=== PATIENT | female | born 1975 | race Caucasian/White ===

== ENCOUNTER 2016-09-05 01:49 | Emergency (ER) | payer OTHER ==
[~2016-09-05 01:49] MED LIST: ACET500C PO; HYDR10T PO; IBUP600T26 PO; NATU400T PO; VITA-112 PO; VITA10002 PO
[2016-09-05] MEDS ORDERED: predniSONE 20 MG TAB As Ordered ONE (02:40)
[2016-09-05] MEDS ORDERED: ALBUTEROL SULFATE 2.5 MG/0.5 ML INH NEB SOLN As Ordered ONE (02:43)
--- NOTE | 2016-09-05 03:46 | EDDOCDS ---
Physician Documentation [facility] Name: Eulalia Martinze Age: 41 yrs Sex: Female : 1975 Arrival Date: 09/05/2016 Time: 01:49 Bed I4 / M4 Private MD: Disposition: 09/05/16 03:39 Discharged to Home/Self Care. Impression: Acute bronchitis. - Condition is Stable. - Prescriptions for Prednisone 20 mg Oral Tablet - take 2 tablet by ORAL route once daily for 5 days; 10 tablet. - Medication Reconciliation, Local Pharmacy Hours form. - Follow up: Private Physician; When: Call to arrange an appointment; Reason: Recheck today's complaints. - Problem is an ongoing problem. - Symptoms have improved. Historical: - Allergies: Aspirin (Hives, Vomit); GABAPENTIN (Hives, Vomit); Latex (Anaphylaxis); NSAIDS (Hives, Swelling); PENICILLINS (Hives, Anaphylaxis); SULFA (SULFONAMIDES) (Hives, Vomit); TETRACYCLINES (Hives, Vomit); - Home Meds: 1. Compazine 5 mg Oral tab 1 tab 4 times per day (Last dose: 09/05/2016 00:01) 2. Potassium Chloride Unknown Oral once daily 3. DILT-XR 180 mg oral CDER 1 cap once daily (Last dose: 09/04/2016 08:00) - PMHx: Migraine Headaches; ovarian cancer; Seizures; - PSHx: Hysterectomy; Cholecystectomy; Appendectomy; Gastric Bypass; Tonsillectomy; Tubes in ears; Adenoidectomy; - Social history: Smoking status: Patient states was never smoker of tobacco. No barriers to communication noted, The patient speaks fluent Kuwaiti, Speaks appropriately for age, Preferred Language: Kuwaiti. - Family history: Not pertinent. - : The pt / caregiver states he / she is not on anticoagulants. Home medication list is obtained from the patient. - Exposure Risk Screening:: None identified. 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 6 in. (167.64 cm); Pain 7/10; 02:30 Pulse 111; Resp 18; Pulse Ox 97% on R/A; lf1 03:42 BP 133 / 79; Pulse 102; Resp 20; Temp 98.1(O); Pulse Ox 100% on R/A; js15 02:01 Body Mass Index 40.35 (113.40 kg, 167.64 cm) lf1 MDM: 02:13 Strep Screen, Nursing ordered. ck7 02:13 Obtain sample by nasopharyngeal swab ordered. ck7 02:15 -Influenza A&B Rapid Antigen - Nose Ordered. EDMS 02:15 Chest, 2 View (pa\E\lat) Ordered. EDMS 02:20 GATS (NEGATIVE STREP SCREEN) Ordered. EDMS 02:27 Financial registration complete. hs2 02:32 [facility] Payment Agreement was scanned into [employer] and attached to record. hs2 02:32 Albuterol 2.5 mg Nebulizer once ordered. ck7 02:32 Call Respiratory ordered. ck7 02:33 Call Respiratory complete. cz 02:36 predniSONE 40 mg PO once; administer with food or milk ordered. ck7 02:43 -Influenza A&B Rapid Antigen - Nose Reviewed. ck7 02:59 Transition of care: After a detail discussion of the patient's case, care is ck7 transferred to ED Physician, Dr. OROZCO. Administered Medications: 02:44 Drug: predniSONE 40 mg [prednisone 20 mg tablet (2 tabs)] Route: PO; js15 02:46 Drug: Albuterol 2.5 mg [albuterol sulfate 2.5 mg/0.5 mL solution for nebulization (0.5 nk1 mL)] Route: Nebulizer; 02:55 Follow up: Response: Nebulizer completed nk1 Signatures: Dispatcher [employer] EDMS Axel Solomon RN RN cz Dotty JenkinsRN RN lf1 Luciana Bynum,RN RN ld5 Augustine Murphy, RPA-C RPA-Cck7 Gopal Orozco DO DO cs11 Teri Dubon,RN RN js15 Virginie Mason, Reg Reg hs2 Beverley Ramirez RT nk1 The chart was reviewed and I authenticate all verbal orders and agree with the evaluation and treatment provided.Attachments: 02:32 [facility] Payment Agreement hs2 MTDD
--- NOTE | 2016-09-05 03:46 | EDDOCDS ---
Nurse's Notes [facility] Name: Eulalia Martinez Age: 41 yrs Sex: Female : 1975 Arrival Date: 09/05/2016 Time: 01:49 Bed I4 / M4 Private MD: Diagnosis: Acute bronchitis Presentation: 09/05 01:55 Presenting complaint: Patient states: Painful productive Cough, headache, backache and lf1 nausea that began yesterday. Pain is currently 6/10. Adult Sepsis Screening: The patient does not have new or worsening altered mentation. Patient's respiratory rate is less than 22. Systolic blood pressure is greater than 100. Patient has a qSOFA score of 0- Negative Sepsis Screen. Suicide/Homicide risk assessment- the patient denies having any suicidal and/or homicidal ideations and does not present with any other emotional, behavioral or mental health complaints. 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 Transition of care: patient was not received from another setting of care. 01:55 Acuity: BARBIE Level 4 lf1 01:55 Method Of Arrival: Walkin/Carried/Asstd lf1 Triage Assessment: 02:01 General: Appears slender, Behavior is cooperative. Pain: Location: Generalized body lf1 aches, headache, back, chest Pain currently is 7 out of 10 on a pain scale. HIV screening NA for this visit Offered previously. Neurological: Level of Consciousness is awake, alert. EENT: No deficits noted. Respiratory: Respiratory effort is even, unlabored, Respiratory pattern is regular, Reports cough that is pain with cough. GI: Reports nausea. : Denies burning with urination, urinary frequency. Derm: Skin is normal. Injury Description: No known injury. 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 Compazine 5 mg Oral tab 1 tab 4 times per day (Last dose: 09/05/2016 00:01) 2. Potassium Chloride Unknown Oral once daily 3. DILT-XR 180 mg oral CDER 1 cap once daily (Last dose: 09/04/2016 08:00) - PMHx: Migraine Headaches; ovarian cancer; Seizures; - PSHx: Hysterectomy; Cholecystectomy; Appendectomy; Gastric Bypass; Tonsillectomy; Tubes in ears; Adenoidectomy; - Social history: Smoking status: Patient states was never smoker of tobacco. No barriers to communication noted, The patient speaks fluent Tuvaluan, Speaks appropriately for age, Preferred Language: Tuvaluan. - Family history: Not pertinent. - : The pt / caregiver states he / she is not on anticoagulants. Home medication list is obtained from the patient. - Exposure Risk Screening:: None identified. Screenin:04 Screening information is obtained from the patient. Fall risk: No risks identified. lf1 Assistance ADL's: requires no assistance with activities of daily living. Abuse/DV Screen: The patient / caregiver reports he/she is: not in a situation that causes fear, pain or injury. Nutritional screening: No deficits noted. Advance Directives: Currently, there is a health care proxy, Dillon Pozo . home support is adequate. Assessment: 02:19 General: Appears uncomfortable, Behavior is cooperative. Pain: Location: body. ld5 Neurological: Level of Consciousness is awake, alert. Respiratory: Airway is patent Respiratory effort is even, unlabored, Reports cough that is productive. GI: Abdomen is obese, Reports dry heaving from coughing. 03:15 General: Appears in no apparent distress, uncomfortable, Behavior is appropriate for js15 age, cooperative. Pain: Location: generalized body aches. Neurological: Level of Consciousness is awake, alert, obeys commands, Oriented to person, place, time. Respiratory: Airway is patent Respiratory effort is even, unlabored, Respiratory pattern is regular, symmetrical, Breath sounds are clear bilaterally. Derm: Skin is pink, warm & dry. Vital Signs: 02:01 BP 167 / 82; Pulse 116; Resp 16; Temp 99.3(TE); Pulse Ox 97% on R/A; Weight 113.4 kg; lf1 Height 5 ft. 6 in. (167.64 cm); Pain 7/10; 02:30 Pulse 111; Resp 18; Pulse Ox 97% on R/A; lf1 03:42 BP 133 / 79; Pulse 102; Resp 20; Temp 98.1(O); Pulse Ox 100% on R/A; js15 02:01 Body Mass Index 40.35 (113.40 kg, 167.64 cm) lf1 Vitals: 02:01 Log In Time: September 05, 2016 at 01:52. lf1 02:19 Strep Screen is obtained and tested: Negative, a GATSNEG culture is ordered in [facility] ld5 and sent. ED Course: 01:51 Patient visited by Virginie Mason Reg. hs2 01:51 Patient moved to Waiting hs2 01:57 Triage Initiated lf1 02:05 Augustine Murphy RPA-C is PHCP. ck7 02:05 Gopal Santos DO is Attending Physician. ck7 02:05 Patient visited by Augustine Murphy RPA-C. ck7 02:05 Patient moved to I4 / M4 lf1 02:18 -Influenza A&B Rapid Antigen - Nose Sent. ld5 02:20 Patient visited by Luciana Bynum RN. ld5 02:22 Patient moved to Radiology tmb 02:30 Patient moved to I4 / M4 ld5 02:32 [facility] Payment Agreement was scanned into [employer] and attached to record. hs2 02:55 Patient visited by Augustine Murphy RPA-C. ck7 03:31 The patient / caregiver is instructed regarding the plan of care and ED course. js15 03:42 No IV's were initiated during this patient's visit. No procedures done that require js15 assistance. Administered Medications: 02:44 Drug: predniSONE 40 mg [prednisone 20 mg tablet (2 tabs)] Route: PO; js15 02:46 Drug: Albuterol 2.5 mg [albuterol sulfate 2.5 mg/0.5 mL solution for nebulization (0.5 nk1 mL)] Route: Nebulizer; 02:55 Follow up: Response: Nebulizer completed nk1 RT: 02:53 Initial Med Neb Given as ordered Patient was instructed and evaluated on procedure nk1 Patient tolerated procedure well without adverse effect. Respiratory: Airway is patent Respiratory effort is even, unlabored, Respiratory pattern is regular symmetrical, Breath sounds are clear Breath sounds are diminished bilaterally. Reports cough that is productive of white sputum. Patient Education: instructed on use and benefit of nebulizer and medication. 03:30 Respiratory: Breath sounds are clear Breath sounds are diminished bilaterally. patient nk1 states " maybe a little improvement" after neb treatment. Order Results: Lab Order: -Influenza A&B Rapid Antigen - Nose; SPEC'M 09/05/16 02:16 Test: INFLUENZA A RAPID SCR by ICA; Value: INFLUENZA A RESULTS NEGATIVE; Status: F Test: INFLUENZA A RAPID SCR by ICA; Value: Comments:; Status: F Test: INFLUENZA B RAPID SCR by ICA; Value: INFLUENZA B RESULTS NEGATIVE; Status: F Test Note: ; The Influenza test is a direct rapid immunoassay for the qualitative detection of Influenza viral antigen. Cell culture (Viral Culture) testing should be considered to confirm NEGATIVE results and to assist in detecting other viruses that can provide similar clinical symptoms. Please contact the lab within 24 hours ([phone]) if confirmatory testing is desired. Outcome: 03:39 Discharge ordered by Provider. cs11 03:45 Discharge Assessment: Patient awake, alert and oriented x 3. No cognitive and/or js15 functional deficits noted. Patient verbalized understanding of disposition instructions. patient administered narcotics - no. The following High Risk Discharge criteria are identified: None. Discharged to home ambulatory. Condition: stable. Discharge instructions given to patient, Instructed on discharge instructions, follow up and referral plans. medication usage, Demonstrated understanding of instructions, medications, Pt was receptive of discharge instructions/ teaching. Prescriptions given X 1. No special radiology studies were completed. Property sent home with patient. 03:46 Patient left the ED. js15 Signatures: Beverley Ramirez,RT RT nk1 Dotty JenkinsRN RN lf1 Luciana Bynum,RN RN ld5 Augustine Murphy, SIMRAN-C RPA-Cck7 Gopal Santos, DO cs11 Ken Kign Julia, RN RN js15 Virginie Mason, Reg Reg hs2 Corrections: (The following items were deleted from the chart) 02:03 01:55 Presenting complaint: Patient states: Painful productive Cough, headache, lf1 backache that began yesterday. Pain is currently 12/16 lf1 MTDD
--- NOTE | 2016-09-05 10:12 | REP ---
TWO-VIEW CHEST: COMPARISON: 06/26/2016 There is no evidence of acute infiltrate. No pleural effusion is seen. The heart is normal in size. The mediastinal silhouette is unremarkable. The visualized osseous structures are intact. IMPRESSION: No acute pulmonary disease. Signed by Sotero Nice MD 09/05/2016 04:52 P
[2016-09-06] MEDS ORDERED: POTASSIUM CL (17:21)
[2016-09-06] MEDS ORDERED: DILT180C28 PO (17:21)
[2016-09-06] MEDS ORDERED: PRED20TA PO ×2 (17:21→22:15)
[2016-09-06] MEDS ORDERED: compazine (17:21)
[2016-09-06] MEDS ORDERED: ZOFR4TAB3 PO (17:21)
[2016-09-06] MEDS ORDERED: PROC5TA PO (22:15)
[2016-09-06] MEDS ORDERED: ACET50TAOT PO (22:15)
[2016-09-06] MEDS ORDERED: NYST100024 TOP (22:15)
[2016-09-06] MEDS ORDERED: POTA10CA PO (22:15)
--- NOTE | 2016-09-07 04:47 | EDDOCDS ---
Nurse's Notes [facility] Name: Eulalia Martinez Age: 41 yrs Sex: Female : 1975 Arrival Date: 09/05/2016 Time: 01:49 Bed I4 / M4 Private MD: Diagnosis: Acute bronchitis Presentation: 09/05 01:55 Presenting complaint: Patient states: Painful productive Cough, headache, backache and lf1 nausea that began yesterday. Pain is currently 6/10. Adult Sepsis Screening: The patient does not have new or worsening altered mentation. Patient's respiratory rate is less than 22. Systolic blood pressure is greater than 100. Patient has a qSOFA score of 0- Negative Sepsis Screen. Suicide/Homicide risk assessment- the patient denies having any suicidal and/or homicidal ideations and does not present with any other emotional, behavioral or mental health complaints. 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 Transition of care: patient was not received from another setting of care. 01:55 Acuity: BARBIE Level 4 lf1 01:55 Method Of Arrival: Walkin/Carried/Asstd lf1 Triage Assessment: 02:01 General: Appears slender, Behavior is cooperative. Pain: Location: Generalized body lf1 aches, headache, back, chest Pain currently is 7 out of 10 on a pain scale. HIV screening NA for this visit Offered previously. Neurological: Level of Consciousness is awake, alert. EENT: No deficits noted. Respiratory: Respiratory effort is even, unlabored, Respiratory pattern is regular, Reports cough that is pain with cough. GI: Reports nausea. : Denies burning with urination, urinary frequency. Derm: Skin is normal. Injury Description: No known injury. 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 Compazine 5 mg Oral tab 1 tab 4 times per day (Last dose: 09/05/2016 00:01) 2. Potassium Chloride Unknown Oral once daily 3. DILT-XR 180 mg oral CDER 1 cap once daily (Last dose: 09/04/2016 08:00) - PMHx: Migraine Headaches; ovarian cancer; Seizures; - PSHx: Hysterectomy; Cholecystectomy; Appendectomy; Gastric Bypass; Tonsillectomy; Tubes in ears; Adenoidectomy; - Social history: Smoking status: Patient states was never smoker of tobacco. No barriers to communication noted, The patient speaks fluent Lithuanian, Speaks appropriately for age, Preferred Language: Lithuanian. - Family history: Not pertinent. - : The pt / caregiver states he / she is not on anticoagulants. Home medication list is obtained from the patient. - Exposure Risk Screening:: None identified. Screenin:04 Screening information is obtained from the patient. Fall risk: No risks identified. lf1 Assistance ADL's: requires no assistance with activities of daily living. Abuse/DV Screen: The patient / caregiver reports he/she is: not in a situation that causes fear, pain or injury. Nutritional screening: No deficits noted. Advance Directives: Currently, there is a health care proxy, Dillon Pozo . home support is adequate. Assessment: 02:19 General: Appears uncomfortable, Behavior is cooperative. Pain: Location: body. ld5 Neurological: Level of Consciousness is awake, alert. Respiratory: Airway is patent Respiratory effort is even, unlabored, Reports cough that is productive. GI: Abdomen is obese, Reports dry heaving from coughing. 03:15 General: Appears in no apparent distress, uncomfortable, Behavior is appropriate for js15 age, cooperative. Pain: Location: generalized body aches. Neurological: Level of Consciousness is awake, alert, obeys commands, Oriented to person, place, time. Respiratory: Airway is patent Respiratory effort is even, unlabored, Respiratory pattern is regular, symmetrical, Breath sounds are clear bilaterally. Derm: Skin is pink, warm & dry. Vital Signs: 02:01 BP 167 / 82; Pulse 116; Resp 16; Temp 99.3(TE); Pulse Ox 97% on R/A; Weight 113.4 kg; lf1 Height 5 ft. 6 in. (167.64 cm); Pain 7/10; 02:30 Pulse 111; Resp 18; Pulse Ox 97% on R/A; lf1 03:42 BP 133 / 79; Pulse 102; Resp 20; Temp 98.1(O); Pulse Ox 100% on R/A; js15 02:01 Body Mass Index 40.35 (113.40 kg, 167.64 cm) lf1 Vitals: 02:01 Log In Time: September 05, 2016 at 01:52. lf1 02:19 Strep Screen is obtained and tested: Negative, a GATSNEG [facility] and sent. ED Course: 01:51 Patient visited by Virginie Mason Reg. hs2 01:51 Patient moved to Waiting hs2 01:57 Triage Initiated lf1 02:05 Augustine Murphy RPA-C is PHCP. ck7 02:05 Gopal Santos DO is Attending Physician. ck7 02:05 Patient visited by Augustine Murphy RPA-C. ck7 02:05 Patient moved to I4 / M4 lf1 02:18 -Influenza A&B Rapid Antigen - Nose Sent. ld5 02:20 Patient visited by Luciana Bynum RN. ld5 02:22 Patient moved to Radiology tmb 02:30 Patient moved to I4 / M4 ld5 02:32 [facility] Payment Agreement was scanned into [employer] and attached to record. hs2 02:55 Patient visited by Augustine Murphy RPA-C. ck7 03:31 The patient / caregiver is instructed regarding the plan of care and ED course. js15 03:42 No IV's were initiated during this patient's visit. No procedures done that require js15 assistance. 10:42 Chest, 2 View (pa\\E\\lat) Returned. EDMS Administered Medications: 02:44 Drug: predniSONE 40 mg [prednisone 20 mg tablet (2 tabs)] Route: PO; js15 02:46 Drug: Albuterol 2.5 mg [albuterol sulfate 2.5 mg/0.5 mL solution for nebulization (0.5 nk1 mL)] Route: Nebulizer; 02:55 Follow up: Response: Nebulizer completed nk1 RT: 02:53 Initial Med Neb Given as ordered Patient was instructed and evaluated on procedure nk1 Patient tolerated procedure well without adverse effect. Respiratory: Airway is patent Respiratory effort is even, unlabored, Respiratory pattern is regular symmetrical, Breath sounds are clear Breath sounds are diminished bilaterally. Reports cough that is productive of white sputum. Patient Education: instructed on use and benefit of nebulizer and medication. 03:30 Respiratory: Breath sounds are clear Breath sounds are diminished bilaterally. patient nk1 states " maybe a little improvement" after neb treatment. Order Results: Lab Order: -Influenza A&B Rapid Antigen - Nose; SPEC'M 09/05/16 02:16 Test: INFLUENZA A RAPID SCR by ICA; Value: INFLUENZA A RESULTS NEGATIVE; Status: F Test: INFLUENZA A RAPID SCR by ICA; Value: Comments:; Status: F Test: INFLUENZA B RAPID SCR by ICA; Value: INFLUENZA B RESULTS NEGATIVE; Status: F Test Note: ; The Influenza test is a direct rapid immunoassay for the qualitative detection of Influenza viral antigen. Cell culture (Viral Culture) testing should be considered to confirm NEGATIVE results and to assist in detecting other viruses that can provide similar clinical symptoms. Please contact the lab within 24 hours ([phone]) if confirmatory testing is desired. Lab Order: GATS (NEGATIVE STREP SCREEN); SPEC'M 09/05/16 02:16 Test: GATS CULTURE (NEG STREP SCR); Value: GATS RESULT NEGATIVE FOR STREP PYOGENES (GROUP A); Status: F Test: GATS CULTURE (NEG STREP SCR); Value: <EXTERNAL COMMENT eCWMed> FULL REPORT IN LAB NOTES (eCW and Medent).; Status: F Radiology Order: Chest, 2 View (pa\\E\\lat) Test: Chest, 2 View (pa\\E\\lat) REASON FOR EXAMINATION: Cough; TWO-VIEW CHEST:; ; COMPARISON: 06/26/2016; ; There is no evidence of acute infiltrate.; ; No pleural effusion is seen.; ; The heart is normal in size.; ; The mediastinal silhouette is unremarkable.; ; The visualized osseous structures are intact.; ; IMPRESSION:; ; No acute pulmonary disease.; ; ; Signed by; Sotero Nice MD 09/05/2016 04:52 P; Outcome: 03:39 Discharge ordered by Provider. cs11 03:45 Discharge Assessment: Patient awake, alert and oriented x 3. No cognitive and/or js15 functional deficits noted. Patient verbalized understanding of disposition instructions. patient administered narcotics - no. The following High Risk Discharge criteria are identified: None. Discharged to home ambulatory. Condition: stable. Discharge instructions given to patient, Instructed on discharge instructions, follow up and referral plans. medication usage, Demonstrated understanding of instructions, medications, Pt was receptive of discharge instructions/ teaching. Prescriptions given X 1. No special radiology studies were completed. Property sent home with patient. 03:46 Patient left the ED. js15 Signatures: Dispatcher [employer] EDMS Beverley Ramirez,RT RT nk1 Dotty Jenkins,RN RN lf1 Luciana Bynum,RN RN ld5 Augustine Murphy, RPA-C RPA-Cck7 Gopal Santos, DO cs11 Ken King Julia,RN RN js15 Virginie Mason, Reg Reg hs2 Corrections: (The following items were deleted from the chart) 02:03 01:55 Presenting complaint: Patient states: Painful productive Cough, headache, lf1 backache that began yesterday. Pain is currently 6/10 lf1 Chart Complete MTDD
--- NOTE | 2016-09-07 04:47 | EDDOCDS ---
Physician Documentation [facility] Name: Eulalia Martinez Age: 41 yrs Sex: Female : 1975 Arrival Date: 09/05/2016 Time: 01:49 Bed I4 / M4 Private MD: Disposition: 09/05/16 03:39 Discharged to Home/Self Care. Impression: Acute bronchitis. - Condition is Stable. - Prescriptions for Prednisone 20 mg Oral Tablet - take 2 tablet by ORAL route once daily for 5 days; 10 tablet. - Medication Reconciliation, Local Pharmacy Hours form. - Follow up: Private Physician; When: Call to arrange an appointment; Reason: Recheck today's complaints. - Problem is an ongoing problem. - Symptoms have improved. Historical: - Allergies: Aspirin (Hives, Vomit); GABAPENTIN (Hives, Vomit); Latex (Anaphylaxis); NSAIDS (Hives, Swelling); PENICILLINS (Hives, Anaphylaxis); SULFA (SULFONAMIDES) (Hives, Vomit); TETRACYCLINES (Hives, Vomit); - Home Meds: 1. Compazine 5 mg Oral tab 1 tab 4 times per day (Last dose: 09/05/2016 00:01) 2. Potassium Chloride Unknown Oral once daily 3. DILT-XR 180 mg oral CDER 1 cap once daily (Last dose: 09/04/2016 08:00) - PMHx: Migraine Headaches; ovarian cancer; Seizures; - PSHx: Hysterectomy; Cholecystectomy; Appendectomy; Gastric Bypass; Tonsillectomy; Tubes in ears; Adenoidectomy; - Social history: Smoking status: Patient states was never smoker of tobacco. No barriers to communication noted, The patient speaks fluent Somali, Speaks appropriately for age, Preferred Language: Somali. - Family history: Not pertinent. - : The pt / caregiver states he / she is not on anticoagulants. Home medication list is obtained from the patient. - Exposure Risk Screening:: None identified. 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 6 in. (167.64 cm); Pain 7/10; 02:30 Pulse 111; Resp 18; Pulse Ox 97% on R/A; lf1 03:42 BP 133 / 79; Pulse 102; Resp 20; Temp 98.1(O); Pulse Ox 100% on R/A; js15 02:01 Body Mass Index 40.35 (113.40 kg, 167.64 cm) lf1 MDM: 02:13 Strep Screen, Nursing ordered. ck7 02:13 Obtain sample by nasopharyngeal swab ordered. ck7 02:15 -Influenza A&B Rapid Antigen - Nose Ordered. EDMS 02:15 Chest, 2 View (pa\E\lat) Ordered. EDMS 02:20 GATS (NEGATIVE STREP SCREEN) Ordered. EDMS 02:27 Financial registration complete. hs2 02:32 [facility] Payment Agreement was scanned into [employer] and attached to record. hs2 02:32 Albuterol 2.5 mg Nebulizer once ordered. ck7 02:32 Call Respiratory ordered. ck7 02:33 Call Respiratory complete. cz 02:36 predniSONE 40 mg PO once; administer with food or milk ordered. ck7 02:43 -Influenza A&B Rapid Antigen - Nose Reviewed. ck7 02:59 Transition of care: After a detail discussion of the patient's case, care is ck7 transferred to ED Physician, Dr. OROZCO. 09/06 20:49 GATS (NEGATIVE STREP SCREEN) Reviewed. ck7 20:49 Chest, 2 View (pa\E\lat) Reviewed. ck7 Administered Medications: 09/05 02:44 Drug: predniSONE 40 mg [prednisone 20 mg tablet (2 tabs)] Route: PO; js15 02:46 Drug: Albuterol 2.5 mg [albuterol sulfate 2.5 mg/0.5 mL solution for nebulization (0.5 nk1 mL)] Route: Nebulizer; 02:55 Follow up: Response: Nebulizer completed nk1 Signatures: Dispatcher [employer] EDMS Axel Solomon RN RN Dotty PerezRN RN lf1 Luciana Bynum,RN RN ld5 Augustine Murphy, RPA-C RPA-Cck7 Gopal Orozco, DO cs11 Teri DubonRN RN js15 Virginie Mason, Reg Reg hs2 Ashley, Beverley RT nk1 The chart was reviewed and I authenticate all verbal orders and agree with the evaluation and treatment provided.Attachments: 02:32 [facility] [place] hs2 Chart Complete MTDD
--- NOTE | 2016-09-07 04:47 | EDDOCDS ---
Physician Documentation [facility] Name: Eulalia Martinez Age: 41 yrs Sex: Female : 1975 Arrival Date: 09/05/2016 Time: 01:49 Bed I4 / M4 Private MD: Disposition: 09/05/16 03:39 Discharged to Home/Self Care. Impression: Acute bronchitis. - Condition is Stable. - Prescriptions for Prednisone 20 mg Oral Tablet - take 2 tablet by ORAL route once daily for 5 days; 10 tablet. - Medication Reconciliation, Local Pharmacy Hours form. - Follow up: Private Physician; When: Call to arrange an appointment; Reason: Recheck today's complaints. - Problem is an ongoing problem. - Symptoms have improved. Historical: - Allergies: Aspirin (Hives, Vomit); GABAPENTIN (Hives, Vomit); Latex (Anaphylaxis); NSAIDS (Hives, Swelling); PENICILLINS (Hives, Anaphylaxis); SULFA (SULFONAMIDES) (Hives, Vomit); TETRACYCLINES (Hives, Vomit); - Home Meds: 1. Compazine 5 mg Oral tab 1 tab 4 times per day (Last dose: 09/05/2016 00:01) 2. Potassium Chloride Unknown Oral once daily 3. DILT-XR 180 mg oral CDER 1 cap once daily (Last dose: 09/04/2016 08:00) - PMHx: Migraine Headaches; ovarian cancer; Seizures; - PSHx: Hysterectomy; Cholecystectomy; Appendectomy; Gastric Bypass; Tonsillectomy; Tubes in ears; Adenoidectomy; - Social history: Smoking status: Patient states was never smoker of tobacco. No barriers to communication noted, The patient speaks fluent Argentine, Speaks appropriately for age, Preferred Language: Argentine. - Family history: Not pertinent. - : The pt / caregiver states he / she is not on anticoagulants. Home medication list is obtained from the patient. - Exposure Risk Screening:: None identified. 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 6 in. (167.64 cm); Pain 7/10; 02:30 Pulse 111; Resp 18; Pulse Ox 97% on R/A; lf1 03:42 BP 133 / 79; Pulse 102; Resp 20; Temp 98.1(O); Pulse Ox 100% on R/A; js15 02:01 Body Mass Index 40.35 (113.40 kg, 167.64 cm) lf1 MDM: 02:13 Strep Screen, Nursing ordered. ck7 02:13 Obtain sample by nasopharyngeal swab ordered. ck7 02:15 -Influenza A&B Rapid Antigen - Nose Ordered. EDMS 02:15 Chest, 2 View (pa\E\lat) Ordered. EDMS 02:20 GATS (NEGATIVE STREP SCREEN) Ordered. EDMS 02:27 Financial registration complete. hs2 02:32 [facility] Payment Agreement was scanned into [employer] and attached to record. hs2 02:32 Albuterol 2.5 mg Nebulizer once ordered. ck7 02:32 Call Respiratory ordered. ck7 02:33 Call Respiratory complete. cz 02:36 predniSONE 40 mg PO once; administer with food or milk ordered. ck7 02:43 -Influenza A&B Rapid Antigen - Nose Reviewed. ck7 02:59 Transition of care: After a detail discussion of the patient's case, care is ck7 transferred to ED Physician, Dr. OROZCO. 09/06 20:49 GATS (NEGATIVE STREP SCREEN) Reviewed. ck7 20:49 Chest, 2 View (pa\E\lat) Reviewed. ck7 Administered Medications: 09/05 02:44 Drug: predniSONE 40 mg [prednisone 20 mg tablet (2 tabs)] Route: PO; js15 02:46 Drug: Albuterol 2.5 mg [albuterol sulfate 2.5 mg/0.5 mL solution for nebulization (0.5 nk1 mL)] Route: Nebulizer; 02:55 Follow up: Response: Nebulizer completed nk1 Signatures: Dispatcher [employer] EDMS Axel Solomon RN RN Dotty PerezRN RN lf1 Luciana Bynum,RN RN ld5 Augustine Murphy, RPA-C RPA-Cck7 Gopal Orozco, DO cs11 Teri DubonRN RN js15 Virginie Mason, Reg Reg hs2 Ashley, Beverley RT nk1 The chart was reviewed and I authenticate all verbal orders and agree with the evaluation and treatment provided.Attachments: 02:32 [facility] [place] Payment Agreement hs2 Chart Complete MTDD
== END 2016-09-05 03:46 | disposition home or self-care (01) ==
LOC: M ED 01:49
DX: J20.9 Acute bronchitis, unspecified (principal); G43.909 Migraine, unspecified, not intractable, without status migrainosus; R56.9 Unspecified convulsions; Z85.43 Personal history of malignant neoplasm of ovary; Z88.6 Allergy status to analgesic agent; Z88.8 Allergy status to other drugs, medicaments and biological substances; Z91.040 Latex allergy status; Z88.0 Allergy status to penicillin; Z88.2 Allergy status to sulfonamides; Z88.1 Allergy status to other antibiotic agents; Z98.84 Bariatric surgery status

== ENCOUNTER 2016-09-06 17:09 | Inpatient (IN) | payer BC, OTHER, SELFPAY ==
[~2016-09-06] VITALS: Ht 167.6 cm; Wt 114.2 kg
[~2016-09-06 17:09] MED LIST changes: -ACET50TAOT PO; -CHERSYP3 PO; -DILT180C28 PO; -DOXY100C37 PO; -HYDR-3713; -LEVA750T PO; -LISI-542 PO; -MUCI600T34 PO; -NYST100024 TOP; -OSEL75CA2 PO; -POTA10CA PO; -POTASSIUM CL; -PRED20TA PO; -PROC5TA PO; -ZOFR4TAB3 PO; -compazine
[2016-09-06] MEDS ORDERED: DILT180C28 PO (17:21)
[2016-09-06] MEDS ORDERED: compazine (17:21)
[2016-09-06] MEDS ORDERED: PRED20TA PO ×2 (17:21→22:15)
[2016-09-06] MEDS ORDERED: ZOFR4TAB3 PO (17:21)
[2016-09-06] MEDS ORDERED: POTASSIUM CL (17:21)
[2016-09-06] MEDS ORDERED: NS 1,000 ML IV ONE (18:30)
[2016-09-06] MEDS ORDERED: ONDANSETRON 4MG/2ML VIAL (J2405) IV ONE (18:30)
[2016-09-06 19:12] LABS: BASO % 0.5 % (0.0-1.0); LARGE UNSTAINED CELL # 0.1 K/mm3 (0.0-0.4); LARGE UNSTAINED CELL % 1.9 % (0.0-4.0); LYMPH # 0.7 K/mm3 (1.5-4.5); LYMPH % 19.7 % (24.0-44.0); MEAN CORPUSCULAR HEMOGLOBIN 30.7 pg (27.0-33.0); MEAN CORPUSCULAR HGB CONC 34.5 g/dl (32.0-36.5); MONO # 0.4 K/mm3 (0.0-0.8); MONO % 10.2 % (0.0-5.0); NEUTROPHILS # 2.3 K/mm3 (1.8-7.7); NEUTROPHILS % 66.8 % (36.0-66.0); PLATELET COUNT, AUTOMATED 259 k/mm3 (150-450); RED CELL DISTRIBUTION WIDTH 13.5 % (11.5-14.5); WHITE BLOOD COUNT 3.4 K/mm3 (4.0-10.0)
[2016-09-06 19:48] LABS: ALBUMIN 3.7 GM/DL (3.2-5.2); ALKALINE PHOSPHATASE 93 U/L (45-117); ALT/SGPT 25 U/L (12-78); ANION GAP 7 MEQ/L (8-16); AST/SGOT 20 U/L (15-37); BILIRUBIN,DIRECT < 0.1 MG/DL (0.0-0.2); BILIRUBIN,TOTAL 0.3 MG/DL (0.2-1.0); BLOOD UREA NITROGEN 7 MG/DL (7-18); CALCIUM LEVEL 8.5 MG/DL (8.5-10.1); CARBON DIOXIDE LEVEL 29 MEQ/L (21-32); CHLORIDE LEVEL 105 MEQ/L (98-107); CREATININE FOR GFR 0.84 MG/DL (0.55-1.02); GLOMERULAR FILTRATION RATE > 60.0 (>58); GLUCOSE, FASTING 89 MG/DL (70-105); POTASSIUM SERUM 3.7 MEQ/L (3.5-5.1); SODIUM LEVEL 141 MEQ/L (136-145); TOTAL PROTEIN 7.8 GM/DL (6.4-8.2)
--- NOTE | 2016-09-06 19:52 | ECGEPIP ---
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
[2016-09-06] MEDS ORDERED: OSELTAMIVIR PHOSPHATE 75 MG CAP (TAMIFLU) PO ONE (21:00)
[2016-09-06] MEDS ORDERED: LevoFLOXacin IV 750 MG in APPROPRIATE DILUENT 1 EA IV ONE (21:00)
[2016-09-06] MEDS ORDERED: ACET50TAOT PO (22:15)
[2016-09-06] MEDS ORDERED: NYST100024 TOP (22:15)
[2016-09-06] MEDS ORDERED: POTA10CA PO (22:15)
[2016-09-06] MEDS ORDERED: PROC5TA PO (22:15)
[2016-09-06] MEDS ORDERED: guaiFENesin/CODEINE SYRUP 5 ML UDC PO ONE (22:45)
[2016-09-07] MEDS ORDERED: PROCHLORPERAZINE 5 MG TAB (S0183) PO PRN
[2016-09-07] MEDS ORDERED: ONDANSETRON 4 MG TAB (S0181) PO PRN
[2016-09-07 00:40] VITALS: BP 136/78
[2016-09-07] MEDS: ACETAMINOPHEN TAB 650MG DOSE (2X325MG) PO PRN ×4 (02:44→20:22)
--- NOTE | 2016-09-07 03:37 | HPEPDOC ---
General Date of Admission Sep 06, 2016 at 23:13 Primary Care Physician: ALESSANDRA CUNNINGHAM DO Attending Physician: SAMI BALDWIN DO Chief Complaint The patient is a 41-year-old female admitted with a reason for visit of Influenza A. Source: Patient History of Present Illness Patient was in a usual state of good health until Sunday when she started having a cough. The cough worsened into Sunday. The cough is productive of clear sputum. The patient complains of fevers and chills which have also started around that time. She felt increasingly tired on Sunday and also had body aches throughout. Also reports a headache. Patient complained of nausea today with 5-6 episodes of vomiting. Contents of vomit were food and phlegm. Denies seeing bile, or blood. She has had harder stools recently and denies diarrhea. Her last meal was 2 PM today, but was unable to keep down. She has been keeping hydrated and tolerating liquids. She also has nasal congestion. She has some chest discomfort and shortness of breath when she is coughing, otherwise denies sustained shortness of breath or chest pain. She has some complaints of dizziness in the last several days where she describes episodes where the room was spinning around her. The patient also reports having 2 episodes of passing out since yesterday. In the first episode, she fell forward while sitting on her couch. Episode lasted for a few seconds. No loss of bowel or urine. No changes in memory afterwards. She denies any head trauma with the episode. Patient had another episode of passing out where she recalls coughing and waking up with her roommate supporting her with a wet cloth on her forehead on the living room floor. This was unwitnessed, does not recall how long she was out. Denies any trauma from the second episode. Patient was treated in the emergency department yesterday. Was diagnosed with bronchitis, and was started on oral prednisone. Patient saw her primary care physician today, and was told to return to the emergency department. In the emergency department today, patient was diagnosed with influenza a on rapid flu screen. She had a temperature of 100.2 at the time of presentation. A chest x-ray was also taken in the emergency department which showed some minor patchy airspace density in the right medial base, minor subsegmental atelectasis or early patchy infiltrate, no dense consolidation, no pleural effusion. There was some peribronchial thickening which was suggestive of reactive airway disease or bronchitis. Home Medications Scheduled Diltiazem HCl (Dilt-Xr) 180 Mg Cap 180 MG PO DAILY (Reported) Potassium Chloride (Klor-Con M10) 10 Meq Tabcr 10 MEQ PO DAILY (Reported) Prednisone (Prednisone) 20 Mg Tab 20 MG PO DAILY (Reported) Scheduled PRN Acetaminophen (Acetaminophen) 500 Mg Tab 1,000 MG PO Q6H PRN PRN PAIN / FEVER ( Reported) Nystatin (Nystatin Powder) 100,000 Unit/Gm Pow 1 DOSE TOP BID PRN PRN RASH/ INFECTION (Reported) APPLIES TO SKINFOLDS ON ABDOMEN Ondansetron (Zofran Odt) 4 Mg Tab 4 MG PO Q4H PRN PRN NAUSEA (Reported) Prochlorperazine (Prochlorperazine Maleate) 5 Mg Tab 5 MG PO Q6H PRN PRN NAUSEA (Reported) Allergies Coded Allergies: Latex (Verified Allergy, Severe, Anaphylaxis, 07/30/14) Mushroom (Verified Allergy, Severe, Anaphylaxis, 07/30/14) Penicillins (Verified Allergy, Severe, Anaphylaxis, 07/30/14) NSAIDs (Unverified Allergy, Intermediate, HIVES, SWELLING, 09/06/16) Gabapentin (Verified Allergy, Mild, Hives, 07/30/14) Sulfa Antibiotics (Verified Allergy, Mild, Hives, 07/30/14) Tetracycline (Verified Allergy, Mild, Hives, 07/30/14) Past Medical History Medical History Esophageal spasms Ovarian cancer status post hysterectomy with bilateral oophorectomy Surgical History Philipp-en-Y 2012 Appendectomy 1992 Cholecystectomy 2001 Hysterectomy with bilateral oophorectomy 2006 Tonsillectomy Family History Significant Family History: No pertinent family hx Social History * Smoker: non-smoker Alcohol: rarely Drugs: denies Recent Travel/Sick Contacts: Denies: Recent travel Lives with roommate they have 2 dogs. 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 Reports boyfriend having bronchitis one week ago, otherwise no other sick contacts. Review of Symptoms Constitutional: Reports: Chills, Fever, Malaise, Denies: Night Sweats ENT: Reports: Ear Pain (pressure in her ears), Sore Throat Skin: Denies: Breakdown, Lesions, Rash Pulmonary: Reports: Cough, Denies: Dyspnea Cardiovascular: Denies: Edema, Orthopnea, Palpitations Gastrointestinal: Reports: Nausea, Vomiting, Denies: Abdominal Pain, Constipation, Diarrhea, Hematochezia Genitourinary: Denies: Dysuria, Frequency, Hematuria, Incontinence, Retention Hematologic: Denies: Bleeding Excessively, Bruising Musculoskeletal: Reports: Other Symptoms (generalized body aches) Physical Examination General Exam: Positive: Alert, No Acute Distress Eye Exam: Positive: Conjunctiva & lids normal, EOMI, PERRLA, Negative: Sclera icteric ENT Exam: Positive: Mucous membr. moist/pink, Nares Patent, Tongue Midline, Negative: Pharyngeal Edema, Tympanic Membranes Normal (tympanic membranes appear retracted.) Neck Exam: Positive: Supple, Negative: JVD, Lymphadenopathy, thyromegaly Chest Exam: Positive: Clear to auscultation, Normal air movement Heart Exam: Positive: Normal S1, Normal S2, Rate Normal, Regular Rhythm, Negative: Murmurs, Rubs Abdomen Exam: Positive: Normal bowel sounds, Soft, Negative: Hepatospenomegaly, Tenderness Extremity Exam: Positive: Normal pulses, Negative: Clubbing, Cyanosis, Edema Skin Exam: Positive: Nl turgor and temperature, Negative: Breakdown, Lesion Vital Signs Vital Signs Label Value Date Time Patient Temperature 100.2 degrees F 09/06/161709 Temperature Source Oral 09/06/161709 Pulse 103 09/06/161709 Respiratory Rate 20 bpm 09/06/161709 Blood Pressure Assessment 148/89 (108) 09/06/161709 Location Right Arm Source Automatic Cuff (NIBP) Bedside Pulse Oximetry 98 % 09/06/161709 Item Value Date Time Oxygen Delivery Method Room Air 09/06/161709 Laboratory Data Labs 24H Laboratory Tests 2 09/06/16 18:57: Aspartate Amino Transf (AST/SGOT) 20, Alanine Aminotransferase (ALT/SGPT) 25, Alkaline Phosphatase 93, Total Bilirubin 0.3, Direct Bilirubin < 0.1, Albumin 3.7, Albumin/Globulin Ratio 0.90L, Anion Gap 7L, White Blood Count 3.4L, Red Blood Count 4.64, Hemoglobin 14.2, Hematocrit 41.3, Mean Corpuscular Volume 89.0 , Mean Corpuscular Hemoglobin 30.7, Mean Corpuscular Hemoglobin Concent 34.5, Red Cell Distribution Width 13.5, Platelet Count 259, Neutrophils (%) (Auto) 66.8H, Lymphocytes (%) (Auto) 19.7L, Monocytes (%) (Auto) 10.2H, Eosinophils (% ) (Auto) 1.0, Basophils (%) (Auto) 0.5, Neutrophils # (Auto) 2.3, Lymphocytes # (Auto) 0.7L, Monocytes # (Auto) 0.4, Eosinophils # (Auto) 0.0, Basophils # (Auto ) 0.0, Calcium Level 8.5, Creatine Kinase MB 1.0, Creatine Kinase MB Relative Index 1.12, D-Dimer, Quantitative < 270.0, Glomerular Filtration Rate > 60.0, Large Unclassified Cells # 0.1, Large Unclassified Cells % 1.9, Total Creatine Kinase 89, Total Protein 7.8, Troponin I < 0.02 09/06/16 20:12: Urine Amorphous Sediment , Urine Appearance CLEAR, Urine Color YELLOW, Urine pH 6.0, Urine Specific [place] 1.020, Urine Protein NEGATIVE, Urine Glucose (UA) NEGATIVE, Urine Ketones NEGATIVE, Urine Urobilinogen 2.0H, Urine Bilirubin NEGATIVE, Urine Leukocyte Esterase NEGATIVE, Urine Bacteria (Auto) NEGATIVE, Urine Blood NEGATIVE, Urine Calcium Carbonate Cryst(Auto) , Urine Calcium Oxalate Cryst (Auto) , Urine Calcium Phosphate Malorie (Auto) , Urine Cellular Casts , Urine Cystine Crystals , Urine Granular Casts (Auto) , Urine Hyaline Casts (Auto) 0, Urine Leucine Crystals , Urine Mucus (Auto) SMALL, Urine Nitrite NEGATIVE, Urine Oval Fat Bodies (Auto) , Urine RBC (Auto) 2, Urine Renal Epithelial Cells , Urine Sperm (Auto) , Urine Squamous Epithelial Cells 2 , Urine Transitional Epithelial Cells , Urine Trichomonas (Auto) , Urine Triple Phosphate Cryst (Auto) , Urine Tyrosine Crystals , Urine Uric Acid Crystals ( Auto) , Urine WBC (Auto) 2, Urine Waxy Casts (Auto) , Urine Yeast-Like Cells ( Auto) CBC/BMP Laboratory Tests 09/06/16 18:57 Red Blood Count 4.64, Mean Corpuscular Volume 89.0, Mean Corpuscular Hemoglobin 30.7, Mean Corpuscular Hemoglobin Concent 34.5, Red Cell Distribution Width 13.5 , Neutrophils (%) (Auto) 66.8 H, Lymphocytes (%) (Auto) 19.7 L, Monocytes (%) ( Auto) 10.2 H, Eosinophils (%) (Auto) 1.0, Basophils (%) (Auto) 0.5, Neutrophils # (Auto) 2.3, Lymphocytes # (Auto) 0.7 L, Monocytes # (Auto) 0.4, Eosinophils # (Auto) 0.0, Basophils # (Auto) 0.0 Microbiology Microbiology 09/06/16 Blood Culture, Received Pending 09/06/16 Influenza Virus Type A Antigen - Final, Complete 09/06/16 Influenza Virus Type B Antigen - Final, Complete RAD Interpretation STUDY: CXR Rad Actions: Report Reviewed RAD Interpretation: Other Result Comments: (minor patchy airspace density in the right medial base, minor subsegmental atelectasis or early patchy infiltrate, no dense consolidation, no pleural effusion. There was some peribronchial thickening which was suggestive of reactive airway disease or bronchitis.) Problems (1) Influenza A Status: Acute Problem Text: Patient being admitted for acute pneumonia. We will continue her on Tamiflu. Zofran and Compazine for nausea and vomiting. She does have a significant amount of cough, was given cough syrup. Will be given Tylenol for fevers. Blood cultures are pending. (2) Pneumonia Status: Acute Problem Text: Patient started on levofloxacin (3) Syncopal episodes Bad tableProblem Text: Appears to be vasovagal episodes from her cough. We will continue to monitor. (4) Esophageal spasm Status: Chronic Problem Text: Reports chronic history of esophageal spasms. We will continue on home medications, diltiazem. Plan / VTE VTE Prophylaxis Ordered?: Yes AC REDMOND DO Sep 07, 2016 03:36
[2016-09-07 04:00] VITALS: BP 141/89
[2016-09-07 07:18] LABS: BASO % 0.7 % (0.0-1.0); EOS % 1.8 % (0.0-3.0); LARGE UNSTAINED CELL # 0.1 K/mm3 (0.0-0.4); LARGE UNSTAINED CELL % 3.3 % (0.0-4.0); LYMPH # 1.2 K/mm3 (1.5-4.5); LYMPH % 47.2 % (24.0-44.0); MEAN CORPUSCULAR HEMOGLOBIN 30.8 pg (27.0-33.0); MEAN CORPUSCULAR HGB CONC 35.1 g/dl (32.0-36.5); MEAN CORPUSCULAR VOLUME 87.7 fl (80.0-96.0); MONO # 0.3 K/mm3 (0.0-0.8); MONO % 13.7 % (0.0-5.0); NEUTROPHILS # 0.8 K/mm3 (1.8-7.7); NEUTROPHILS % 33.3 % (36.0-66.0); PLATELET COUNT, AUTOMATED 238 k/mm3 (150-450); RED CELL DISTRIBUTION WIDTH 13.5 % (11.5-14.5); WHITE BLOOD COUNT 2.4 K/mm3 (4.0-10.0)
--- NOTE | 2016-09-07 07:28 | REP ---
CHEST PA AND LATERAL: 09/06/2016 COMPARISON: 09/05/2016, 07/06/2016. CLINICAL HISTORY: Cough. The lungs are well inflated. CP angles sharply defined. There is no effusion, lateral pleural thickening or apical scarring. Infrahilar region on the right shows some slight increased markings. Whether this represents some subtle patchy atelectasis or infiltrate versus superimposed chest wall/breast tissue effect is uncertain. There is no air bronchogram or dense consolidation. There are a few cuffed bronchi that may reflect reactive airway disease or bronchitis. IMPRESSION: 1. Some minor patchy air space density right medial base which may be superimposed breast tissues, some minor subsegmental atelectasis or early patchy infiltrate. No dense consolidation with air bronchograms. No pleural effusion. 2. Peribronchial thickening may reflect reactive airway disease or bronchitis. Signed by Juan Jefferson MD 09/07/2016 04:23 P
[2016-09-07 07:48] LABS: ALBUMIN 2.9 GM/DL (3.2-5.2); ALBUMIN/GLOBULIN RATIO 0.97 (1.00-1.93); ALKALINE PHOSPHATASE 71 U/L (45-117); ALT/SGPT 22 U/L (12-78); ANION GAP 7 MEQ/L (8-16); AST/SGOT 19 U/L (15-37); BILIRUBIN,TOTAL 0.3 MG/DL (0.2-1.0); BLOOD UREA NITROGEN 7 MG/DL (7-18); CALCIUM LEVEL 8.2 MG/DL (8.5-10.1); CARBON DIOXIDE LEVEL 28 MEQ/L (21-32); CHLORIDE LEVEL 108 MEQ/L (98-107); GLOMERULAR FILTRATION RATE > 60.0 (>58); GLUCOSE, FASTING 95 MG/DL (70-105); POTASSIUM SERUM 3.5 MEQ/L (3.5-5.1); SODIUM LEVEL 143 MEQ/L (136-145); TOTAL PROTEIN 5.9 GM/DL (6.4-8.2)
[2016-09-07 08:00] VITALS: BP 132/77
[2016-09-07] MEDS: diltiaZEM **CD** 180 MG CAP PO SCH (09:03)
[2016-09-07] MEDS: ONDANSETRON 4 MG TAB (S0181) PO PRN ×2 (09:06→21:33)
[2016-09-07] MEDS: OSELTAMIVIR PHOSPHATE 75 MG CAP (TAMIFLU) PO SCH ×2 (11:50→20:22)
[2016-09-07] MEDS: guaiFENesin ER 600 MG TAB PO SCH ×2 (11:50→20:22)
[2016-09-07 12:00] VITALS: BP 134/73
[2016-09-07 16:00] VITALS: BP 140/83
[2016-09-07 20:00] VITALS: BP 142/95
[2016-09-07] MEDS: LevoFLOXacin IV 750 MG in APPROPRIATE DILUENT 1 EA IV SCH (20:21)
[2016-09-08] VITALS: BP 145/83
[2016-09-08] MEDS: ACETAMINOPHEN TAB 650MG DOSE (2X325MG) PO PRN ×4 (03:46→19:43)
[2016-09-08 07:47] LABS: MEAN CORPUSCULAR HEMOGLOBIN 29.6 pg (27.0-33.0); MEAN CORPUSCULAR HGB CONC 33.8 g/dl (32.0-36.5); MEAN CORPUSCULAR VOLUME 87.6 fl (80.0-96.0); RED CELL DISTRIBUTION WIDTH 13.3 % (11.5-14.5); WHITE BLOOD COUNT 3.2 K/mm3 (4.0-10.0)
[2016-09-08 08:00] VITALS: BP 150/95
[2016-09-08 08:04] LABS: ALBUMIN/GLOBULIN RATIO 0.91 (1.00-1.93); ALKALINE PHOSPHATASE 77 U/L (45-117); ALT/SGPT 22 U/L (12-78); ANION GAP 8 MEQ/L (8-16); AST/SGOT 21 U/L (15-37); BILIRUBIN,TOTAL 0.2 MG/DL (0.2-1.0); BLOOD UREA NITROGEN 7 MG/DL (7-18); CALCIUM LEVEL 8.2 MG/DL (8.5-10.1); CARBON DIOXIDE LEVEL 27 MEQ/L (21-32); CHLORIDE LEVEL 109 MEQ/L (98-107); GLOMERULAR FILTRATION RATE > 60.0 (>58); GLUCOSE, FASTING 104 MG/DL (70-105); MAGNESIUM LEVEL 2.1 MG/DL (1.8-2.4); POTASSIUM SERUM 3.6 MEQ/L (3.5-5.1); SODIUM LEVEL 144 MEQ/L (136-145); TOTAL PROTEIN 6.3 GM/DL (6.4-8.2)
[2016-09-08] MEDS: OSELTAMIVIR PHOSPHATE 75 MG CAP (TAMIFLU) PO SCH ×2 (08:42→20:47)
[2016-09-08] MEDS: guaiFENesin ER 600 MG TAB PO SCH ×2 (08:42→20:46)
[2016-09-08] MEDS: diltiaZEM **CD** 180 MG CAP PO SCH (08:44)
--- NOTE | 2016-09-08 11:25 | IPNPDOC ---
Text Note Date of Service The patient was seen on 09/08/16. NOTE Subjective: Patient is a 41 year old female with a PMHx of Ovarian CA (s/p Hysterectomy and b/l SPO) and Esophageal spasms who presented to the ER with complaints of productive cough, body aches and fever and chills. She also noted nausea and vomiting. She has noted that she has coughed to the point that she passes out. Patient was recently at the ER and was given prednisone for a suspected bronchitis and sent home. In the ER this time, patient was found to have a positive Influenza screen. She was admitted for a pneumonia. Patient was seen and examined at the bedside. Reports that her coughing is still bad. Still complains of body aches. Objective: Vitals (See below) General: Lying in bed, no acute distress, comfortable, AAOx3 HEENT: NC, AT CVS: RRR, +S1S2 Lungs: Fair air entry b/l, -w/r/r Abdomen: Soft, ND, NT, +BSx4 Extremities: +PPx4, - Edema, - Calf tenderness Assessment and plan: 1. Dyspnea - likely 2/2 CAP and Influenza - Presented with shortness of breath, cough, and fever - Physical unrevealing - Influenza Positive, Blood cultures negative - CXR 3/: minor patchy air space denisty in R medial base which may breast tissue, subsegmental atelectasis, early patchy infiltrate - c/w Guaifenesin - c/w Oseltamivir and Levofloxacin (Day #3) 2. Episode of passing out - likely vasovagal 2/2 coughing - History is consistent with vasovagal episode, no other symptoms on history 3. Esophageal spasm - c/w diltiazem 4. History of Ovarian CA - s/p surgery 5. DVT prophylaxis - c/w Lovenox VS,Fishbone, I+O VS, Fishbone, I+O Laboratory Tests 09/08/16 07:35 Calcium Level 8.2 L, Aspartate Amino Transf (AST/SGOT) 21, Alanine Aminotransferase (ALT/SGPT) 22, Alkaline Phosphatase 77, Total Bilirubin 0.2, Total Protein 6.3 L, Albumin 3.0 L, Red Blood Count 4.42, Mean Corpuscular Volume 87.6, Mean Corpuscular Hemoglobin 29.6, Mean Corpuscular Hemoglobin Concent 33.8, Red Cell Distribution Width 13.3 Vital Signs Date Time Temp Pulse Resp B/P Pulse Ox O2 Delivery O2 Flow Rate FiO2 09/08/16 08:44 83 160/95 09/08/16 08:00 97.0 20 97 09/08/16 00:00 Room Air I&O- Last 24 Hours up to 6 AM 09/08/16 06:00 Intake Total 1500 ml Output Total 1550 ml Balance -50 ml ISAC CHING MD Sep 08, 2016 11:25
[2016-09-08] MEDS: LISINOPRIL 5 MG TAB PO SCH (13:45)
[2016-09-08] MEDS: ENOXAPARIN 40 MG/0.4 ML SYRINGE (J1650) SC SCH (13:46)
[2016-09-08 16:00] VITALS: BP 134/80
[2016-09-08 20:00] VITALS: BP 134/85
[2016-09-08] MEDS: LevoFLOXacin IV 750 MG in APPROPRIATE DILUENT 1 EA IV SCH (20:46)
[2016-09-09 04:00] VITALS: BP 145/73
[2016-09-09] MEDS: ACETAMINOPHEN TAB 650MG DOSE (2X325MG) PO PRN ×3 (06:01→20:38)
[2016-09-09 07:20] LABS: ALBUMIN/GLOBULIN RATIO 0.83 (1.00-1.93); ALKALINE PHOSPHATASE 75 U/L (45-117); ALT/SGPT 18 U/L (12-78); ANION GAP 9 MEQ/L (8-16); AST/SGOT 14 U/L (15-37); BILIRUBIN,TOTAL 0.2 MG/DL (0.2-1.0); BLOOD UREA NITROGEN 8 MG/DL (7-18); CALCIUM LEVEL 8.4 MG/DL (8.5-10.1); CARBON DIOXIDE LEVEL 25 MEQ/L (21-32); CHLORIDE LEVEL 108 MEQ/L (98-107); CREATININE FOR GFR 0.84 MG/DL (0.55-1.02); GLOMERULAR FILTRATION RATE > 60.0 (>58); GLUCOSE, FASTING 99 MG/DL (70-105); POTASSIUM SERUM 3.5 MEQ/L (3.5-5.1); SODIUM LEVEL 142 MEQ/L (136-145); TOTAL PROTEIN 6.6 GM/DL (6.4-8.2)
[2016-09-09 08:00] VITALS: BP 162/89
[2016-09-09 09:05] LABS: MEAN CORPUSCULAR HEMOGLOBIN 30.6 pg (27.0-33.0); MEAN CORPUSCULAR HGB CONC 34.3 g/dl (32.0-36.5); MEAN CORPUSCULAR VOLUME 89.4 fl (80.0-96.0); RED CELL DISTRIBUTION WIDTH 13.3 % (11.5-14.5); WHITE BLOOD COUNT 4.1 K/mm3 (4.0-10.0)
[2016-09-09] MEDS: OSELTAMIVIR PHOSPHATE 75 MG CAP (TAMIFLU) PO SCH ×2 (09:45→20:37)
[2016-09-09] MEDS: guaiFENesin ER 600 MG TAB PO SCH ×2 (09:45→20:37)
[2016-09-09] MEDS: ENOXAPARIN 40 MG/0.4 ML SYRINGE (J1650) SC SCH (09:46)
[2016-09-09] MEDS: diltiaZEM **CD** 180 MG CAP PO SCH (09:46)
[2016-09-09] MEDS: LISINOPRIL 5 MG TAB PO SCH (09:46)
--- NOTE | 2016-09-09 11:40 | IPNPDOC ---
Text Note Date of Service The patient was seen on 09/09/16. NOTE Subjective: Patient is a 41 year old female with a PMHx of Ovarian CA (s/p Hysterectomy and b/l SPO) and Esophageal spasms who presented to the ER with complaints of productive cough, body aches and fever and chills. She also noted nausea and vomiting. She has noted that she has coughed to the point that she passes out. Patient was recently at the ER and was given prednisone for a suspected bronchitis and sent home. In the ER this time, patient was found to have a positive Influenza screen. She was admitted for a pneumonia. Patient was seen and examined at the bedside. She notes improvement in her cough. Reports that initially it worsened and then has subsided. Objective: Vitals (See below) General: Lying in bed, no acute distress, comfortable, AAOx3 HEENT: NC, AT CVS: RRR, +S1S2 Lungs: Fair air entry b/l, -w/r/r Abdomen: Soft, ND, NT, +BSx4 Extremities: +PPx4, - Edema, - Calf tenderness Assessment and plan: 1. Dyspnea - likely 2/2 CAP and Influenza - Presented with shortness of breath, cough, and fever - Physical unrevealing - Influenza Positive, Blood cultures negative - CXR 3/1: minor patchy air space density in R medial base which may breast tissue, subsegmental atelectasis, early patchy infiltrate - c/w Guaifenesin - c/w Oseltamivir and Levofloxacin (Day #4) 2. Episode of passing out - likely vasovagal 2/2 coughing - History is consistent with vasovagal episode, no other symptoms on history 3. Esophageal spasm - c/w diltiazem 4. History of Ovarian CA - s/p surgery 5. DVT prophylaxis - c/w Lovenox VS,Fishbone, I+O VS, Fishbone, I+O Laboratory Tests 09/09/16 06:46 Calcium Level 8.4 L, Aspartate Amino Transf (AST/SGOT) 14 L, Alanine Aminotransferase (ALT/SGPT) 18, Alkaline Phosphatase 75, Total Bilirubin 0.2, Total Protein 6.6, Albumin 3.0 L, Red Blood Count 4.39, Mean Corpuscular Volume 89.4, Mean Corpuscular Hemoglobin 30.6, Mean Corpuscular Hemoglobin Concent 34.3 , Red Cell Distribution Width 13.3 Vital Signs Date Time Temp Pulse Resp B/P Pulse Ox O2 Delivery O2 Flow Rate FiO2 09/09/16 09:46 162/89 09/09/16 09:46 81 09/09/16 09:00 Room Air 09/09/16 08:00 96.6 18 96 I&O- Last 24 Hours up to 6 AM 09/09/16 05:59 Intake Total 990 ml Output Total 1700 ml Balance -710 ml ISAC CHING MD Sep 09, 2016 11:40
[2016-09-09 12:00] VITALS: BP 147/82
[2016-09-09 16:00] VITALS: BP 134/78
[2016-09-09] MEDS ORDERED: LevoFLOXacin 750 MG TABLET PO SCH (18:00)
[2016-09-09 20:00] VITALS: BP 159/86
[2016-09-10 04:00] VITALS: BP 131/78
[2016-09-10] MEDS: ACETAMINOPHEN TAB 650MG DOSE (2X325MG) PO PRN (05:24)
[2016-09-10 06:56] LABS: MEAN CORPUSCULAR HEMOGLOBIN 30.7 pg (27.0-33.0); MEAN CORPUSCULAR VOLUME 87.7 fl (80.0-96.0); RED CELL DISTRIBUTION WIDTH 13.1 % (11.5-14.5); WHITE BLOOD COUNT 4.9 K/mm3 (4.0-10.0)
[2016-09-10 07:17] LABS: ALBUMIN/GLOBULIN RATIO 0.97 (1.00-1.93); ALKALINE PHOSPHATASE 74 U/L (45-117); ALT/SGPT 21 U/L (12-78); ANION GAP 8 MEQ/L (8-16); AST/SGOT 14 U/L (15-37); BILIRUBIN,TOTAL 0.2 MG/DL (0.2-1.0); BLOOD UREA NITROGEN 10 MG/DL (7-18); CALCIUM LEVEL 8.2 MG/DL (8.5-10.1); CARBON DIOXIDE LEVEL 26 MEQ/L (21-32); CHLORIDE LEVEL 107 MEQ/L (98-107); CREATININE FOR GFR 0.77 MG/DL (0.55-1.02); GLOMERULAR FILTRATION RATE > 60.0 (>58); GLUCOSE, FASTING 105 MG/DL (70-105); MAGNESIUM LEVEL 2.1 MG/DL (1.8-2.4); POTASSIUM SERUM 3.9 MEQ/L (3.5-5.1); SODIUM LEVEL 141 MEQ/L (136-145); TOTAL PROTEIN 6.1 GM/DL (6.4-8.2)
[2016-09-10 08:00] VITALS: BP 168/84
[2016-09-10 08:11] VITALS: BP 168/84
[2016-09-10] MEDS: OSELTAMIVIR PHOSPHATE 75 MG CAP (TAMIFLU) PO SCH (08:11)
[2016-09-10] MEDS: diltiaZEM **CD** 180 MG CAP PO SCH (08:11)
[2016-09-10] MEDS: LISINOPRIL 5 MG TAB PO SCH (08:11)
[2016-09-10] MEDS: guaiFENesin ER 600 MG TAB PO SCH (08:11)
[2016-09-10] MEDS: ENOXAPARIN 40 MG/0.4 ML SYRINGE (J1650) SC SCH (08:12)
[2016-09-10] MEDS ORDERED: LISI-542 PO (09:13)
[2016-09-10] MEDS ORDERED: LEVA750T PO (09:13)
[2016-09-10] MEDS ORDERED: MUCI600T34 PO (09:13)
[2016-09-10] MEDS ORDERED: OSEL75CA2 PO (09:13)
--- NOTE | 2016-09-10 14:16 | DSES ---
DATE OF ADMISSION: 09/06/2016 DATE OF DISCHARGE: 09/10/2016 ATTENDING PHYSICIAN: Dr. Reina Alves PRIMARY CARE PHYSICIAN: Dr. Luciana Patel REFERRING PHYSICIAN: None CONSULTING PHYSICIAN: None CONDITION ON DISCHARGE: Stable. FINAL DIAGNOSIS: Dyspnea, likely secondary to community-acquired pneumonia and influenza. PROCEDURES: None. HISTORY OF PRESENT ILLNESS: The patient is a 41-year-old female with a past medical history of ovarian cancer, status post hysterectomy and bilateral salpingo-oophorectomy, as well as esophageal spasms, who presented to the emergency room with complaints of productive cough, body aches, and fever, and chills. The patient also noted nausea and vomiting. She noted that she has had cough to the point of which she passes out. The patient has recently presented to the emergency room, was given prednisone for a suspected bronchitis, and was sent home. The patient returned to the emergency room this time and was found to have a positive influenza screen. She was admitted for pneumonia. HOSPITAL COURSE: 1. Dyspnea, likely secondary to community-acquired pneumonia and influenza, who presented with shortness of breath and cough, as well as fever. Physical was unrevealing. Her influenza was positive. Blood cultures remained negative. Chest x-ray on 09/06/2016 revealed minor patchy airspace density in the right medial base, which may represent breast tissue, subsegmental atelectasis, or early patchy infiltrate. She was started on guaifenesin and oseltamivir, as well as Levaquin. Upon discharge, the patient was given a prescription for oseltamivir and Levaquin for completion of course of antivirals and antibiotics. 2. Episodes of passing out, likely secondary to vasovagal secondary to cough. History consistent with vasovagal episode. No other symptoms were present on history. 3. Esophageal spasm. Continue with diltiazem. 4. History of ovarian cancer, status post surgery. 5. Deep venous thrombosis (DVT) prophylaxis. She was put on Lovenox. DISCHARGE MEDICATIONS: The patient being discharged on the following medication list: - acetaminophen 1000 mg by mouth every 6 hours as needed pain - diltiazem 180 mg by mouth every day - Nystatin one dose topically twice a day as needed rash - prochlorperazine 5 mg by mouth every 6 hours as needed nausea Medications that were stopped include: - Zofran - potassium chloride - prednisone New medications prescribed include: - Mucinex 1200 mg by mouth twice a day for 5 days - Levaquin 750 mg by mouth every day for 4 days - lisinopril 5 mg by mouth every day - oseltamivir at 75 mg by mouth twice a day for 1 day DISCHARGE INSTRUCTIONS: The patient has been advised to followup with her primary care provider within the next 7 days. She has been advised to remain compliant with treatment plan and medications and return to the emergency room if she experiences any problems. TIME SPENT ON DISCHARGE: 35 minutes.
== END 2016-09-10 10:25 | disposition home or self-care (01) | DRG 139 ==
LOC: M ED 18:47 → M ED INP 23:13 → M PED 09-07 00:40
PROVIDERS: ADMIT Internal Medicine; ATTEND Internal Medicine
DX: J10.00 Influenza due to other identified influenza virus with unspecified type of pneumonia (principal); J18.9 Pneumonia, unspecified organism; R55 Syncope and collapse; K22.4 Dyskinesia of esophagus; R11.2 Nausea with vomiting, unspecified; Z88.0 Allergy status to penicillin; Z88.6 Allergy status to analgesic agent; Z88.2 Allergy status to sulfonamides; Z91.018 Allergy to other foods; Z79.899 Other long term (current) drug therapy; Z88.1 Allergy status to other antibiotic agents; Z85.43 Personal history of malignant neoplasm of ovary; Z90.710 Acquired absence of both cervix and uterus; Z90.722 Acquired absence of ovaries, bilateral; Z98.84 Bariatric surgery status

== ENCOUNTER → 2016-09-06 | Outpatient (REF) | payer BC, OTHER ==
[~2016-09-06] MED LIST changes: +ACET50TAOT PO; +CHERSYP3 PO; +DILT180C28 PO; +DOXY100C37 PO; +HYDR-3713; +LEVA750T PO; +LISI-542 PO; +MUCI600T34 PO; +NYST100024 TOP; +OSEL75CA2 PO; +POTA10CA PO; +POTASSIUM CL; +PRED20TA PO; +PROC5TA PO; +ZOFR4TAB3 PO; +compazine
== END ==
LOC: M LAB REF 17:12
PROVIDERS: ATTEND Internal Medicine
DX: J20.9 Acute bronchitis, unspecified (principal); R11.10 Vomiting, unspecified

== ENCOUNTER 2016-09-30 10:22 | Emergency (ER) | payer BC ==
[~2016-09-30] VITALS: Ht 167.6 cm; Wt 108.9 kg
[~2016-09-30 10:22] MED LIST changes: +ACET50TAOT PO; +DILT180C28 PO; +LEVA750T PO; +LISI-542 PO; +MUCI600T34 PO; +NYST100024 TOP; +OSEL75CA2 PO; +POTA10CA PO; +POTASSIUM CL; +PRED20TA PO; +PROC5TA PO; +ZOFR4TAB3 PO; +compazine
[2016-09-30 10:23] VITALS: BP 134/88
[2016-09-30] MEDS ORDERED: HYDR-3713 (10:38)
--- NOTE | 2016-09-30 11:19 | REP ---
Clinical: Cough. Technique: PA and lateral. Comparison: 09/06/2016. Findings: There is a new moderate acute infiltrate involving primarily the left perihilar lower lobe and lingula. Remainder of lung sutton are clear. Mediastinum and cardiac silhouette normal. Skeletal structures intact. Impression: Acute left-sided pneumonia. Signed by Carmine Almanza MD 09/30/2016 11:10 A
[2016-09-30] MEDS ORDERED: DOXY100C37 PO (11:31)
[2016-09-30] MEDS ORDERED: CHERSYP3 PO (11:31)
== END 2016-09-30 11:54 | disposition home or self-care (01) ==
LOC: M ED 11:11
DX: J18.9 Pneumonia, unspecified organism (principal); E66.9 Obesity, unspecified; Z98.84 Bariatric surgery status; Z88.1 Allergy status to other antibiotic agents; Z88.8 Allergy status to other drugs, medicaments and biological substances; Z88.0 Allergy status to penicillin; Z88.2 Allergy status to sulfonamides; Z91.040 Latex allergy status; Z91.018 Allergy to other foods; Z79.899 Other long term (current) drug therapy

== ENCOUNTER 2016-11-27 21:42 | Inpatient (IN) | payer BC ==
[~2016-11-27] VITALS: Ht 165.1 cm; Wt 111.1 kg
[~2016-11-27 21:42] MED LIST changes: +CHERSYP3 PO; +DOXY100C37 PO; +HYDR-3713
[2016-11-27] MEDS ORDERED: OMEP40CA2 PO (22:06)
[2016-11-27] MEDS ORDERED: ONDA4TAB6 PO (22:06)
[2016-11-27] MEDS ORDERED: PROC5TA PO (22:06)
[2016-11-27] MEDS ORDERED: RANI150T PO (22:06)
[2016-11-27 22:59] LABS: BASO % 0.4 % (0.0-1.0); EOS # 0.1 K/mm3 (0.0-0.50); EOS % 2.1 % (0.0-3.0); LARGE UNSTAINED CELL # 0.1 K/mm3 (0.0-0.4); LARGE UNSTAINED CELL % 1.3 % (0.0-4.0); LYMPH # 2.1 K/mm3 (1.5-4.5); LYMPH % 31.6 % (24.0-44.0); MEAN CORPUSCULAR HEMOGLOBIN 30.2 pg (27.0-33.0); MEAN CORPUSCULAR HGB CONC 33.7 g/dl (32.0-36.5); MEAN CORPUSCULAR VOLUME 89.7 fl (80.0-96.0); MONO # 0.4 K/mm3 (0.0-0.8); MONO % 6.3 % (0.0-5.0); NEUTROPHILS # 3.7 K/mm3 (1.8-7.7); NEUTROPHILS % 58.4 % (36.0-66.0); PLATELET COUNT, AUTOMATED 291 k/mm3 (150-450); RED CELL DISTRIBUTION WIDTH 13.2 % (11.5-14.5); WHITE BLOOD COUNT 6.3 K/mm3 (4.0-10.0)
[2016-11-27] MEDS ORDERED: diphenhydrAMINE INJ 50MG/ML VIAL (J1200) IV ONE (23:00)
[2016-11-27] MEDS ORDERED: methylPREDNISolone INJ 125 MG/2 ML VIAL (J2930) IV ONE (23:00)
[2016-11-27] MEDS ORDERED: ONDANSETRON 4MG/2ML VIAL (J2405) IV ONE (23:00)
[2016-11-27] MEDS ORDERED: NS 1,000 ML IV ONE (23:00)
[2016-11-27 23:11] LABS: ALBUMIN 3.4 GM/DL (3.2-5.2); ALBUMIN/GLOBULIN RATIO 0.89 (1.00-1.93); ALKALINE PHOSPHATASE 78 U/L (45-117); ALT/SGPT 28 U/L (12-78); ANION GAP 5 MEQ/L (8-16); AST/SGOT 18 U/L (15-37); BILIRUBIN,DIRECT < 0.1 MG/DL (0.0-0.2); BILIRUBIN,TOTAL 0.3 MG/DL (0.2-1.0); BLOOD UREA NITROGEN 14 MG/DL (7-18); CALCIUM LEVEL 8.7 MG/DL (8.5-10.1); CARBON DIOXIDE LEVEL 30 MEQ/L (21-32); CHLORIDE LEVEL 107 MEQ/L (98-107); CREATININE FOR GFR 0.91 MG/DL (0.55-1.02); GLOMERULAR FILTRATION RATE > 60.0 (>58); GLUCOSE, FASTING 90 MG/DL (70-105); POTASSIUM SERUM 3.4 MEQ/L (3.5-5.1); SODIUM LEVEL 142 MEQ/L (136-145); TOTAL PROTEIN 7.2 GM/DL (6.4-8.2)
[2016-11-27] MEDS ORDERED: ISOVUE-370 76% 100ML VIAL (Q9967) As Ordered ONE (23:15)
[2016-11-27] MEDS: MORPHINE 4 MG/ML 1ML SYRINGE IV PRN (23:24)
--- NOTE | 2016-11-28 | REPUSA ---
CT of the abdomen and pelvis with contrast Clinical statement: Pain. Technique: Multiple axial CT images were obtained from the base of the lungs through the floor of the pelvis utilizing 5 mm axial slices after administration of nonionic intravenous contrast. Coronal an d sagittal reconstructions were also obtained. Comparison: 06/10/2016. Findings: Chest: The visualized lung bases are clear. Abdomen: The liver, spleen, pancreas, kidneys, and adrenal glands are unremarkable. The aorta is with in normal limits. There is no evidence of abdominal lymphadenopathy or ascites. Pelvis: The bowel is unremarkable, with no obstructive or inflammatory changes. The urinary bladder i s within normal limits. The other pelvic structures appear grossly intact. There is no evidence of pe lvic lymphadenopathy or ascites. Bones: There are no suspicious osseous abnormalities seen. Impression: Unremarkable CT examination of the abdomen and pelvis.
[2016-11-28] MEDS: MORPHINE 4 MG/ML 1ML SYRINGE IV PRN (01:43)
[2016-11-28] MEDS ORDERED: PERCOCET 5MG/325MG TAB PO ONE (02:00)
[2016-11-28] MEDS ORDERED: oxyCODONE 15 MG CR TAB PO ONE (03:15)
[2016-11-28] MEDS ORDERED: PANTOPRAZOLE 40MG INJ (PROTONIX) (C9113) IV SCH (03:15)
[2016-11-28] MEDS ORDERED: POTASSIUM CHLORIDE 10 MEQ SR TABLET PO ONE (03:15)
[2016-11-28] MEDS: NS 1,000 ML IV SCH ×4 (03:41→16:51)
[2016-11-28] MEDS ORDERED: EPIP0.3I2 INJ (03:44)
[2016-11-28] MEDS ORDERED: ALPR0.25 PO (03:44)
[2016-11-28 05:30] VITALS: BP 118/65
--- NOTE | 2016-11-28 06:35 | HPE ---
DATE OF ADMISSION: 11/27/2016 PRIMARY CARE PHYSICIAN: Luciana Patel. INPATIENT HOSPITALIST ATTENDING: Dr. Tabatha Cooper. CHIEF COMPLAINT: Bright red blood per rectum, abdominal pain. HISTORY OF PRESENT ILLNESS: This is a 41-year-old female with a history of gastric bypass with Philipp-en-Y procedure, esophageal spasms, ovarian cancer status post hysterectomy with bilateral oophorectomy, appendectomy, cholecystectomy, tonsillectomy, who presents to the emergency room with bright red blood per rectum since Sunday. The patient underwent an endoscopy and colonoscopy for esophageal spasms. Polyp was removed, 3 mm, by Dr. Felisa Mcneill in [facility]. She has been wearing diapers since Sunday when the boyfriend noticed bright red blood on the sheet when they awoke, drenched in blood on Sunday. The patient felt weak and fatigued. She has had no bowel movements since Sunday. No fever or chills. Complains of bilateral lower quadrant abdominal cramping and "tingles, stabbing-like sensation inside." No medications were taken. She complained of some dizziness, lightheadedness, and profound weakness, could not stay awake and was fatigued. Presents to the emergency room for further evaluation. She denies nausea or vomiting. She has had some decrease in appetite. No fever or chills. Otherwise denies weight gain, weight loss, headaches, changes in vision, cough, shortness of breath, palpitations, near-syncopal episode. No prior history of bright red blood per rectum. Hospitalist service was called for admission for intractable abdominal pain and evaluation of bright red blood per rectum. Hemoglobin is stable, and vital signs are stable with systolic pressure of 167, hemoglobin of 12. CT abdomen and pelvis was unremarkable. No signs of perforation. No inflammation of the colon. PAST MEDICAL HISTORY: 1. Pneumonia. 2. Influenza. 3. Esophageal spasms. 4. Ovarian cancer, status post hysterectomy and bilateral oophorectomy. 5. Recent colonoscopy and esophagogastroduodenoscopy (EGD) Sunday11/24/2016, at [place] by Dr. Mcneill. PAST SURGICAL HISTORY: 1. Philipp-en-Y 2012. 2. Gastric bypass. 3. Appendectomy 1992. 4. Cholecystectomy 2001. 5. Hysterectomy and bilateral oophorectomy 2006. 6. Tonsillectomy. ALLERGIES: 1. LATEX. 2. MUSHROOMS. 3. PENICILLIN. 4. NON-STEROIDAL ANTI-INFLAMMATORY DRUGS (NSAIDS). 5. GABAPENTIN. 6. SULFA. 7. TETRACYCLINE. HOME MEDICATIONS: - Prilosec 40 mg by mouth twice a day - ranitidine one tablet by mouth twice a day 150 FAMILY HISTORY: None. REVIEW OF SYSTEMS: Per history of present illness (HPI). 12-point system negative. SOCIAL HISTORY: No alcohol or cigarette use. No recreational drug use. PHYSICAL EXAMINATION: VITAL SIGNS: Temperature 98, pulse 74, respiratory rate 20, blood pressure 167/94, 94% on room air. GENERAL: Awake, alert, and oriented times three. No pallor, no icterus, no jaundice. HEENT: Pupils round, reactive to light and accommodation. Extraocular muscles are intact. Normocephalic, atraumatic. NECK: No significant lymphadenopathy, thyromegaly, or jugular venous distention. Neck full range of motion. LUNGS: Clear to auscultation. No wheezes, rales, or rhonchi. HEART: S1, S2. Sinus rhythm. ABDOMEN: Soft, slightly tender bilateral lower quadrants. No rebound, guarding. Positive bowel sounds times four quadrants. Prior surgical scars are well healed. EXTREMITIES: No cyanosis, clubbing or pitting edema. LABORATORY DATA: White count 6.3, hemoglobin 12, hematocrit 37, platelet count 291. 58% neutrophils. Sodium 142, potassium 3.4, chloride 104, bicarbonate 30, BUN 14, creatinine 0.91 , glucose 90, calcium 8.7, total bilirubin 0.3, AST 18, ALT 28, alkaline phosphatase 78, total protein 7.2, albumin 3.4, lipase of 360. IMAGING: CT abdomen and pelvis: Lung bases are clear. Unremarkable CT abdomen and pelvis. ASSESSMENT AND PLAN: This is a 41-year-old female with history of gastric bypass, Philipp-en-Y procedure , esophageal spasms, ovarian cancer status post hysterectomy and bilateral oophorectomy, appendectomy, cholecystectomy, tonsillectomy, who presents to the emergency room with bright red blood per rectum, status post colonoscopy and EGD on Sunday with Dr. Mcneill in [facility]. The patient underwent polypectomy 3 mm around the rectal area. She presents to the emergency room with complaints of bright red blood per rectum on Sunday. She had been wearing diapers Sunday and Sunday, and noted bright red blood by the boyfriend at home, with complaints of abdominal cramping bilateral lower quadrants, fatigue and weakness, and some lightheadedness and dizziness, with decrease in appetite without nausea, vomiting, fever, chills, dysuria, urgency, frequency. The patient has not had a bowel movement since. She presents to the emergency room for further evaluation. CT of the abdomen and pelvis was negative, and hemoglobin was stable at 12. She is admitted for intractable pain. The patient will be admitted for observation to Dr. Tabatha Cooper. The patient will be admitted for observation for the following issues. 1. Bright red blood per rectum with recent colonoscopy and polypectomy on Sunday with Dr. Mcneill in [place], [place]. CT abdomen and pelvis is negative. Please obtain the records from Dr. Mcneill. For now, symptomatic treatment and further monitoring. Check hemoglobin and hematocrit every six hours. Type and screen. Monitor for symptoms and recurrent bleeding. Currently on full liquid diet. On physical exam, heme-positive stool per emergency room physician. May need repeat colonoscopy for cauterization. No signs of perforation on CT of the abdomen. 2. History of esophageal spasms, status post EGD and colonoscopy on Sunday. No current complaints. 3. History of gastric bypass, Philipp-en-Y procedure. No current complaints. 4. History of ovarian cancer, status post hysterectomy and bilateral oophorectomy, chronic. 5. Deep venous thrombosis (DVT) prophylaxis with compression stockings. The patient will be assigned to Dr. Tabatha Cooper at 7 a.m. on 11/28/2016. [facility]
[2016-11-28] MEDS: oxyCODONE 5MG TAB PO PRN ×3 (07:19→18:37)
[2016-11-28 07:59] LABS: MEAN CORPUSCULAR HEMOGLOBIN 30.9 pg (27.0-33.0); MEAN CORPUSCULAR HGB CONC 34.2 g/dl (32.0-36.5); MEAN CORPUSCULAR VOLUME 90.3 fl (80.0-96.0); RED CELL DISTRIBUTION WIDTH 13.2 % (11.5-14.5); WHITE BLOOD COUNT 4.8 K/mm3 (4.0-10.0)
[2016-11-28 08:00] VITALS: BP 112/78
[2016-11-28 08:09] LABS: ANION GAP 11 MEQ/L (8-16); BLOOD UREA NITROGEN 11 MG/DL (7-18); CALCIUM LEVEL 8.1 MG/DL (8.5-10.1); CARBON DIOXIDE LEVEL 23 MEQ/L (21-32); CHLORIDE LEVEL 106 MEQ/L (98-107); CREATININE FOR GFR 0.93 MG/DL (0.55-1.02); GLOMERULAR FILTRATION RATE > 60.0 (>58); GLUCOSE, FASTING 153 MG/DL (70-105); POTASSIUM SERUM 4.5 MEQ/L (3.5-5.1); SODIUM LEVEL 140 MEQ/L (136-145)
[2016-11-28] MEDS: diphenhydrAMINE 25 MG CAP PO PRN ×2 (10:03→16:50)
[2016-11-28] MEDS: oxyCODONE 15 MG CR TAB PO SCH ×2 (10:03→20:23)
[2016-11-28] MEDS: OMEPRAZOLE 20 MG CAP PO SCH ×2 (10:03→20:23)
[2016-11-28] MEDS: SENOKOT S TAB PO SCH ×2 (10:03→20:23)
[2016-11-28] MEDS: MORPHINE 2 MG/ML 1ML SYRINGE IV PRN ×3 (10:44→22:12)
--- NOTE | 2016-11-28 11:39 | IPNPDOC ---
Subjective Date Seen The patient was seen on 11/28/16. Subjective Chief Complaint/HPI The patient is a 41-year-old female admitted with a reason for visit of Abdominal Pain. Events since last encounter She was seen this morning at bedside. She continues to have some lower abdominal pain that only started after her endoscopic procedure. No vomiting, diarrhea. She did report some mild nausea this morning, however she has been tolerating clears and requesting that diet be advanced. She reports that the bright red blood has been tapering off. No fevers or chills. No chest pain/ pressure, palpitations, shortness of breath, dizziness. Objective Physical Examination General Exam: Positive: Alert, Cooperative, No Acute Distress Eye Exam: Positive: Conjunctiva & lids normal, EOMI, Negative: Sclera icteric ENT Exam: Positive: Mucous membr. moist/pink, Pharynx Normal Neck Exam: Positive: Supple, Negative: thyromegaly Chest Exam: Positive: Normal air movement, Negative: Rhonchi, Wheezing Heart Exam: Positive: Rate Normal, Regular Rhythm, Normal S1, Negative: Murmurs Abdomen Exam: Positive: Normal bowel sounds, Soft, Tenderness (lower abdominal quadrants), Negative: Hepatospenomegaly Extremity Exam: Positive: Normal pulses, Negative: Cyanosis, Edema, Tenderness Skin Exam: Positive: Nl turgor and temperature, Negative: Rash Neuro Exam: Positive: Normal Speech, Cranial Nerves 3-12 NL Psych Exam: Positive: Mental status NL, Oriented x 3 Assessment /Plan Problems (1) Abdominal pain Status: Acute Problem Specific Plan: Monitor Clinically Problem Text: * Patient underwent upper endoscopy and colonoscopy on 11/24. * She reports that colonoscopy was performed given her family history of polyps. She did not have any lower GI complaints at that time. * CT of the abdomen does not reveal any prior perforation * Continue to monitor. Pain medication as needed. (2) Bright red blood per rectum Status: Acute Problem Specific Plan: Monitor Clinically, Repeat Labs Problem Text: * Status post polypectomy on 11/24, likely delayed bleeding from procedure * She has reported that this is tapering down * Hemoglobin and hematocrit are currently stable (3) Esophageal spasm Status: Chronic Problem Specific Plan: Monitor Clinically Problem Text: * Patient underwent upper endoscopy on Friday 11/24. * Continue Prilosec * Continue to monitor. She is tolerating po intake (4) History of ovarian cancer Status: Chronic Problem Specific Plan: Monitor Clinically Problem Text: * Status post hysterectomy and bilateral oophorectomy Plan/VTE VTE Prophylaxis Ordered?: Yes (teds) VS, I&O, 24H, Fishbone Vital Signs/I&O Vital Signs Date Time Temp Pulse Resp B/P (MAP) Pulse Ox O2 Delivery O2 Flow Rate FiO2 11/28/16 10:54 18 11/28/16 08:00 97.7 58 112/78 (89) 94 Room Air Laboratory Data CBC/BMP Laboratory Tests 11/27/16 22:32 Red Blood Count 4.17, Mean Corpuscular Volume 89.7, Mean Corpuscular Hemoglobin 30.2, Mean Corpuscular Hemoglobin Concent 33.7, Red Cell Distribution Width 13.2 , Neutrophils (%) (Auto) 58.4, Lymphocytes (%) (Auto) 31.6, Monocytes (%) (Auto ) 6.3 H, Eosinophils (%) (Auto) 2.1, Basophils (%) (Auto) 0.4, Neutrophils # ( Auto) 3.7, Lymphocytes # (Auto) 2.1, Monocytes # (Auto) 0.4, Eosinophils # (Auto ) 0.1, Basophils # (Auto) 0.0 11/28/16 07:31 Red Blood Count 4.00, Mean Corpuscular Volume 90.3, Mean Corpuscular Hemoglobin 30.9, Mean Corpuscular Hemoglobin Concent 34.2, Red Cell Distribution Width 13.2 , Calcium Level 8.1 L GME ATTESTATION GME ATTESTATION My preceptor for this patient encounter was physically present in the building during the encounter and was fully available. As needed, all aspects of the patient interview, examination, medical decision making process, and medical care plan development were reviewed and approved by the preceptor. Preceptor is aware and concurs with the plan as stated in the body of this note and will attest to such by his/her cosignature. FRANCES FERGUSON DO November 28, 2016 11:39
[2016-11-28 16:00] VITALS: BP 147/77
[2016-11-28 20:00] VITALS: BP 138/82
[2016-11-29] VITALS: BP 130/76
[2016-11-29] MEDS: diphenhydrAMINE 25 MG CAP PO PRN ×2 (01:08→23:57)
[2016-11-29] MEDS: oxyCODONE 5MG TAB PO PRN ×3 (01:14→10:01)
[2016-11-29] MEDS: NS 1,000 ML IV SCH (05:51)
[2016-11-29 07:26] LABS: MEAN CORPUSCULAR HEMOGLOBIN 30.8 pg (27.0-33.0); MEAN CORPUSCULAR HGB CONC 33.5 g/dl (32.0-36.5); MEAN CORPUSCULAR VOLUME 92.1 fl (80.0-96.0); RED CELL DISTRIBUTION WIDTH 13.3 % (11.5-14.5); WHITE BLOOD COUNT 5.7 K/mm3 (4.0-10.0)
[2016-11-29 07:45] LABS: ANION GAP 7 MEQ/L (8-16); BLOOD UREA NITROGEN 11 MG/DL (7-18); CALCIUM LEVEL 7.8 MG/DL (8.5-10.1); CARBON DIOXIDE LEVEL 25 MEQ/L (21-32); CHLORIDE LEVEL 111 MEQ/L (98-107); CREATININE FOR GFR 0.71 MG/DL (0.55-1.02); GLOMERULAR FILTRATION RATE > 60.0 (>58); GLUCOSE, FASTING 90 MG/DL (70-105); POTASSIUM SERUM 3.9 MEQ/L (3.5-5.1); SODIUM LEVEL 143 MEQ/L (136-145)
[2016-11-29 08:00] VITALS: BP 147/86
[2016-11-29] MEDS: OMEPRAZOLE 20 MG CAP PO SCH ×2 (08:06→21:11)
[2016-11-29] MEDS: SENOKOT S TAB PO SCH ×2 (08:06→21:11)
[2016-11-29] MEDS: oxyCODONE 15 MG CR TAB PO SCH (08:07)
[2016-11-29] MEDS: ONDANSETRON 4MG/2ML VIAL (J2405) IV PRN ×2 (09:49→21:19)
--- NOTE | 2016-11-29 10:20 | IPNPDOC ---
Subjective Date Seen The patient was seen on 11/29/16. Subjective Chief Complaint/HPI The patient is a 41-year-old female admitted with a reason for visit of Abdominal Pain. Events since last encounter She was seen this morning at bedside. She reports that she continues to have some abdominal pain, worst in the lower mid quadrant, not increased from previous. She reports occasional nausea from esophageal spasm, none currently. Denies any vomiting or diarrhea. No fevers or chills. No chest pain/pressure, palpitations, shortness of breath. No headache or dizziness. Afebrile and vitals are stable Objective Physical Examination General Exam: Positive: Alert, Cooperative, No Acute Distress Eye Exam: Positive: Conjunctiva & lids normal, EOMI, Negative: Sclera icteric ENT Exam: Positive: Mucous membr. moist/pink, Pharynx Normal Neck Exam: Positive: Supple, Negative: thyromegaly Chest Exam: Positive: Normal air movement, Negative: Rhonchi, Wheezing Heart Exam: Positive: Rate Normal, Regular Rhythm, Normal S1, Normal S2, Negative: Murmurs Abdomen Exam: Positive: Normal bowel sounds, Soft, Tenderness (lower abdominal quadrants), Negative: Hepatospenomegaly Extremity Exam: Positive: Normal pulses, Negative: Cyanosis, Edema, Tenderness Skin Exam: Positive: Nl turgor and temperature, Negative: Rash Neuro Exam: Positive: Normal Speech, Cranial Nerves 3-12 NL Psych Exam: Positive: Mental status NL, Oriented x 3 Assessment /Plan Problems (1) Abdominal pain Status: Acute Problem Specific Plan: Monitor Clinically Problem Text: * Patient underwent upper endoscopy and colonoscopy on 11/24. * She reports that colonoscopy was performed given her family history of polyps. She did not have any lower GI complaints at that time. * CT of the abdomen does not reveal any perforation * Continue to monitor. Pain medication as needed. * Normal saline has been discontinued, as she is tolerating a regular diet (2) Bright red blood per rectum Status: Acute Problem Specific Plan: Monitor Clinically, Repeat Labs Problem Text: * Status post polypectomy on 11/24, likely delayed bleeding from procedure * She has reported that this is tapering down, only noticed pink streaks of tissue paper * Hemoglobin and hematocrit has trended down, will continue to monitor, repeat H /H this evening (3) Esophageal spasm Status: Chronic Problem Specific Plan: Monitor Clinically Problem Text: * Patient underwent upper endoscopy on Friday 11/24. * Continue Prilosec * Continue to monitor. She is tolerating po intake (4) History of ovarian cancer Status: Chronic Problem Specific Plan: Monitor Clinically Problem Text: * Status post hysterectomy and bilateral oophorectomy Plan/VTE VTE Prophylaxis Ordered?: Yes (teds) Plan IVF: Discontinue Diet: Continue Current Activity: Encourage Ambulation VS, I&O, 24H, Fishbone Vital Signs/I&O Vital Signs Date Time Temp Pulse Resp B/P (MAP) Pulse Ox O2 Delivery O2 Flow Rate FiO2 11/29/16 10:01 18 11/29/16 08:00 97.6 85 147/86 (106) 95 Room Air I&O- Last 24 Hours up to 6 AM 11/29/16 06:00 Intake Total 3120 ml Output Total 1800 ml Balance 1320 ml Laboratory Data CBC/BMP Laboratory Tests 11/28/16 12:13 11/28/16 17:53 11/29/16 00:09 11/29/16 06:43 Red Blood Count 3.49 L, Mean Corpuscular Volume 92.1, Mean Corpuscular Hemoglobin 30.8, Mean Corpuscular Hemoglobin Concent 33.5, Red Cell Distribution Width 13.3, Calcium Level 7.8 L GME ATTESTATION GME ATTESTATION My preceptor for this patient encounter was physically present in the building during the encounter and was fully available. As needed, all aspects of the patient interview, examination, medical decision making process, and medical care plan development were reviewed and approved by the preceptor. Preceptor is aware and concurs with the plan as stated in the body of this note and will attest to such by his/her cosignature. FRANCES FERGUSON DO November 29, 2016 10:20
[2016-11-29] MEDS: ACETAMINOPHEN TAB 650MG DOSE (2X325MG) PO PRN ×2 (13:40→19:57)
[2016-11-29] MEDS ORDERED: METHYLNALTREXONE BROMIDE 12 MG/0.6 ML VIAL (RELISTOR) SC ONE (14:00)
[2016-11-29 16:00] VITALS: BP 129/69
[2016-11-29] MEDS: MOM 30ML SUSPENSION UDC PO PRN (17:16)
[2016-11-29 20:00] VITALS: BP 136/68
[2016-11-29] MEDS: oxyCODONE 10 MG CR TAB PO SCH (21:12)
[2016-11-29] MEDS: ONDANSETRON 4 MG TAB (S0181) PO PRN (21:41)
[2016-11-30] VITALS: BP 131/69
[2016-11-30] MEDS: ONDANSETRON 4 MG TAB (S0181) PO PRN ×2 (06:52→12:32)
[2016-11-30 07:33] LABS: MEAN CORPUSCULAR HEMOGLOBIN 30.7 pg (27.0-33.0); MEAN CORPUSCULAR HGB CONC 34.1 g/dl (32.0-36.5); MEAN CORPUSCULAR VOLUME 89.9 fl (80.0-96.0); RED CELL DISTRIBUTION WIDTH 13.1 % (11.5-14.5); WHITE BLOOD COUNT 5.8 K/mm3 (4.0-10.0)
[2016-11-30 07:55] LABS: ANION GAP 5 MEQ/L (8-16); BLOOD UREA NITROGEN 10 MG/DL (7-18); CALCIUM LEVEL 8.2 MG/DL (8.5-10.1); CARBON DIOXIDE LEVEL 31 MEQ/L (21-32); CHLORIDE LEVEL 106 MEQ/L (98-107); CREATININE FOR GFR 0.74 MG/DL (0.55-1.02); GLOMERULAR FILTRATION RATE > 60.0 (>58); GLUCOSE, FASTING 83 MG/DL (70-105); POTASSIUM SERUM 3.8 MEQ/L (3.5-5.1); SODIUM LEVEL 142 MEQ/L (136-145)
[2016-11-30 08:00] VITALS: BP 142/84
[2016-11-30] MEDS ORDERED: FLEET OIL RETENTION ENEMA PR ONE (08:15)
--- NOTE | 2016-11-30 08:57 | REP ---
Clinical: Abdominal pain. Technique: Two supine views of the abdomen and pelvis. Comparison: 07/30/2014. Findings: Bowel gas pattern is nonspecific. Evidence for prior cholecystectomy. Phleboliths noted in the pelvis. Mild degenerative changes involving the lower lumbar spine. Impression: Nonspecific abdominal radiograph. Signed by Carmine Almanza MD 11/30/2016 08:48 A
[2016-11-30] MEDS: OMEPRAZOLE 20 MG CAP PO SCH ×2 (09:20→20:45)
[2016-11-30] MEDS: oxyCODONE 10 MG CR TAB PO SCH ×2 (09:20→20:46)
--- NOTE | 2016-11-30 10:22 | IPNPDOC ---
Subjective Date Seen The patient was seen on 11/30/16. Subjective Chief Complaint/HPI The patient is a 41-year-old female admitted with a reason for visit of Abdominal Pain. Events since last encounter Patient was seen this morning at bedside. No acute overnight issues. Still reports some crampy abdominal pain, mildly improved. No bright red blood per rectum. She has not had a bowel movement. No chest pain/pressure, palpitations, shortness of breath, dizziness. Afebrile, no white count. Vitals are stable. Objective Physical Examination General Exam: Positive: Alert, Cooperative, No Acute Distress Eye Exam: Positive: Conjunctiva & lids normal, EOMI, Negative: Sclera icteric ENT Exam: Positive: Mucous membr. moist/pink, Pharynx Normal Neck Exam: Positive: Supple, Negative: thyromegaly Chest Exam: Positive: Normal air movement, Negative: Rhonchi, Wheezing Heart Exam: Positive: Rate Normal, Regular Rhythm, Normal S1, Normal S2, Negative: Murmurs Abdomen Exam: Positive: Normal bowel sounds, Soft, Tenderness (lower abdominal quadrants), Negative: Hepatospenomegaly Extremity Exam: Positive: Normal pulses, Negative: Cyanosis, Edema, Tenderness Skin Exam: Positive: Nl turgor and temperature, Negative: Rash Neuro Exam: Positive: Normal Speech, Cranial Nerves 3-12 NL Psych Exam: Positive: Mental status NL, Oriented x 3 Assessment /Plan Problems (1) Abdominal pain Status: Acute Problem Specific Plan: Monitor Clinically Problem Text: * Patient underwent upper endoscopy and colonoscopy on 11/24. * She reports that colonoscopy was performed given her family history of polyps. She did not have any lower GI complaints at that time. * CT of the abdomen does not reveal any perforation * Continue to monitor. Pain medication as needed. * KUB obtained 11/30 with no acute findings (2) Bright red blood per rectum Status: Acute Problem Specific Plan: Monitor Clinically, Repeat Labs Problem Text: * Status post polypectomy on 11/24, likely delayed bleeding from procedure * She has not reported any more bright red blood per rectum * Hemoglobin and hematocrit stable (3) Constipation Status: Acute Problem Specific Plan: Monitor Clinically Problem Text: * Received Relistor on 11/29, as she has been on narcotics * Also receiving milk of magnesia, Senokot, mineral oil enema when necessary * KUB did not report any significant stool or dilated bowel loops (4) Esophageal spasm Status: Chronic Problem Specific Plan: Monitor Clinically Problem Text: * Patient underwent upper endoscopy on Friday 11/24. * Continue Prilosec * Continue to monitor. She is tolerating po intake (5) History of ovarian cancer Status: Chronic Problem Specific Plan: Monitor Clinically Problem Text: * Status post hysterectomy and bilateral oophorectomy Plan/VTE VTE Prophylaxis Ordered?: Yes (teds/seq) Plan IVF: Discontinue Diet: Continue Current Activity: Encourage Ambulation VS, I&O, 24H, Fishbone Vital Signs/I&O Vital Signs Date Time Temp Pulse Resp B/P (MAP) Pulse Ox O2 Delivery O2 Flow Rate FiO2 11/30/16 09:20 20 11/30/16 08:00 97.4 86 142/84 (103) 97 Room Air I&O- Last 24 Hours up to 6 AM 11/30/16 06:00 Intake Total 2100 ml Output Total 3050 ml Balance -950 ml Laboratory Data CBC/BMP Laboratory Tests 11/29/16 17:56 11/30/16 07:10 Red Blood Count 3.77 L, Mean Corpuscular Volume 89.9, Mean Corpuscular Hemoglobin 30.7, Mean Corpuscular Hemoglobin Concent 34.1, Red Cell Distribution Width 13.1, Calcium Level 8.2 L GME ATTESTATION GME ATTESTATION My preceptor for this patient encounter was physically present in the building during the encounter and was fully available. As needed, all aspects of the patient interview, examination, medical decision making process, and medical care plan development were reviewed and approved by the preceptor. Preceptor is aware and concurs with the plan as stated in the body of this note and will attest to such by his/her cosignature. FRANCES FERGUSON DO November 30, 2016 10:22
[2016-11-30] MEDS: SENOKOT S TAB PO SCH ×2 (10:38→20:44)
[2016-11-30] MEDS: ACETAMINOPHEN TAB 650MG DOSE (2X325MG) PO PRN ×3 (12:32→23:25)
[2016-11-30 16:00] VITALS: BP 131/83
[2016-11-30] MEDS: MOM 30ML SUSPENSION UDC PO PRN (16:28)
[2016-11-30 20:00] VITALS: BP 144/84
[2016-11-30] MEDS: diphenhydrAMINE 25 MG CAP PO PRN (20:45)
[2016-12-01] VITALS: BP 136/75
[2016-12-01 07:33] LABS: MEAN CORPUSCULAR HEMOGLOBIN 30.1 pg (27.0-33.0); MEAN CORPUSCULAR HGB CONC 33.8 g/dl (32.0-36.5); RED CELL DISTRIBUTION WIDTH 13.1 % (11.5-14.5); WHITE BLOOD COUNT 4.7 K/mm3 (4.0-10.0)
[2016-12-01 07:50] LABS: ANION GAP 6 MEQ/L (8-16); BLOOD UREA NITROGEN 11 MG/DL (7-18); CALCIUM LEVEL 8.1 MG/DL (8.5-10.1); CARBON DIOXIDE LEVEL 31 MEQ/L (21-32); CHLORIDE LEVEL 104 MEQ/L (98-107); GLOMERULAR FILTRATION RATE > 60.0 (>58); GLUCOSE, FASTING 92 MG/DL (70-105); SODIUM LEVEL 141 MEQ/L (136-145)
[2016-12-01 08:00] VITALS: BP 137/85
[2016-12-01] MEDS ORDERED: OXYC1TAB23 PO (09:13)
--- NOTE | 2016-12-01 21:01 | DSES ---
DATE OF ADMISSION: 11/27/2016 DATE OF DISCHARGE: 12/01/2016 DISCHARGE DIAGNOSES: 1. Abdominal pain. 2. Bright red blood per rectum, resolved. 3. Constipation. 4. Esophageal spasm. 5. History of ovarian cancer status post hysterectomy and bilateral oophorectomy. DISCHARGE MEDICATIONS - alprazolam 0.25 mg by mouth three times a day as needed - EpiPen 0.3 mg injection as needed - omeprazole 40 mg by mouth twice daily - ondansetron 4 mg by mouth every eight hours as needed - prochlorperazine 5 mg by mouth every six hours as needed - ranitidine one tablet by mouth twice daily - Percocet one tablet by mouth every six hours as needed, 12 tablets BRIEF HOSPITAL COURSE: The patient presented to the hospital complaining of abdominal pain. She had undergone an endoscopy and colonoscopy the Sunday prior to admission. A polyp was removed during that colonoscopy and the patient reported that she started to notice bright red blood per rectum. She also had not had a bowel movement. She reported that she had bilateral lower quadrant cramping pain. She also reported some lightheadedness and dizziness and some fatigue. She denied any fevers or chills and no other significant complaints. She was admitted into the hospital and given pain medication. Her abdomen/pelvis CT was unremarkable. She was monitored for a few days. She remained afebrile during hospitalization. Vitals were stable. Her hemoglobin remained stable. The bright red blood per rectum had completely resolved. The patient had a bowel movement with several medications as her bowel regimen. The patient also had a KUB several days after her CT, which was unremarkable. Abdominal pain had improved. The patient was subsequently stable for discharge. All other chronic medical problems remained stable. On day of discharge, the patient reported improved abdominal pain. No nausea, vomiting, no fevers or chills. No hematochezia or melena. No urinary complaints. No chest pain/pressure, shortness of breath, dizziness. LABORATORY DATA ON DISCHARGE WBC 4.7, hemoglobin 11.8, hematocrit 35.1, platelet count 251. Sodium 141, potassium 4.0, chloride 104, carbon dioxide 31, anion gap 6, BUN 11, creatinine 0.8, GFR greater than 60, fasting glucose 92, calcium 8.1. IMAGING STUDIES: As stated above. PENDING LABORATORIES: The patient has BRENDON and ANCA antibodies pending. Also has cerevisiae antibodies pending. PHYSICAL EXAMINATION ON DISCHARGE: VITAL SIGNS: Temperature 98.1, pulse 73, respiratory rate 18, blood pressure 137/85, pulse oximetry 95% on room air. GENERAL: The patient is awake and alert in no acute distress. HEENT: Normocephalic, atraumatic. Extraocular muscles are intact. No scleral icterus. Moist mucosa. NECK: Supple. No cervical lymphadenopathy. No thyromegaly. HEART: Normal S1, S2, regular rate and rhythm. No murmur appreciated. LUNGS: Clear to auscultation bilaterally. No rales, rhonchi or wheezing. ABDOMEN: Obese, soft. Very mild tenderness to deep palpation in the lower quadrant. No rebound, guarding or rigidity. Bowel sounds are present. EXTREMITIES: No cyanosis or edema. Positive pedal pulses bilaterally. SKIN: Warm and dry. No rashes noted. NEUROLOGIC: No focal deficits. Cranial nerves II-XII are grossly intact. Motor and sensation intact. DISCHARGE INSTRUCTIONS: The patient is discharged in stable condition. She should followup with her primary care provider in one week. Diet and activity as tolerated. Return to the emergency department with any worsening or recurring symptoms. The patient was advised to be on a bowel regimen given that she has been on narcotic medication, and make sure that she is having regular bowel movements. Return to the emergency department with any worsening or recurring symptoms. TIME SPENT ON DISCHARGE: 30 minutes. My preceptor for this patient encounter was Dr. Tabatha Cooper. The preceptor was physically present in the building during the encounter and was fully available as needed. All aspects of the patient interview, examination, medical decision making process, and medical care plan development were reviewed and approved by the preceptor. The preceptor is aware and concurs with the plan as stated in the body of this note and will attest to such by his/her co-signature.
[2016-12-06 00:06] LABS: ANTI-SACCHAROMYCES CEREV. IgA <20.0 Units (0.0-24.9); ANTI-SACCHAROMYCES CEREV. IgG 24.7 Units (0.0-24.9)
== END 2016-12-01 09:42 | disposition home or self-care (01) | DRG 253 ==
LOC: M ED 22:55 → OBSVTOIN 22:56 → M ED INP 22:56 → M PED 11-28 05:11 → INTOOBSV 11-29 12:04 → OBSVTOIN 11-29 12:04
PROVIDERS: ADMIT General Practice; ATTEND Internal Medicine
DX: K62.5 Hemorrhage of anus and rectum (principal); K22.4 Dyskinesia of esophagus; R10.9 Unspecified abdominal pain; K59.00 Constipation, unspecified; Z90.710 Acquired absence of both cervix and uterus; Z90.722 Acquired absence of ovaries, bilateral; Z85.43 Personal history of malignant neoplasm of ovary; Z79.899 Other long term (current) drug therapy; Z98.84 Bariatric surgery status; Z90.49 Acquired absence of other specified parts of digestive tract; Z91.040 Latex allergy status; Z88.0 Allergy status to penicillin; Z88.2 Allergy status to sulfonamides; Z88.8 Allergy status to other drugs, medicaments and biological substances; Z88.1 Allergy status to other antibiotic agents; Z91.018 Allergy to other foods; Z88.6 Allergy status to analgesic agent

== ENCOUNTER 2016-12-13 18:50 | Observation (INO) | payer BC ==
[~2016-12-13] VITALS: Ht 167.6 cm; Wt 114.5 kg
[~2016-12-13 18:50] MED LIST changes: +ALPR0.25 PO; +EPIP0.3I2 INJ; +OMEP40CA2 PO; +ONDA4TAB6 PO; +OXYC1TAB23 PO; +RANI150T PO
[2016-12-13] MEDS ORDERED: NS 500 ML IV ONE (19:30)
[2016-12-13] MEDS ORDERED: ONDANSETRON 4MG/2ML VIAL (J2405) IV ONE (19:30)
[2016-12-13] MEDS ORDERED: MORPHINE 4 MG/ML 1ML SYRINGE IV ONE (19:45)
[2016-12-13 20:10] LABS: BASO % 0.3 % (0.0-1.0); EOS # 0.1 K/mm3 (0.0-0.50); EOS % 1.8 % (0.0-3.0); LARGE UNSTAINED CELL # 0.1 K/mm3 (0.0-0.4); LARGE UNSTAINED CELL % 1.5 % (0.0-4.0); LYMPH # 2.1 K/mm3 (1.5-4.5); MEAN CORPUSCULAR HEMOGLOBIN 29.3 pg (27.0-33.0); MEAN CORPUSCULAR HGB CONC 33.2 g/dl (32.0-36.5); MEAN CORPUSCULAR VOLUME 88.4 fl (80.0-96.0); MONO # 0.3 K/mm3 (0.0-0.8); MONO % 5.7 % (0.0-5.0); NEUTROPHILS # 2.9 K/mm3 (1.8-7.7); NEUTROPHILS % 53.7 % (36.0-66.0); PLATELET COUNT, AUTOMATED 291 k/mm3 (150-450); RED CELL DISTRIBUTION WIDTH 13.1 % (11.5-14.5); WHITE BLOOD COUNT 5.4 K/mm3 (4.0-10.0)
[2016-12-13] MEDS ORDERED: diphenhydrAMINE INJ 50MG/ML VIAL (J1200) IV STA (20:14)
[2016-12-13 20:15] LABS: ALBUMIN 3.4 GM/DL (3.2-5.2); ALKALINE PHOSPHATASE 77 U/L (45-117); ALT/SGPT 23 U/L (12-78); ANION GAP 5 MEQ/L (8-16); AST/SGOT 14 U/L (15-37); BILIRUBIN,DIRECT < 0.1 MG/DL (0.0-0.2); BILIRUBIN,TOTAL 0.3 MG/DL (0.2-1.0); BLOOD UREA NITROGEN 14 MG/DL (7-18); CALCIUM LEVEL 8.5 MG/DL (8.5-10.1); CARBON DIOXIDE LEVEL 29 MEQ/L (21-32); CHLORIDE LEVEL 108 MEQ/L (98-107); CREATININE FOR GFR 0.83 MG/DL (0.55-1.02); GLOMERULAR FILTRATION RATE > 60.0 (>58); GLUCOSE, FASTING 85 MG/DL (70-105); POTASSIUM SERUM 3.7 MEQ/L (3.5-5.1); SODIUM LEVEL 142 MEQ/L (136-145); TOTAL PROTEIN 6.8 GM/DL (6.4-8.2)
[2016-12-13] MEDS ORDERED: methylPREDNISolone INJ 125 MG/2 ML VIAL (J2930) IV ONE (20:15)
[2016-12-13] MEDS ORDERED: FAMOTIDINE IV BAG 20 MG in APPROPRIATE DILUENT 1 EA IV ONE (20:15)
[2016-12-13] MEDS ORDERED: ISOVUE-370 76% 100ML VIAL (Q9967) As Ordered ONE (20:53)
--- NOTE | 2016-12-13 22:10 | REPUSA ---
CT of the abdomen and pelvis with contrast Clinical statement: vomiting, pain. Technique: Multiple axial CT images were obtained from the base of the lungs through the floor of the pelvis utilizing 5 mm axial slices after administration of nonionic intravenous contrast. Coronal an d sagittal reconstructions were also obtained. Comparison: 11/27/2016. Findings: Chest: The visualized lung bases are clear. Abdomen: The liver, spleen, pancreas, kidneys, and adrenal glands are unremarkable. The patient is st atus post gastric bypass. The aorta is within normal limits. There is no evidence of abdominal lympha denopathy or ascites. Pelvis: The bowel is unremarkable, with no obstructive or inflammatory changes. The urinary bladder i s within normal limits. The other pelvic structures appear grossly intact. There is no evidence of pe lvic lymphadenopathy or ascites. Bones: There are no suspicious osseous abnormalities seen. There is mild degenerative disc disease at L5/S1. Impression: 1. No obstructive or inflammatory bowel changes. 2. Mild degenerative disc disease at L5/S1. 3. No change since the prior study.
[2016-12-14] MEDS ORDERED: IMIP50TA2 PO (00:09)
[2016-12-14] MEDS ORDERED: PROC5TA PO (00:09)
[2016-12-14] MEDS: MORPHINE 4 MG/ML 1ML SYRINGE IV PRN ×6 (01:03→21:17)
[2016-12-14] MEDS ORDERED: PROCHLORPERAZINE 5 MG TAB (S0183) PO PRN (04:15)
[2016-12-14] MEDS ORDERED: ACETAMINOPHEN TAB 650MG DOSE (2X325MG) PO PRN (04:15)
[2016-12-14] MEDS ORDERED: FLEET ENEMA PR PRN (04:15)
[2016-12-14] MEDS ORDERED: BISACODYL 10 MG SUPP PR PRN (04:15)
[2016-12-14] MEDS ORDERED: ONDANSETRON 4MG/2ML VIAL (J2405) IV PRN (04:15)
[2016-12-14 05:40] VITALS: BP 138/78
[2016-12-14] MEDS: HEPARIN SOD (PORCINE) 5000 UNITS/ML VIAL SC SCH ×3 (06:17→21:17)
[2016-12-14] MEDS: IMIPRAMINE 50 MG TAB PO SCH ×2 (06:17→21:16)
[2016-12-14] MEDS: NS 1,000 ML IV SCH ×2 (06:18→14:25)
--- NOTE | 2016-12-14 06:40 | HPEPDOC ---
General Date of Admission Dec 13, 2016 at 20:17 Primary Care Physician: ALESSANDRA CUNNINGHAM DO Attending Physician: ROMAN CATHERINE DO Chief Complaint The patient is a 41-year-old female admitted with a reason for visit of Constipation. Source: Patient Exam Limitations: No limitations Timing/Duration: 24 hours Severity: Moderate Associated Symptoms: Malaise, Nausea, Vomiting Home Medications Scheduled Imipramine HCl (Imipramine HCl) 50 Mg Tab, 50 MG PO QHS, (Reported) Omeprazole (Omeprazole) 40 Mg Cap, 40 MG PO BID, (Reported) Ranitidine HCl (Ranitidine HCl) 150 Mg Tab, 1 TAB PO QHS, (Reported) Scheduled PRN (Epipen 2-Rosalio) 0.3 Mg/0.3 Ml Inj, 0.3 MG INJ ASDIRECTED PRN for ANAPHYLAXIS, ( Reported) Ondansetron (Ondansetron Odt) 4 Mg Tab, 4 MG PO Q8H PRN for NAUSEA, (Reported) Prochlorperazine (Prochlorperazine Maleate) 5 Mg Tab, 5 MG PO QHS PRN for NAUSEA , (Reported) Allergies Coded Allergies: Bee Venom (Unverified Allergy, Severe, ANAPHYLAXIS, 11/28/16) Latex (Verified Allergy, Severe, Anaphylaxis, 11/27/16) Mushroom (Verified Allergy, Severe, Anaphylaxis, 11/27/16) Penicillins (Verified Allergy, Severe, Anaphylaxis, 11/27/16) NSAIDs (Unverified Allergy, Intermediate, HIVES, SWELLING, 11/27/16) Gabapentin (Verified Allergy, Mild, Hives, 11/27/16) Sulfa Antibiotics (Verified Allergy, Mild, Hives, 11/27/16) Tetracycline (Verified Allergy, Mild, Hives, 11/27/16) Iodine (Verified Allergy, Unknown, rash, 11/27/16) Past Medical History Medical History Ovarian cancer Surgical History Gastric bypass, cholecystectomy, appendectomy, hysterectomy Family History Polyps Social History * Smoker: Denies Alcohol: Denies Drugs: denies Recent Travel/Sick Contacts: Denies: Recent travel, Recent sick contacts Psychosocial History: No pertinent psych hx Lives with roommate, independent for ADLs. Nonsmoker all her drugs Review of Symptoms Constitutional: Denies: Chills, Fever, Night Sweats Eyes: Denies: Pain, Vision change ENT: Denies: Head Aches, Ear Pain, Dysphagia Skin: Denies: Rash, Lesions, Breakdown Pulmonary: Denies: Dyspnea, Cough Cardiovascular: Denies: Chest Pain, Palpitations, Orthopnea, Paroxysmal Noc. Dyspnea, Lt Headedness Gastrointestinal: Reports: Nausea, Vomiting, Abdominal Pain, Constipation, Denies: Diarrhea Genitourinary: Denies: Dysuria, Frequency, Incontinence, Retention Hematologic: Denies: Bruising, Bleeding Excessively Musculoskeletal: Denies: Neck Pain, Back Pain, Joint Pain, Muscle Pain, Spasms Neurological: Denies: Weakness, Numbness, Change in speech, Confusion Psych: Reports: Mood Normal, Denies: Depression, Memory Issues Physical Examination General Exam: Positive: Alert, No Acute Distress Eye Exam: Positive: PERRLA, Conjunctiva & lids normal, EOMI, Negative: Sclera icteric ENT Exam: Positive: Atraumatic, Mucous membr. moist/pink, Pharynx Normal Neck Exam: Positive: Supple, Negative: JVD, thyromegaly Chest Exam: Positive: Clear to auscultation, Normal air movement Heart Exam: Positive: Rate Normal, Regular Rhythm, Normal S1, Normal S2, Negative: Murmurs, Rubs Telemetry: Positive: No significant arrhythmia Abdomen Exam: Positive: BS Hypoactive, Soft, Tenderness, Negative: Hepatospenomegaly Extremity Exam: Positive: Normal pulses, Negative: Clubbing, Cyanosis, Edema Skin Exam: Positive: Nl turgor and temperature, Negative: Breakdown, Lesion Neuro Exam: Positive: Normal Gait, Normal Speech, Cranial Nerves 3-12 NL, Reflexes 2+ Psych Exam: Positive: Mental status NL, Mood NL, Oriented x 3 Vital Signs Vital Signs Date Time Temp Pulse Resp B/P (MAP) Pulse Ox O2 Delivery O2 Flow Rate FiO2 12/14/16 02:23 16 96 12/13/16 19:30 12/13/16 18:50 98.4 78 Room Air Laboratory Data Labs 24H Laboratory Tests 2 12/13/16 19:41: White Blood Count 5.4, Red Blood Count 4.16, Hemoglobin 12.2, Hematocrit 36.8, Mean Corpuscular Volume 88.4, Mean Corpuscular Hemoglobin 29.3, Mean Corpuscular Hemoglobin Concent 33.2, Red Cell Distribution Width 13.1, Platelet Count 291, Neutrophils (%) (Auto) 53.7, Lymphocytes (%) (Auto) 37.0, Monocytes ( %) (Auto) 5.7H, Eosinophils (%) (Auto) 1.8, Basophils (%) (Auto) 0.3, Neutrophils # (Auto) 2.9, Lymphocytes # (Auto) 2.1, Monocytes # (Auto) 0.3, Eosinophils # (Auto) 0.1, Basophils # (Auto) 0.0, Large Unclassified Cells % 1.5 , Large Unclassified Cells # 0.1, Anion Gap 5L, Glomerular Filtration Rate > 60.0, Lactic Acid Level 1.6, Calcium Level 8.5, Aspartate Amino Transf (AST/SGOT ) 14L, Alanine Aminotransferase (ALT/SGPT) 23, Alkaline Phosphatase 77, Total Bilirubin 0.3, Direct Bilirubin < 0.1, Total Protein 6.8, Albumin 3.4, Albumin/ Globulin Ratio 1.00, Lipase 302 CBC/BMP Laboratory Tests 12/13/16 19:41 Red Blood Count 4.16, Mean Corpuscular Volume 88.4, Mean Corpuscular Hemoglobin 29.3, Mean Corpuscular Hemoglobin Concent 33.2, Red Cell Distribution Width 13.1 , Neutrophils (%) (Auto) 53.7, Lymphocytes (%) (Auto) 37.0, Monocytes (%) (Auto ) 5.7 H, Eosinophils (%) (Auto) 1.8, Basophils (%) (Auto) 0.3, Neutrophils # ( Auto) 2.9, Lymphocytes # (Auto) 2.1, Monocytes # (Auto) 0.3, Eosinophils # (Auto ) 0.1, Basophils # (Auto) 0.0 Assessment/Plan 41-year-old female and history of ovarian cancer that presented with constipation for last 3-4 days leading to nausea and vomiting Problems (1) Constipation Status: Acute Problem Text: Given Dulcolax suppository and Fleet enema twice a day 3. Lipase and had a bowel movement, was discharged home after she had a bowel movement. DC home with laxative on a daily basis as needed Plan / VTE VTE Prophylaxis Ordered?: Yes Plan IVF: Initiate Diet: Make NPO Activity: Continue Current Anticipated Discharge: Home LYN YORK MD Dec 14, 2016 06:40
[2016-12-14] MEDS ORDERED: MAGNESIUM CITRATE 300 ML BTL PO ONE (08:00)
[2016-12-14] MEDS: MIRALAX *UNIT DOSE* 17GM PACKET PO SCH (08:06)
[2016-12-14] MEDS: OMEPRAZOLE 20 MG CAP PO SCH ×2 (08:06→21:16)
[2016-12-14] MEDS: diphenhydrAMINE INJ 50MG/ML VIAL (J1200) IV PRN ×3 (08:06→21:41)
[2016-12-14 14:00] VITALS: BP 148/78
[2016-12-14 22:00] VITALS: BP 151/78
[2016-12-15] MEDS: NS 1,000 ML IV SCH ×3 (02:51→21:32)
[2016-12-15 06:00] VITALS: BP 141/81
[2016-12-15] MEDS: diphenhydrAMINE INJ 50MG/ML VIAL (J1200) IV PRN ×3 (06:20→21:32)
[2016-12-15] MEDS: HEPARIN SOD (PORCINE) 5000 UNITS/ML VIAL SC SCH ×3 (06:21→21:24)
[2016-12-15] MEDS: MORPHINE 4 MG/ML 1ML SYRINGE IV PRN ×3 (06:21→21:33)
[2016-12-15 06:47] LABS: MEAN CORPUSCULAR HEMOGLOBIN 30.6 pg (27.0-33.0); MEAN CORPUSCULAR HGB CONC 33.8 g/dl (32.0-36.5); MEAN CORPUSCULAR VOLUME 90.5 fl (80.0-96.0); RED CELL DISTRIBUTION WIDTH 13.3 % (11.5-14.5); WHITE BLOOD COUNT 4.6 K/mm3 (4.0-10.0)
[2016-12-15 06:59] LABS: ALBUMIN 2.9 GM/DL (3.2-5.2); ALKALINE PHOSPHATASE 59 U/L (45-117); ALT/SGPT 21 U/L (12-78); ANION GAP 4 MEQ/L (8-16); AST/SGOT 14 U/L (15-37); BILIRUBIN,TOTAL 0.3 MG/DL (0.2-1.0); BLOOD UREA NITROGEN 15 MG/DL (7-18); CALCIUM LEVEL 8.1 MG/DL (8.5-10.1); CARBON DIOXIDE LEVEL 30 MEQ/L (21-32); CHLORIDE LEVEL 107 MEQ/L (98-107); CREATININE FOR GFR 0.81 MG/DL (0.55-1.02); GLOMERULAR FILTRATION RATE > 60.0 (>58); GLUCOSE, FASTING 84 MG/DL (70-105); POTASSIUM SERUM 3.8 MEQ/L (3.5-5.1); SODIUM LEVEL 141 MEQ/L (136-145); TOTAL PROTEIN 5.8 GM/DL (6.4-8.2)
[2016-12-15] MEDS ORDERED: MIRALAX POWDER 255 GM BTL (POLYETHYLENE GLYCOL) PO ONE (08:00)
[2016-12-15] MEDS: MIRALAX *UNIT DOSE* 17GM PACKET PO SCH (09:00)
[2016-12-15] MEDS: SENOKOT S TAB PO SCH ×2 (09:28→21:24)
[2016-12-15] MEDS: OMEPRAZOLE 20 MG CAP PO SCH ×2 (09:28→21:24)
--- NOTE | 2016-12-15 12:57 | IPN ---
DATE: 12/15/2016 41-year-old female still with some vague abdominal discomfort. She did require some morphine this morning. She did not have a very beneficial bowel movement yesterday and will try to modify her bowel regimen a little further today. OBJECTIVE: Temperature is 98.1, pulse 76, respiratory rate is 19. Blood pressure (BP) 141/81, SpO2 is 93% on room air. General: The patient appears to be in no acute distress. She is alert, pleasant. HEENT: Unremarkable. Lungs: Clear. Heart: Regular rate and rhythm. Abdomen is obese. She does have some vague tenderness but normoactive bowel sounds. No rebound. Extremities: No edema, no calf tenderness. I did review her CT of the abdomen and pelvis. No obstructive or inflammatory bowel changes. She has some mild degenerative disc changes of L5-S1. She does appear to have had quite a bit of stool in the large intestine on the admission date of 12/13/2016, but no signs of ileus or small bowel obstruction. Today, her white count is 4.6, hemoglobin 11.3, platelets 223. Sodium is 141, potassium 3.8, chloride 107, bicarbonate 30, anion gap 4, BUN is 15, creatinine 0.1, glucose 84, calcium 8.1, AST 14, ALT 21, alkaline phosphatase 59. ASSESSMENT AND PLAN: Obstipation. We will go ahead and modify her bowel regimen today. Her abdominal pain does appear to be a little better than yesterday. We will see if we are more successful with having bowel movement today. I did start on a bottle of MiraLAX to be divided between two bottles of Gatorade, and if she is able to have a bowel movement that allows her to have some relief later this evening, we may try to discharge her later in the day. Additionally, she does have a history of multiple abdominal surgeries ranging from gastric bypass, cholecystectomy, appendectomy, hysterectomy. She does not appear to need any surgical intervention as far as I can tell at this point, but she may be at risk for adhesions and this may need further followup later on. Prior history of ovarian cancer with total abdominal hysterectomy and bilateral salpingo-oophorectomy as indicated. DISPOSITION: Anticipate discharge either later today or tomorrow depending on if she is able to get some relief with a bowel movement.
[2016-12-15 14:00] VITALS: BP 142/75
[2016-12-15] MEDS ORDERED: MIRA3350 PO (15:15)
--- NOTE | 2016-12-15 18:34 | REP ---
Supine abdomen single AP view: Comparison is 11/30/2016. The bowel gas pattern is normal. There is a surgical staple line in the abdomen on the left. There are pelvic calcifications, unchanged, likely phleboliths. The skeletal structures and soft tissues otherwise are unremarkable. Signed by Sotero Toro MD 12/15/2016 06:27 P
[2016-12-15 19:55] VITALS: BP_SYST 167; BP_SYST 168; BP_DIAS 92; BP_DIAS 94; BP_DIAS 95
--- NOTE | 2016-12-15 20:40 | REPUSA ---
CT of the head Clinical history: Fall. Technique: Multiple axial CT images were obtained through the head without administration of contrast . Comparison: 10/04/2015. Findings: The ventricles and sulci are symmetric bilaterally. There is no evidence of acute hemorrhag e or infarct. There is no midline shift, mass effect, or extra-axial fluid collection. The osseous st ructures are unremarkable. The visualized paranasal sinuses and mastoid air cells are clear. Impression: Negative study.
--- NOTE | 2016-12-15 21:13 | DSES ---
DATE OF ADMISSION: 12/13/2016 DATE OF DISCHARGE: Primary care provider is Dr. Patel. Mathematics Lecturer, Dr. Lewis CONSULTATIONS: None. PROCEDURES: None. COMPLICATIONS: None. ADMISSION/DISCHARGE DIAGNOSES: 1. Abdominal pain with obstipation. 2. Gastroesophageal reflux disease (GERD). 3. Irritable bowel syndrome. 4. Depression with no suicidal ideation. BRIEF HOSPITAL COURSE: Ms. Pozo is a 41-year-old female who presents to the emergency department on 12/13/2016 with abdominal pain, constipation, which has been a recurrent problem for her for the last couple of months. She did have an esophagogastroduodenoscopy (EGD), colonoscopy performed in November. She since then has had some issues with abdominal pain and constant recurrent constipation. She informed me that she did not had any significant abnormalities at that time other than some acid reflux. During this hospital stay, we did have to use several bowel prep agents and had her modify her diet. She will go home with a prescription of MiraLAX to be used daily, high-fiber diet and will need to follow up with her family doctor and potentially the spd manager within the next few weeks. Please see her progress note today for her physical exam, labs and diagnostics. Discharge condition is good. DISPOSITION: Discharge to home with appropriate followup. DISCHARGE MEDICATIONS: - MiraLAX 17 grams daily - Epipen 0.3 injected as needed for anaphylaxis. - imipramine 50 mg nightly - omeprazole 40 mg twice a day - Zofran ODT 4 mg every 8 hours as needed - prochlorperazine 5 mg nightly as needed for nausea - ranitidine 150 mg nightly DISCHARGE INSTRUCTIONS: Discharge home. Follow up with Dr. Patel in a week. Followup with spd manager within the next 2-3 weeks as needed. High-fiber diet. MiraLAX needs to be taken daily and seek medical attention should symptoms worsen or progress. She voices understanding. Discharge took approximately 35 minutes.
[2016-12-15] MEDS: IMIPRAMINE 50 MG TAB PO SCH (21:24)
[2016-12-15 22:00] VITALS: BP 139/80
[2016-12-16] MEDS: HEPARIN SOD (PORCINE) 5000 UNITS/ML VIAL SC SCH (05:42)
[2016-12-16] MEDS: NS 1,000 ML IV SCH (05:43)
[2016-12-16 05:48] LABS: MEAN CORPUSCULAR HEMOGLOBIN 30.7 pg (27.0-33.0); MEAN CORPUSCULAR VOLUME 90.2 fl (80.0-96.0); RED CELL DISTRIBUTION WIDTH 13.3 % (11.5-14.5)
[2016-12-16 06:00] VITALS: BP 145/96
[2016-12-16 06:09] LABS: ALBUMIN 2.7 GM/DL (3.2-5.2); ALKALINE PHOSPHATASE 60 U/L (45-117); ALT/SGPT 32 U/L (12-78); ANION GAP 7 MEQ/L (8-16); AST/SGOT 26 U/L (15-37); BILIRUBIN,TOTAL 0.2 MG/DL (0.2-1.0); BLOOD UREA NITROGEN 9 MG/DL (7-18); CALCIUM LEVEL 7.6 MG/DL (8.5-10.1); CARBON DIOXIDE LEVEL 26 MEQ/L (21-32); CHLORIDE LEVEL 109 MEQ/L (98-107); CREATININE FOR GFR 0.65 MG/DL (0.55-1.02); GLOMERULAR FILTRATION RATE > 60.0 (>58); GLUCOSE, FASTING 81 MG/DL (70-105); POTASSIUM SERUM 3.7 MEQ/L (3.5-5.1); SODIUM LEVEL 142 MEQ/L (136-145); TOTAL PROTEIN 5.4 GM/DL (6.4-8.2)
[2016-12-16] MEDS ORDERED: MORPHINE 4 MG/ML 1ML SYRINGE IV PRN (08:00)
[2016-12-16] MEDS: SENOKOT S TAB PO SCH (09:53)
[2016-12-16] MEDS: OMEPRAZOLE 20 MG CAP PO SCH (09:53)
[2016-12-16] MEDS: MIRALAX *UNIT DOSE* 17GM PACKET PO SCH (09:53)
[2016-12-16] MEDS ORDERED: FUROSEMIDE 40 MG/4 ML VIAL (J1940) IV ONE (10:00)
[2016-12-16] MEDS ORDERED: DULC10SU2 PR (11:29)
[2016-12-16] MEDS ORDERED: SENO17.2 PO (11:29)
--- NOTE | 2016-12-16 15:33 | DS.PDOC ---
Discharge Summary General Date of Admission Dec 13, 2016 at 20:17 Date of Discharge December 16, 2016 Primary Care Physician: ALESSANDRA CUNNINGHAM DO Attending Physician: BROOKLYNN AVILES MD Discharge Summary Consults: None. Discharge diagnosis: Abdominal Pain with Obstipation Secondary diagnosis: GERD Irritable Bowel Syndrome Depression with no suicidal ideation Hospital course: Please see Dr. Jan Olsen's complete discharge summary note. Note was dictated on 12/15/16, but patient was not discharged until December 16. Progress note on date of discharge: Subjective: Patient seen and examined at bedside. Admits to lower extremity swelling that she states is new for her. States no SOB at rest or with exertion. Denies fevers , chills, chest pain, SOB, nausea, vomiting, diarrhea, rashes or lesions anywhere, headache, dizziness, lightheadedness, cough, runny nose, sore throat, blurred vision, weakness. Admits to continuing abdominal discomfort that's been present since constipation issues. She denies having a BM this morning. However , later this morning, nurse reported patient had a BM. Patient was to be discharged yesterday, but nursing reported that patient had a syncopal episode in the bathroom yesterday while patient was trying to have a BM. She was found on the floor and had passed out. She was reported to have a hx of vasovagal syncope. CT scan of the head was done and was negative. Neurochecks were done overnight and they were also WNL. There were no bumps/ bruises noticed. Orthostatic vital signs were taken and were negative. We had kept her one more day for overnight monitoring. Objective: Vitals: Please see below. General: Pleasant and cooperative obese female, awake, alert and oriented x 3, verbal and able to answer questions appropriately. NAD. Resting comfortably in bed. HEENT: NCAT. Sclera nonicteric. Grossly normal hearing bilaterally. Neck: Supple. Heart: Regular rate and rhythm, normal S1-S2. No murmurs, rubs, clicks or gallops. Lungs: Clear to auscultation bilaterally. No wheezes, rales, or rhonchi. Abdomen: Soft, nondistended. +Generalized tenderness to palpation all 4 quadrants especially bilateral lower quadrants. Bowel sounds present. MSK: Normal ROM. Extremities: +1 pitting edema in LEs bilaterally. Vascular: +2 dorsalis pedis and radial pulses bilaterally. Integumentary: no rashes or lesions noted. Labs: Please see below. Unremarkable. Assessment: 41 yo F with a PMH of ovarian cancer status-post total abdominal hysterectomy and bilateral salpingo-oophorectomy, multiple abdominal surgeries: gastric bypass, cholecystectomy, appendectomy, hx of pneumonia, esophageal spasm, bright red blood per rectum, abdominal pain, constipation, who presented and was admitted to [facility] for abdominal pain, nausea, and vomiting secondary to obstipation on 12/13/16. Was given zofran and compazine for nausea. She was treated with dulcolax suppository, fleet enema, and miralax. Her abdominal pain , nausea, and vomiting improved over the course of her hospitalization and patient had 3 BMs prior to discharge. In addition, for mild LE edema, I had given her a 1 time dose of 40 mg IV lasix. Patient reported improvement in her symptoms. Disposition: Home. Follow-up: With PCP Dr. Alessandra Cunningham in 1 week. Follow up with Building Inspector at next appointment on December 19. Activity: As tolerated. Diet and Treatment Recommendations Given to Patient on Day of Discharge: Low fat, High Fiber. Increase fluid and water intake. Take miralax daily and seek medical attention should symptoms worsen or progress. Medications on discharge: Please see below. Time spent on discharge: 35 minutes. Vital Signs/I&Os Vital Signs Date Time Temp Pulse Resp B/P (MAP) Pulse Ox O2 Delivery O2 Flow Rate FiO2 12/16/16 06:00 97.4 84 18 145/96 (112) 95 Room Air I&O- Last 24 Hours up to 6 AM 12/16/16 06:00 Intake Total 2380 ml Output Total 2550 ml Balance -170 ml Laboratory Data Labs 24H Laboratory Tests 2 12/15/16 20:01: Bedside Glucose (Misc Panel) 106H 12/16/16 05:35: Anion Gap 7L, Glomerular Filtration Rate > 60.0, Blood Urea Nitrogen 9, Creatinine 0.65, Sodium Level 142, Potassium Level 3.7, Chloride Level 109H, Carbon Dioxide Level 26, Calcium Level 7.6L, Aspartate Amino Transf (AST/SGOT) 26, Alanine Aminotransferase (ALT/SGPT) 32, Alkaline Phosphatase 60, Total Bilirubin 0.2, Total Protein 5.4L, Albumin 2.7L, Albumin/Globulin Ratio 1.00 CBC/BMP Laboratory Tests 12/16/16 05:35 Red Blood Count 3.48 L, Mean Corpuscular Volume 90.2, Mean Corpuscular Hemoglobin 30.7, Mean Corpuscular Hemoglobin Concent 34.0, Red Cell Distribution Width 13.3, Calcium Level 7.6 L, Aspartate Amino Transf (AST/SGOT) 26, Alanine Aminotransferase (ALT/SGPT) 32, Alkaline Phosphatase 60, Total Bilirubin 0.2, Total Protein 5.4 L, Albumin 2.7 L FSBS Laboratory Tests Test 12/15/16 20:01 Range/Units Bedside Glucose (Misc Panel) 106 70-105 MG/DL Discharge Medications Scheduled Imipramine HCl (Imipramine HCl) 50 Mg Tab, 50 MG PO QHS, (Reported) Omeprazole (Omeprazole) 40 Mg Cap, 40 MG PO BID, (Reported) Ranitidine HCl (Ranitidine HCl) 150 Mg Tab, 1 TAB PO QHS, (Reported) Senna (Senokot Xtra) 17.2 Mg Tab, 17.2 MG PO BID Take 2 tablets twice a day for constipation. Scheduled PRN (Epipen 2-Rosalio) 0.3 Mg/0.3 Ml Inj, 0.3 MG INJ ASDIRECTED PRN for ANAPHYLAXIS, ( Reported) Bisacodyl (Dulcolax) 10 Mg Sup, 10 MG CO DAILYPRN PRN for BOWEL CARE/ CONSTIPATION Use suppository PRN constipation if other laxatives do not help. Ondansetron (Ondansetron Odt) 4 Mg Tab, 4 MG PO Q8H PRN for NAUSEA, (Reported) Polyethylene Glycol (Miralax) 1 Pow Pow, 17 GM PO DAILY PRN for CONSTIPATION dilute in 8 ounces of water or juice Prochlorperazine (Prochlorperazine Maleate) 5 Mg Tab, 5 MG PO QHS PRN for NAUSEA , (Reported) Allergies Coded Allergies: Bee Venom (Unverified Allergy, Severe, ANAPHYLAXIS, 11/28/16) Latex (Verified Allergy, Severe, Anaphylaxis, 11/27/16) Mushroom (Verified Allergy, Severe, Anaphylaxis, 11/27/16) Penicillins (Verified Allergy, Severe, Anaphylaxis, 11/27/16) NSAIDs (Unverified Allergy, Intermediate, HIVES, SWELLING, 11/27/16) Gabapentin (Verified Allergy, Mild, Hives, 11/27/16) Sulfa Antibiotics (Verified Allergy, Mild, Hives, 11/27/16) Tetracycline (Verified Allergy, Mild, Hives, 11/27/16) Iodine (Verified Allergy, Unknown, rash, 11/27/16) GME ATTESTATION GME ATTESTATION My preceptor for this patient encounter was Dr. Brooklynn Aviles, and was physically present in the building during the encounter and was fully available. As needed , all aspects of the patient interview, examination, medical decision making process, and medical care plan development were reviewed and approved by the preceptor. Preceptor is aware and concurs with the plan as stated in the body of this note and will attest to such by his/her cosignature. CHACE CRISOSTOMO OGME-1 Dec 16, 2016 15:33
== END 2016-12-16 12:45 | disposition home or self-care (01) ==
LOC: M ED 20:16 → M ED INP 20:17 → M MSPAV 12-14 05:41
PROVIDERS: ADMIT Internal Medicine; ATTEND Internal Medicine Nephrology
DX: K59.00 Constipation, unspecified (principal); K21.9 Gastro-esophageal reflux disease without esophagitis; K58.1 Irritable bowel syndrome with constipation; F32.9 Major depressive disorder, single episode, unspecified; Z85.43 Personal history of malignant neoplasm of ovary; Z98.84 Bariatric surgery status; R60.0 Localized edema; Z79.899 Other long term (current) drug therapy; Z91.040 Latex allergy status; Z91.030 Bee allergy status; Z88.2 Allergy status to sulfonamides; Z88.8 Allergy status to other drugs, medicaments and biological substances
CPT/HCPCS: 36415; 70450; 74000; 74177; 80048; 80053; 80076; 83605; 83690; 85025; 85027; 93041; 96372; 96374; 96375; 96376; 99284; J1200; J1940; J2405; J2930; Q9967

== ENCOUNTER 2017-01-23 23:04 | Emergency (ER) | payer BC ==
[~2017-01-23] VITALS: Ht 167.6 cm; Wt 116.5 kg
[~2017-01-23 23:04] MED LIST changes: +DULC10SU2 PR; +HYDR-643 PO; -HYDR10T PO; +IBUP-1022 PO; -IBUP600T26 PO; +IMIP50TA3 PO; -LEVA750T PO; +LEVA750T7 PO; +MIRA3350 PO; -MUCI600T34 PO; +MUCI600T37 PO; -NYST100024 TOP; +NYST1POW9 TOP; +SENO17.2 PO
[2017-01-24] MEDS ORDERED: predniSONE 20 MG TAB PO ONE (00:30)
[2017-01-24] MEDS ORDERED: diphenhydrAMINE INJ 50MG/ML VIAL (J1200) As Ordered ONE (01:32)
--- NOTE | 2017-01-24 05:03 | ED PDOC ---
Post-Departure Follow-Up This paper record was completed partially or completely on paper due to electronic EMR downtime. Please see the scanned paper chart attached. Emelyn Kathleen MD Jan 24, 2017 05:02
== END 2017-01-24 05:04 | disposition home or self-care (01) ==
LOC: M ED 23:04
DX: T78.40XA Allergy, unspecified, initial encounter (principal); S00.96XA Insect bite (nonvenomous) of unspecified part of head, initial encounter; W57.XXXA Bitten or stung by nonvenomous insect and other nonvenomous arthropods, initial encounter; Y92.9 Unspecified place or not applicable; Y93.9 Activity, unspecified; Y99.8 Other external cause status; Z91.030 Bee allergy status; Z91.040 Latex allergy status; Z91.018 Allergy to other foods; Z88.0 Allergy status to penicillin; Z88.2 Allergy status to sulfonamides; Z88.1 Allergy status to other antibiotic agents; Z88.6 Allergy status to analgesic agent; Z91.09 Other allergy status, other than to drugs and biological substances; Z79.899 Other long term (current) drug therapy
CPT/HCPCS: 99282; J1200

== ENCOUNTER 2017-02-18 20:36 | Emergency (ER) | payer BC ==
[~2017-02-18] VITALS: Ht 167.6 cm; Wt 119.3 kg
[2017-02-18 20:36] VITALS: BP 148/92
[2017-02-18] MEDS ORDERED: LINZ72CA PO (20:49)
[2017-02-18] MEDS ORDERED: NORCO, ANEXSIA 5/325MG TABLET (HYDROcodone/ACETAMINOPHEN) PO ONE (21:15)
[2017-02-18] MEDS ORDERED: NORCOTAB PO (21:32)
--- NOTE | 2017-02-19 09:11 | REP ---
LEFT ANKLE SERIES, FOUR VIEWS: There is no evidence of an acute fracture, dislocation or intrinsic bone disease. The ankle mortise is anatomic. There is mild posterior calcaneal spurring. IMPRESSION: No fracture or dislocation. Signed by Sotero Nice MD 02/19/2017 12:49 P
== END 2017-02-18 21:36 | disposition home or self-care (01) ==
LOC: M ED 20:36
DX: M76.62 Achilles tendinitis, left leg (principal); G43.909 Migraine, unspecified, not intractable, without status migrainosus; Z85.43 Personal history of malignant neoplasm of ovary; Z98.84 Bariatric surgery status; Z88.0 Allergy status to penicillin; Z88.1 Allergy status to other antibiotic agents; Z88.2 Allergy status to sulfonamides; Z88.8 Allergy status to other drugs, medicaments and biological substances; Z91.040 Latex allergy status; Z91.030 Bee allergy status

== ENCOUNTER → 2017-03-27 | Outpatient (CLI) | payer BC ==
[~2017-03-27] MED LIST changes: +LINZ72CA PO; +MEDR4PAK PO; +NORCOTAB PO; +PEPC1TAB4 PO
--- NOTE | 2017-03-28 08:01 | REP ---
PA and lateral chest: Comparison is 2016. The lung sutton are clear. The cardiac size is normal The rox, mediastinum, and bony thorax are unremarkable. Impression: Negative PA and lateral chest. The previous left lung infiltrate has resolved. Signed by Sotero Toro MD 03/28/2017 07:53 A
== END ==
LOC: M RAD 20:31
PROVIDERS: ATTEND Physician Assistant Medical
DX: R06.02 Shortness of breath (principal)

== ENCOUNTER 2017-04-26 05:34 | Emergency (ER) | payer BC, SELFPAY ==
[~2017-04-26] VITALS: Ht 170.2 cm; Wt 109.0 kg
[~2017-04-26 05:34] MED LIST changes: -MEDR4PAK PO; -PEPC1TAB4 PO
[2017-04-26] MEDS ORDERED: FAMOTIDINE INJ 20MG/2ML VIAL (S0028) IVP ONE (06:30)
[2017-04-26] MEDS ORDERED: NS 1,000 ML IV ONE (06:30)
[2017-04-26] MEDS ORDERED: methylPREDNISolone INJ 125 MG/2 ML VIAL (J2930) IV ONE (06:30)
[2017-04-26 08:33] VITALS: BP 124/80
[2017-04-26] MEDS ORDERED: PEPC1TAB4 PO (09:28)
[2017-04-26] MEDS ORDERED: MEDR4PAK PO (09:28)
== END 2017-04-26 09:35 | disposition home or self-care (01) ==
LOC: M ED 05:35
DX: T78.40XA Allergy, unspecified, initial encounter (principal); R21 Rash and other nonspecific skin eruption; Z88.8 Allergy status to other drugs, medicaments and biological substances; Z91.030 Bee allergy status; Z91.040 Latex allergy status; Z88.1 Allergy status to other antibiotic agents; Z88.2 Allergy status to sulfonamides
CPT/HCPCS: 96361; 96374; 96375; 99284; J2930

== ENCOUNTER 2017-06-11 21:44 | Emergency (ER) | payer SELFPAY ==
[~2017-06-11] VITALS: Ht 167.6 cm; Wt 109.1 kg
[2017-06-11 21:44] VITALS: BP 141/92
[~2017-06-11 21:44] MED LIST changes: +MEDR4PAK PO; +PEPC1TAB4 PO
== END 2017-06-11 22:12 | disposition left against medical advice (07) ==
LOC: M ED 21:44
DX: Z53.21 Procedure and treatment not carried out due to patient leaving prior to being seen by health care provider (principal)

== ENCOUNTER 2017-07-27 09:16 | Emergency (ER) | payer BC, SELFPAY | END 2017-07-27 11:10 | disposition home or self-care (01) | LOC: M ED 09:16 | DX: S20.20XA Contusion of thorax, unspecified, initial encounter (principal); W10.9XXA Fall (on) (from) unspecified stairs and steps, initial encounter; Y92.009 Unspecified place in unspecified non-institutional (private) residence as the place of occurrence of the external cause; Y93.H1 Activity, digging, shoveling and raking; K21.9 Gastro-esophageal reflux disease without esophagitis; Z98.0 Intestinal bypass and anastomosis status; Z98.890 Other specified postprocedural states; Z79.899 Other long term (current) drug therapy; Z88.8 Allergy status to other drugs, medicaments and biological substances; Z88.0 Allergy status to penicillin; Z88.1 Allergy status to other antibiotic agents; Z88.2 Allergy status to sulfonamides; Z91.030 Bee allergy status; Z91.048 Other nonmedicinal substance allergy status; Z91.040 Latex allergy status | CPT/HCPCS: 71101 ==

== ENCOUNTER 2017-08-17 08:00 | Emergency (ER) | payer BC ==
[2017-08-17 09:03] LABS: BASO % 0.4 % (0.0-1.0); EOS # 0.1 10^3/uL (0.0-0.50); EOS % 2.3 % (0.0-3.0); HEMATOCRIT 36.4 % (36.0-47.0); HEMOGLOBIN 12.3 g/dl (12.0-16.0); IMMATURE GRANULOCYTE % 0.2 % (0-3.0); LYMPH # 1.7 10^3/uL (1.5-4.5); LYMPH % 30.4 % (24.0-44.0); MEAN CORPUSCULAR HEMOGLOBIN 29.3 pg (27.0-33.0); MEAN CORPUSCULAR HGB CONC 33.8 g/dl (32.0-36.5); MEAN CORPUSCULAR VOLUME 86.7 fl (80.0-96.0); MONO # 0.4 10^3/uL (0.0-0.8); MONO % 6.9 % (0.0-5.0); NEUTROPHILS # 3.4 10^3/uL (1.8-7.7); NEUTROPHILS % 59.8 % (36.0-66.0); PLATELET COUNT, AUTOMATED 275 10^3/uL (150-450); WHITE BLOOD COUNT 5.6 10^3/uL (4.0-10.0)
[2017-08-17 09:08] LABS: INFLUENZA A AMPLIFICATION NEGATIVE (NEGATIVE); INFLUENZA B AMPLIFICATION NEGATIVE (NEGATIVE)
[2017-08-17 09:23] LABS: CONTROL LINE MONO RF C INT CTR LINE PRESENT; MONO REFLEX EBV COMP NEGATIVE (NEGATIVE)
[2017-08-19 00:06] LABS: EBV VIRAL CAPSID AG IgM <36.0 U/mL (0.0-35.9)
[2017-08-19 00:06] LABS: EBV VIRAL CAPSID AG IgG >600.0 U/mL (0.0-17.9)
== END 2017-08-17 09:52 | disposition home or self-care (01) ==
LOC: M ED 08:00
DX: J06.9 Acute upper respiratory infection, unspecified (principal); B34.9 Viral infection, unspecified; Z79.899 Other long term (current) drug therapy; Z86.69 Personal history of other diseases of the nervous system and sense organs; Z98.0 Intestinal bypass and anastomosis status; Z98.890 Other specified postprocedural states; Z88.8 Allergy status to other drugs, medicaments and biological substances; Z91.040 Latex allergy status; Z88.1 Allergy status to other antibiotic agents; Z88.2 Allergy status to sulfonamides; Z91.018 Allergy to other foods; Z91.030 Bee allergy status
CPT/HCPCS: 86665

== ENCOUNTER → 2017-08-30 | Outpatient (CLI) | payer BC ==
[2017-08-30 14:04] LABS: BASO % 0.5 % (0.0-1.0); EOS # 0.1 10^3/uL (0.0-0.50); HEMATOCRIT 38.1 % (36.0-47.0); HEMOGLOBIN 12.8 g/dl (12.0-16.0); IMMATURE GRANULOCYTE % 0.2 % (0-3.0); LYMPH # 1.6 10^3/uL (1.5-4.5); LYMPH % 35.6 % (24.0-44.0); MEAN CORPUSCULAR HEMOGLOBIN 29.2 pg (27.0-33.0); MEAN CORPUSCULAR HGB CONC 33.6 g/dl (32.0-36.5); MEAN CORPUSCULAR VOLUME 86.8 fl (80.0-96.0); MONO # 0.3 10^3/uL (0.0-0.8); MONO % 6.2 % (0.0-5.0); NEUTROPHILS # 2.4 10^3/uL (1.8-7.7); NEUTROPHILS % 54.5 % (36.0-66.0); PLATELET COUNT, AUTOMATED 281 10^3/uL (150-450); RED BLOOD COUNT 4.39 10^6/uL (4.00-5.40); RED CELL DISTRIBUTION WIDTH 13.1 % (11.5-14.5); WHITE BLOOD COUNT 4.4 10^3/uL (4.0-10.0)
[2017-08-30 14:27] LABS: ALBUMIN 3.9 GM/DL (3.2-5.2); ALBUMIN/GLOBULIN RATIO 1.22 (1.00-1.93); ALKALINE PHOSPHATASE 82 U/L (45-117); ALT/SGPT 25 U/L (12-78); ANION GAP 7 MEQ/L (8-16); AST/SGOT 17 U/L (7-37); BILIRUBIN,TOTAL 0.4 MG/DL (0.2-1.0); BLOOD UREA NITROGEN 13 MG/DL (7-18); CALCIUM LEVEL 8.6 MG/DL (8.5-10.1); CARBON DIOXIDE LEVEL 29 MEQ/L (21-32); CHLORIDE LEVEL 107 MEQ/L (98-107); CHOLESTEROL LEVEL 163 MG/DL (<200); CHOLESTEROL RISK RATIO 2.432 (<5); CREATININE FOR GFR 0.74 MG/DL (0.55-1.30); FERRITIN 5 NG/ML (8-252); GLOMERULAR FILTRATION RATE > 60.0 (>58); GLUCOSE, FASTING 84 MG/DL (70-100); HDL CHOLESTEROL 67 MG/DL (>40); LDL CHOLESTEROL 80.4 MG/DL (<100); NON-HDL-C 96 MG/DL; POTASSIUM SERUM 4.5 MEQ/L (3.5-5.1); SODIUM LEVEL 143 MEQ/L (136-145); TOTAL PROTEIN 7.1 GM/DL (6.4-8.2); TRIGLYCERIDES LEVEL 78 MG/DL (<150)
[2017-08-30 14:34] LABS: FOLATE 18.5 NG/ML; VITAMIN B12 LEVEL 555 PG/ML
== END ==
LOC: M SMT 11:37
DX: Z98.84 Bariatric surgery status (principal)
CPT/HCPCS: 82746

== ENCOUNTER → 2017-09-18 | Outpatient (CLI) | payer OTHER ==
[2017-09-18 14:17] LABS: CONTROL LINE MONO INT CTR LINE PRESENT; MONO SCRN NEGATIVE (NEGATIVE)
[2017-09-18 14:18] LABS: BASO % 0.4 % (0.0-1.0); EOS # 0.2 10^3/uL (0.0-0.50); EOS % 2.9 % (0.0-3.0); HEMATOCRIT 37.6 % (36.0-47.0); HEMOGLOBIN 12.8 g/dl (12.0-16.0); IMMATURE GRANULOCYTE % 0.2 % (0-3.0); LYMPH # 2.3 10^3/uL (1.5-4.5); LYMPH % 43.2 % (24.0-44.0); MEAN CORPUSCULAR HEMOGLOBIN 29.2 pg (27.0-33.0); MEAN CORPUSCULAR VOLUME 85.6 fl (80.0-96.0); MONO # 0.2 10^3/uL (0.0-0.8); MONO % 4.4 % (0.0-5.0); NEUTROPHILS # 2.6 10^3/uL (1.8-7.7); NEUTROPHILS % 48.9 % (36.0-66.0); PLATELET COUNT, AUTOMATED 280 10^3/uL (150-450); RED BLOOD COUNT 4.39 10^6/uL (4.00-5.40); WHITE BLOOD COUNT 5.2 10^3/uL (4.0-10.0)
[2017-09-18 14:38] LABS: ALBUMIN 3.7 GM/DL (3.2-5.2); ALBUMIN/GLOBULIN RATIO 1.23 (1.00-1.93); ALKALINE PHOSPHATASE 76 U/L (45-117); ALT/SGPT 24 U/L (12-78); ANION GAP 9 MEQ/L (8-16); AST/SGOT 16 U/L (7-37); BILIRUBIN,TOTAL 0.3 MG/DL (0.2-1.0); BLOOD UREA NITROGEN 17 MG/DL (7-18); CALCIUM LEVEL 8.8 MG/DL (8.5-10.1); CARBON DIOXIDE LEVEL 27 MEQ/L (21-32); CHLORIDE LEVEL 107 MEQ/L (98-107); CREATININE FOR GFR 0.73 MG/DL (0.55-1.30); GLOMERULAR FILTRATION RATE > 60.0 (>58); GLUCOSE, FASTING 115 MG/DL (70-100); POTASSIUM SERUM 3.8 MEQ/L (3.5-5.1); SODIUM LEVEL 143 MEQ/L (136-145); TOTAL PROTEIN 6.7 GM/DL (6.4-8.2)
[2017-09-18 14:40] LABS: INFLUENZA A AMPLIFICATION NEGATIVE (NEGATIVE); INFLUENZA B AMPLIFICATION NEGATIVE (NEGATIVE)
== END ==
LOC: M SMT 08:57
DX: J06.9 Acute upper respiratory infection, unspecified (principal)
CPT/HCPCS: 80053

== ENCOUNTER → 2017-10-09 | Outpatient (CLI) | payer OTHER ==
[2017-10-09 18:17] LABS: ALBUMIN 3.7 GM/DL (3.2-5.2); ALBUMIN/GLOBULIN RATIO 1.12 (1.00-1.93); ALKALINE PHOSPHATASE 80 U/L (45-117); ALT/SGPT 20 U/L (12-78); ANION GAP 6 MEQ/L (8-16); AST/SGOT 16 U/L (7-37); BILIRUBIN,TOTAL 0.4 MG/DL (0.2-1.0); BLOOD UREA NITROGEN 10 MG/DL (7-18); CALCIUM LEVEL 8.6 MG/DL (8.5-10.1); CARBON DIOXIDE LEVEL 28 MEQ/L (21-32); CHLORIDE LEVEL 108 MEQ/L (98-107); CREATININE FOR GFR 0.73 MG/DL (0.55-1.30); GLOMERULAR FILTRATION RATE > 60.0 (>58); GLUCOSE, FASTING 122 MG/DL (70-100); SODIUM LEVEL 142 MEQ/L (136-145)
[2017-10-09 18:18] LABS: HEMATOCRIT 36.7 % (36.0-47.0); HEMOGLOBIN 12.4 g/dl (12.0-15.5); MEAN CORPUSCULAR HEMOGLOBIN 29.3 pg (27.0-33.0); MEAN CORPUSCULAR HGB CONC 33.8 g/dl (32.0-36.5); MEAN CORPUSCULAR VOLUME 86.8 fl (80.0-96.0); PLATELET COUNT, AUTOMATED 277 10^3/uL (150-450); RED BLOOD COUNT 4.23 10^6/uL (4.00-5.40); RED CELL DISTRIBUTION WIDTH 13.2 % (11.5-14.5); WHITE BLOOD COUNT 5.2 10^3/uL (4.0-10.0)
[2017-10-09 21:22] LABS: ESTIMATED AVERAGE GLUCOSE 105 MG/DL (60-110); HEMOGLOBIN A1c 5.3 %
== END ==
LOC: M LAB 16:01
DX: Z13.0 Encounter for screening for diseases of the blood and blood-forming organs and certain disorders involving the immune mechanism (principal); Z13.29 Encounter for screening for other suspected endocrine disorder
CPT/HCPCS: 80053

== ENCOUNTER 2017-10-28 13:23 | Emergency (ER) | payer OTHER ==
[2017-10-28] MEDS: ONDANSETRON 4 MG ORAL DISINTEGRATING TAB (Q0162 PER 1MG) PO ×2 (15:49)
[2017-10-28] MEDS: MORPHINE 4 MG/ML 1ML VIAL/SYRINGE (J2270) IM ×2 (15:50)
== END 2017-10-28 16:44 | disposition home or self-care (01) ==
LOC: M ED 13:23
DX: Z48.89 Encounter for other specified surgical aftercare (principal); Z85.43 Personal history of malignant neoplasm of ovary; Z98.84 Bariatric surgery status; Z79.82 Long term (current) use of aspirin; Z79.899 Other long term (current) drug therapy; Z88.8 Allergy status to other drugs, medicaments and biological substances; Z88.6 Allergy status to analgesic agent; Z88.0 Allergy status to penicillin; Z88.1 Allergy status to other antibiotic agents; Z91.89 Other specified personal risk factors, not elsewhere classified; Z91.030 Bee allergy status; Z91.018 Allergy to other foods; Z91.040 Latex allergy status
CPT/HCPCS: J2270

== ENCOUNTER 2017-11-03 23:33 | Emergency (ER) | payer OTHER | END 2017-11-04 00:24 | disposition home or self-care (01) | LOC: M ED 11-04 00:24 | DX: Z46.89 Encounter for fitting and adjustment of other specified devices (principal); Z79.82 Long term (current) use of aspirin; Z98.890 Other specified postprocedural states; Z88.8 Allergy status to other drugs, medicaments and biological substances; Z91.040 Latex allergy status; Z88.0 Allergy status to penicillin; Z88.1 Allergy status to other antibiotic agents; Z88.2 Allergy status to sulfonamides; Z91.018 Allergy to other foods | CPT/HCPCS: 29515 ==

== ENCOUNTER 2017-11-16 01:32 | Emergency (ER) | payer OTHER ==
[2017-11-16] MEDS: MORPHINE 10 MG/ML 1ML VIAL (J2270) IM (03:58)
== END 2017-11-16 06:00 | disposition home or self-care (01) ==
LOC: M ED 01:32
DX: Z46.89 Encounter for fitting and adjustment of other specified devices (principal); G43.909 Migraine, unspecified, not intractable, without status migrainosus; K21.9 Gastro-esophageal reflux disease without esophagitis; Z98.84 Bariatric surgery status; Z79.82 Long term (current) use of aspirin; Z79.899 Other long term (current) drug therapy; Z79.891 Long term (current) use of opiate analgesic; Z91.030 Bee allergy status; Z91.89 Other specified personal risk factors, not elsewhere classified; Z88.8 Allergy status to other drugs, medicaments and biological substances; Z91.040 Latex allergy status; Z88.6 Allergy status to analgesic agent; Z88.0 Allergy status to penicillin; Z88.2 Allergy status to sulfonamides; Z88.1 Allergy status to other antibiotic agents; Z91.018 Allergy to other foods
CPT/HCPCS: J2270

== ENCOUNTER 2018-03-05 01:27 | Emergency (ER) | payer OTHER ==
[2018-03-05] MEDS: tiZANidine 4 MG TAB PO (03:23)
== END 2018-03-05 04:14 | disposition home or self-care (01) ==
LOC: M ED 01:27
DX: G89.4 Chronic pain syndrome (principal); K21.9 Gastro-esophageal reflux disease without esophagitis; Z98.84 Bariatric surgery status; Z88.0 Allergy status to penicillin; Z88.1 Allergy status to other antibiotic agents; Z88.2 Allergy status to sulfonamides; Z88.8 Allergy status to other drugs, medicaments and biological substances; Z91.018 Allergy to other foods; Z91.030 Bee allergy status; Z91.040 Latex allergy status
CPT/HCPCS: 99283

== ENCOUNTER → 2018-03-25 | Outpatient (CLI) | payer OTHER ==
[2018-03-26 10:38] LABS: CA 125 6.7 U/ML (<30.2)
== END ==
LOC: M SMT 08:51
DX: Z85.43 Personal history of malignant neoplasm of ovary (principal)
CPT/HCPCS: 86304

== ENCOUNTER → 2018-06-04 | Outpatient (CLI) | payer OTHER ==
[2018-06-04 13:28] LABS: BASO % 0.3 % (0.0-1.0); EOS # 0.1 10^3/uL (0.0-0.50); HEMOGLOBIN 12.5 g/dl (12.0-15.5); IMMATURE GRANULOCYTE % 0.2 % (0-3.0); LYMPH # 1.5 10^3/uL (1.5-4.5); LYMPH % 25.2 % (24.0-44.0); MEAN CORPUSCULAR HEMOGLOBIN 28.3 pg (27.0-33.0); MEAN CORPUSCULAR HGB CONC 32.9 g/dl (32.0-36.5); MONO # 0.5 10^3/uL (0.0-0.8); MONO % 9.3 % (0.0-5.0); NEUTROPHILS # 3.7 10^3/uL (1.8-7.7); PLATELET COUNT, AUTOMATED 303 10^3/uL (150-450); RED BLOOD COUNT 4.42 10^6/uL (4.00-5.40); RED CELL DISTRIBUTION WIDTH 13.2 % (11.5-14.5); WHITE BLOOD COUNT 5.8 10^3/uL (4.0-10.0)
[2018-06-04 13:56] LABS: ALBUMIN 3.8 GM/DL (3.2-5.2); ALBUMIN/GLOBULIN RATIO 1.09 (1.00-1.93); ALKALINE PHOSPHATASE 96 U/L (45-117); ALT/SGPT 24 U/L (12-78); ANION GAP 7 MEQ/L (8-16); AST/SGOT 17 U/L (7-37); BILIRUBIN,TOTAL 0.3 MG/DL (0.2-1.0); BLOOD UREA NITROGEN 12 MG/DL (7-18); CALCIUM LEVEL 8.9 MG/DL (8.5-10.1); CARBON DIOXIDE LEVEL 28 MEQ/L (21-32); CHLORIDE LEVEL 105 MEQ/L (98-107); CREATININE FOR GFR 0.73 MG/DL (0.55-1.30); GLOMERULAR FILTRATION RATE > 60.0 (>58); GLUCOSE, FASTING 94 MG/DL (70-100); LIPASE 263 U/L (73-393); POTASSIUM SERUM 3.9 MEQ/L (3.5-5.1); SODIUM LEVEL 140 MEQ/L (136-145); TOTAL PROTEIN 7.3 GM/DL (6.4-8.2)
== END ==
LOC: M LAB 12:58
DX: R19.7 Diarrhea, unspecified (principal); J20.9 Acute bronchitis, unspecified
CPT/HCPCS: 71046

== ENCOUNTER → 2018-06-05 | Outpatient (REF) | payer OTHER | LOC: M LAB REF 06-06 14:02 | DX: R19.7 Diarrhea, unspecified (principal) | CPT/HCPCS: 87507 ==

== ENCOUNTER 2018-07-01 06:47 | Emergency (ER) | payer OTHER ==
[~2018-07-01] VITALS: Ht 167.6 cm; Wt 125.0 kg
[~2018-07-01 06:47] MED LIST changes: +ACET500T15 PO; -ACET50TAOT PO; +ASPI325T25 PO; +CYCL10TA PO; +DEXTROAMP; +HYDR-3713 PO; +KLOR10TA76 PO; +LIDO5OIN28; +ONDA4TAB5 PO; +OXYC-517 PO; -PEPC1TAB4 PO; +PEPC1TAB5 PO; +PHEN30CA2; -POTA10CA PO; +PREG50CA; +TYLE500T78 PO; +VITA500T; +ZOFR4TAB14 PO; -ZOFR4TAB3 PO
[2018-07-01] MEDS ORDERED: ACET-683 PO (06:52)
[2018-07-01] MEDS ORDERED: AZIT-12 PO (07:34)
[2018-07-01] MEDS ORDERED: MUCI600T37 PO (07:34)
[2018-07-01] MEDS ORDERED: FLON1SPR NARES (07:34)
[2018-07-01 08:18] VITALS: BP 125/87
== END 2018-07-01 08:21 | disposition home or self-care (01) ==
LOC: M ED 06:47
DX: H66.91 Otitis media, unspecified, right ear (principal); J06.9 Acute upper respiratory infection, unspecified; J01.90 Acute sinusitis, unspecified

== ENCOUNTER 2018-07-22 01:04 | Emergency (ER) | payer OTHER ==
[~2018-07-22] VITALS: Ht 167.6 cm; Wt 129.6 kg
[~2018-07-22 01:04] MED LIST changes: +ACET-683 PO; +AZIT-12 PO; +FLON1SPR NARES
[2018-07-22] MEDS ORDERED: NORT10CA2 PO (01:10)
[2018-07-22 02:08] LABS: INFLUENZA A AMPLIFICATION NEGATIVE (NEGATIVE); INFLUENZA B AMPLIFICATION NEGATIVE (NEGATIVE)
[2018-07-22 02:18] VITALS: BP 136/84
== END 2018-07-22 02:18 | disposition home or self-care (01) ==
LOC: M ED 01:04
DX: B34.9 Viral infection, unspecified (principal); G43.909 Migraine, unspecified, not intractable, without status migrainosus; Z98.84 Bariatric surgery status

== ENCOUNTER 2018-08-05 00:25 | Emergency (ER) | payer OTHER ==
[~2018-08-05] VITALS: Ht 167.6 cm; Wt 136.4 kg
[~2018-08-05 00:25] MED LIST changes: +NORT10CA2 PO
[2018-08-05 00:26] VITALS: BP 167/100
[2018-08-05] MEDS ORDERED: TRAM50TA2 (00:33)
--- NOTE | 2018-08-05 07:30 | REP ---
Clinical: Left ankle pain. Technique: AP, lateral, bilateral oblique views of the left ankle. Findings: Lateral swelling noted along with moderate chronic arthritic degenerative changes. No obvious acute fracture identified. No subcutaneous emphysema or radiodense foreign body. Impression: Lateral swelling consist with inversion injury. Early moderate chronic arthritic changes. Electronically Signed by Carmine Almanza MD 08/05/2018 07:21 A
== END 2018-08-05 02:10 | disposition home or self-care (01) ==
LOC: M ED 00:25
DX: S93.402A Sprain of unspecified ligament of left ankle, initial encounter (principal); X58.XXXA Exposure to other specified factors, initial encounter; Y92.9 Unspecified place or not applicable; Y93.01 Activity, walking, marching and hiking; Y99.9 Unspecified external cause status; M19.072 Primary osteoarthritis, left ankle and foot; G90.50 Complex regional pain syndrome I, unspecified; G43.909 Migraine, unspecified, not intractable, without status migrainosus; R56.9 Unspecified convulsions; Z85.43 Personal history of malignant neoplasm of ovary; Z98.84 Bariatric surgery status; Z79.899 Other long term (current) drug therapy; Z88.8 Allergy status to other drugs, medicaments and biological substances; Z91.89 Other specified personal risk factors, not elsewhere classified; Z88.6 Allergy status to analgesic agent; Z88.0 Allergy status to penicillin; Z88.1 Allergy status to other antibiotic agents; Z88.2 Allergy status to sulfonamides; Z91.018 Allergy to other foods; Z91.030 Bee allergy status; Z91.040 Latex allergy status

== ENCOUNTER 2018-09-21 05:53 | Emergency (ER) | payer OTHER ==
[~2018-09-21] VITALS: Ht 162.6 cm; Wt 136.0 kg
[~2018-09-21 05:53] MED LIST changes: +TRAM50TA2
[2018-09-21] MEDS ORDERED: MORPHINE 4 MG/ML 1ML VIAL/SYRINGE (J2270) IV ONE ×2 (06:45→08:45)
[2018-09-21 07:03] LABS: BASO % 0.2 % (0.0-1.0); EOS # 0.1 10^3/uL (0.0-0.50); EOS % 1.3 % (0.0-3.0); HEMATOCRIT 32.8 % (36.0-47.0); HEMOGLOBIN 10.9 g/dl (12.0-15.5); LYMPH # 1.1 10^3/uL (1.5-4.5); LYMPH % 13.1 % (24.0-44.0); MEAN CORPUSCULAR HEMOGLOBIN 27.8 pg (27.0-33.0); MEAN CORPUSCULAR HGB CONC 33.2 g/dl (32.0-36.5); MEAN CORPUSCULAR VOLUME 83.7 fl (80.0-96.0); MONO # 0.9 10^3/uL (0.0-0.8); MONO % 10.2 % (0.0-5.0); NEUTROPHILS # 6.2 10^3/uL (1.8-7.7); PLATELET COUNT, AUTOMATED 273 10^3/uL (150-450); RED BLOOD COUNT 3.92 10^6/uL (4.00-5.40); WHITE BLOOD COUNT 8.3 10^3/uL (4.0-10.0)
[2018-09-21] MEDS ORDERED: diazePAM 5 MG TAB PO ONE (07:15)
[2018-09-21 07:21] LABS: ERYTHROCYTE SEDIMENTATION RATE 60 mm/hr (0-20)
[2018-09-21] MEDS ORDERED: ACETAMINOPHEN 325 MG TAB PO ONE (07:30)
[2018-09-21 07:35] LABS: BLOOD UREA NITROGEN 6 MG/DL (7-18); C REACTIVE PROTEIN QUANTITATIV 6.09 MG/DL (0.00-0.30); CALCIUM LEVEL 8.2 MG/DL (8.5-10.1); CARBON DIOXIDE LEVEL 26 MEQ/L (21-32); CHLORIDE LEVEL 105 MEQ/L (98-107); CREATININE FOR GFR 0.61 MG/DL (0.55-1.30); GLOMERULAR FILTRATION RATE > 60.0 (>58); GLUCOSE, FASTING 111 MG/DL (70-100); POTASSIUM SERUM 3.9 MEQ/L (3.5-5.1); SODIUM LEVEL 138 MEQ/L (136-145)
--- NOTE | 2018-09-21 09:22 | REP ---
CT NECK WITHOUT CONTRAST: HISTORY: Dorsal column stimulator placement. The naso-, temi- and hypopharynx, larynx and subglottic trachea are normal in appearance. The salivary and thyroid glands are normal in size and density. Small lymph nodes less than 1 cm in size are present in the internal jugular chains, posterior triangles, submandibular and submental areas. Degenerative change is present in the cervical spine. The patient is status post dorsal column stimulator at the C3-4 level. The stimulator enters the spinal canal at the C4-5 level. A small amount of edema and small collections of subcutaneous air are present in the posterior subcutaneous tissues from the C2 level inferior to the C5-6 level. Impression:1. There is no neck mass or adenopathy.2. There is post procedural edema with small collections of subcutaneous air in the posterior subcutaneous tissues. Electronically Signed by Adarsh Godinez MD 09/21/2018 09:36 A
[2018-09-21 11:18] VITALS: BP 118/56
== END 2018-09-21 11:23 | disposition short-term general hospital (02) ==
LOC: M ED 05:53
DX: T85.733A Infection and inflammatory reaction due to implanted electronic neurostimulator of spinal cord, electrode (lead), initial encounter (principal); Y75.2 Prosthetic and other implants, materials and neurological devices associated with adverse incidents; M54.2 Cervicalgia; R50.9 Fever, unspecified; G43.909 Migraine, unspecified, not intractable, without status migrainosus; Z85.43 Personal history of malignant neoplasm of ovary; Z98.84 Bariatric surgery status; Z91.018 Allergy to other foods; Z91.030 Bee allergy status; Z88.8 Allergy status to other drugs, medicaments and biological substances; Z91.040 Latex allergy status; Z88.2 Allergy status to sulfonamides; Z88.0 Allergy status to penicillin; Z88.1 Allergy status to other antibiotic agents; Z79.899 Other long term (current) drug therapy; Z96.9 Presence of functional implant, unspecified
CPT/HCPCS: 70490; 80048; 85025; 85652; 86140; 96374; 96375; 99285; J2270

== ENCOUNTER 2018-09-26 08:05 | Emergency (ER) | payer OTHER ==
[~2018-09-26] VITALS: Ht 167.6 cm; Wt 125.0 kg
[~2018-09-26 08:05] MED LIST changes: +HYDR-3715 PO; -NORCOTAB PO; +SENN17.2 PO; -SENO17.2 PO
[2018-09-26] MEDS ORDERED: OXYC-517 (08:15)
[2018-09-26] MEDS ORDERED: CYCL5TAB PO (08:15)
[2018-09-26] MEDS ORDERED: ONDANSETRON 4MG/2ML VIAL (J2405) IV ONE (08:30)
[2018-09-26] MEDS: MORPHINE 4 MG/ML 1ML VIAL/SYRINGE (J2270) IV PRN ×2 (08:44→10:01)
[2018-09-26] MEDS ORDERED: NS 1,000 ML IV ONE (08:45)
[2018-09-26] MEDS ORDERED: PROMETHAZINE INJ 25 MG/ML VIAL (J2550) IV ONE (09:00)
[2018-09-26 09:14] LABS: BASO % 0.3 % (0.0-1.0); EOS # 0.3 10^3/uL (0.0-0.50); EOS % 4.1 % (0.0-3.0); HEMATOCRIT 32.6 % (36.0-47.0); HEMOGLOBIN 10.5 g/dl (12.0-15.5); LYMPH # 1.1 10^3/uL (1.5-4.5); MEAN CORPUSCULAR HEMOGLOBIN 27.3 pg (27.0-33.0); MEAN CORPUSCULAR HGB CONC 32.2 g/dl (32.0-36.5); MEAN CORPUSCULAR VOLUME 84.7 fl (80.0-96.0); MONO # 0.6 10^3/uL (0.0-0.8); MONO % 8.1 % (0.0-5.0); NEUTROPHILS # 5.1 10^3/uL (1.8-7.7); NEUTROPHILS % 71.2 % (36.0-66.0); PLATELET COUNT, AUTOMATED 349 10^3/uL (150-450); RED BLOOD COUNT 3.85 10^6/uL (4.00-5.40); WHITE BLOOD COUNT 7.1 10^3/uL (4.0-10.0)
--- NOTE | 2018-09-26 09:46 | REP ---
CT study of the brain without contrast: History: Status post stimulator placement. Comparison head CT study: December 15, 2016. Findings: Digital AP and lateral washerette machine operator views demonstrate a dorsally positioned epidural neurostimulator lead in the cervical spine terminating at the C2-3 disc level. Bony calvarium is intact. No intraorbital abnormality is seen. The visualized paranasal sinuses are clear. The lateral, third and fourth ventricles are normal in size. Nice-white differentiation pattern is normal above below the tentorium. There is no evidence of intracranial hemorrhage. No extra-axial fluid collection is seen. No mass, midline shift, or infarct is appreciated. Impression: Dorsal column stimulator in the cervical spine terminating at the C2-[address] level. Negative noncontrast brain CT. Electronically Signed by Андрей Reveles MD 09/26/2018 12:49 P
--- NOTE | 2018-09-26 09:51 | REP ---
CT LUMBAR SPINE WITHOUT CONTRAST: HISTORY: Status post neurostimulator. Question lead placement. Comparison is made with imaging from CT study of the abdomen dated March 15, 2018. CT FINDINGS: There are dorsal column stimulator leads seen entering the epidural space at the dorsal L1-2 interspinous level and terminating at mid T12. The leads are looped within the dorsal subcutaneous soft tissues at the level of the upper lumbar spine and the power plant projects over the right flank. Bowel gas pattern is normal. There are clips in the right upper quadrant. There is no evidence of epidural or paraspinal fluid collection. There are minimal degenerative disc changes in the lumbar spine. There is evidence of disc bulging more prominent on the left at L5-S1. Facet hypertrophy is seen at L5-S1 bilaterally and at L4-5. Minimal facet hypertrophy is noted at L2-3 and L3-4. No bony neural foraminal narrowing is seen. IMPRESSION: Mild degenerative disc and osteoarthritic facet changes. Dorsal column stimulator lead enters the spinal canal at the L1-2 interspinous level and terminates at the level of T12. No acute abnormality seen. Electronically Signed by Андрей Reveles MD 09/26/2018 12:50 P
[2018-09-26 09:52] LABS: ALBUMIN 2.8 GM/DL (3.2-5.2); ALT/SGPT 35 U/L (12-78); BILIRUBIN,TOTAL 0.2 MG/DL (0.2-1.0); BLOOD UREA NITROGEN 7 MG/DL (7-18); C REACTIVE PROTEIN QUANTITATIV 3.24 MG/DL (0.00-0.30); CALCIUM LEVEL 8.4 MG/DL (8.5-10.1); CARBON DIOXIDE LEVEL 27 MEQ/L (21-32); CHLORIDE LEVEL 103 MEQ/L (98-107); CREATININE FOR GFR 0.71 MG/DL (0.55-1.30); GLOMERULAR FILTRATION RATE > 60.0 (>58); GLUCOSE, FASTING 102 MG/DL (70-100); POTASSIUM SERUM 3.9 MEQ/L (3.5-5.1); SODIUM LEVEL 137 MEQ/L (136-145); TOTAL PROTEIN 6.5 GM/DL (6.4-8.2)
--- NOTE | 2018-09-26 09:59 | REP ---
CT STUDY OF THE CERVICAL SPINE WITHOUT CONTRAST: HISTORY: Nerve stimulator placement. Question lead placement. Comparison study September 21, 2018. TECHNIQUE: Helical scanning is acquired and overlapping 2 mm high resolution axial images were generated and reviewed at bone and soft tissue window settings. Coronal and sagittal multiplanar re-formations images are generated. CT FINDINGS: The patient is status post a dorsal column stimulator lead placement. A laminectomy has been performed at C5 and a dorsal column stimulator lead enters the dorsal aspect of the spinal canal at this level. Its tip is noted at the C2-3 level again along the dorsal aspect of the spinal canal. There is some spray artifact from metallic components of the lead. These findings are unchanged. No evidence of abnormal fluid collection or air collection is seen. There are degenerative disc changes in the cervical spine again noted at C4-5 C5-6 and C6-7. Posterior osteophytic ridging is seen at C5-6 as before. IMPRESSION: Status post C5 laminectomy and dorsal column stimulator placement in the dorsal aspect of the spinal canal. The dorsal column stimulator leads enter the spinal canal at C5 and terminate rostrally at the C2-3 disc level. Electronically Signed by Андрей Reveles MD 09/26/2018 12:50 P
[2018-09-26 10:09] LABS: ERYTHROCYTE SEDIMENTATION RATE 70 mm/hr (0-20)
[2018-09-26] MEDS ORDERED: ACETAMINOPHEN 500 MG TAB PO ONE (12:45)
[2018-09-26 12:47] VITALS: BP 136/81
== END 2018-09-26 12:50 | disposition home or self-care (01) ==
LOC: M ED 08:05
DX: T88.59XA Other complications of anesthesia, initial encounter (principal); R51 Headache; Y75.2 Prosthetic and other implants, materials and neurological devices associated with adverse incidents; M54.9 Dorsalgia, unspecified; Z98.84 Bariatric surgery status; Z91.018 Allergy to other foods; Z88.8 Allergy status to other drugs, medicaments and biological substances; Z88.1 Allergy status to other antibiotic agents; Z88.2 Allergy status to sulfonamides; Z91.030 Bee allergy status; Z91.040 Latex allergy status; Z79.899 Other long term (current) drug therapy
CPT/HCPCS: 70450; 72125; 72131; 80053; 85025; 85652; 86140; 96374; 96375; 96376; 99284; J2270; J2405

== ENCOUNTER 2018-10-13 18:15 | Emergency (ER) | payer OTHER ==
[~2018-10-13] VITALS: Ht 167.6 cm; Wt 122.7 kg
[~2018-10-13 18:15] MED LIST changes: +ASPI-255 PO; -ASPI325T25 PO; +CYCL5TAB PO; +OXYC-517
[2018-10-13] MEDS ORDERED: TRAM50TA2 (18:23)
[2018-10-13 20:14] VITALS: BP 150/78
== END 2018-10-13 20:18 | disposition short-term general hospital (02) ==
LOC: M ED 18:15
DX: G96.0 Cerebrospinal fluid leak (principal); T81.40XA Infection following a procedure, unspecified, initial encounter; X58.XXXA Exposure to other specified factors, initial encounter; Y92.89 Other specified places as the place of occurrence of the external cause; R56.9 Unspecified convulsions; G43.909 Migraine, unspecified, not intractable, without status migrainosus; Z96.89 Presence of other specified functional implants; Z98.84 Bariatric surgery status; Z88.0 Allergy status to penicillin; Z88.1 Allergy status to other antibiotic agents; Z88.2 Allergy status to sulfonamides; Z88.8 Allergy status to other drugs, medicaments and biological substances; Z91.018 Allergy to other foods; Z91.030 Bee allergy status; Z91.040 Latex allergy status

== ENCOUNTER → 2018-10-22 | Outpatient (CLI) | payer OTHER ==
[2018-10-22 17:38] LABS: BLOOD UREA NITROGEN 7 MG/DL (7-18); CALCIUM LEVEL 9.6 MG/DL (8.5-10.1); CARBON DIOXIDE LEVEL 27 MEQ/L (21-32); CHLORIDE LEVEL 106 MEQ/L (98-107); CREATININE FOR GFR 0.78 MG/DL (0.55-1.30); GLOMERULAR FILTRATION RATE > 60.0 (>58); GLUCOSE, FASTING 97 MG/DL (70-100); POTASSIUM SERUM 4.1 MEQ/L (3.5-5.1); SODIUM LEVEL 140 MEQ/L (136-145)
[2018-10-22 17:45] LABS: BASO % 0.4 % (0.0-1.0); EOS # 0.2 10^3/uL (0.0-0.50); EOS % 3.1 % (0.0-3.0); HEMOGLOBIN 11.6 g/dl (12.0-15.5); LYMPH % 28.8 % (24.0-44.0); MEAN CORPUSCULAR HEMOGLOBIN 26.5 pg (27.0-33.0); MEAN CORPUSCULAR HGB CONC 31.4 g/dl (32.0-36.5); MEAN CORPUSCULAR VOLUME 84.5 fl (80.0-96.0); MONO # 0.5 10^3/uL (0.0-0.8); MONO % 6.5 % (0.0-5.0); NEUTROPHILS # 4.3 10^3/uL (1.8-7.7); NEUTROPHILS % 60.9 % (36.0-66.0); PLATELET COUNT, AUTOMATED 356 10^3/uL (150-450); RED BLOOD COUNT 4.38 10^6/uL (4.00-5.40); WHITE BLOOD COUNT 7.1 10^3/uL (4.0-10.0)
== END ==
LOC: M SMT 14:16
PROVIDERS: ATTEND Physician Assistant
DX: R11.2 Nausea with vomiting, unspecified (principal)

== ENCOUNTER 2019-01-11 17:16 | Emergency (ER) | payer OTHER ==
[~2019-01-11] VITALS: Ht 167.6 cm; Wt 135.4 kg
[~2019-01-11 17:16] MED LIST changes: +CYAN100049 PO; -OMEP40CA2 PO; +OMEP40CA97 PO; +ONDA-83 PO; -ONDA4TAB5 PO; -VITA10002 PO
[2019-01-11] MEDS ORDERED: EPIN0.3I11 (17:30)
[2019-01-11] MEDS ORDERED: ZOLP10TA2 (17:30)
[2019-01-11] MEDS ORDERED: COMP1SUP2 (17:30)
[2019-01-11] MEDS ORDERED: GNP250TA9 PO (17:30)
--- NOTE | 2019-01-11 19:10 | REPVR ---
EXAM: US Duplex Left Upper Extremity Veins, Limited EXAM DATE/TIME: 01/11/2019 6:28 PM CLINICAL HISTORY: 43 years old, female; Pain; Arn, upper; Left; Additional info: Sudden, constant pain, mild swelling. TECHNIQUE: Imaging protocol: Real-time Duplex ultrasound of the Left Upper Extremity with 2-D marino scale, color Doppler flow and spectral waveform analysis. Limited exam focused on the left upper extremity veins. COMPARISON: No relevant prior studies available. FINDINGS: Left deep veins: Unremarkable. Axillary and brachial veins are patent throughout without thrombus. Normal Doppler waveforms. Normal compressibility and/or augmentation response. Visualized internal jugular and subclavian veins are patent. Left superficial veins: Unremarkable. Visualized cephalic and basilic veins are patent without thrombus. Soft tissues: Unremarkable. IMPRESSION: No evidence of deep venous thrombus in the left upper extremity. Electronically signed by: Alsia Berry On 01/11/2019 19:10:29 PM
--- NOTE | 2019-01-11 19:17 | REPVR ---
EXAM: US Left Non-Vascular Joint or Other Extremity Structure, Limited Upper Extremity EXAM DATE/TIME: 01/11/2019 6:28 PM CLINICAL HISTORY: 43 years old, female; Pain; Upper arm; Left; Additional info: Sudden, constant pain, R/O biceps tendon rupture TECHNIQUE: Imaging protocol: Left US Non-Vascular Joint or Other Extremity Structure. Limited exam of the upper extremity to assess the left biceps tendon. COMPARISON: No relevant prior studies available. FINDINGS: Soft tissues: No discrete fluid collection identified to suggest an underlying high-grade or complete tear of the biceps tendon. IMPRESSION: 1. No discrete biceps tendon tear identified. 2. If there is continued pain and suspicion for a lower grade tear, recommend MRI of the left upper extremity. Electronically signed by: Alisa Berry On 01/11/2019 19:17:25 PM
[2019-01-11 19:22] VITALS: BP 134/79
[2019-01-11] MEDS ORDERED: PENN1SOL2 TOP (19:30)
--- NOTE | 2019-01-13 13:08 | ED PDOC ---
Post-Departure Follow-Up dr aminta sun faxed formal report of extrem us for fu Leanne Gibson MD Jan 13, 2019 13:08
== END 2019-01-11 19:38 | disposition home or self-care (01) ==
LOC: M ED 17:16
DX: M79.602 Pain in left arm (principal); K21.9 Gastro-esophageal reflux disease without esophagitis; G43.909 Migraine, unspecified, not intractable, without status migrainosus; G90.50 Complex regional pain syndrome I, unspecified; Z98.84 Bariatric surgery status; Z88.0 Allergy status to penicillin; Z88.1 Allergy status to other antibiotic agents; Z88.2 Allergy status to sulfonamides; Z88.8 Allergy status to other drugs, medicaments and biological substances; Z91.040 Latex allergy status; Z91.048 Other nonmedicinal substance allergy status

== ENCOUNTER → 2019-04-11 | Outpatient (CLI) | payer BC, OTHER ==
[~2019-04-11] MED LIST changes: +COMP1SUP2; +EPIN0.3I11; +GNP250TA9 PO; +OMEP40CA2 PO; -OMEP40CA97 PO; -ONDA-83 PO; +ONDA4TAB5 PO; +PENN1SOL2 TOP; +ZOLP10TA2
[2019-04-15 00:11] LABS: Lyme Disease IgG/IgM Antibodie <0.91 ISR (0.00-0.90); Lyme Disease IgM Ab Quantitati <0.80 index (0.00-0.79)
[2019-04-15 08:06] LABS: IgG P18 AB Absent (.); IgG P23 AB Absent (.); IgG P28 AB Absent (.); IgG P30 AB Absent (.); IgG P39 AB Absent (.); IgG P41 AB Present (.); IgG P45 AB Absent (.); IgG P66 AB Absent (.); IgG P93 AB Absent (.); IgM P23 AB Absent (.); IgM P39 AB Absent (.); IgM P41 AB Absent (.); LYME IgG WB INTERPRETATION Negative (.); LYME IgM WB INTERPRETATION Negative (.)
== END ==
LOC: M LAB 20:16
DX: A69.20 Lyme disease, unspecified (principal)

== ENCOUNTER → 2019-05-08 | Outpatient (CLI) | payer BC, OTHER ==
[~2019-05-08] MED LIST changes: +CONRAY-43 43% 50ML VIAL (Q9960) As Ordered ONE; -OMEP40CA2 PO; +OMEP40CA97 PO
--- NOTE | 2019-05-08 17:05 | REP ---
LEFT SHOULDER ARTHROGRAM The procedure was performed under the direct supervision of Dr. Nice. The benefits and risks including but not limited to pain infection bleeding and anaphylaxis were explained to the patient and informed consent was obtained. The left glenohumeral joint space was localized using fluoroscopic guidance. The skin was prepped and draped in a sterile fashion. 1% lidocaine was used as a local anesthetic. Using fluoroscopic guidance a 22-gauge spinal needle was inserted and advanced into the joint. 11 ml of Conray 43 was injected. The needle was removed and the patient has taken to CT scan for postprocedural imaging. The patient tolerated the procedure well and there were no immediate complications. Less than 6 seconds of fluoroscopy time was utilized for this procedure. Electronically Signed by STAN Pineda 05/08/2019 03:58 P Electronically Signed by Sotero Nice MD 05/08/2019 04:57 P
--- NOTE | 2019-05-08 17:27 | REP ---
CT arthrography left shoulder: History: Rotator cuff tear. Dorsal column stimulator. Comparison left shoulder radiographs June 07, 2015. Technique: The intra-articular injection procedures performed and dictated separately. Helical scanning is acquired. Axial and coronal MPR images are generated. CT arthrographic findings: There is good opacification of the left glenohumeral articulation. No loose body is seen. There is no evidence of focal full-thickness or partial thickness rotator cuff tear. No anterior, posterior, or superior labral disruption is appreciated. There is no abnormality in the biceps tendon visible. Glenohumeral and acromioclavicular joints are normally aligned. There is a focal partial-thickness articular cartilage lesion in the central glenoid best viewed on oblique coronal MPR image page #20 of 36, series 204. There is also irregularity of the humeral head articular cartilage on axial images with another partial-thickness articular cartilage lesion on page 21 of 56 in series 202 of today's study. No bony erosive lesion or destructive lesion is seen. 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 No CT arthrographic evidence of rotator cuff tear. No evidence of loose body. Electronically Signed by Андрей Reveles MD 05/09/2019 08:58 A
== END ==
LOC: M RADPRO 14:55
PROVIDERS: ATTEND Orthopaedic Surgery Sports Medicine
DX: M94.212 Chondromalacia, left shoulder (principal)
CPT/HCPCS: 23350; 73201; 77002; Q9960

== ENCOUNTER 2019-06-16 20:38 | Emergency (ER) | payer BC, OTHER ==
[~2019-06-16] VITALS: Ht 167.6 cm; Wt 145.4 kg
[~2019-06-16 20:38] MED LIST changes: -CONRAY-43 43% 50ML VIAL (Q9960) As Ordered ONE
[2019-06-16] MEDS ORDERED: ONDANSETRON 4MG/2ML VIAL (J2405) IV ONE (21:45)
[2019-06-16 21:46] LABS: BASO % 0.3 % (0.0-1.0); EOS # 0.1 10^3/uL (0.0-0.5); EOS % 1.8 % (0.0-3.0); HEMATOCRIT 34.2 % (36.0-47.0); HEMOGLOBIN 10.7 g/dl (12.0-15.5); LYMPH # 2.3 10^3/uL (1.5-5.0); LYMPH % 30.9 % (24.0-44.0); MEAN CORPUSCULAR HEMOGLOBIN 25.8 pg (27.0-33.0); MEAN CORPUSCULAR HGB CONC 31.3 g/dl (32.0-36.5); MEAN CORPUSCULAR VOLUME 82.4 fl (80.0-96.0); MONO # 0.6 10^3/uL (0.0-0.8); MONO % 7.7 % (0.0-5.0); NEUTROPHILS # 4.4 10^3/uL (1.5-8.5); NEUTROPHILS % 59.2 % (36.0-66.0); PLATELET COUNT, AUTOMATED 324 10^3/uL (150-450); RED BLOOD COUNT 4.15 10^6/uL (4.00-5.40); WHITE BLOOD COUNT 7.4 10^3/uL (4.0-10.0)
[2019-06-16] MEDS: MORPHINE 4 MG/ML 1ML VIAL/SYRINGE (J2270) IV PRN ×2 (21:49→22:44)
[2019-06-16 22:17] LABS: BLOOD UREA NITROGEN 13 MG/DL (7-18); C REACTIVE PROTEIN QUANTITATIV < 0.30 MG/DL (0.00-0.30); CALCIUM LEVEL 9.1 MG/DL (8.5-10.1); CARBON DIOXIDE LEVEL 28 MEQ/L (21-32); CHLORIDE LEVEL 106 MEQ/L (98-107); CREATININE FOR GFR 0.81 MG/DL (0.55-1.30); GLOMERULAR FILTRATION RATE > 60.0 (>58); GLUCOSE, FASTING 91 MG/DL (70-100); POTASSIUM SERUM 3.7 MEQ/L (3.5-5.1); SODIUM LEVEL 139 MEQ/L (136-145)
--- NOTE | 2019-06-16 23:07 | REPVR ---
PROCEDURE INFORMATION: Exam: CT Cervical Spine Without Contrast Exam date and time: 06/16/2019 10:36 PM Age: 44 years old Clinical history: Neck pain; Prior surgery; Additional info: Back pain, spinal cord stimulator, exposed wire up lumbar TECHNIQUE: Imaging protocol: Computed tomography images of the cervical spine without contrast. Radiation optimization: All CT scans at this facility use at least one of these dose optimization techniques: automated exposure control; mA and/or kV adjustment per patient size (includes targeted exams where dose is matched to clinical indication); or iterative reconstruction. COMPARISON: CT Spine,cervical w/o contrast 09/26/2018 9:09 AM FINDINGS: Tubes, catheters and devices: Epidural electrodes entering at approximately C5-C6 and extending to the mid C3 level. Vertebrae: Status post laminectomy at C5. Discs/Spinal canal/Neural foramina: Degenerative changes of apophyseal joints, left greater than right. Degenerative interspace narrowing at C5-C6 with minimal broad-based posterior central osteophytes and borderline spinal stenosis with slight narrowing of the left lateral recess. Otherwise, no spinal or foraminal stenosis. Soft tissues: Unremarkable. Lungs: Lung apices are normal. IMPRESSION: 1. There has been little change from 09/26/2018. 2. Status post laminectomy at C5 with degenerative interspace narrowing at C5-C6 with posterior central osteophytes. There are stimulator electrodes extending into the spinal canal C5-C6 and extending cephalad to the C3 level. Electronically signed by: Rosales Ervin On 06/16/2019 23:07:15 PM
--- NOTE | 2019-06-16 23:11 | REPVR ---
PROCEDURE INFORMATION: Exam: CT Thoracic Spine Without Contrast Exam date and time: 06/16/2019 10:36 PM Age: 44 years old Clinical history: Pain in thoracic spine; Prior surgery; Additional info: Back pain, spinal cord stimulator, exposed wire up lumbar TECHNIQUE: Imaging protocol: Computed tomography images of the thoracic spine without contrast. Radiation optimization: All CT scans at this facility use at least one of these dose optimization techniques: automated exposure control; mA and/or kV adjustment per patient size (includes targeted exams where dose is matched to clinical indication); or iterative reconstruction. COMPARISON: No relevant prior studies available. FINDINGS: Vertebrae: Minimal anterior spurring of the mid thoracic spine. No fracture or subluxation. Discs/Spinal canal/Neural foramina: Early degenerative changes of some lower thoracic apophyseal joints, greatest at T10 -T12 with no significant spinal or foraminal stenosis. Epidural space: Lumbar epidural electrodes extend to T12. Soft tissues: Unremarkable. IMPRESSION: 1. Lumbar epidural electrodes extending to T12. 2. Early degenerative changes with no significant spinal or foraminal stenosis. Electronically signed by: Rosales Ervin On 06/16/2019 23:10:58 PM
--- NOTE | 2019-06-16 23:17 | REPVR ---
PROCEDURE INFORMATION: Exam: CT Lumbar Spine Without Contrast Exam date and time: 06/16/2019 10:36 PM Age: 44 years old Clinical history: Low back pain; Prior surgery; Additional info: Back pain, spinal cord stimulator, exposed wire up lumbar TECHNIQUE: Imaging protocol: Computed tomography images of the lumbar spine without contrast. Radiation optimization: All CT scans at this facility use at least one of these dose optimization techniques: automated exposure control; mA and/or kV adjustment per patient size (includes targeted exams where dose is matched to clinical indication); or iterative reconstruction. COMPARISON: CT Spine, lumbar w/o contrast 09/26/2018 9:17 AM FINDINGS: Vertebrae: No acute fracture. Normal alignment. L1-L2: Epidural electrodes entering at L1-L2 and extending to the T12 level. Disc is within normal limits. There is minimal facet arthropathy with no significant spinal or foraminal stenosis. L2-L3: The disc is within normal limits with mild facet arthropathy, right greater than left with no significant spinal or foraminal stenosis. L3-L4: Slight interspace narrowing with near loss of posterior concavity and mild bilateral facet arthropathy. There is normal size of the spinal canal. The neural foramina are adequately patent. L4-L5: Mild interspace narrowing, slightly increased since the prior study with slight anterolisthesis and moderate facet arthropathy. No spinal stenosis and borderline left neural foraminal stenosis which is similar. L5-S1: Moderate interspace narrowing and vacuum phenomenon, slightly increased since prior study with minimal posterior osteophytes and mild facet arthropathy. No significant spinal stenosis although there is slight narrowing of the left lateral recess. There is borderline left neural foraminal stenosis. Soft tissues: Unremarkable. IMPRESSION: 1. Slightly increased degenerative disc change from L4-S1 and to a lesser degree L3-L4 since 09/26/2018. There is borderline left neural foraminal stenosis at L4-L5 and L5-S1 which is similar. 2. Epidural electrode entering at L1-L2 and extending to T12 which is similar. Electronically signed by: Rosales Ervin On 06/16/2019 23:16:49 PM
[2019-06-16] MEDS ORDERED: CEFEPIME HCL 1 GM in D5W MINI-BAG PLUS 50 ML IV ONE (23:45)
[2019-06-17] MEDS ORDERED: ACETAMINOPHEN TAB 650MG DOSE (2X325MG) PO ONE (00:45)
[2019-06-17 00:56] VITALS: BP 109/54
== END 2019-06-17 00:57 | disposition short-term general hospital (02) ==
LOC: M ED 20:38
DX: T85.192A Other mechanical complication of implanted electronic neurostimulator of spinal cord electrode (lead), initial encounter (principal); X58.XXXA Exposure to other specified factors, initial encounter; Y92.89 Other specified places as the place of occurrence of the external cause; G90.50 Complex regional pain syndrome I, unspecified; Z88.0 Allergy status to penicillin; Z88.1 Allergy status to other antibiotic agents; Z88.2 Allergy status to sulfonamides; Z88.8 Allergy status to other drugs, medicaments and biological substances; Z91.040 Latex allergy status; Z91.048 Other nonmedicinal substance allergy status
CPT/HCPCS: 72125; 72128; 72131; 80048; 85025; 86140; 87040; 96365; 96375; 96376; 99284; J0692; J2270; J2405

== ENCOUNTER → 2019-08-13 | Outpatient (CLI) | payer BC, OTHER ==
[~2019-08-13] MED LIST changes: +ONDA-83 PO; -ONDA4TAB5 PO
== END ==
LOC: M RAD 08:18
PROVIDERS: ATTEND Neurological Surgery
DX: A18.01 Tuberculosis of spine (principal)

== ENCOUNTER → 2019-08-14 | Outpatient (CLI) | payer BC, OTHER ==
[~2019-08-14] MED LIST changes: +ISOVUE-370 76% 100ML VIAL (Q9967) As Ordered ONE
--- NOTE | 2019-08-14 18:46 | REPVR ---
PROCEDURE INFORMATION: Exam: CT Thoracic Spine With Contrast Exam date and time: 08/14/2019 5:57 PM Age: 44 years old Clinical indication: Other: Stimulator abcess; Prior surgery; Surgery type: Stimulator and repair; Additional info: Abscess at site of spinal cord stimulator TECHNIQUE: Imaging protocol: Computed tomography images of the thoracic spine with intravenous contrast. Radiation optimization: All CT scans at this facility use at least one of these dose optimization techniques: automated exposure control; mA and/or kV adjustment per patient size (includes targeted exams where dose is matched to clinical indication); or iterative reconstruction. Contrast material: ISOVUE 370; Contrast volume: 75 ml; Contrast route: IV; COMPARISON: CT Spine,thoracic w/o contrast 06/16/2019 10:27 PM FINDINGS: Tubes, catheters and devices: Spinal stimulator leads enter the epidural space at L1-L2. There is soft tissue thickening surrounding the leads in the a posterior paraspinal soft tissues and subcutaneous region findings which may represent scarring although an active process such as an abscess is not excluded. No gas bubbles demonstrated. Vertebrae: No acute fracture. Normal alignment. Discs/Spinal canal/Neural foramina: Moderate central spinal stenosis L2-L3. The spine demonstrates mild degenerative changes. Soft tissues: See Tubes, Catheters And Devices Finding. IMPRESSION: Spinal stimulator leads enter the epidural space at L1-L2. There is soft tissue thickening surrounding the leads in the a posterior paraspinal soft tissues and subcutaneous region findings which may represent scarring although an active process such as an abscess is not excluded. No gas bubbles demonstrated. Electronically signed by: Audie Canseco On 08/14/2019 18:46:13 PM
== END ==
LOC: M RAD 15:58
PROVIDERS: ATTEND Neurological Surgery
DX: A18.01 Tuberculosis of spine (principal)
CPT/HCPCS: 72129; Q9967

== ENCOUNTER → 2019-09-03 | Outpatient (CLI) | payer BC, OTHER ==
[~2019-09-03] MED LIST changes: -ISOVUE-370 76% 100ML VIAL (Q9967) As Ordered ONE
[2019-09-03 10:09] LABS: BASO % 0.6 % (0.0-1.0); EOS # 0.1 10^3/uL (0.0-0.5); EOS % 1.6 % (0.0-3.0); HEMATOCRIT 37.9 % (36.0-47.0); HEMOGLOBIN 11.7 g/dl (12.0-15.5); LYMPH # 1.4 10^3/uL (1.5-5.0); LYMPH % 27.9 % (24.0-44.0); MEAN CORPUSCULAR HEMOGLOBIN 25.8 pg (27.0-33.0); MEAN CORPUSCULAR HGB CONC 30.9 g/dl (32.0-36.5); MEAN CORPUSCULAR VOLUME 83.5 fl (80.0-96.0); MONO # 0.4 10^3/uL (0.0-0.8); MONO % 7.5 % (0.0-5.0); NEUTROPHILS # 3.2 10^3/uL (1.5-8.5); NEUTROPHILS % 62.2 % (36.0-66.0); PLATELET COUNT, AUTOMATED 299 10^3/uL (150-450); RED BLOOD COUNT 4.54 10^6/uL (4.00-5.40); WHITE BLOOD COUNT 5.1 10^3/uL (4.0-10.0)
[2019-09-03 10:36] LABS: ALBUMIN 3.9 GM/DL (3.2-5.2); ALT/SGPT 23 U/L (12-78); BILIRUBIN,TOTAL 0.2 MG/DL (0.2-1.0); BLOOD UREA NITROGEN 11 MG/DL (7-18); C REACTIVE PROTEIN QUANTITATIV < 0.30 MG/DL (0.00-0.30); CALCIUM LEVEL 8.8 MG/DL (8.5-10.1); CARBON DIOXIDE LEVEL 31 MEQ/L (21-32); CHLORIDE LEVEL 108 MEQ/L (98-107); CPK CREATINE PHOSPHOKINASE 95 U/L (26-192); CREATININE FOR GFR 0.79 MG/DL (0.55-1.30); GLOMERULAR FILTRATION RATE > 60.0 (>58); GLUCOSE, FASTING 70 MG/DL (70-100); POTASSIUM SERUM 4.2 MEQ/L (3.5-5.1); SODIUM LEVEL 143 MEQ/L (136-145); TOTAL PROTEIN 7.2 GM/DL (6.4-8.2)
[2019-09-03 10:39] LABS: ERYTHROCYTE SEDIMENTATION RATE 34 mm/hr (0-20)
== END ==
LOC: M LAB 09:03
PROVIDERS: ATTEND Physician Assistant
DX: G93.3 Postviral and related fatigue syndromes (principal)

== ENCOUNTER → 2019-09-11 | Outpatient (CLI) | payer BC, OTHER ==
[2019-09-11 17:29] LABS: BASO % 0.2 % (0.0-1.0); EOS # 0.1 10^3/uL (0.0-0.5); EOS % 2.4 % (0.0-3.0); HEMATOCRIT 35.4 % (36.0-47.0); HEMOGLOBIN 11.1 g/dl (12.0-15.5); LYMPH # 1.9 10^3/uL (1.5-5.0); LYMPH % 37.8 % (24.0-44.0); MEAN CORPUSCULAR HEMOGLOBIN 25.9 pg (27.0-33.0); MEAN CORPUSCULAR HGB CONC 31.4 g/dl (32.0-36.5); MEAN CORPUSCULAR VOLUME 82.5 fl (80.0-96.0); MONO # 0.3 10^3/uL (0.0-0.8); NEUTROPHILS # 2.7 10^3/uL (1.5-8.5); NEUTROPHILS % 53.4 % (36.0-66.0); PLATELET COUNT, AUTOMATED 303 10^3/uL (150-450); RED BLOOD COUNT 4.29 10^6/uL (4.00-5.40)
[2019-09-11 17:48] LABS: ERYTHROCYTE SEDIMENTATION RATE 41 mm/hr (0-20)
[2019-09-11 17:53] LABS: C REACTIVE PROTEIN QUANTITATIV < 0.30 MG/DL (0.00-0.30); CPK CREATINE PHOSPHOKINASE 97 U/L (26-192)
== END ==
LOC: M LAB 16:24
PROVIDERS: ATTEND Physician Assistant
DX: G93.3 Postviral and related fatigue syndromes (principal)

== ENCOUNTER 2019-09-27 13:30 | Observation (INO) | payer BC, OTHER ==
[~2019-09-27] VITALS: Ht 167.6 cm; Wt 128.6 kg
[~2019-09-27 13:30] MED LIST changes: -EPIN0.3I11; +EPIN0.3I11 IM; -ZOLP10TA2; +ZOLP10TA2 PO
--- NOTE | 2019-09-27 15:05 | REP ---
Clinical: Right-sided weakness/numbness. Comparison: 09/26/2018. Technique: Axial noncontrast images from the skull base to the vertex with coronal re-formations. Findings: The ventricles, sulci, and cisterns are normal in position and appearance. Nice-white differentiation is maintained. No acute intracranial hemorrhage, mass/mass effect, pathology or trauma/injury. No evidence for acute infarction. No extra-axial fluid collection. Calvarium is intact. Paranasal sinuses and mastoid air cells are clear. Impression: Normal noncontrast head CT. No evidence for acute intracranial pathology or trauma/injury. Electronically Signed by Carmine Almanza MD 09/27/2019 02:57 P
--- NOTE | 2019-09-27 15:17 | REP ---
Clinical: Chest pain and weakness . Comparison: 06/04/2018 . Findings: The mediastinum and cardiac silhouette are stable and within normal limits for portable technique. The lung sutton are clear without acute consolidation, effusion, or pneumothorax. Skeletal structures are intact. Impression: No acute cardiopulmonary process appreciated. Electronically Signed by Carmine Almanza MD 09/27/2019 03:08 P
[2019-09-27 15:25] LABS: BASO % 0.2 % (0.0-1.0); EOS # 0.1 10^3/uL (0.0-0.5); EOS % 1.6 % (0.0-3.0); HEMATOCRIT 37.2 % (36.0-47.0); HEMOGLOBIN 11.7 g/dl (12.0-15.5); LYMPH # 1.9 10^3/uL (1.5-5.0); LYMPH % 34.6 % (24.0-44.0); MEAN CORPUSCULAR HEMOGLOBIN 25.5 pg (27.0-33.0); MEAN CORPUSCULAR HGB CONC 31.5 g/dl (32.0-36.5); MEAN CORPUSCULAR VOLUME 81.2 fl (80.0-96.0); MONO # 0.4 10^3/uL (0.0-0.8); NEUTROPHILS # 3.2 10^3/uL (1.5-8.5); NEUTROPHILS % 56.4 % (36.0-66.0); PLATELET COUNT, AUTOMATED 325 10^3/uL (150-450); RED BLOOD COUNT 4.58 10^6/uL (4.00-5.40); WHITE BLOOD COUNT 5.6 10^3/uL (4.0-10.0)
[2019-09-27 15:36] LABS: INR 1.06; PROTHROMBIN TIME 13.5 SECONDS (11.8-14.0)
[2019-09-27 15:37] LABS: PARTIAL THROMBOPLASTIN TIME 30.8 SECONDS (25.0-38.4)
[2019-09-27 15:55] LABS: BLOOD UREA NITROGEN 12 MG/DL (7-18); CARBON DIOXIDE LEVEL 29 MEQ/L (21-32); CHLORIDE LEVEL 106 MEQ/L (98-107); CK-MB VALUE MASS 1.4 NG/ML (<3.6); CPK CREATINE PHOSPHOKINASE 112 U/L (26-192); CREATININE FOR GFR 0.79 MG/DL (0.55-1.30); GLOMERULAR FILTRATION RATE > 60.0 (>58); GLUCOSE, FASTING 87 MG/DL (70-100); MB/CK RELATIVE INDEX 1.25 (< OR =4); POTASSIUM SERUM 4.5 MEQ/L (3.5-5.1); SODIUM LEVEL 139 MEQ/L (136-145); TROPONIN I < 0.02 NG/ML (< 0.10)
[2019-09-27 16:43] LABS: ALBUMIN 3.7 GM/DL (3.2-5.2); ALT/SGPT 30 U/L (12-78); BILIRUBIN,DIRECT < 0.1 MG/DL (0.0-0.2); BILIRUBIN,TOTAL 0.2 MG/DL (0.2-1.0); FREE T4 0.97 NG/DL (0.76-1.46); TOTAL PROTEIN 7.4 GM/DL (6.4-8.2)
--- NOTE | 2019-09-27 16:55 | REP ---
Clinical: Weakness. Technique: Axial noncontrast images from the skull base to the thoracic inlet with coronal and sagittal re-formations. Comparison: 06/16/2019. Findings: Alignment and lordosis is maintained. There is no evidence for acute fracture / compression injury or subluxation. Epidural stimulator via posterior approach enters at the C5-6 interspinous level and extends to the level of the mid C3 vertebral body. Associated laminectomy at C5. Moderate multilevel degenerative changes include endplate sclerosis, disc space narrowing, anterior and posterior osteophytes primarily involving C4 through C7 and appear essentially unchanged compared to prior examination. Impression: 1. Stable moderate/early advanced multilevel degenerative changes as described above and unchanged compared to 06/16/2019. 2. Alignment and lordosis maintained without evidence for acute fracture / compression injury or subluxation. 3. Stable postsurgical changes and stable position to epidural stimulator. Electronically Signed by Carmine Almanza MD 09/27/2019 04:47 P
[2019-09-27] MEDS ORDERED: ACETAMINOPHEN 500 MG TAB PO ONE (17:00)
[2019-09-27] MEDS ORDERED: VITA100T12 PO (17:03)
[2019-09-27] MEDS ORDERED: VITA1CHW3 PO (17:03)
[2019-09-27] MEDS ORDERED: VITA50005 PO (17:03)
[2019-09-27] MEDS ORDERED: ACETAMINOPHEN TAB 650MG DOSE (2X325MG) PO PRN (17:30)
[2019-09-27 17:39] LABS: HEMOGLOBIN A1c 5.9 %
--- NOTE | 2019-09-27 18:34 | HPEPDOC ---
[facility] Medical History & Physical Date of Admission Sep 27, 2019 Date of Service: Sep 27, 2019 Primary Care Physician: TETO ECHEVARRIA PA-C Attending Physician: OMAIRA SEYMOUR DO History and Physical CHIEF COMPLAINT: Shaking R hand, dropped coffee mug, loss of sensation/weakness HISTORY OF PRESENT ILLNESS: Eulalia Pozo is a 44 YO F with history of complex regional pain syndrome, status post 2 spinal cord stimulators, who presents with about 3 weeks of loss of sensation, subjective weakness, and tremors in her right hand. She states that prior to these symptoms, she had the flu, but she has fully recovered. She first noticed that her right foot felt as though she "h ad a radio in it." This feeling gradually worsened and traveled up to her right calf. She most recently noticed weakness in her right upper extremity and reports that she dropped her coffee mug twice this morning while she was drinking it. She denies any recent fevers, chills, nausea, vomiting or diarrhea. She does report that she has lost her bowel and bladder spontaneously 2-3 times in the past several weeks. She also reports that her loss of sensation and weakness is intermittent. She has taken Tylenol with no improvement in her symptoms. She also reports she thinks she has foot drop in her right foot. She recently saw her primary care physician who is concerned for Guillan Thelma syndrome. She was referred to neurology in [place], but has not yet set up an appointment with them yet. She has recently contacted her neurosurgeon, who placed her SP stimulators, who does not feel there is an issue with the device. PAST MEDICAL HISTORY: 1. Complex Regional Pain syndrome s/p 2 spinal cord stimulators placed 2. History of seizures 3. Chronic headaches 4. History of PTSD PAST SURGICAL HISTORY: 1. Appendectomy 2. Cholecystectomy 3. Surgical debridement of left ankle 4. Spinal cord stimulator placement x2 SOCIAL HISTORY: Lives alone, unmarried, never smoker, denies alcohol, denies other drugs FAMILY HISTORY: Aunt with lower body dementia ALLERGIES: Please see below. REVIEW OF SYSTEMS: CONSTITUTIONAL: Feels well. No fever or chills HEENT: denies vision changes, no sinus problems, denies any trouble swallowing CARDIOVASCULAR: no palpitations RESPIRATORY: Denies any shortness of breath GENITOURINARY: No dysuria MUSCULOSKELETAL: Numbness, foot drop, weakness in right lower extremity and right upper extremity GASTROINTESTINAL: Denies abdominal pain, no nausea/vomiting/diarrhea SKIN: No new rashes or lesions NEUROLOGICAL: No loss of sensation PSYCHIATRIC: Reports normal mood, no delusions or hallucinations ENDOCRINE: No hot/cold intolerance HEMATOLOGIC/LYMPHATIC: No easy bruising, no lumps/bumps ALLERGIC/IMMUNOLOGIC: No sinus symptoms HOME MEDICATIONS: Please see below. PHYSICAL EXAMINATION: VITAL SIGNS: Please see below. GENERAL APPEARANCE: Obese, Laying in bed, appears stated age, no acute distress, calm, cooperative HEENT: EOMI, PERRLA, neck is supple with no thyromegaly or lymphadenopathy RESPIRATORY: Difficult to appreciate breath sounds due to body habitus, Lungs are clear to auscultation bilaterally with no adventitious breath sounds appreciated CARDIOVASCULAR: no JVD, RRR,no murmurs/rubs/gallops ABDOMEN: Soft, slight tenderness to palpation in the right upper quadrant and epigastric region, no masses/organomegaly EXTREMITIES: no clubbing, cyanosis or edema noted NEUROLOGICAL: Decreased vibratory sensation in left foot compared to right foot. Reflexes intact in upper and lower extremities. She has weakness and 3 out of 5 strength in right upper extremity, 5 out of 5 strength left upper extremity and 5 out of 5 strength in both lower extremities. 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 Cranial nerves II through XII are intact. No other focal deficits appreciated. No Lhermitte sign. Sensory deficits do not follow a specific dermatomal pattern. PSYCHIATRIC: Somewhat tearful affect Skin: No rashes or ulcers. LN: No significant cervical or inguinal lymphadenopathy LABORATORY DATA: See below. IMAGING: HEAD CT: Findings: The ventricles, sulci, and cisterns are normal in position and appearance. Nice-white differentiation is maintained. No acute intracranial hemorrhage, mass/mass effect, pathology or trauma/injury. No evidence for acute infarction. No extra-axial fluid collection. Calvarium is intact. Paranasal sinuses and mastoid air cells are clear. Impression: Normal noncontrast head CT. No evidence for acute intracranial pathology or trauma/injury. CXR: Findings: The mediastinum and cardiac silhouette are stable and within normal limits for portable technique. The lung sutton are clear without acute consolidation, effusion, or pneumothorax. Skeletal structures are intact. Impression: No acute cardiopulmonary process appreciated. CERVICAL SPINE CT: Findings: Alignment and lordosis is maintained. There is no evidence for acute fracture / compression injury or subluxation. Epidural stimulator via posterior approach enters at the C5-6 interspinous level and extends to the level of the mid C3 vertebral body. Associated laminectomy at C5. Moderate multilevel degenerative changes include endplate sclerosis, disc space narrowing, anterior and posterior osteophytes primarily involving C4 through C7 and appear essentially unchanged compared to prior examination. Impression: 1. Stable moderate/early advanced multilevel degenerative changes as described above and unchanged compared to 06/16/2019. 2. Alignment and lordosis maintained without evidence for acute fracture / compression injury or subluxation. 3. Stable postsurgical changes and stable position to epidural stimulator. MICROBIOLOGY: Please see below. ASSESSMENT: This is a 44 YO F with complex regional pain syndrome who presents with upper and lower extremity weakness and loss of sensation, concerning for cervical radiculopathy versus new diagnosis multiple sclerosis. She is admitted for neurologic workup. . PLAN: 1. Upper and lower extremity weakness: DDX: Cervical radiculopathy/spondylosis, cervical spondylotic myelopathy, MS, Guillan Cochran syndrome, flare of complex regional pain syndrome -CT head negative -Cervical spine CT demonstrates moderate/early advanced multilevel degenerative changes, which combined with progression of symptoms could be more convincing for cervical pathology. Time course points less likely to GBS. The patient does not display any UMN characteristics, but mainly has LMN findings (weakness) and occasional bladder dysfunction. Lhermitte sign is not present. -Unable to perform MRI due to 2 spinal cord stimulators -Neurology consulted (Dr. Culp). Appreciate recommendations. -A1c and TSH wnl -Pending vitamin B12 and B6, time course does not fit indication for Lyme titers. BRENDON ordered to r/o autoimmune etiology. -Patient may require further workup in outpatient setting, including EMG. Will defer to neurology recommendations. -PT/OT eval ordered DISPO: Pending neurology consultation. Vital Signs Vital Signs Date Time Temp Pulse Resp B/P (MAP) Pulse Ox O2 Delivery O2 Flow Rate FiO2 09/27/19 15:30 67 16 147/92 (110) 100 09/27/19 13:31 98.0 Room Air Laboratory Data Labs 24H Laboratory Tests 2 09/27/19 15:12: Immature Granulocyte % (Auto) 0.2, Neutrophils (%) (Auto) 56.4, Lymphocytes (%) (Auto) 34.6, Monocytes (%) (Auto) 7.0H, Eosinophils (%) (Auto) 1.6, Basophils (%) (Auto) 0.2, Neutrophils # (Auto) 3.2, Lymphocytes # (Auto) 1.9, Monocytes # (Auto) 0.4, Eosinophils # (Auto) 0.1, Basophils # (Auto) 0.0, Nucleated Red Blood Cells % (auto) 0.0, Prothrombin Time 13.5, Prothromb Time International Ratio 1.06, Activated Partial Thromboplast Time 30.8, Anion Gap 4L, Glomerular Filtration Rate > 60.0, Calcium Level 9.0, Total Bilirubin 0.2, Direct Bilirubin < 0.1, Aspartate Amino Transf (AST/SGOT) 29, Alanine Aminotransferase (ALT/SGPT) 30, Alkaline Phosphatase 81, Total Creatine Kinase 112, Creatine Kinase MB 1.4, Creatine Kinase MB Relative Index 1.25, Troponin I < 0.02, Total Protein 7.4, Albumin 3.7, Albumin/Globulin Ratio 1.00, Thyroid Stimulating Hormone (TSH) 1.970, Free Thyroxine 0.97 CBC/BMP Laboratory Tests 09/27/19 15:12 Home Medications Scheduled Cholecalciferol (Vitamin D3) (Vitamin D3) 10 Mcg Tab.chew, 10 MCG PO DAILY Cyanocobalamin (Vitamin B-12) (Vitamin B-12) 100 Mcg Tablet, 100 MCG PO DAILY Ergocalciferol (Vitamin D2) (Vitamin D2) 50,000 Units Cap, 50,000 UNITS PO QWEEK Mondays Zolpidem Tartrate (Zolpidem Tartrate) 10 Mg Tablet, 10 MG PO QHS Scheduled PRN Acetaminophen (Acetaminophen) 500 Mg Tab, 1,000 MG PO Q4H PRN for PAIN / FEVER Epinephrine (Epinephrine) 0.3 Mg/0.3 Ml Auto.injct, 0.3 MG IM ONCE PRN for an aphylaxis Allergies Coded Allergies: Penicillins (Verified Allergy, Severe, ANAPHYLAXIS, 01/11/19) Contrast Media (Verified Allergy, Mild, hives, 09/27/19) Pt reports usually being given medication prior to contrast dye administration which helps reactive symptoms NSAIDS (Non-Steroidal Anti-Inflamma (Verified Allergy, Mild, THROAT SWELLING, 01/11/19) Sulfa (Sulfonamide Antibiotics) (Verified Allergy, Mild, HIVES, 01/11/19) Tetracyclines (Verified Allergy, Mild, HIVES, 01/11/19) aspirin (Verified Allergy, Mild, HIVES, 01/11/19) gabapentin (Verified Allergy, Mild, HIVES, 01/11/19) Latex, Natural Rubber (Verified Allergy, Unknown, 01/11/19) A-FIB/CHADSVASC A-FIB History Current/History of A-Fib/PAF?: No GME ATTESTATION GME ATTESTATION My faculty preceptor for this patient encounter was physically present during the encounter and was fully available. All aspects of the patient interview, examination, medical decision making process, and medical care plan development were reviewed and approved by the faculty preceptor. The faculty preceptor is aware and concurs with the plan as stated in the body of this note and will attest to such by his/her cosignature. ATTENDING NOTE I, Omaira Seymour, have independently examined this patient and performed my own physical exam, as well as reviewed the documentation. I have discussed in detail with the resident / student the findings and plan of treatment as docum ented by the resident / student. I agree with their findings and treatment plan. I will continue to follow the patient during this hospital stay. IVAN HOOPER MD Sep 27, 2019 18:34 OMAIRA SEYMOUR DO Sep 28, 2019 12:14
[2019-09-27 20:00] VITALS: BP 146/90
[2019-09-27] MEDS: zolPIDEM TARTRATE 5 MG TAB PO PRN ×2 (20:34→21:34)
[2019-09-27] MEDS: DOCUSATE SODIUM 100 MG CAP PO SCH (20:35)
[2019-09-27 22:00] VITALS: BP 146/90
[2019-09-28 06:00] VITALS: BP 130/98
[2019-09-28 06:45] LABS: HEMATOCRIT 35.3 % (36.0-47.0); HEMOGLOBIN 11.1 g/dl (12.0-15.5); MEAN CORPUSCULAR HEMOGLOBIN 25.7 pg (27.0-33.0); MEAN CORPUSCULAR HGB CONC 31.4 g/dl (32.0-36.5); MEAN CORPUSCULAR VOLUME 81.7 fl (80.0-96.0); PLATELET COUNT, AUTOMATED 276 10^3/uL (150-450); RED BLOOD COUNT 4.32 10^6/uL (4.00-5.40); WHITE BLOOD COUNT 4.1 10^3/uL (4.0-10.0)
--- NOTE | 2019-09-28 06:45 | ECGEPIP ---
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
[2019-09-28 06:59] LABS: ALBUMIN 3.2 GM/DL (3.2-5.2); ALT/SGPT 28 U/L (12-78); BILIRUBIN,TOTAL 0.3 MG/DL (0.2-1.0); BLOOD UREA NITROGEN 12 MG/DL (7-18); CALCIUM LEVEL 8.7 MG/DL (8.5-10.1); CARBON DIOXIDE LEVEL 25 MEQ/L (21-32); CHLORIDE LEVEL 110 MEQ/L (98-107); CREATININE FOR GFR 0.72 MG/DL (0.55-1.30); GLOMERULAR FILTRATION RATE > 60.0 (>58); GLUCOSE, FASTING 90 MG/DL (70-100); MAGNESIUM LEVEL 2.1 MG/DL (1.8-2.4); SODIUM LEVEL 141 MEQ/L (136-145); TOTAL PROTEIN 7.1 GM/DL (6.4-8.2)
[2019-09-28] MEDS: DOCUSATE SODIUM 100 MG CAP PO SCH (07:32)
[2019-09-28] MEDS: ACETAMINOPHEN 500 MG TAB PO PRN ×2 (07:41→13:47)
[2019-09-28] MEDS ORDERED: CYANOCOBALAMIN 500 MCG TAB PO SCH (09:00)
[2019-09-28] MEDS ORDERED: VITAMIN D 1,000 INTERNATIONAL UNITS TABLET PO SCH (09:00)
--- NOTE | 2019-09-28 12:15 | DS.PDOC ---
Discharge Summary General Date of Admission Sep 27, 2019 at 13:31 Date of Discharge 09/28/19 Discharge Summary PROCEDURES PERFORMED DURING STAY: [None]. ADMITTING DIAGNOSES: Upper and lower extremity weakness DISCHARGE DIAGNOSES: Upper and lower extremity weakness COMPLICATIONS/CHIEF COMPLAINT: Right Side Weakness. HISTORY OF PRESENT ILLNESS: Eulalia Pozo is a 44 YO F with history of complex regional pain syndrome, status post 2 spinal cord stimulators, who presents with about 3 weeks of loss of sensation, subjective weakness, and tremors in her right hand. She states that prior to these symptoms, she had the flu, but she has fully recovered. She first noticed that her right foot felt as though she "had a radio in it." This feeling gradually worsened and traveled up to her right calf. She most recently noticed weakness in her right upper extremity and reports that she dropped her coffee mug twice this morning while she was drinking it. She denies any recent fevers, chills, nausea, vomiting or diarrhea. She does report that she has lost her bowel and bladder spontaneously 2-3 times in the past several weeks. She also reports that her loss of sensation and weakness is intermittent. She has taken Tylenol with no improvement in her symptoms. She also reports she thinks she has foot drop in her right foot. She recently saw her primary care physician who is concerned for Guillan Malden syndrome. She was referred to neurology in [place], but has not yet set up an appointment with them yet. She has recently contacted her neurosurgeon, who placed her SP stimulators, who does not feel there is an issue with the device. HOSPITAL COURSE: Neurologist Dr. Culp consulted patient, he recommended discharge and follow-up with neurologist and neurosurgeon in the outpatient settings. Mos t likely patient developed his symptoms secondary to 2 spinal cord stimulators. Cervical spine CT demonstrates moderate/early advanced multilevel degenerative changes. Lhermitte sign is not present. DISCHARGE MEDICATIONS: Please see below. ALLERGIES: Please see below. PHYSICAL EXAMINATION ON DISCHARGE: VITAL SIGNS: Please see below. GENERAL APPEARANCE: Obese, Laying in bed, appears stated age, no acute distress, calm, cooperative HEENT: EOMI, PERRLA, neck is supple with no thyromegaly or lymphadenopathy RESPIRATORY: Difficult to appreciate breath sounds due to body habitus, Lungs are clear to auscultation bilaterally with no adventitious breath sounds appreciated CARDIOVASCULAR: no JVD, RRR,no murmurs/rubs/gallops ABDOMEN: Soft, slight tenderness to palpation in the right upper quadrant and epigastric region, no masses/organomegaly EXTREMITIES: no clubbing, cyanosis or edema noted NEUROLOGICAL: Decreased vibratory sensation in left foot compared to right foot. Reflexes intact in upper and lower extremities. She has weakness and 3 out of 5 strength in right upper extremity, 5 out of 5 strength left upper extremity and 5 out of 5 strength in both lower extremities. Gear Room Keeper Strength is decreased in the right upper extremity compared to left. Cranial nerves II through XII are intact. No other focal deficits appreciated. No Lhermitte sign. Sensory deficits do not follow a specific dermatomal pattern. PSYCHIATRIC: Somewhat tearful affect Skin: No rashes or ulcers. LN: No significant cervical or inguinal lymphadenopathy LABORATORY DATA: Please see below. IMAGING: CERVICAL SPINE CT: Findings: Alignment and lordosis is maintained. There is no evidence for acute fracture / compression injury or subluxation. Epidural stimulator via posterior approach enters at the C5-6 interspinous level and extends to the level of the mid C3 vertebral body. Associated laminectomy at C5. Moderate multilevel degenerative changes include endplate sclerosis, disc space narrowing, anterior and posterior osteophytes primarily involving C4 through C7 and appear essentially unchanged compared to prior examination. Impression: 1. Stable moderate/early advanced multilevel degenerative changes as described above and unchanged compared to 06/16/2019. 2. Alignment and lordosis maintained without evidence for acute fracture / compression injury or subluxation. 3. Stable postsurgical changes and stable position to epidural stimulator. PROGNOSIS: Good ACTIVITY: [As tolerated]. DIET: Regular DISCHARGE PLAN: Follow-up with neurologist and neurosurgeon DISPOSITION: . Home DISCHARGE INSTRUCTIONS: See above ITEMS TO FOLLOWUP ON ON OUTPATIENT: See above DISCHARGE CONDITION: [Stable]. TIME SPENT ON DISCHARGE: Greater than 15 minutes. Vital Signs/I&Os Vital Signs Date Time Temp Pulse Resp B/P (MAP) Pulse Ox O2 Delivery O2 Flow Rate FiO2 09/28/19 06:00 98.7 91 20 130/98 (109) 98 Room Air I&O- Last 24 Hours up to 6 AM 09/28/19 06:00 Intake Total 300 ml Output Total 0 ml Balance 300 ml Laboratory Data Labs 24H Laboratory Tests 2 09/27/19 15:12: Immature Granulocyte % (Auto) 0.2, Neutrophils (%) (Auto) 56.4, Lymphocytes (%) (Auto) 34.6, Monocytes (%) (Auto) 7.0H, Eosinophils (%) (Auto) 1.6, Basophils (%) (Auto) 0.2, Neutrophils # (Auto) 3.2, Lymphocytes # (Auto) 1.9, Monocytes # (Auto) 0.4, Eosinophils # (Auto) 0.1, Basophils # (Auto) 0.0, Nucleated Red Blood Cells % (auto) 0.0, Prothrombin Time 13.5, Prothromb Time International Ratio 1.06, Activated Partial Thromboplast Time 30.8, Anion Gap 4L, Glomerular Filtration Rate > 60.0, Estimated Mean Plasma Glucose 123H, Hemoglobin A1c 5.9, Calcium Level 9.0, Total Bilirubin 0.2, Direct Bilirubin < 0.1, Aspartate Amino Transf (AST/SGOT) 29, Alanine Aminotransferase (ALT/SGPT) 30, Alkaline Phosphatase 81, Total Creatine Kinase 112, Creatine Kinase MB 1.4, Creatine Kinase MB Relative Index 1.25, Troponin I < 0.02, Total Protein 7.4, Albumin 3.7, Albumin/Globulin Ratio 1.00, Thyroid Stimulating Hormone (TSH) 1.970, Free Thyroxine 0.97 09/27/19 18:44: 09/28/19 05:52: Nucleated Red Blood Cells % (auto) 0.0, Anion Gap 6L, Glomerular Filtration Rate > 60.0, Calcium Level 8.7, Total Bilirubin 0.3, Aspartate Amino Transf (AST/SGOT) 22, Alanine Aminotransferase (ALT/SGPT) 28, Alkaline Phosphatase 69, Total Protein 7.1, Albumin 3.2, Albumin/Globulin Ratio 0.82L, Magnesium Level 2.1 CBC/BMP Laboratory Tests 09/27/19 15:12 09/28/19 05:52 Discharge Medications Scheduled Cholecalciferol (Vitamin D3) (Vitamin D3) 10 Mcg Tab.chew, 10 MCG PO DAILY, (Reported) Cyanocobalamin (Vitamin B-12) (Vitamin B-12) 100 Mcg Tablet, 100 MCG PO DAILY, (Reported) Ergocalciferol (Vitamin D2) (Vitamin D2) 50,000 Units Cap, 50,000 UNITS PO QWEEK, (Reported) Mondays Zolpidem Tartrate (Zolpidem Tartrate) 10 Mg Tablet, 10 MG PO QHS, (Reported) Scheduled PRN Acetaminophen (Acetaminophen) 500 Mg Tab, 1,000 MG PO Q4H PRN for PAIN / FEVER, (Reported) Epinephrine (Epinephrine) 0.3 Mg/0.3 Ml Auto.injct, 0.3 MG IM ONCE PRN for anap hylaxis, (Reported) Allergies Coded Allergies: Penicillins (Verified Allergy, Severe, ANAPHYLAXIS, 01/11/19) Contrast Media (Verified Allergy, Mild, hives, 09/27/19) Pt reports usually being given medication prior to contrast dye administration which helps reactive symptoms NSAIDS (Non-Steroidal Anti-Inflamma (Verified Allergy, Mild, THROAT SWELLING, 01/11/19) Sulfa (Sulfonamide Antibiotics) (Verified Allergy, Mild, HIVES, 01/11/19) Tetracyclines (Verified Allergy, Mild, HIVES, 01/11/19) aspirin (Verified Allergy, Mild, HIVES, 01/11/19) gabapentin (Verified Allergy, Mild, HIVES, 01/11/19) Latex, Natural Rubber (Verified Allergy, Unknown, 01/11/19) OMAIRA SEYMOUR DO Sep 28, 2019 12:15
--- NOTE | 2019-09-28 18:56 | CR ---
DATE OF CONSULTATION: 09/28/2019 REFERRING PHYSICIAN: Dr. Brandon Turner. REASON FOR CONSULTATION: Right hand and foot numbness and weakness. HISTORY OF PRESENT ILLNESS: Eulalia Pozo is a 44-year-old woman with history of complex regional pain syndrome status post cervical and lumbosacral spinal stimulator placement requiring lumbosacral lead revision and her original surgery was done in September 2018 at [facility] neurosurgery and she had lumbosacral leads replacement in late 2018. The patient states that she had flu-like symptoms in July 2019. Three or four weeks ago she started feeling intermittent right food and hand numbness, tingling and weakness. She states that the best she can describe her numbness and right hand and foot is a cross between right hand and foot falling asleep and waking up. She feels as if there is a speaker inside her right hand and foot and she feels a vibration. Yesterday, she dropped a cup of coffee and got concerned and came to [facility]. She also has felt intermittent weakness of her right hand and right foot. She feels that she is unable to pick up attendant her right foot when walking. 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 She has mild neck pain. She complains of 5/10 low back pain. She denies any dysphagia, dysarthria, diplopia, urinary incontinence, falls or loss of consciousness. DIAGNOSTIC STUDIES: Her MRI and MRA brain in 2015, MRI scan of brain in 2016 were completely normal. She had sinus mucosal disease, but no abnormality in brain. MRI cervical spine in 2016 showed moderate congenital and degenerative cervical spinal stenosis. CT scan of thoracic and lumbar spine showed thoracic and lumbosacral spondylosis and lumbosacral spinal stimulator leads between T12-L2 level. CT scan of brain yesterday and CT scan of cervical spine yesterday showed no acute disease and stable postsurgical changes with spinal stimulator placed in cervical spine. Her scans were reviewed. PAST MEDICAL HISTORY: 1. Complex regional pain syndrome status post cervical and lumbosacral spinal stimulator placement. 2. Seizures. 3. Headaches. 4. Posttraumatic stress disorder 5. Appendectomy. 6. Cholecystectomy. 7. Surgical debridement of left ankle. SOCIAL HISTORY: She lives alone. She is unmarried. She denies smoking, alcohol or illicit drugs. FAMILY HISTORY: The patient's grandmother and great aunt had Lewy body dementia. REVIEW OF SYSTEMS: All systems were reviewed and found to be noncontributory except as mentioned in history of present illness. PHYSICAL EXAMINATION: Temperature 98.7, pulse 91, respiratory rate 20, blood pressure 130/98, 98% saturation on room air. HEART: Regular rate and rhythm. ABDOMEN: Soft, nontender, nondistended. No pedal edema. No musculoskeletal abnormalities. No rash. No signs of meningeal irritation. The patient is awake, alert, oriented to place, person and time. Normal speech comprehension and repetition. Extraocular muscles are intact. No facial weakness. Tongue and uvula are midline. 5/5 strength in left arm and leg. Right arm and right leg strength are 4+/5 with intermittent activation and giveway weakness. The patient states that she has decreased sensation in the right hand and right foot. Uezyye-so-[id number] testing is within normal limits. She is able to do tandem walking. Romberg testing is negative. Joint position sense is normal. She is able to walk on her toes and heels on both sides. Deep tendon flexes are to 2-3+ throughout bilaterally. Plantars are downgoing bilaterally. ASSESSMENT: 1. Right hand and foot intermittent numbness and weakness of unclear etiology. 2. There is concern for side effects of cervical spinal stimulator. 3. No evidence of stroke, group B Streptococcus (GBS) or cervical stenosis, although we are unable to perform MRI scans due to her spinal stimulators. PLAN: 1. Guillian-Olympia syndrome does not present with unilateral symptoms with normal to mildly increased reflexes. We cannot perform MRI scan for any further evaluation. Stroke would be less likely within normal CT scan of head and one month into her symptoms. She does not have any speech or facial deficit. I am not sure about cause of her current symptoms. She will discuss with her neurosurgeon if there is any remote possibility of side effects from her cervical spinal stimulation. 2. The patient will follow with her neurologist in [place] and her neurosurgeon in [place].
[2019-09-29 10:40] LABS: VITAMIN B12 LEVEL 329 PG/ML (247-911)
[2019-09-30 14:06] LABS: ANTINUCLEAR ANTIBODIES DIRECT Negative (Negative)
== END 2019-09-28 14:04 | disposition home or self-care (01) ==
LOC: M ED 13:30 → M ED INP 13:31 → ENRESERV 18:18 → M MSPAV 18:56
PROVIDERS: ADMIT Internal Medicine; ATTEND Internal Medicine
DX: R53.1 Weakness (principal); G90.50 Complex regional pain syndrome I, unspecified; Z96.9 Presence of functional implant, unspecified; R25.1 Tremor, unspecified; R20.0 Anesthesia of skin; M54.5 Low back pain; R56.9 Unspecified convulsions; R51 Headache; F43.10 Post-traumatic stress disorder, unspecified; Z82.0 Family history of epilepsy and other diseases of the nervous system; M50.30 Other cervical disc degeneration, unspecified cervical region; Z79.899 Other long term (current) drug therapy; Z88.0 Allergy status to penicillin; Z91.041 Radiographic dye allergy status; Z88.8 Allergy status to other drugs, medicaments and biological substances; Z88.2 Allergy status to sulfonamides; Z88.1 Allergy status to other antibiotic agents; Z91.040 Latex allergy status

== ENCOUNTER → 2019-10-04 | Outpatient (CLI) | payer BC, OTHER ==
[~2019-10-04] MED LIST changes: +VITA100T12 PO; +VITA1CHW3 PO; +VITA50005 PO
== END ==
LOC: M LABSMTC 09:57
PROVIDERS: ATTEND Family Medicine
DX: Z11.59 Encounter for screening for other viral diseases (principal); Z20.818 Contact with and (suspected) exposure to other bacterial communicable diseases
CPT/HCPCS: 87502; U0002

== ENCOUNTER → 2019-10-14 | Outpatient (CLI) | payer BC, OTHER ==
[2019-10-14 18:27] LABS: BASO % 0.3 % (0.0-1.0); EOS # 0.1 10^3/uL (0.0-0.5); EOS % 1.5 % (0.0-3.0); HEMATOCRIT 36.1 % (36.0-47.0); HEMOGLOBIN 11.6 g/dl (12.0-15.5); LYMPH # 1.9 10^3/uL (1.5-5.0); LYMPH % 28.6 % (24.0-44.0); MEAN CORPUSCULAR HEMOGLOBIN 26.2 pg (27.0-33.0); MEAN CORPUSCULAR HGB CONC 32.1 g/dl (32.0-36.5); MEAN CORPUSCULAR VOLUME 81.7 fl (80.0-96.0); MONO # 0.5 10^3/uL (0.0-0.8); MONO % 6.6 % (0.0-5.0); NEUTROPHILS # 4.3 10^3/uL (1.5-8.5); NEUTROPHILS % 62.7 % (36.0-66.0); PLATELET COUNT, AUTOMATED 298 10^3/uL (150-450); RED BLOOD COUNT 4.42 10^6/uL (4.00-5.40); WHITE BLOOD COUNT 6.8 10^3/uL (4.0-10.0)
[2019-10-14 18:59] LABS: ALBUMIN 3.6 GM/DL (3.2-5.2); ALT/SGPT 24 U/L (12-78); BILIRUBIN,TOTAL 0.2 MG/DL (0.2-1.0); BLOOD UREA NITROGEN 13 MG/DL (7-18); C REACTIVE PROTEIN QUANTITATIV < 0.30 MG/DL (0.00-0.30); CALCIUM LEVEL 8.7 MG/DL (8.5-10.1); CARBON DIOXIDE LEVEL 26 MEQ/L (21-32); CHLORIDE LEVEL 109 MEQ/L (98-107); CREATININE FOR GFR 0.95 MG/DL (0.55-1.30); GLOMERULAR FILTRATION RATE > 60.0 (>58); GLUCOSE, FASTING 138 MG/DL (70-100); POTASSIUM SERUM 3.8 MEQ/L (3.5-5.1); SODIUM LEVEL 139 MEQ/L (136-145); TOTAL PROTEIN 7.2 GM/DL (6.4-8.2)
--- NOTE | 2019-10-14 19:12 | REP ---
HISTORY: Acute bronchitis. COMPARISON: 09/27/2019 a portable examination. FINDINGS: The superior mediastinal structures are midline. The cardiac silhouette is unremarkable in size, shape and position. The diaphragmatic surfaces of the lungs are regular and the costophrenic angles are clear. The pulmonary sutton are clear. The imaged osseous structures are intact. IMPRESSION: There is no acute cardiopulmonary disease. No significant change other than technique. Electronically Signed by Manish Doan DO 10/14/2019 07:31 P
== END ==
LOC: M LAB 18:10
PROVIDERS: ATTEND Physician Assistant
DX: J20.9 Acute bronchitis, unspecified (principal)

== ENCOUNTER 2019-10-31 19:32 | Inpatient (IN) | payer BC, OTHER ==
[~2019-10-31] VITALS: Ht 167.6 cm; Wt 133.8 kg
[~2019-10-31 19:32] MED LIST changes: +CYCL-707 PO; -CYCL10TA PO; +VITA-243; -VITA500T
[2019-10-31] MEDS ORDERED: methylPREDNISolone INJ 125 MG/2 ML VIAL (J2930) IV ONE (20:15)
[2019-10-31] MEDS ORDERED: ONDANSETRON 4MG/2ML VIAL IV ONE (20:15)
[2019-10-31] MEDS ORDERED: diphenhydrAMINE 50MG/ML VIAL (J1200) IV ONE ×2 (20:15→23:00)
[2019-10-31 20:57] LABS: INR 1.04; PROTHROMBIN TIME 13.3 SECONDS (11.8-14.0)
[2019-10-31] MEDS ORDERED: HYDR5LIQ2 PO (21:02)
[2019-10-31] MEDS ORDERED: ALBU8.5H PO (21:02)
[2019-10-31 21:08] LABS: BASO % 0.5 % (0.0-1.0); EOS # 0.1 10^3/uL (0.0-0.5); EOS % 1.4 % (0.0-3.0); HEMATOCRIT 34.3 % (36.0-47.0); HEMOGLOBIN 10.9 g/dl (12.0-15.5); LYMPH # 1.8 10^3/uL (1.5-5.0); MEAN CORPUSCULAR HEMOGLOBIN 26.5 pg (27.0-33.0); MEAN CORPUSCULAR HGB CONC 31.8 g/dl (32.0-36.5); MEAN CORPUSCULAR VOLUME 83.3 fl (80.0-96.0); MONO # 0.5 10^3/uL (0.0-0.8); MONO % 7.2 % (0.0-5.0); NEUTROPHILS # 3.9 10^3/uL (1.5-8.5); NEUTROPHILS % 61.6 % (36.0-66.0); PLATELET COUNT, AUTOMATED 287 10^3/uL (150-450); RED BLOOD COUNT 4.12 10^6/uL (4.00-5.40); WHITE BLOOD COUNT 6.3 10^3/uL (4.0-10.0)
[2019-10-31 21:33] LABS: ALBUMIN 3.5 GM/DL (3.2-5.2); ALT/SGPT 27 U/L (12-78); BILIRUBIN,DIRECT < 0.1 MG/DL (0.0-0.2); BILIRUBIN,TOTAL 0.2 MG/DL (0.2-1.0); BLOOD UREA NITROGEN 19 MG/DL (7-18); CALCIUM LEVEL 8.7 MG/DL (8.5-10.1); CARBON DIOXIDE LEVEL 23 MEQ/L (21-32); CHLORIDE LEVEL 108 MEQ/L (98-107); CK-MB VALUE MASS < 1.0 NG/ML (<3.6); CPK CREATINE PHOSPHOKINASE 85 U/L (26-192); CREATININE FOR GFR 0.75 MG/DL (0.55-1.30); GLOMERULAR FILTRATION RATE > 60.0 (>58); GLUCOSE, FASTING 94 MG/DL (70-100); MB/CK RELATIVE INDEX 1.18 (< OR =4); NT-PRO BNP 31 PG/ML (<125); SODIUM LEVEL 139 MEQ/L (136-145); TOTAL PROTEIN 6.8 GM/DL (6.4-8.2); TROPONIN I < 0.02 NG/ML (< 0.10)
[2019-10-31] MEDS ORDERED: ISOVUE-370 76% 100ML VIAL As Ordered ONE (21:36)
--- NOTE | 2019-10-31 22:38 | REPVR ---
PROCEDURE INFORMATION: Exam: CT Angiography Chest With Contrast Exam date and time: 10/31/2019 10:01 PM Age: 44 years old Clinical indication: Shortness of breath; Chest pain TECHNIQUE: Imaging protocol: Computed tomographic angiography of the chest with intravenous contrast. 3D rendering: MIP and/or 3D reconstructed images were created by the technologist. Radiation optimization: All CT scans at this facility use at least one of these dose optimization techniques: automated exposure control; mA and/or kV adjustment per patient size (includes targeted exams where dose is matched to clinical indication); or iterative reconstruction. Contrast material: ISOVUE 370; Contrast volume: 75 ml; Contrast route: IV; COMPARISON: PA Chest, 2 view PA, Lat 10/14/2019 6:51 PM FINDINGS: Limitations: Respiratory motion artifact degrades the image quality. Tubes, catheters and devices: Neurostimulator leads were partially imaged. Pulmonary arteries: There is a mosaic attenuation pattern in both lungs, which can be seen with air trapping or pulmonary artery hypertension. There is no pulmonary embolism in the main, lobar, or segmental pulmonary arteries. The timing of the contrast bolus was suboptimal for the assessment of the subsegmental pulmonary arteries, which are poorly opacified and degraded by respiratory motion artifact. The pulmonary artery trunk is dilated and measures 3.1 cm in diameter, which can be seen with pulmonary artery hypertension. Aorta: There is no thoracic aortic aneurysm, pseudoaneurysm, penetrating atherosclerotic ulcer, intramural hematoma, or dissection. Superior vena cava: Patent. Tracheobronchial tree: Normal. Lungs: There is mild bibasilar atelectasis. No lung consolidation, cavitary lesion, or mass is noted. Incidental note is made of a 2 mm calcified granuloma in the right upper lobe (image 45 of the coronal MIP series 605). Pleural space: Normal. No pneumothorax or pleural effusion. Heart: No cardiomegaly or pericardial effusion. The ratio of the diameter of the right ventricle to the diameter of the left ventricle measures less than 1, which is within normal limits and there is no evidence for a right ventricular strain. Mediastinum: No mediastinal mass, fluid collection, or pneumomediastinum. Lymph nodes: No enlarged lymph nodes. Gallbladder and bile ducts: There are surgical clips in the gallbladder fossa related to a cholecystectomy. The common bile duct is mildly dilated and measures 9 mm in diameter. The common bile duct and biliary tree were not fully imaged. 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 There is a 2.7 cm outpouching arising from the alimentary portion of the stomach (image 45 of the coronal series 603 and image 133 of the axial series 601). Bones/joints: No fracture or dislocation is noted. There is no suspicious osteolytic or osteoblastic lesion. There are endplate spurs in the thoracic spine. Soft tissues: Unremarkable. No soft tissue fluid collection. IMPRESSION: 1. No pulmonary embolism in the main, lobar, or segmental pulmonary arteries. The timing of the contrast bolus was suboptimal for the assessment of the subsegmental pulmonary arteries, which are poorly opacified and degraded by respiratory motion artifact. 2. Mosaic attenuation pattern in both lungs, which can be seen with air trapping or pulmonary artery hypertension. 3. Dilation of the pulmonary artery trunk, which may indicate pulmonary artery hypertension. Electronically signed by: Mike Alexander On 10/31/2019 22:38:31 PM
[2019-10-31 23:39] VITALS: O2SAT 88
[2019-11-01] MEDS ORDERED: TESS100C PO (00:06)
--- NOTE | 2019-11-01 00:50 | HPEPDOC ---
General Date of Admission Nov 01, 2019 at 00:09 Chief Complaint The patient is a 44-year-old female who presents to the hospital with complaints of short of breath History of Present Illness Patient is a 44-year-old female with a PMHx of Complex Regional Pain Syndrome (s/p Spinal cord stimulator), History of seizures, Chronic headaches, Ovarian CA (s/p chemotherapy and hysterectomy 2006) and recent hospitalization on 09/26 to 09/27 for right sided weakness. Patient reports that shes been experiencing shortness of breath for 2 weeks duration. She notes that over the last few days it has been worsening. She denies any fevers but does report chills while at home. She does note that she has experienced a cough throughout this entire duration. In the morning she noted it to be productive with clear/white sputum and throughout most of the day it is dry in nature. Patient does report associated chest discomfort upon deep cough. Patient reports that she feels some palpitations. Patient was tested for COVID-19 after her discharge and was found to be negative. Patient denies any significant changes in her baseline nausea, vomiting, abdominal pain. Denies any constipation. Denies any urinary discomfort. . She does report diarrhea over the last few days; has indicated at least 2-3 bowel movements a day with trace blood. Patient reports that her appetite is poor and denies any significant changes in her weight. Home Medications Scheduled Zolpidem Tartrate (Zolpidem Tartrate) 10 Mg Tablet, 10 MG PO QHS, (Reported) PCP TOLD PT NOT TO TAKE IN CONJUNCTION WITH COUGH SYRUP Scheduled PRN Acetaminophen (Acetaminophen) 500 Mg Tab, 1,000 MG PO Q4H PRN for PAIN / FEVER, (Reported) Albuterol Sulfate (Albuterol Sulfate Hfa) 8.5 Gm Hfa.aer.ad, 2 PUFFS PO Q4H PRN for SOB/WHEEZING, (Reported) Benzonatate (Tessalon Perle) 100 Mg Capsule, 100 MG PO TID PRN for COUGH, (Reported) Epinephrine (Epinephrine) 0.3 Mg/0.3 Ml Auto.injct, 0.3 MG IM ONCE PRN for anaphylaxis, (Reported) Hydrocodone/Chlorphen P-Stirex (Hydrocodone-Chlorphen ER Susp) 115 Ml Radha.er.12h, 10 ML PO BID PRN for COUGH, (Reported) Allergies Coded Allergies: NSAIDS (Non-Steroidal Anti-Inflamma (Verified Allergy, Severe, THROAT SWELLING, 10/31/19) Penicillins (Verified Allergy, Severe, ANAPHYLAXIS, 01/11/19) Contrast Media (Verified Allergy, Intermediate, hives, 10/31/19) Pt reports usually being given medication prior to contrast dye administration which helps reactive symptoms Sulfa (Sulfonamide Antibiotics) (Verified Allergy, Intermediate, HIVES, 10/31/19) Tetracyclines (Verified Allergy, Intermediate, HIVES, 10/31/19) aspirin (Verified Allergy, Intermediate, HIVES, 10/31/19) gabapentin (Verified Allergy, Intermediate, HIVES, 10/31/19) Latex, Natural Rubber (Verified Allergy, Unknown, 01/11/19) avocado (Verified Allergy, Unknown, 10/31/19) banana (Verified Allergy, Unknown, 10/31/19) kiwi (Verified Allergy, Unknown, 10/31/19) mushroom (Verified Allergy, Unknown, 10/31/19) Past Medical History Medical History Complex Regional Pain Syndrome (s/p Spinal cord stimulator), History of seizures, Chronic headaches, Ovarian CA (s/p chemotherapy and hysterectomy 2006) Surgical History Appendectomy Cholecystectomy Surgical debridement of left ankle after fracture in 2018 Spinal cord stimulator placement 2; most recent which 09/2018 Family History - Mother with a history of leukemia - Father with history of diabetes Social History - Denies the use of tobacco or illicit drugs; patient reports she rarely uses alcohol - Denies recent travel or sick contacts - Lives alone with her dog - Occupation; patient reports that she works at [employer] Review of Systems Other systems 10 point review of systems complete, all negative otherwise stated in HPI Vital Signs - Vitals: BP 140/82, HR 95, RR 18, Sat 94%RA, Temp 97.7F - General: Lying in bed, No acute distress, Speaking in full sentences, AAOx3 - HEENT: NC, AT, PERRLA, EOMI - CVS: RRR, +S1S2, - Murmurs / rubs / gallops - Lungs: Fair air entry bilaterally, No appreciable wheezing / rales / rhonchi - Abdomen: Soft, Non-distended, Non-tender - Extremities: No lower extremity edema, No calf tenderness - Neuro: No focal motor or sensory deficit - Skin: No visible rashes Laboratory Data Labs 24H Laboratory Tests 2 10/31/19 20:32: Prothrombin Time 13.3, Prothromb Time International Ratio 1.04 10/31/19 20:45: Immature Granulocyte % (Auto) 0.3, Neutrophils (%) (Auto) 61.6, Lymphocytes (%) (Auto) 29.0, Monocytes (%) (Auto) 7.2H, Eosinophils (%) (Auto) 1.4, Basophils (%) (Auto) 0.5, Neutrophils # (Auto) 3.9, Lymphocytes # (Auto) 1.8, Monocytes # (Auto) 0.5, Eosinophils # (Auto) 0.1, Basophils # (Auto) 0.0, Nucleated Red Blood Cells % (auto) 0.0, Carboxyhemoglobin 1.8H, Anion Gap 8, Glomerular Filtration Rate > 60.0, Calcium Level 8.7, Total Bilirubin 0.2, Direct Bilirubin < 0.1, Aspartate Amino Transf (AST/SGOT) 17, Alanine Aminotransferase (ALT/SGPT) 27, Alkaline Phosphatase 69, Total Creatine Kinase 85, Creatine Kinase MB < 1.0, Creatine Kinase MB Relative Index 1.18, Troponin I < 0.02, YU-Rqj-D-Type Natriuretic Peptide 31, Total Protein 6.8, Albumin 3.5, Albumin/Globulin Ratio 1.06 10/31/19 20:46: Lactic Acid Level 1.0 11/01/19 00:01: POC pH (Misc Panel) 7.360, POC Base Excess (Misc Panel) -2.0, POC Saturated Perc ent O2 (Misc) 96, POC pO2 (Misc Panel) 82.0, POC pCO2 (Misc Panel) 41.5, POC HCO3 (Misc Panel) 23.5, POC Total CO2 (Misc Panel) 25.0 11/01/19 00:26: CBC/BMP Laboratory Tests 10/31/19 20:45 Microbiology Microbiology 10/31/19 Blood Culture, Received Pending 10/31/19 Blood Culture, Received Pending Plan / VTE VTE Prophylaxis Ordered?: Yes Plan Plan Acute hypoxia with ambulation - possibly 2/2 pulmonary HTN - etiology unclear, possibly 2/2 cardiac etiology - Patient presented to the emergency room after experiencing worsening SOB that has been progressive over the last 2 weeks - Physical without any adventitious lung sounds - Remains hemodynamically stable and afebrile; - Patient was ambulated the emergency room and saturations had dropped 88% while on room air, patient began to experience dyspnea - CTA chest 10/30: 1. No pulmonary embolism in the main, lobar, or segmental pulmonary arteries. The timing of the contrast bolus was suboptimal for the assessment of the subsegmental pulmonary arteries, which are poorly opacified and degraded by respiratory motion artifact. 2. Mosaic attenuation pattern in both lungs, which can be seen with air trapping or pulmonary artery hypertension. 3. Dilation of the pulmonary artery trunk, which may indicate pulmonary artery hypertension. - EKG was reviewed and does reveal evidence of left ventricular hypertrophy - First set of troponin was drawn and was noted to be negative; will continue to monitor trend q6h - Will continue with telemetry monitoring - Will start evaluation with echocardiogram with bubble study / Simple pulmonary function testing - Will check BRENDON / RF / ESR / CRP / HIV - ER contacted python web developer; will be placed on consultation for further evaluation - Will continue with supplemental oxygen as needed - Will hold off on diuresis given no evidence of fluid overload Recent hospitalization on 09/26 to 09/27 for right sided weakness - Patient was advised to follow with neurology and neurosurgery as an outpatient Complex Regional Pain Syndrome - s/p Spinal cord stimulator History of seizures / Chronic headaches - No recent seizure-like episodes - Will c/w Tylenol PRN Ovarian CA - s/p chemotherapy and hysterectomy 2006 DVT prophylaxis - Will start ISAC Link MD Nov 01, 2019 00:50
[2019-11-01 01:04] LABS: C REACTIVE PROTEIN QUANTITATIV < 0.30 MG/DL (0.00-0.30)
[2019-11-01] MEDS ORDERED: BENZONATATE 100 MG CAP PO PRN (01:15)
[2019-11-01] MEDS ORDERED: ALBUTEROL SULFATE 2.5 MG/0.5 ML INH NEB SOLN INH PRN (01:15)
[2019-11-01 01:17] VITALS: BP 144/83
[2019-11-01 01:17] LABS: ERYTHROCYTE SEDIMENTATION RATE 36 mm/hr (0-20)
[2019-11-01] MEDS: zolPIDEM TARTRATE 5 MG TAB PO SCH ×2 (02:17→21:02)
[2019-11-01 04:00] VITALS: BP 151/84
[2019-11-01 08:00] VITALS: BP 138/82
--- NOTE | 2019-11-01 08:56 | ECGEPIP ---
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
[2019-11-01] MEDS ORDERED: ENOXAPARIN 40MG/0.4ML SYRINGE (J1650 PER 10MG) SC SCH (09:00)
[2019-11-01] MEDS: amLODIPine 5 MG TAB PO SCH (09:05)
[2019-11-01] MEDS: ACETAMINOPHEN TAB 650MG DOSE (2X325MG) PO PRN ×3 (09:05→21:02)
[2019-11-01 12:00] VITALS: BP 140/80
--- NOTE | 2019-11-01 12:01 | IPNPDOC ---
Text Note Date of Service The patient was seen on 11/01/19. NOTE Subjective: Patient resting comfortably on the bed, no any acute events over night. Patient continues to complain of shortness of breath on exertion. Objective: VITAL SIGNS: Please see below. GENERAL: awake, alert, NAD HEENT: NCAT, anicteric sclera, MELISSA NECK: supple, no JVD CARDIOVASCULAR EXAMINATION: NS1S2, regular rate/rhythm RESPIRATORY EXAMINATION: CTA b/l, no wheezes/rales/rhonchi ABDOMINAL EXAMINATION: positive bowel sounds x 4, NT EXTREMITIES: no cyanosis, clubbing, edema SKIN: warm, no rashes. NEUROLOGICAL EXAMINATION: AAO x 3, no motor/sensory deficits PSYCHIATRIC EXAMINATION: calm, normal affect Assessment and plan Patient is 54 years old female with past medical history of complex regional pain syndrome, history of seizures, status post hysterectomy secondary to ovarian carcinoma presented hospital with increased shortness of breath on exertion Shortness of breath Patient afebrile, oxygen saturation 95% on room air CTA showed dilation of the pulmonary artery trunk, which may indicate pulmonary artery hypertension. Await echo result to rule out cardiac causes of shortness of breath Appreciate/agree with funeral home manager consult Await immunological study Complex regional pain syndrome Status post spinal cord simulator Headache Tylenol when necessary VS,Fishbone, I+O VS, Fishbone, I+O Laboratory Tests 10/31/19 20:45 Vital Signs Date Time Temp Pulse Resp B/P (MAP) Pulse Ox O2 Delivery O2 Flow Rate FiO2 11/01/19 08:00 97.4 93 18 138/82 (100) 94 Room Air I&O- Last 24 Hours up to 6 AM 11/01/19 05:59 Intake Total 0 ml Output Total 250 ml Balance -250 ml OMAIRA SEYMOUR DO Nov 01, 2019 12:01
--- NOTE | 2019-11-01 12:50 | CR ---
DATE OF CONSULTATION: 11/01/2019 CHIEF COMPLAINT: Shortness of breath. HISTORY OF PRESENT ILLNESS: Ms. Pozo is a 44-year-old female with a history of complex regional pain syndrome status post spinal cord stimulator, seizures, chronic headaches, ovarian cancer status post chemotherapy and hysterectomy in 2006, who presented to the hospital with complaints of worsening shortness of breath and chest heaviness. The patient had been noticing progressive shortness of breath for the past 2 weeks. She had also had symptoms associated with cough productive of occasionally white or clear sputum, usually in the morning and then could be nonproductive during the day. The patient also had fevers and chills as well as headaches. She reported chest heaviness and discomfort. The patient also was noticing some episodes of diarrhea and was therefore concerned for possible coronavirus. She had two tests for it, one at Urgent Care and another one at her primary care provider, both of which were negative. She was not treated with antibiotics, but her primary care provider did give her a course of prednisone. After receiving the prednisone, she felt her breathing had worsened and she presented to the emergency department (ED) for further evaluation. The patient did report that her fevers have resolved; however, she does continue to have her main complaint of shortness of breath, particularly with exertion as well as the chest heaviness. She does have occasional cough as well, although she feels that it may be related to postnasal drip as it is mostly productive only in the morning. She denies noticing any significant abdominal pain. No nausea or vomiting. With her history of complex regional pain syndrome (CRPS), she does have chronic intermittent leg swelling as well as symptoms of occasionally feeling hot or cold in her extremities and sometimes having skin color changes as well which are intermittent. She states these have been unchanged from her usual. The patient denies a previous history of lung disease besides having episodes of pneumonia or bronchitis in the past. She does have a history of childhood exercise induced asthma, although she states she has not been on any inhalers for many years besides p.r.n. albuterol. The patient denies a family history of any chronic lung disease. The patient has previously reported having negative sleep testing which she states was about 5 years ago. She does have chronic insomnia which she states is in the setting of her pain syndrome. The patient did report a rash on her arms which she states was somewhat purplish in color. She denied having any pruritus with the rash and it resolved on its own. After she received contrast yesterday with her CT, she did have some hives. She did receive Benadryl preadministration and the symptoms have improved. PAST MEDICAL AND SURGICAL HISTORY: 1. Complex regional pain syndrome status post spinal cord stimulator. 2. History of seizures. 3. Chronic headaches. 4. Ovarian cancer status post chemotherapy and hysterectomy in 2006. 5. Appendectomy. 6. Cholecystectomy. 7. Left ankle fracture. 8. Spinal cord stimulator placement x2, most recent 09/2018. 9. Gastric bypass. FAMILY HISTORY: Mother with history of leukemia. Father with history of diabetes. Grandmother with history of rheumatic fever and possible rheumatoid arthritis. SOCIAL HISTORY: Denies history of tobacco use. Rarely drinks alcohol. The patient has a dog at home. No birds in the home. Denies any exposure to any toxins or chemicals. She works at [employer]. She has had previous tuberculosis testing with a PPD last year which was negative. HOME MEDICATIONS LIST: - Ambien p.r.n. - albuterol p.r.n. - Tessalon Perles p.r.n. - Epipen p.r.n. - hydrocodone for cough p.r.n. ALLERGIES: - NSAIDS - PENICILLIN - IV CONTRAST - SULFA - TETRACYCLINE - ASPIRIN - GABAPENTIN - LATEX - AVOCADO - BANANA - KIWI - MUSHROOM PHYSICAL EXAMINATION: Vitals: Temperature 97.7, pulse 93, respirations 18, blood pressure 138/82, O2 sat 94% on room air. General: The patient is an obese female who is lying in bed in no acute distress. She is able to speak in complete sentences with no accessory muscle use for respiration. HEENT: Normocephalic, atraumatic. Pupils are reactive. Mucous membranes are moist. Neck is supple. No palpable adenopathy. Trachea is midline. No jugular venous distention (JVD) noted. Cardiovascular: Regular rate and rhythm. Normal S1, S2. Unable to appreciate any murmurs. Lungs: Diminished breath sounds bilaterally with occasional crackles at the bases, but no significant wheezing or rhonchi. Abdomen is obese, soft, nondistended. Mild epigastric tenderness. Extremities: There is no significant lower extremity edema bilaterally. No calf tenderness bilaterally. LABORATORY DATA: WBC 6.3, hemoglobin 10.9, platelets of 287. Chemistry with sodium 139, potassium 4.0, chloride is 108, bicarb 23, BUN 19, creatinine 0.75, glucose is 94, AST and ALT within normal limits. BNP 31, troponin negative. Albumin 3.5. Carboxyhemoglobin level 1.8. INR is 1.0. BRENDON, HIV pending. IMAGING STUDIES: CT angio showed no evidence of pulmonary embolus (PE). There was some motion artifact which limited some of the evaluation of the subsegmental pulmonary artery branches. There is some atelectasis noted bilaterally. There is very mild mosaic attenuation, but this also appears to be an expiratory film. There is no significant mediastinal adenopathy. The pulmonary artery is enlarged, but there is no evidence of RV dilation or strain on the CT. No pericardial effusion. ASSESSMENT: Ms. Pozo is a 44-year-old female with a past medical history of complex regional pain syndrome, seizures, chronic headaches, previous history of ovarian cancer status post chemo and hysterectomy, who is here for evaluation of shortness breath and dyspnea with exertion. The patient had reported symptoms of a possible viral upper respiratory infection (URI) a few weeks ago with fevers, chills, increased cough, as well as shortness of breath and some diarrhea. She had outpatient testing for Coronavirus x2 which was negative. The patient was also given prednisone for treatment with no improvement in her symptoms; in particular, her shortness of breath and dyspnea with exertion. The patient then presented to the emergency room due to complaints of her shortness of breath as well as with chest heaviness. She was noted on admission to be hemodynamically stable and satting well on room air. However, did reportedly drop to 88% on room air with ambulation. She did have imaging done, including a CT angiogram which was somewhat limited due to respiratory motion artifact, but did not show any large pulmonary embolisms in the main lobar or segmental pulmonary arteries. There was some mild mosaic attenuation and atelectasis noted, although this appeared to be an expiratory film and so may be seen with some air trapping. She does have a history of childhood exercise-induced asthma, so potentially the air trapping may be in the setting of some mild asthma. She did have dilation of her main pulmonary artery which may indicate potential pulmonary hypertension. Her right ventricle (RV), however, did not appear enlarged and there was no evidence of right heart strain on the CT. - Discussed with the patient the results of her CT imaging. She will need an echocardiogram with bubble study for evaluation of potential pulmonary hypertension as a CT is not sensitive for evaluation of pulmonary hypertension. She did have initial troponins and a BNP which was negative; however, she will be trended her cardiac enzymes. - The patient will likely need outpatient evaluation including pulmonary function test. Can start her on DuoNeb TID to see if there is a component of possible reactive airways disease contributing to her symptoms. - If the patient does have evidence of pulmonary hypertension, she will need evaluation, which can include repeat sleep testing for evaluation of obstructive sleep apnea (ALEXIS), particularly given her obesity. She would also need testing for various other potential causes of pulmonary hypertension including rheumatoid factor, BRENDON, HIV, scleroderma antibody testing. - As part of the workup for pulmonary hypertension, this can also include VQ scan for evaluation of chronic thromboembolic pulmonary hypertension (CTEPH), depending on her other testing results. A right heart catheterization as an outpatient may also be indicated. - The patient does have evidence of some atelectasis on imaging which can contribute to her borderline low O2 sats and possible desaturation with ambulation. Would give her incentive spirometer and encourage use of incentive spirometry and out of bed to chair. Can continue nasal cannula oxygen supplementation as needed with exertion. - Would hold off on antibiotics as she does not appear to have any infectious source currently and hold off on diuretics as she does not appear to be acutely fluid overloaded or have evidence of decompensated right heart failure. Deep vein thrombosis (DVT) prophylaxis. Lovenox. Full code. MTDD
[2019-11-01 16:00] VITALS: BP 132/88
[2019-11-01 20:00] VITALS: BP 175/98
[2019-11-01] MEDS: IPRATROPIUM 0.5MG/ALBUTEROL 2.5MG INH SOL UD 3ML (DUONEB)(J7620) NEB SCH (20:57)
[2019-11-02] VITALS: BP 142/78
[2019-11-02 04:00] VITALS: BP 139/82
[2019-11-02 05:17] LABS: BASO % 0.1 % (0.0-1.0); EOS % 0.3 % (0.0-3.0); HEMATOCRIT 31.3 % (36.0-47.0); HEMOGLOBIN 9.8 g/dl (12.0-15.5); LYMPH # 1.9 10^3/uL (1.5-5.0); LYMPH % 23.8 % (24.0-44.0); MEAN CORPUSCULAR HEMOGLOBIN 25.9 pg (27.0-33.0); MEAN CORPUSCULAR HGB CONC 31.3 g/dl (32.0-36.5); MEAN CORPUSCULAR VOLUME 82.8 fl (80.0-96.0); MONO # 0.6 10^3/uL (0.0-0.8); MONO % 7.5 % (0.0-5.0); NEUTROPHILS # 5.4 10^3/uL (1.5-8.5); NEUTROPHILS % 67.9 % (36.0-66.0); PLATELET COUNT, AUTOMATED 278 10^3/uL (150-450); RED BLOOD COUNT 3.78 10^6/uL (4.00-5.40)
[2019-11-02 05:33] LABS: BLOOD UREA NITROGEN 15 MG/DL (7-18); CALCIUM LEVEL 8.6 MG/DL (8.5-10.1); CARBON DIOXIDE LEVEL 28 MEQ/L (21-32); CHLORIDE LEVEL 106 MEQ/L (98-107); CREATININE FOR GFR 0.78 MG/DL (0.55-1.30); GLOMERULAR FILTRATION RATE > 60.0 (>58); GLUCOSE, FASTING 96 MG/DL (70-100); MAGNESIUM LEVEL 1.9 MG/DL (1.8-2.4); SODIUM LEVEL 139 MEQ/L (136-145)
[2019-11-02 07:07] VITALS: BP 130/75
[2019-11-02] MEDS: IPRATROPIUM 0.5MG/ALBUTEROL 2.5MG INH SOL UD 3ML (DUONEB)(J7620) NEB SCH (07:29)
--- NOTE | 2019-11-02 07:34 | ECHO ---
DATE OF STUDY: 11/01/2019 DATE OF : 1975 AGE: 44 REFERRING PROVIDER: Dr. Shira Alves PATIENT LOCATION: Room 3217 REASON FOR THE STUDY: Shortness of breath. 2-D MEASUREMENTS: IVS: 1.0 cm LV: 4.8 cm LVPW: 1.0 cm LA: 3.5 cm Aorta: 2.7 cm IVC: 1.6 cm DOPPLER MEASUREMENTS: Peak velocity across the aortic valve: 1.0 m/s Peak velocity across the LVOT: 0.98 m/s Mitral E: 0.53 Mitral A: 0.75 Ratio: 0.7 2-D COMMENTS: 1. Normal left ventricular size, wall thickness, and normal global left ventricular systolic function with a hyperdynamic left ventricle. The estimated left ventricular systolic ejection fraction is 65-70%. 2. Normal left atrium. Normal right atrium and right ventricle. 3. The atrial septum appeared to be normal without evidence of defect or shunt. 4. Normal aortic root. 5. No pericardial effusion seen. 6. The aortic valve, mitral valve, and tricuspid valve appeared to be normal. The pulmonic valve and proximal pulmonary artery branches were not well visualized. 7. The inferior vena cava was normal in size, central venous pressure is most likely normal. DOPPLER: No significant valvular abnormalities detected. Abnormal relaxation pattern was noted across the mitral valve leaflets as well as the mitral valve annulus consistent with features of grade 1 left ventricular diastolic dysfunction. IMPRESSION: 1. Normal global left ventricular systolic function with a hyperdynamic left ventricle. There are some features of grade 1 left ventricular diastolic dysfunction manifested by abnormal relaxation. 2. No underlying valvular abnormalities detected.
[2019-11-02] MEDS ORDERED: INFLUENZA QUADRIVALENT PF VACCINE 0.5ML SYRINGE (90686) IM ONE (09:00)
[2019-11-02] MEDS ORDERED: TIOT18INH INH (09:32)
[2019-11-02 09:48] VITALS: BP 130/75
[2019-11-02] MEDS: amLODIPine 5 MG TAB PO SCH (09:48)
--- NOTE | 2019-11-02 10:27 | PFTRPT ---
Height: 66.00 Inches Weight: 285.00 Lbs BSA: 2.33 Diagnosis: Pulmonary HTN DATE OF PROCEDURE: 11/02/2019 ORDERED BY: Dr. Alves Spirometry: Excellent technical quality. Forced vital capacity reduced. FEV1 in proportion. Obstructive index is, therefore, normal. Flow Volume Loop: Expiratory limb of the flow volume loop suggests nonspecific limitation. IMPRESSION: Mild restriction versus nonspecific limitation. Please correlate clinically. MTDD
[2019-11-02] MEDS ORDERED: LISI10TA4 PO (10:48)
--- NOTE | 2019-11-02 11:39 | IPN ---
DATE: 11/02/2019 The patient was seen and examined this morning during bedside rounds. She reports that her breathing is unchanged. She continues to have episodes of chest heaviness as well as shortness of breath with exertion. The patient did receive nebulizer treatment yesterday and this morning, which she states did not improve her breathing that she noticed but did make her have some cough. In general she has not had significant coughing. She does continue to have a nonproductive cough, she notices. Has not had any fevers or chills overnight. PHYSICAL EXAMINATION: Temperature 96.5, pulse 84, respirations 18, blood pressure 130/75, O2 sat 95% on room air. Input 600, output 1500, net negative 900 mL GENERAL: The patient is an obese female lying in bed, does not appear to be in acute distress. Is able to speak in the sentences and is not using any accessory muscles for respiration. HEENT: Normocephalic, atraumatic. Pupils reactive. Mucous membranes are moist. Neck is supple. No palpable adenopathy. Trachea is midline. No jugular venous distention (JVD). CARDIOVASCULAR: Regular rate and rhythm. Normal S1, S2. Unable to appreciate murmurs. LUNGS: Diminished breath sounds bilaterally with occasional crackles bases but no seen and wheezing or rhonchi. ABDOMEN: Abdomen is obese, soft, nondistended. Mild epigastric tenderness. EXTREMITIES: There is no significant lower extremity bilaterally. LAB: WBC 8.0, hemoglobin 9.8, platelets are 278. Chemistry: Sodium is 139, potassium 4.0, chloride is Lasix, bicarb 28, BUN 15, creatinine is 0.78, glucose 96, procalcitonin was 0.15. Echo: Normal left ventricle (LV) with hyperdynamic ejection fraction (EF). Grade 1 diastolic dysfunction. No significant valvular pathology. Unable to clearly visualize pulmonary artery. Somewhat technically challenging study. Inferior vena cava (IVC) normal in size likely normal central venous pressure. ASSESSMENT/PLAN: Ms. Pozo is a 44-year-old female with history of complex regional pain syndrome, seizures, chronic headaches previous history of ovarian cancer status post chemotherapy and hysterectomy, who presented with shortness of breath and dyspnea with exertion. The patient had initially reported symptoms of possible viral upper respiratory infection (URI) a few weeks ago with fevers, chills, increased cough as well shortness breath and diarrhea. She has had two outpatient test for coronavirus, which were negative. The patient was also treated as an outpatient with prednisone, without improvement in her symptoms and so presented to the emergency department (ED). While here the patient had a CT angiogram performed which was somewhat limited due to respiratory motion artifact but did not show any large pulmonary embolism in the main lobar, segmental pulmonary arteries. There is very mild mosaic attenuation and atelectasis noted although some of this may have been secondary to what appears to be expiratory film with possible air trapping. She does have a history of childhood exercise-induced asthma in the past although has not been on any inhalers since then. Patient's pulmonary artery also appeared dilated on the CT, which may suggest possible pulmonary hypertension. The patient did have an echocardiogram done performed which was somewhat technically challenging study with some limited views. On the echo, she has a normal LV function with a hyperdynamic EF. There was some grade 1 diastolic dysfunction but no significant valvular pathology. The pulmonary artery was not clearly visualized but there were no findings to suggest an elevated RV systolic pressure. She had a normal IVC size. - Discussed with the patient the results of her echocardiogram. Given her echo was somewhat technically challenging. If there is a continued concern for pulmonary hypertension then she may benefit from cardiology evaluation and a potential right heart catheterization for more clear evaluation of her pulmonary artery pressures. - Given her history of childhood exercise-induced asthma with a recent viral illness the patient was given DuoNeb to see if there is a possible reactive airways disease contributing to her symptoms. She did receive nebulizer treatments and denied noticing any improvement in her breathing or in her chest heaviness. - The patient will be getting a bedside spirometry today. We did discuss that she can followup with pulmonary as an outpatient to give more complete pulmonary function testing for further evaluation of her dyspnea. - The patient did have an BRENDON and HIV testing ordered as possible evaluation for pulmonary retention, the results of which are still pending. - The patient did previously have sleep testing, she states, more than 5 years ago. She does have some obesity and if there is still continued concern for potential sleep apnea, which may be contributing to her symptoms, she can followup as an outpatient for sleep testing if needed. - The patient does have atelectasis on imaging, which could contribute to some her borderline low O2 sats. She was given incentive spirometer which she has been using and would continue to have her encourage using her incentive spirometer. - The patient does have some anemia for which she can have outpatient evaluation of her anemia. This may also be contributing to some of her symptoms of dyspnea as well as chest heaviness although it appears she is somewhat near her baseline hemoglobin. Deep venous thrombosis (DVT) prophylax nose Lovenox. FULL CODE Please do not hesitate to call for any further questions or concerns.
--- NOTE | 2019-11-02 17:45 | DS.PDOC ---
Discharge Summary General Date of Admission Nov 01, 2019 at 00:09 Date of Discharge 11/02/19 Discharge Summary PROCEDURES PERFORMED DURING STAY: [None]. ADMITTING DIAGNOSES: Shortness of breath Complex regional pain syndrome Headache DISCHARGE DIAGNOSES: Shortness of breath Complex regional pain syndrome Headache COMPLICATIONS/CHIEF COMPLAINT: Pulmonary Hypertension. HISTORY OF PRESENT ILLNESS: Ms. Pozo is a 44-year-old female with a history of complex regional pain syndrome status post spinal cord stimulator, seizures, chronic headaches, ovarian cancer status post chemotherapy and hysterectomy in 2006, who presented to the hospital with complaints of worsening shortness of breath and chest heaviness. The patient had been noticing progressive shortness of breath for the past 2 weeks. She had also had symptoms associated with cough productive of occasionally white or clear sputum, usually in the morning and then could be nonproductive during the day. The patient also had fevers and chills as well as headaches. She reported chest heaviness and discomfort. The patient also was noticing some episodes of diarrhea and was therefore concerned for possible coronavirus. She had two tests for it, one at Urgent Care and another one at her primary care provider, both of which were negative. She was not treated with antibiotics, but her primary care provider did give her a course of prednisone. After receiving the prednisone, she felt her breathing had worsened and she presented to the emergency department (ED) for further evaluation. The patient did report that her fevers have resolved; however, she does continue to have her main complaint of shortness of breath, particularly with exertion as well as the chest heaviness. She does have occasional cough as well, although she feels that it may be related to postnasal drip as it is mostly productive only in the morning. She denies noticing any significant abdominal pain. No nausea or vomiting. With her history of complex regional pain syndrome (CRPS), she does have chronic intermittent leg swelling as well as symptoms of occasionally feeling hot or cold in her extremities and sometimes having skin color changes as well which are intermittent. She states these have been unchanged from her usual. The patient denies a previous history of lung disease besides having episodes of pneumonia or bronchitis in the past. She does have a history of childhood exercise induced asthma, although she states she has not been on any inhalers for many years besides p.r.n. albuterol. The patient denies a family history of any chronic lung disease. The patient has previously reported having negative sleep testing which she states was about 5 years ago. She does have chronic insomnia which she states is in the setting of her pain syndrome. The patient did report a rash on her arms which she states was somewhat purplish in color. She denied having any pruritus with the rash and it resolved on its own. After she received contrast yesterday with her CT, she did have some hives. She did receive Benadryl preadministration and the symptoms have improved. HOSPITAL COURSE: During hospital stay following issue addressed She was noted on admission to be hemodynamically stable and setting well on room air. However, did reportedly drop to 88% on room air with ambulation. She did have imaging done, including a CT angiogram which was somewhat limited due to respiratory motion artifact, but did not show any large pulmonary embolisms in the main lobar or segmental pulmonary arteries. There was some mild mosaic attenuation and atelectasis noted, although this appeared to be an expiratory film and so may be seen with some air trapping. She does have a history of childhood exercise-induced asthma, so potentially the air trapping may be in the setting of some mild asthma. She did have dilation of her main pulmonary artery which may indicate potential pulmonary hypertension. Her right ventricle (RV), however, did not appear enlarged and there was no evidence of right heart strain on the CT. - Discussed with the patient the results of her CT imaging. She will need an echocardiogram with bubble study for evaluation of potential pulmonary hypertension as a CT is not sensitive for evaluation of pulmonary hypertension. She did have initial troponins and a BNP which was negative; however, she will be trended her cardiac enzymes. - The patient will likely need outpatient evaluation including pulmonary function test. Can start her on DuoNeb TID to see if there is a component of possible reactive airways disease contributing to her symptoms. - If the patient does have evidence of pulmonary hypertension, she will need evaluation, which can include repeat sleep testing for evaluation of obstructive sleep apnea (ALEXIS), particularly given her obesity. She would also need testing for various other potential causes of pulmonary hypertension including rheumatoid factor, BRENDON, HIV, scleroderma antibody testing. - As part of the workup for pulmonary hypertension, this can also include VQ scan for evaluation of chronic thromboembolic pulmonary hypertension (CTEPH), depending on her other testing results. A right heart catheterization as an outpatient may also be indicated. - The patient does have evidence of some atelectasis on imaging which can contribute to her borderline low O2 sats and possible desaturation with ambulation. Would give her incentive spirometer and encourage use of incentive spirometry and out of bed to chair. Can continue nasal cannula oxygen supplementation as needed with exertion. - Would hold off on antibiotics as she does not appear to have any infectious source currently and hold off on diuretics as she does not appear to be acutely fluid overloaded or have evidence of decompensated right heart failure. DISCHARGE MEDICATIONS: Please see below. ALLERGIES: Please see below. PHYSICAL EXAMINATION ON DISCHARGE: VITAL SIGNS: Please see below. VITAL SIGNS: Please see below. GENERAL: awake, alert, NAD HEENT: NCAT, anicteric sclera, MELISSA NECK: supple, no JVD CARDIOVASCULAR EXAMINATION: NS1S2, regular rate/rhythm RESPIRATORY EXAMINATION: CTA b/l, no wheezes/rales/rhonchi ABDOMINAL EXAMINATION: positive bowel sounds x 4, NT EXTREMITIES: no cyanosis, clubbing, edema SKIN: warm, no rashes. NEUROLOGICAL EXAMINATION: AAO x 3, no motor/sensory deficits PSYCHIATRIC EXAMINATION: calm, normal affect LABORATORY DATA: Please see below. IMAGING: DATE OF STUDY: 11/01/2019 DATE OF : 1975 AGE: 44 REFERRING PROVIDER: Dr. Shira Alves PATIENT LOCATION: Room 3217 REASON FOR THE STUDY: Shortness of breath. 2-D MEASUREMENTS: IVS: 1.0 cm LV: 4.8 cm LVPW: 1.0 cm LA: 3.5 cm Aorta: 2.7 cm IVC: 1.6 cm DOPPLER MEASUREMENTS: Peak velocity across the aortic valve: 1.0 m/s Peak velocity across the LVOT: 0.98 m/s Mitral E: 0.53 Mitral A: 0.75 Ratio: 0.7 2-D COMMENTS: 1. Normal left ventricular size, wall thickness, and normal global left ventricular systolic function with a hyperdynamic left ventricle. The estimated left ventricular systolic ejection fraction is 65-70%. 2. Normal left atrium. Normal right atrium and right ventricle. 3. The atrial septum appeared to be normal without evidence of defect or shunt. 4. Normal aortic root. 5. No pericardial effusion seen. 6. The aortic valve, mitral valve, and tricuspid valve appeared to be normal. The pulmonic valve and proximal pulmonary artery branches were not well visualized. 7. The inferior vena cava was normal in size, central venous pressure is most likely normal. DOPPLER: No significant valvular abnormalities detected. Abnormal relaxation pattern was noted across the mitral valve leaflets as well as the mitral valve annulus consistent with features of grade 1 left ventricular diastolic dysfunction. IMPRESSION: 1. Normal global left ventricular systolic function with a hyperdynamic left ventricle. There are some features of grade 1 left ventricular diastolic dysfunction manifested by abnormal relaxation. 2. No underlying valvular abnormalities detected. DD: JAKE GRAY MD 11/01/191906 DT: ALISON 11/02/19 0729 DS: DS2: PROGNOSIS: Fair ACTIVITY: [As tolerated]. DIET: Regular DISPOSITION: 01 Home, Self-Care. ITEMS TO FOLLOWUP ON ON OUTPATIENT: Follow-up with gate guard, calender runner DISCHARGE CONDITION: [Stable]. TIME SPENT ON DISCHARGE: Greater than 20 minutes. Vital Signs/I&Os Vital Signs Date Time Temp Pulse Resp B/P (MAP) Pulse Ox O2 Delivery O2 Flow Rate FiO2 11/02/19 09:48 84 130/75 11/02/19 07:07 96.5 18 95 Room Air I&O- Last 24 Hours up to 6 AM 11/02/19 06:00 Intake Total 900 ml Output Total 1450 ml Balance -550 ml Laboratory Data Labs 24H Laboratory Tests 2 11/02/19 04:47: Immature Granulocyte % (Auto) 0.4, Neutrophils (%) (Auto) 67.9H, Lymphocytes (%) (Auto) 23.8L, Monocytes (%) (Auto) 7.5H, Eosinophils (%) (Auto) 0.3, Basophils (%) (Auto) 0.1, Neutrophils # (Auto) 5.4, Lymphocytes # (Auto) 1.9, Monocytes # (Auto) 0.6, Eosinophils # (Auto) 0.0, Basophils # (Auto) 0.0, Nucleated Red Blood Cells % (auto) 0.0, Anion Gap 5L, Glomerular Filtration Rate > 60.0, Calcium Level 8.6, Magnesium Level 1.9 CBC/BMP Laboratory Tests 11/02/19 04:47 Microbiology Microbiology 10/31/19 Blood Culture - Preliminary, Resulted No growth after 24 hours . All specim... 10/31/19 Blood Culture - Preliminary, Resulted No growth after 24 hours . All specim... Discharge Medications Scheduled Lisinopril (Lisinopril) 10 Mg Tablet, 10 MG PO DAILY Tiotropium [place] Monohydrate (Spiriva) 18 Mcg Cap.w.dev, 18 MCG INH DAILY Zolpidem Tartrate (Zolpidem Tartrate) 10 Mg Tablet, 10 MG PO QHS, (Reported) PCP TOLD PT NOT TO TAKE IN CONJUNCTION WITH COUGH SYRUP Scheduled PRN Acetaminophen (Acetaminophen) 500 Mg Tab, 1,000 MG PO Q4H PRN for PAIN / FEVER, (Reported) Albuterol Sulfate (Albuterol Sulfate Hfa) 8.5 Gm Hfa.aer.ad, 2 PUFFS PO Q4H PRN for SOB/WHEEZING, (Reported) Benzonatate (Tessalon Perle) 100 Mg Capsule, 100 MG PO TID PRN for COUGH, (Reported) Epinephrine (Epinephrine) 0.3 Mg/0.3 Ml Auto.injct, 0.3 MG IM ONCE PRN for anaph ylaxis, (Reported) Hydrocodone/Chlorphen P-Stirex (Hydrocodone-Chlorphen ER Susp) 115 Ml Radha.er.12h, 10 ML PO BID PRN for COUGH, (Reported) Allergies Coded Allergies: NSAIDS (Non-Steroidal Anti-Inflamma (Verified Allergy, Severe, THROAT SWELLING, 10/31/19) Penicillins (Verified Allergy, Severe, ANAPHYLAXIS, 01/11/19) Contrast Media (Verified Allergy, Intermediate, hives, 10/31/19) Pt reports usually being given medication prior to contrast dye administration which helps reactive symptoms Sulfa (Sulfonamide Antibiotics) (Verified Allergy, Intermediate, HIVES, 10/31/19) Tetracyclines (Verified Allergy, Intermediate, HIVES, 10/31/19) aspirin (Verified Allergy, Intermediate, HIVES, 10/31/19) gabapentin (Verified Allergy, Intermediate, HIVES, 10/31/19) Latex, Natural Rubber (Verified Allergy, Unknown, 01/11/19) avocado (Verified Allergy, Unknown, 10/31/19) banana (Verified Allergy, Unknown, 10/31/19) kiwi (Verified Allergy, Unknown, 10/31/19) mushroom (Verified Allergy, Unknown, 10/31/19) OMAIRA SEYMOUR DO Nov 02, 2019 17:44
[2019-11-03 10:28] LABS: HIV 1&2 SCREEN CENTAUR NEGATIVE (NEGATIVE)
[2019-11-03 14:07] LABS: ANA (HEP2) Negative (.)
== END 2019-11-02 11:26 | disposition home or self-care (01) | DRG 144 ==
LOC: M ED 19:32 → M ED INP 11-01 00:09 → ENRESERVDT 11-01 00:23 → ENRESERVTM 11-01 00:23 → M PCU 11-01 01:17
PROVIDERS: ADMIT Internal Medicine; ATTEND Internal Medicine
DX: R09.02 Hypoxemia (principal); Z68.42 Body mass index [BMI] 45.0-49.9, adult; R06.02 Shortness of breath; G90.50 Complex regional pain syndrome I, unspecified; R51 Headache; G47.00 Insomnia, unspecified; Z91.040 Latex allergy status; L50.0 Allergic urticaria; J45.909 Unspecified asthma, uncomplicated; E66.9 Obesity, unspecified; D64.9 Anemia, unspecified; R21 Rash and other nonspecific skin eruption; J98.11 Atelectasis; Z85.43 Personal history of malignant neoplasm of ovary; Z88.0 Allergy status to penicillin; Z90.710 Acquired absence of both cervix and uterus; Z88.2 Allergy status to sulfonamides; Z88.1 Allergy status to other antibiotic agents; Z90.49 Acquired absence of other specified parts of digestive tract; Z91.018 Allergy to other foods; Z98.84 Bariatric surgery status; Z96.82 Presence of neurostimulator; Z88.8 Allergy status to other drugs, medicaments and biological substances; Z92.21 Personal history of antineoplastic chemotherapy; Z79.899 Other long term (current) drug therapy

== ENCOUNTER → 2019-11-05 | Outpatient (CLI) | payer BC, OTHER ==
[~2019-11-05] MED LIST changes: +ALBU8.5H PO; +HYDR5LIQ2 PO; +LISI10TA4 PO; +TESS100C PO; +TIOT18INH INH
[2019-11-05 14:53] LABS: BASO % 0.4 % (0.0-1.0); EOS # 0.1 10^3/uL (0.0-0.5); EOS % 1.4 % (0.0-3.0); HEMATOCRIT 36.2 % (36.0-47.0); HEMOGLOBIN 11.3 g/dl (12.0-15.5); LYMPH # 1.7 10^3/uL (1.5-5.0); LYMPH % 29.3 % (24.0-44.0); MEAN CORPUSCULAR HEMOGLOBIN 25.7 pg (27.0-33.0); MEAN CORPUSCULAR HGB CONC 31.2 g/dl (32.0-36.5); MEAN CORPUSCULAR VOLUME 82.5 fl (80.0-96.0); MONO # 0.4 10^3/uL (0.0-0.8); MONO % 6.1 % (0.0-5.0); NEUTROPHILS # 3.6 10^3/uL (1.5-8.5); NEUTROPHILS % 62.6 % (36.0-66.0); PLATELET COUNT, AUTOMATED 327 10^3/uL (150-450); RED BLOOD COUNT 4.39 10^6/uL (4.00-5.40); WHITE BLOOD COUNT 5.7 10^3/uL (4.0-10.0)
[2019-11-05 15:16] LABS: FERRITIN 5 NG/ML (8-252); IRON (FE) 51 UG/DL (50-170); PERCENT SATURATION 10.6 % (13.2-45.0); RHEUMATOID FACTOR QUANT < 10.0 IU/ML (<15.0); TOTAL IRON BINDING CAPACITY 483 UG/DL (250-450)
[2019-11-05 15:26] LABS: ERYTHROCYTE SEDIMENTATION RATE 44 mm/hr (0-20)
[2019-11-08 00:06] LABS: ANA (HEP2) Negative (.); ANCA-ATYPICAL <1:20 titer (Neg:<1:20); ANTI CENTROMERE ANTIBODY 0.6 AI (0.0-0.9); CYTOPLASMIC NEUTROP AB ANCA-C <1:20 titer (Neg:<1:20); PERINUCLEAR AB ANCA-P <1:20 titer (Neg:<1:20); SSA SJOGRENS A 0.3 AI (0.0-0.9); SSB SJOGRENS B <0.2 AI (0.0-0.9)
== END ==
LOC: M LAB 14:26
PROVIDERS: ATTEND Physician Assistant
DX: I27.0 Primary pulmonary hypertension (principal)

== ENCOUNTER → 2019-11-11 | Outpatient (CLI) | payer BC, OTHER ==
--- NOTE | 2019-11-17 08:49 | SLEEPHOME ---
DATE OF PROCEDURE: 11/11/2019 INTERPRETATION: Diagnostic home sleep testing was performed due to concern for the obstructive sleep apnea syndrome in this patient with history of pulmonary hypertension. For testing a nocturnal T3 respiratory monitoring device was used. Continuous record was made of pulse oxygen saturation airflow, chest and abdominal strain and body position. 8 hours and 48 minutes of data were reviewed. There were 5 hours and 52 minutes marked as time in bed. During the interval marked time in bed, there were 30 respiratory events identified of 10 seconds in duration or greater for respiratory event index of 5.1. The events were primarily obstructive. Baseline pulse rate 68, pulse rate ranged 52-108. Baseline saturation 95%. Saturations fell as low as 86% and testing was performed in both the supine and non-supine positions. - IMPRESSION: Abnormal home sleep testing with repetitive respiratory events and oxygen desaturations to 86% with a respiratory event index of 5.1 is consistent with the obstructive sleep apnea syndrome. RECOMMENDATIONS: The patient should be encouraged to undergo formal sleep evaluation.
== END ==
LOC: M SLEEP HO 10:00
PROVIDERS: ATTEND Physician Assistant
DX: G47.10 Hypersomnia, unspecified (principal); I27.20 Pulmonary hypertension, unspecified

== ENCOUNTER 2019-12-08 14:58 | Outpatient (CLI) | payer BC, OTHER ==
[~2019-12-08] VITALS: Ht 167.6 cm; Wt 133.8 kg
[2019-12-08 15:36] VITALS: BP 131/78
[2019-12-08 15:50] VITALS: BP 124/68
[2019-12-08] MEDS ORDERED: FERRIC CARBOXYMALTOSE INJ 750 MG in NS 250 ML IV ONE (16:00)
[2019-12-08 16:40] VITALS: BP 110/62
[2019-12-08 17:47] VITALS: BP 124/72
== END 2019-12-08 17:45 | disposition home or self-care (01) ==
LOC: M INFU 14:58
PROVIDERS: ATTEND Physician Assistant
DX: D50.9 Iron deficiency anemia, unspecified (principal); Z88.0 Allergy status to penicillin; Z88.2 Allergy status to sulfonamides; Z88.8 Allergy status to other drugs, medicaments and biological substances; Z91.018 Allergy to other foods; Z91.040 Latex allergy status; Z91.041 Radiographic dye allergy status; Z91.048 Other nonmedicinal substance allergy status
CPT/HCPCS: 96365; 96366; J1439

== ENCOUNTER 2019-12-15 13:09 | Outpatient (CLI) | payer BC, OTHER ==
[~2019-12-15] VITALS: Ht 167.6 cm; Wt 133.8 kg
[2019-12-15 13:20] VITALS: BP 135/70
[2019-12-15] MEDS ORDERED: FERRIC CARBOXYMALTOSE INJ 750 MG in NS 250 ML IV ONE (13:30)
[2019-12-15 15:20] VITALS: BP 109/51
[2019-12-15 15:50] VITALS: BP 139/73
== END 2019-12-15 15:50 | disposition home or self-care (01) ==
LOC: M INFU 13:09
PROVIDERS: ATTEND Physician Assistant
DX: D50.9 Iron deficiency anemia, unspecified (principal); Z88.0 Allergy status to penicillin; Z88.2 Allergy status to sulfonamides; Z88.8 Allergy status to other drugs, medicaments and biological substances; Z91.041 Radiographic dye allergy status; Z91.018 Allergy to other foods

== ENCOUNTER → 2020-01-08 | Outpatient (REF) | payer BC, OTHER | LOC: M LAB REF 17:38 | PROVIDERS: ATTEND Physician Assistant | DX: S31.000A Unspecified open wound of lower back and pelvis without penetration into retroperitoneum, initial encounter (principal); X58.XXXA Exposure to other specified factors, initial encounter; Y92.9 Unspecified place or not applicable ==

== ENCOUNTER → 2020-01-12 | Outpatient (CLI) | payer BC, OTHER ==
[~2020-01-12] MED LIST changes: +CLON-412; +DULO1CAP5; +MECL1TAB31 PO; +METH4PACK PO; -PROC5TA PO; +PROC5TAB57 PO; +TOPI25TA10 PO; +TOPI50TA9; -VITA100T12 PO; +VITA1TAB35 PO
[2020-01-12 16:39] LABS: BASO % 0.2 % (0.0-1.0); EOS # 0.1 10^3/uL (0.0-0.5); EOS % 2.1 % (0.0-3.0); HEMATOCRIT 38.7 % (36.0-47.0); HEMOGLOBIN 12.6 g/dl (12.0-15.5); LYMPH # 1.8 10^3/uL (1.5-5.0); LYMPH % 31.3 % (24.0-44.0); MEAN CORPUSCULAR HEMOGLOBIN 28.6 pg (27.0-33.0); MEAN CORPUSCULAR HGB CONC 32.6 g/dl (32.0-36.5); MONO # 0.4 10^3/uL (0.0-0.8); MONO % 6.9 % (0.0-5.0); NEUTROPHILS # 3.4 10^3/uL (1.5-8.5); NEUTROPHILS % 59.3 % (36.0-66.0); PLATELET COUNT, AUTOMATED 321 10^3/uL (150-450); WHITE BLOOD COUNT 5.8 10^3/uL (4.0-10.0)
[2020-01-12 17:16] LABS: ALT/SGPT 22 U/L (12-78); BILIRUBIN,TOTAL 0.3 MG/DL (0.2-1.0); BLOOD UREA NITROGEN 13 MG/DL (7-18); CALCIUM LEVEL 8.9 MG/DL (8.5-10.1); CARBON DIOXIDE LEVEL 29 MEQ/L (21-32); CHLORIDE LEVEL 107 MEQ/L (98-107); CREATININE FOR GFR 0.75 MG/DL (0.55-1.30); FERRITIN 128 NG/ML (8-252); FOLATE 17.9 NG/ML; GLOMERULAR FILTRATION RATE > 60.0 (>58); GLUCOSE, FASTING 95 MG/DL (70-100); IRON (FE) 81 UG/DL (50-170); PERCENT SATURATION 23.8 % (13.2-45.0); POTASSIUM SERUM 4.2 MEQ/L (3.5-5.1); SODIUM LEVEL 142 MEQ/L (136-145); TOTAL IRON BINDING CAPACITY 341 UG/DL (250-450); TOTAL PROTEIN 7.5 GM/DL (6.4-8.2); VITAMIN B12 LEVEL 403 PG/ML
== END ==
LOC: M LAB 16:16
PROVIDERS: ATTEND Physician Assistant
DX: D64.9 Anemia, unspecified (principal)

== ENCOUNTER → 2020-02-16 | Outpatient (CLI) | payer BC, OTHER ==
[2020-03-17 14:43] LABS: BASO % 0.3 % (0.0-1.0); EOS # 0.1 10^3/uL (0.0-0.5); EOS % 1.5 % (0.0-3.0); HEMATOCRIT 40.1 % (36.0-47.0); HEMOGLOBIN 13.3 g/dl (12.0-15.5); LYMPH % 33.3 % (24.0-44.0); MEAN CORPUSCULAR HEMOGLOBIN 29.6 pg (27.0-33.0); MEAN CORPUSCULAR HGB CONC 33.2 g/dl (32.0-36.5); MEAN CORPUSCULAR VOLUME 89.1 fl (80.0-96.0); MONO # 0.3 10^3/uL (0.0-0.8); MONO % 5.6 % (0.0-5.0); NEUTROPHILS # 3.6 10^3/uL (1.5-8.5); NEUTROPHILS % 59.1 % (36.0-66.0); PLATELET COUNT, AUTOMATED 317 10^3/uL (150-450); WHITE BLOOD COUNT 6.1 10^3/uL (4.0-10.0)
[2020-03-17 14:44] LABS: INR 1.08; PROTHROMBIN TIME 14.2 SECONDS (11.8-14.0)
[2020-03-17 14:45] LABS: PARTIAL THROMBOPLASTIN TIME 33.5 SECONDS (25.0-38.4)
[2020-03-30 13:18] LABS: BLOOD UREA NITROGEN 13 MG/DL (7-18); CALCIUM LEVEL 9.1 MG/DL (8.5-10.1); CARBON DIOXIDE LEVEL 29 MEQ/L (21-32); CHLORIDE LEVEL 106 MEQ/L (98-107); CREATININE FOR GFR 0.84 MG/DL (0.55-1.30); GLOMERULAR FILTRATION RATE > 60.0 (>58); POTASSIUM SERUM 4.1 MEQ/L (3.5-5.1); SODIUM LEVEL 141 MEQ/L (136-145)
[2020-03-30 13:19] LABS: GLUCOSE, FASTING 89 MG/DL (70-100)
== END ==
LOC: M LAB 16:20
PROVIDERS: ATTEND Physician Assistant Medical
DX: Z98.890 Other specified postprocedural states (principal)

== ENCOUNTER → 2020-03-02 | Outpatient (CLI) | payer BC, OTHER ==
--- NOTE | 2020-03-02 10:40 | REPVR ---
PROCEDURE INFORMATION: Exam: CT Head Without Contrast Exam date and time: 03/02/2020 10:24 AM Age: 45 years old Clinical indication: Pain; Headache; Additional info: Persistent headaches TECHNIQUE: Imaging protocol: Computed tomography of the head without contrast. Radiation optimization: All CT scans at this facility use at least one of these dose optimization techniques: automated exposure control; mA and/or kV adjustment per patient size (includes targeted exams where dose is matched to clinical indication); or iterative reconstruction. COMPARISON: CT Head without contrast 09/27/2019 2:33 PM FINDINGS: Brain: Normal. No hemorrhage. Unremarkable white matter. No mass effect. Ventricles: The ventricles and sulci are stable in configuration. Bones/joints: Unremarkable. No acute fracture. Sinuses: Visualized sinuses are unremarkable. No fluid levels. Mastoid air cells: Visualized mastoid air cells are well aerated. Soft tissues: Unremarkable. IMPRESSION: No CT evidence for acute intracranial abnormality or significant change since 09/27/19. Electronically signed by: Dillon Crooks On 03/02/2020 10:41:08 AM
== END ==
LOC: M RAD 09:55
PROVIDERS: ATTEND Neurological Surgery
DX: G89.4 Chronic pain syndrome (principal)

== ENCOUNTER 2020-03-07 11:14 | Emergency (ER) | payer BC, OTHER ==
[~2020-03-07] VITALS: Ht 165.1 cm; Wt 129.8 kg
[~2020-03-07 11:14] MED LIST changes: -CLON-412; -DULO1CAP5; -MECL1TAB31 PO; -METH4PACK PO; -TOPI25TA10 PO; -TOPI50TA9
[2020-03-07] MEDS ORDERED: METH4PACK PO (11:41)
[2020-03-07] MEDS ORDERED: TOPI25TA10 PO (11:41)
[2020-03-07] MEDS ORDERED: NS 1,000 ML IV ONE (12:30)
[2020-03-07] MEDS ORDERED: MORPHINE 4 MG/ML 1ML VIAL/SYRINGE (J2270) IV ONE (12:30)
[2020-03-07 13:44] LABS: BASO % 0.2 % (0.0-1.0); EOS # 0.1 10^3/uL (0.0-0.5); EOS % 0.8 % (0.0-3.0); HEMATOCRIT 41.4 % (36.0-47.0); HEMOGLOBIN 13.7 g/dl (12.0-15.5); LYMPH # 1.8 10^3/uL (1.5-5.0); LYMPH % 17.1 % (24.0-44.0); MEAN CORPUSCULAR HEMOGLOBIN 29.7 pg (27.0-33.0); MEAN CORPUSCULAR HGB CONC 33.1 g/dl (32.0-36.5); MEAN CORPUSCULAR VOLUME 89.8 fl (80.0-96.0); MONO # 0.7 10^3/uL (0.0-0.8); MONO % 6.8 % (0.0-5.0); NEUTROPHILS # 7.8 10^3/uL (1.5-8.5); NEUTROPHILS % 74.7 % (36.0-66.0); PLATELET COUNT, AUTOMATED 365 10^3/uL (150-450); RED BLOOD COUNT 4.61 10^6/uL (4.00-5.40); WHITE BLOOD COUNT 10.4 10^3/uL (4.0-10.0)
[2020-03-07 14:06] LABS: ERYTHROCYTE SEDIMENTATION RATE 39 mm/hr (0-20)
[2020-03-07 14:07] LABS: ALBUMIN 3.7 GM/DL (3.2-5.2); ALT/SGPT 40 U/L (12-78); BILIRUBIN,DIRECT 0.1 MG/DL (0.0-0.2); BILIRUBIN,TOTAL 0.3 MG/DL (0.2-1.0); C REACTIVE PROTEIN QUANTITATIV < 0.30 MG/DL (0.00-0.30); TOTAL PROTEIN 7.3 GM/DL (6.4-8.2)
[2020-03-07 14:26] VITALS: BP 123/72
== END 2020-03-07 14:29 | disposition short-term general hospital (02) ==
LOC: M ED 11:14
DX: T85.112A Breakdown (mechanical) of implanted electronic neurostimulator of spinal cord electrode (lead), initial encounter (principal); R20.2 Paresthesia of skin; M54.9 Dorsalgia, unspecified; G89.29 Other chronic pain; R42 Dizziness and giddiness; R51 Headache; R32 Unspecified urinary incontinence; Z98.890 Other specified postprocedural states; G90.50 Complex regional pain syndrome I, unspecified; K21.9 Gastro-esophageal reflux disease without esophagitis; G43.909 Migraine, unspecified, not intractable, without status migrainosus; F41.9 Anxiety disorder, unspecified; Z98.84 Bariatric surgery status; Z85.43 Personal history of malignant neoplasm of ovary; Z91.041 Radiographic dye allergy status; Z88.0 Allergy status to penicillin; Z88.2 Allergy status to sulfonamides; Z88.1 Allergy status to other antibiotic agents; Z88.6 Allergy status to analgesic agent; Z79.899 Other long term (current) drug therapy
CPT/HCPCS: 80047; 80076; 83605; 85025; 85652; 86140; 96374; 99284; J2270

== ENCOUNTER 2020-05-01 22:34 | Emergency (ER) | payer BC, OTHER ==
[~2020-05-01] VITALS: Ht 167.6 cm; Wt 127.3 kg
[~2020-05-01 22:34] MED LIST changes: +METH4PACK PO; +TOPI25TA10 PO
[2020-05-01] MEDS ORDERED: TOPI50TA9 (22:40)
[2020-05-01] MEDS ORDERED: DULO1CAP5 (22:40)
[2020-05-01] MEDS ORDERED: CLON-412 (22:40)
[2020-05-01] MEDS ORDERED: TRAM50TA2 (22:40)
[2020-05-01] MEDS ORDERED: PRED20TA PO (23:51)
[2020-05-01] MEDS ORDERED: MECL1TAB31 PO (23:51)
[2020-05-02] MEDS ORDERED: predniSONE 20 MG TAB PO ONE
[2020-05-02] MEDS ORDERED: MECLIZINE 25 MG TABLET PO ONE
[2020-05-02 00:04] VITALS: BP 143/86
== END 2020-05-02 00:06 | disposition home or self-care (01) ==
LOC: M ED 22:34
DX: H83.01 Labyrinthitis, right ear (principal); G43.909 Migraine, unspecified, not intractable, without status migrainosus; G90.50 Complex regional pain syndrome I, unspecified; Z91.041 Radiographic dye allergy status; Z91.040 Latex allergy status; Z88.6 Allergy status to analgesic agent; Z88.0 Allergy status to penicillin; Z88.2 Allergy status to sulfonamides; Z88.1 Allergy status to other antibiotic agents; Z88.8 Allergy status to other drugs, medicaments and biological substances; Z91.018 Allergy to other foods; Z79.899 Other long term (current) drug therapy; Z79.891 Long term (current) use of opiate analgesic

== ENCOUNTER → 2020-05-20 | Outpatient (CLI) | payer BC, OTHER ==
[~2020-05-20] MED LIST changes: +CLON-412; +DULO1CAP5; +MECL1TAB31 PO; +TOPI50TA9
== END ==
LOC: M LABSMTC 11:53
PROVIDERS: ATTEND Family Medicine
DX: Z20.828 Contact with and (suspected) exposure to other viral communicable diseases (principal)

== ENCOUNTER 2020-06-02 16:24 | Emergency (ER) | payer BC, OTHER ==
[~2020-06-02] VITALS: Ht 167.6 cm; Wt 129.6 kg
[2020-06-02] MEDS ORDERED: ACET-897 PO (16:39)
--- NOTE | 2020-06-02 18:05 | REP ---
INDICATION: cough COMPARISON: 10/14/2019 TECHNIQUE: PA and lateral. FINDINGS: The mediastinum and cardiac silhouette are normal. The lung sutton are clear and without acute consolidation, effusion, or pneumothorax. The skeletal structures are intact and normal. IMPRESSION: No acute cardiopulmonary process. <Electronically signed by Carmine Almanza > 06/02/20 [id number]
[2020-06-02 18:53] LABS: BASO % 0.4 % (0.0-1.0); EOS # 0.1 10^3/uL (0.0-0.5); EOS % 2.5 % (0.0-3.0); HEMATOCRIT 40.5 % (36.0-47.0); HEMOGLOBIN 13.6 g/dl (12.0-15.5); LYMPH % 38.4 % (24.0-44.0); MEAN CORPUSCULAR HEMOGLOBIN 31.1 pg (27.0-33.0); MEAN CORPUSCULAR HGB CONC 33.6 g/dl (32.0-36.5); MEAN CORPUSCULAR VOLUME 92.5 fl (80.0-96.0); MONO # 0.3 10^3/uL (0.0-0.8); MONO % 6.1 % (0.0-5.0); NEUTROPHILS # 2.8 10^3/uL (1.5-8.5); NEUTROPHILS % 52.2 % (36.0-66.0); PLATELET COUNT, AUTOMATED 340 10^3/uL (150-450); RED BLOOD COUNT 4.38 10^6/uL (4.00-5.40); WHITE BLOOD COUNT 5.3 10^3/uL (4.0-10.0)
[2020-06-02 19:05] LABS: PROTHROMBIN TIME 13.4 SECONDS (12.5-14.3)
[2020-06-02 19:08] LABS: D-DIMER QUANT 329.49 ng/ml (<500)
[2020-06-02 19:38] LABS: ALT/SGPT 22 U/L (12-78); BILIRUBIN,DIRECT < 0.1 MG/DL (0.0-0.2); BILIRUBIN,TOTAL 0.3 MG/DL (0.2-1.0); CK-MB VALUE MASS < 1.0 NG/ML (<3.6); CPK CREATINE PHOSPHOKINASE 85 U/L (26-192); MB/CK RELATIVE INDEX 1.18 (< OR =4); NT-PRO BNP 54 PG/ML (<125); TOTAL PROTEIN 7.5 GM/DL (6.4-8.2); TROPONIN I < 0.02 NG/ML (< 0.10)
[2020-06-02 19:52] VITALS: BP 136/70
[2020-06-02] MEDS ORDERED: VENTAER INH (19:53)
== END 2020-06-02 20:24 | disposition home or self-care (01) ==
LOC: M ED 16:24
DX: R05 Cough (principal); E66.9 Obesity, unspecified; Z79.899 Other long term (current) drug therapy; Z91.041 Radiographic dye allergy status; Z91.040 Latex allergy status; Z91.048 Other nonmedicinal substance allergy status; Z88.8 Allergy status to other drugs, medicaments and biological substances; Z88.2 Allergy status to sulfonamides; Z91.018 Allergy to other foods

== ENCOUNTER → 2020-06-14 | Outpatient (CLI) | payer SELFPAY ==
[~2020-06-14] MED LIST changes: +ACET-897 PO; +VENTAER INH
== END ==
LOC: M LABSMTC 18:19
PROVIDERS: ATTEND Pediatrics
DX: Z11.59 Encounter for screening for other viral diseases (principal)

== ENCOUNTER 2020-07-06 02:21 | Emergency (ER) | payer BC, OTHER ==
[~2020-07-06] VITALS: Ht 167.6 cm; Wt 129.7 kg
[~2020-07-06 02:21] MED LIST changes: -TOPI50TA9; +TOPI50TA9 PO
[2020-07-06 02:22] VITALS: BP 123/75
== END 2020-07-06 03:30 | disposition home or self-care (01) ==
LOC: M ED 02:21
DX: B34.9 Viral infection, unspecified (principal); Z20.828 Contact with and (suspected) exposure to other viral communicable diseases; R50.9 Fever, unspecified; R53.81 Other malaise; R07.0 Pain in throat; R09.81 Nasal congestion; R06.02 Shortness of breath; R05 Cough; R42 Dizziness and giddiness; G90.50 Complex regional pain syndrome I, unspecified; Z79.899 Other long term (current) drug therapy; Z91.041 Radiographic dye allergy status; Z91.040 Latex allergy status; Z91.89 Other specified personal risk factors, not elsewhere classified; Z88.6 Allergy status to analgesic agent; Z88.0 Allergy status to penicillin; Z88.2 Allergy status to sulfonamides; Z88.8 Allergy status to other drugs, medicaments and biological substances; Z91.018 Allergy to other foods
CPT/HCPCS: 99282; U0003

== ENCOUNTER 2020-08-11 17:20 | Emergency (ER) | payer BC, OTHER ==
[~2020-08-11] VITALS: Ht 167.6 cm; Wt 128.5 kg
[2020-08-11 17:21] VITALS: BP 165/93
[2020-08-11] MEDS ORDERED: DULO1CAP6 PO (17:29)
[2020-08-11] MEDS ORDERED: NORCO, ANEXSIA 5/325MG TABLET (HYDROcodone/ACETAMINOPHEN) PO ONE (18:15)
[2020-08-11] MEDS ORDERED: HYDR-3713 PO (18:16)
== END 2020-08-11 18:36 | disposition home or self-care (01) ==
LOC: M ED 17:20
DX: G90.50 Complex regional pain syndrome I, unspecified (principal); Z91.040 Latex allergy status; Z88.0 Allergy status to penicillin; Z88.1 Allergy status to other antibiotic agents; Z88.2 Allergy status to sulfonamides; Z88.6 Allergy status to analgesic agent; Z88.8 Allergy status to other drugs, medicaments and biological substances

== ENCOUNTER 2020-09-29 12:50 | Emergency (ER) | payer BC, OTHER ==
[~2020-09-29] VITALS: Ht 167.6 cm; Wt 127.8 kg
[~2020-09-29 12:50] MED LIST changes: +DULO1CAP6 PO; -LISI-542 PO; +LISI-898 PO; +LISI10TA22 PO; -LISI10TA4 PO
[2020-09-29] MEDS ORDERED: traMADol 50 MG TAB PO ONE (14:05)
--- NOTE | 2020-09-29 14:46 | REP ---
INDICATION: fall pain over R frontal/parietal area. COMPARISON: 03/02/2020. TECHNIQUE: CT BRAIN PERFORMED IN THE AXIAL PLANE. CORONAL RECONSTRUCTION IMAGES ARE PERFORMED. FINDINGS: THE VENTRICLES ARE NORMAL IN SIZE AND POSITION. THERE IS NO MIDLINE SHIFT OR MASS EFFECT. NICE-WHITE DIFFERENTIATION IS WELL MAINTAINED. THERE IS NO ACUTE INTRACRANIAL HEMORRHAGE OR EXTRA-AXIAL FLUID COLLECTION. BONE WINDOW EXAMINATION IS UNREMARKABLE. VISUALIZED MASTOID AIR CELLS AND PARANASAL SINUSES ARE CLEAR. IMPRESSION: NEGATIVE NONCONTRAST CT BRAIN. <Electronically signed by Sotero Nice > 09/29/20 [id number]
--- NOTE | 2020-09-29 14:47 | REP ---
INDICATION: fall pain over cervial spine. COMPARISON: Comparison CT study of the cervical spine is September 27, 2019.. TECHNIQUE: Helical scanning is acquired and overlapping 2 mm high resolution axial images were generated and reviewed at bone and soft tissue window settings. Coronal and sagittal multiplanar re-formations images are generated. FINDINGS: The patient is status post laminectomy at the C5 level. Previous study showed a dorsal column stimulator lead in place in the cervical spinal canal. This has been removed in the interval. There is straightening of the normal cervical lordosis. No malalignment or subluxation is seen. The cervical vertebral body heights are preserved. There is discogenic spurring anteriorly at C 4 5, C5-6, and C6-7. These discs are somewhat narrowed. There is posterior osteophytic ridging at C5-6 with diffuse disc bulging. There is uncovertebral spurring producing left-sided neural foraminal narrowing at C5-6. there is no evidence of fracture or collapse. Prevertebral soft tissues are unremarkable. Lung apices are clear.. IMPRESSION: Degenerative disc disease and mild osteoarthritic facet disease. Prior laminectomy at C5. Degenerative disc disease with neural foraminal narrowing C5-6. No acute bony abnormality.. <Electronically signed by Ho Reveles > 09/29/20 [id number]
--- NOTE | 2020-09-29 15:01 | REP ---
INDICATION: bony tenderness after fall, abrasion COMPARISON: None. TECHNIQUE: There are four views. FINDINGS: There is no fracture or dislocation. Mineralization and joint spaces are normal. There are no calcifications or foreign bodies. IMPRESSION: Negative right wrist. <Electronically signed by Sotero Toro > 09/29/20 [id number]
--- NOTE | 2020-09-29 15:01 | REP ---
INDICATION: bony tenderness after fall, abrasion. COMPARISON: None. TECHNIQUE: Four views of the right elbow are obtained. 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 Joint spaces are preserved. Alignment is normal. No fracture or joint effusion is seen.. . No opaque foreign body noted. IMPRESSION: The coronoid process spurring of the proximal ulna. Otherwise negative radiographs of the right elbow.. <Electronically signed by Ho Reveles > 09/29/20 [id number]
--- NOTE | 2020-09-29 15:02 | REP ---
INDICATION: bony tenderness after fall, abrasion COMPARISON: None. TECHNIQUE: There are five views. FINDINGS: There is no fracture or dislocation. Mineralization and joint spaces are normal. There are no calcifications or foreign bodies. There is no effusion. IMPRESSION: Negative right knee. <Electronically signed by Sotero Toro > 09/29/20 [id number]
[2020-09-29 15:34] VITALS: BP 140/88
== END 2020-09-29 15:35 | disposition home or self-care (01) ==
LOC: M ED 12:50
DX: S80.211A Abrasion, right knee, initial encounter (principal); S50.311A Abrasion of right elbow, initial encounter; W01.0XXA Fall on same level from slipping, tripping and stumbling without subsequent striking against object, initial encounter; Y92.9 Unspecified place or not applicable; Y99.0 Civilian activity done for income or pay; Y93.9 Activity, unspecified; Z79.899 Other long term (current) drug therapy; Z91.041 Radiographic dye allergy status; Z91.040 Latex allergy status; Z88.6 Allergy status to analgesic agent; Z88.0 Allergy status to penicillin; Z88.1 Allergy status to other antibiotic agents; Z88.2 Allergy status to sulfonamides

== ENCOUNTER 2020-10-23 22:29 | Emergency (ER) | payer OTHER ==
[~2020-10-23] VITALS: Ht 167.6 cm; Wt 127.3 kg
[2020-10-24] MEDS ORDERED: NORCO, ANEXSIA 5/325MG TABLET (HYDROcodone/ACETAMINOPHEN) PO ONE (00:50)
[2020-10-24] MEDS ORDERED: ONDANSETRON 4 MG ORAL DISINTEGRATING TAB PO ONE (01:30)
[2020-10-24 02:47] VITALS: BP 130/69
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
== END 2020-10-24 02:55 | disposition home or self-care (01) ==
LOC: M ED 22:29
DX: Z04.1 Encounter for examination and observation following transport accident (principal); M54.2 Cervicalgia; R51.9 Headache, unspecified; K21.9 Gastro-esophageal reflux disease without esophagitis; Z79.899 Other long term (current) drug therapy; Z88.0 Allergy status to penicillin; Z91.040 Latex allergy status; Z88.1 Allergy status to other antibiotic agents; Z88.2 Allergy status to sulfonamides; Z88.6 Allergy status to analgesic agent; Z88.8 Allergy status to other drugs, medicaments and biological substances
CPT/HCPCS: 70450; 71101; 72125; 99283; Q0162

== ENCOUNTER → 2020-11-18 | Outpatient (CLI) | payer OTHER ==
--- NOTE | 2020-11-19 08:48 | REP ---
INDICATION: PAIN IN RIGHT WRIST,PAIN IN RIGHT KNEE. COMPARISON: Radiographs 09/29/2020. TECHNIQUE: Multiple sequences obtained in the axial, coronal and sagittal planes. The study is limited due to motion and body habitus. FINDINGS: Triangular fibrocartilage complex: Obscured by artifact. Scapholunate and lunatotriquetral ligaments: Scapholunate ligament intact, lunatotriquetral ligament obscured by artifact. Flexor and extensor tendons: Intact. No tenosynovitis. Portions of medial tendons are obscured by artifact. Carpal tunnel region: No significant abnormality. No abnormal signal in median nerve. No ganglion cyst is seen. Joint fluid: No effusion. Distal radioulnar joint: Mild fluid present. Bone marrow: No edema or occult fracture, the medial osseous structures including the distal end of the ulna, triquetrum and hamate are obscured by artifact. IMPRESSION: There is small amount of fluid in the distal radioulnar joint. No definite internal derangement or occult fracture. Study is limited due to patient motion and body habitus. Artifact obscures some of the medial structures as discussed above. If desired, the patient should return at no charge for additional imaging of these structures. <Electronically signed by Sotero Nice > 11/19/20 [id number]
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
== END ==
LOC: M RAD 16:22
PROVIDERS: ATTEND Orthopaedic Surgery
DX: M25.541 Pain in joints of right hand (principal); M25.561 Pain in right knee

== ENCOUNTER 2020-12-03 01:53 | Emergency (ER) | payer OTHER ==
[~2020-12-03] VITALS: Ht 167.6 cm; Wt 128.9 kg
[2020-12-03] MEDS ORDERED: HYDR-3719 PO (02:03)
[2020-12-03] MEDS ORDERED: ACETAMINOPHEN 500 MG TAB PO ONE (06:50)
[2020-12-03] MEDS ORDERED: BENZONATATE 100 MG CAP PO ONE (06:50)
[2020-12-03 07:08] LABS: BASO % 0.4 % (0.0-1.0); EOS # 0.1 10^3/uL (0.0-0.5); EOS % 2.1 % (0.0-3.0); HEMATOCRIT 36.6 % (36.0-47.0); HEMOGLOBIN 12.4 g/dl (12.0-15.5); LYMPH # 1.1 10^3/uL (1.5-5.0); LYMPH % 19.8 % (24.0-44.0); MEAN CORPUSCULAR HEMOGLOBIN 31.5 pg (27.0-33.0); MEAN CORPUSCULAR HGB CONC 33.9 g/dl (32.0-36.5); MEAN CORPUSCULAR VOLUME 92.9 fl (80.0-96.0); MONO # 0.4 10^3/uL (0.0-0.8); MONO % 7.7 % (2.0-8.0); NEUTROPHILS # 3.9 10^3/uL (1.5-8.5); NEUTROPHILS % 69.8 % (36.0-66.0); PLATELET COUNT, AUTOMATED 251 10^3/uL (150-450); RED BLOOD COUNT 3.94 10^6/uL (4.00-5.40); WHITE BLOOD COUNT 5.6 10^3/uL (4.0-10.0)
[2020-12-03 07:39] LABS: ALBUMIN 3.2 GM/DL (3.2-5.2); ALT/SGPT 21 U/L (12-78); BILIRUBIN,DIRECT 0.1 MG/DL (0.0-0.2); BILIRUBIN,TOTAL 0.3 MG/DL (0.2-1.0); BLOOD UREA NITROGEN 10 MG/DL (7-18); CALCIUM LEVEL 8.4 MG/DL (8.5-10.1); CARBON DIOXIDE LEVEL 27 MEQ/L (21-32); CHLORIDE LEVEL 111 MEQ/L (98-107); CREATININE FOR GFR 0.71 MG/DL (0.55-1.30); GLOMERULAR FILTRATION RATE > 60.0 (>58); GLUCOSE, FASTING 91 MG/DL (70-100); LIPASE 807 U/L (73-393); POTASSIUM SERUM 3.8 MEQ/L (3.5-5.1); SODIUM LEVEL 143 MEQ/L (136-145); TOTAL PROTEIN 6.1 GM/DL (6.4-8.2)
[2020-12-03] MEDS ORDERED: methylPREDNISolone 125MG 2ML VIAL IV ONE (08:00)
[2020-12-03] MEDS ORDERED: diphenhydrAMINE 50MG/ML VIAL (J1200) IV ONE (08:00)
[2020-12-03] MEDS ORDERED: diphenhydrAMINE 25MG CAP PO ONE (08:00)
[2020-12-03] MEDS ORDERED: ISOVUE-370 76% 100ML VIAL As Ordered ONE (08:16)
--- NOTE | 2020-12-03 08:41 | REP ---
INDICATION: cough. COMPARISON: Comparison chest radiograph October 24, 2020. TECHNIQUE: Portable upright AP chest radiograph. FINDINGS: The lungs are well inflated and free of infiltrate. Pleural angles are sharp. Heart size is normal. Pulmonary vasculature is not increased. IMPRESSION: No active disease. <Electronically signed by Ho Reveles > 12/03/20 0869
--- NOTE | 2020-12-03 09:14 | REP ---
INDICATION: elevated lipase, h/o ovarian cancer. COMPARISON: 12/13/2016 TECHNIQUE: Axial contrast-enhanced images from the lung bases to the pubic symphysis using 100 cc Isovue 370 intravenous contrast material. Coronal and sagittal reformations obtained. This CT examination was performed using the following dose reduction techniques: Automated exposure control, adjustment of mA and/or kv according to the patient's size, and the use of iterative reconstruction technique. FINDINGS: Liver, spleen, pancreas, bilateral adrenal glands and kidneys are normal. Evidence for prior cholecystectomy. Evidence for prior gastric bypass surgery. No bowel obstruction or perforation. No obvious acute enteric inflammatory process. Scattered sigmoid diverticula noted without acute diverticulitis.. Pelvis demonstrates normal bladder and prior hysterectomy. No ascites. No free air. No intraperitoneal or retroperitoneal adenopathy. Abdominal aorta and vasculature appear normal. Musculoskeletal structures are intact and without acute osseous abnormality. IMPRESSION: No acute abdominopelvic pathology appreciated. <Electronically signed by Carmine lAmanza > 12/03/20 0969
[2020-12-03 10:18] VITALS: BP 136/90
[2020-12-03] MEDS ORDERED: TESS100C PO (15:28)
== END 2020-12-03 10:20 | disposition home or self-care (01) ==
LOC: M ED 01:53
DX: B34.2 Coronavirus infection, unspecified (principal); J06.9 Acute upper respiratory infection, unspecified; B34.9 Viral infection, unspecified; R74.8 Abnormal levels of other serum enzymes; Z85.43 Personal history of malignant neoplasm of ovary; K21.9 Gastro-esophageal reflux disease without esophagitis; G43.909 Migraine, unspecified, not intractable, without status migrainosus; G89.29 Other chronic pain; M54.5 Low back pain; F41.9 Anxiety disorder, unspecified; Z88.1 Allergy status to other antibiotic agents; Z88.0 Allergy status to penicillin; Z88.2 Allergy status to sulfonamides; Z88.6 Allergy status to analgesic agent; Z88.8 Allergy status to other drugs, medicaments and biological substances; Z91.040 Latex allergy status; Z91.048 Other nonmedicinal substance allergy status; Z91.041 Radiographic dye allergy status; Z79.899 Other long term (current) drug therapy
CPT/HCPCS: 71045; 74177; 80048; 80076; 83690; 85025; 87798; 87880; 96374; 96375; 99284; J1200; J2930; Q9967

== ENCOUNTER → 2020-12-07 | Outpatient (CLI) | payer BC, OTHER ==
[~2020-12-07] MED LIST changes: +HYDR-3719 PO
[2020-12-07 19:00] LABS: BASO % 0.4 % (0.0-1.0); EOS # 0.2 10^3/uL (0.0-0.5); EOS % 3.6 % (0.0-3.0); HEMATOCRIT 42.2 % (36.0-47.0); HEMOGLOBIN 13.8 g/dl (12.0-15.5); LYMPH # 1.3 10^3/uL (1.5-5.0); MEAN CORPUSCULAR HEMOGLOBIN 30.9 pg (27.0-33.0); MEAN CORPUSCULAR HGB CONC 32.7 g/dl (32.0-36.5); MEAN CORPUSCULAR VOLUME 94.6 fl (80.0-96.0); MONO # 0.4 10^3/uL (0.0-0.8); NEUTROPHILS # 2.6 10^3/uL (1.5-8.5); NEUTROPHILS % 58.8 % (36.0-66.0); PLATELET COUNT, AUTOMATED 298 10^3/uL (150-450); RED BLOOD COUNT 4.46 10^6/uL (4.00-5.40); WHITE BLOOD COUNT 4.5 10^3/uL (4.0-10.0)
[2020-12-07 19:27] LABS: ALBUMIN 3.6 GM/DL (3.2-5.2); ALT/SGPT 466 U/L (12-78); BILIRUBIN,DIRECT 0.2 MG/DL (0.0-0.2); BILIRUBIN,TOTAL 0.3 MG/DL (0.2-1.0); BLOOD UREA NITROGEN 11 MG/DL (7-18); CALCIUM LEVEL 9.3 MG/DL (8.5-10.1); CARBON DIOXIDE LEVEL 27 MEQ/L (21-32); CHLORIDE LEVEL 105 MEQ/L (98-107); CREATININE FOR GFR 0.76 MG/DL (0.55-1.30); GLOMERULAR FILTRATION RATE > 60.0 (>58); GLUCOSE, FASTING 109 MG/DL (70-100); LIPASE 204 U/L (73-393); POTASSIUM SERUM 3.9 MEQ/L (3.5-5.1); SODIUM LEVEL 139 MEQ/L (136-145); TOTAL PROTEIN 6.8 GM/DL (6.4-8.2)
== END ==
LOC: M LAB 17:21
PROVIDERS: ATTEND Physician Assistant
DX: R74.8 Abnormal levels of other serum enzymes (principal)

== ENCOUNTER 2020-12-10 18:11 | Emergency (ER) | payer BC, OTHER ==
[~2020-12-10] VITALS: Ht 167.6 cm; Wt 126.4 kg
[2020-12-10 19:58] LABS: BASO % 0.4 % (0.0-1.0); EOS # 0.2 10^3/uL (0.0-0.5); EOS % 3.4 % (0.0-3.0); HEMATOCRIT 40.6 % (36.0-47.0); HEMOGLOBIN 13.7 g/dl (12.0-15.5); LYMPH # 2.2 10^3/uL (1.5-5.0); LYMPH % 39.9 % (24.0-44.0); MEAN CORPUSCULAR HEMOGLOBIN 31.7 pg (27.0-33.0); MEAN CORPUSCULAR HGB CONC 33.7 g/dl (32.0-36.5); MONO # 0.3 10^3/uL (0.0-0.8); NEUTROPHILS # 2.8 10^3/uL (1.5-8.5); NEUTROPHILS % 49.9 % (36.0-66.0); PLATELET COUNT, AUTOMATED 293 10^3/uL (150-450); RED BLOOD COUNT 4.32 10^6/uL (4.00-5.40); WHITE BLOOD COUNT 5.5 10^3/uL (4.0-10.0)
[2020-12-10 21:04] LABS: ALBUMIN 3.7 GM/DL (3.2-5.2); ALT/SGPT 169 U/L (12-78); BILIRUBIN,DIRECT < 0.1 MG/DL (0.0-0.2); BILIRUBIN,TOTAL 0.3 MG/DL (0.2-1.0); BLOOD UREA NITROGEN 13 MG/DL (7-18); CALCIUM LEVEL 9.1 MG/DL (8.5-10.1); CARBON DIOXIDE LEVEL 26 MEQ/L (21-32); CHLORIDE LEVEL 109 MEQ/L (98-107); CREATININE FOR GFR 0.82 MG/DL (0.55-1.30); GLOMERULAR FILTRATION RATE > 60.0 (>58); GLUCOSE, FASTING 89 MG/DL (70-100); LIPASE 153 U/L (73-393); POTASSIUM SERUM 4.2 MEQ/L (3.5-5.1); SODIUM LEVEL 140 MEQ/L (136-145); TOTAL PROTEIN 7.4 GM/DL (6.4-8.2)
[2020-12-10 21:45] LABS: HEPATITIS B CORE ANTIBODY IGM NEGATIVE (NEGATIVE)
[2020-12-10 21:47] LABS: HEPATITIS B SURFACE ANTIGEN NEGATIVE (NEGATIVE)
[2020-12-10 22:15] LABS: HEPATITIS C VIRUS ABY INDEX < 0.0 INDEX (<0.8)
[2020-12-10 22:17] LABS: HEPATITIS A ANTIBODY IGM NEGATIVE (NEGATIVE)
[2020-12-10 22:28] VITALS: BP 187/96
--- NOTE | 2020-12-10 22:39 | REPVR ---
PROCEDURE INFORMATION: Exam: US Abdomen, Limited; Right Upper Quadrant Exam date and time: 12/10/2020 9:45 PM Age: 45 years old Clinical indication: Pain and abnormal findings; Abnormal lab test; Elevated liver enzymes; Abdominal pain; Flank; Right; Prior surgery; Surgery date: 6+ months; Surgery type: S/P cholecystectomy, gastric bypass; Additional info: Abd pain elevated enzymes TECHNIQUE: Imaging protocol: US abdomen. Real time ultrasound with image documentation. Limited exam focused on the right upper quadrant. COMPARISON: CT ABD/PEL W/IV CONTRAST ONLY 12/03/2020 8:52 AM FINDINGS: Liver: Unremarkable. Gallbladder: Surgically absent. Common bile duct: Mildly dilated to approximately 1 cm, likely postsurgical. No stones. Pancreas: Unremarkable as visualized. Right kidney: No mass. No definite stones. No hydronephrosis. IMPRESSION: No acute sonographic findings. Electronically signed by: Dillon Solo On 12/10/2020 22:39:40 PM
== END 2020-12-10 22:41 | disposition home or self-care (01) ==
LOC: M ED 18:11
DX: B19.9 Unspecified viral hepatitis without hepatic coma (principal); Z88.0 Allergy status to penicillin; Z88.1 Allergy status to other antibiotic agents; Z88.2 Allergy status to sulfonamides; Z88.6 Allergy status to analgesic agent; Z88.8 Allergy status to other drugs, medicaments and biological substances; Z91.040 Latex allergy status; Z91.041 Radiographic dye allergy status

== ENCOUNTER → 2020-12-30 | Outpatient (CLI) | payer BC, OTHER ==
[~2020-12-30] MED LIST changes: -DOXY100C37 PO; +DOXY1CAP62 PO; +ERGO500029 PO; +OMEP40CA4 PO; -OMEP40CA97 PO; -VITA50005 PO
[2020-12-30 15:30] LABS: BASO % 0.4 % (0.0-1.0); EOS # 0.2 10^3/uL (0.0-0.5); EOS % 2.9 % (0.0-3.0); HEMATOCRIT 39.7 % (36.0-47.0); HEMOGLOBIN 13.4 g/dl (12.0-15.5); LYMPH # 1.8 10^3/uL (1.5-5.0); LYMPH % 31.5 % (24.0-44.0); MEAN CORPUSCULAR HEMOGLOBIN 31.5 pg (27.0-33.0); MEAN CORPUSCULAR HGB CONC 33.8 g/dl (32.0-36.5); MEAN CORPUSCULAR VOLUME 93.4 fl (80.0-96.0); MONO # 0.4 10^3/uL (0.0-0.8); MONO % 6.7 % (2.0-8.0); NEUTROPHILS # 3.2 10^3/uL (1.5-8.5); NEUTROPHILS % 58.3 % (36.0-66.0); PLATELET COUNT, AUTOMATED 315 10^3/uL (150-450); RED BLOOD COUNT 4.25 10^6/uL (4.00-5.40); WHITE BLOOD COUNT 5.6 10^3/uL (4.0-10.0)
[2020-12-30 15:54] LABS: ALBUMIN 3.9 GM/DL (3.2-5.2); ALT/SGPT 20 U/L (12-78); BILIRUBIN,DIRECT 0.1 MG/DL (0.0-0.2); BILIRUBIN,TOTAL 0.5 MG/DL (0.2-1.0); BLOOD UREA NITROGEN 10 MG/DL (7-18); C REACTIVE PROTEIN QUANTITATIV 0.32 MG/DL (0.00-0.30); CALCIUM LEVEL 9.2 MG/DL (8.5-10.1); CARBON DIOXIDE LEVEL 25 MEQ/L (21-32); CHLORIDE LEVEL 110 MEQ/L (98-107); GLOMERULAR FILTRATION RATE > 60.0 (>58); GLUCOSE, FASTING 104 MG/DL (70-100); LIPASE 429 U/L (73-393); POTASSIUM SERUM 3.9 MEQ/L (3.5-5.1); SODIUM LEVEL 142 MEQ/L (136-145)
== END ==
LOC: M LAB 14:41
PROVIDERS: ATTEND Physician Assistant
DX: R10.12 Left upper quadrant pain (principal)

== ENCOUNTER → 2021-01-20 | Outpatient (CLI) | payer BC, OTHER, SELFPAY | LOC: M LABSMTC 09:51 | PROVIDERS: ATTEND Pediatrics | DX: Z11.52 Encounter for screening for COVID-19 (principal) ==

== ENCOUNTER 2021-03-09 20:22 | Emergency (ER) | payer BC, OTHER ==
[~2021-03-09] VITALS: Ht 167.6 cm; Wt 124.9 kg
[2021-03-10 02:48] LABS: BASO % 0.4 % (0.0-1.0); EOS # 0.1 10^3/uL (0.0-0.5); EOS % 2.7 % (0.0-3.0); HEMATOCRIT 37.2 % (36.0-47.0); HEMOGLOBIN 12.6 g/dl (12.0-15.5); LYMPH # 2.2 10^3/uL (1.5-5.0); LYMPH % 45.9 % (24.0-44.0); MEAN CORPUSCULAR HEMOGLOBIN 31.8 pg (27.0-33.0); MEAN CORPUSCULAR HGB CONC 33.9 g/dl (32.0-36.5); MEAN CORPUSCULAR VOLUME 93.9 fl (80.0-96.0); MONO # 0.4 10^3/uL (0.0-0.8); MONO % 7.6 % (2.0-8.0); NEUTROPHILS # 2.1 10^3/uL (1.5-8.5); NEUTROPHILS % 43.2 % (36.0-66.0); PLATELET COUNT, AUTOMATED 265 10^3/uL (150-450); RED BLOOD COUNT 3.96 10^6/uL (4.00-5.40); WHITE BLOOD COUNT 4.8 10^3/uL (4.0-10.0)
[2021-03-10 03:13] LABS: BLOOD UREA NITROGEN 10 MG/DL (7-18); CALCIUM LEVEL 8.6 MG/DL (8.5-10.1); CARBON DIOXIDE LEVEL 24 MEQ/L (21-32); CHLORIDE LEVEL 114 MEQ/L (98-107); CREATININE FOR GFR 0.75 MG/DL (0.55-1.30); GLOMERULAR FILTRATION RATE > 60.0 (>58); GLUCOSE, FASTING 88 MG/DL (70-100); POTASSIUM SERUM 3.7 MEQ/L (3.5-5.1); SODIUM LEVEL 144 MEQ/L (136-145)
--- NOTE | 2021-03-10 03:56 | REPVR ---
PROCEDURE INFORMATION: Exam: CT Abdomen and Pelvis without Contrast Exam date and time: 03/10/21 (2:56am) Age: 46 years old Clinical indication: Right flank pain. Right renal colic. TECHNIQUE: Imaging protocol: Computed tomography of the abdomen and pelvis without contrast Radiation optimization: All CT scans at this facility use at least one of these dose optimization techniques: automated exposure control; mA and/or kV adjustment per patient size (includes targeted exams where dose is matched to clinical indication); or iterative reconstruction. COMPARISON: CT ABDOMEN PELVIS of 12/03/20 FINDINGS: Liver: Normal. No solid mass. Gallbladder and bile ducts: S/P cholecystectomy. No ductal dilatation. Pancreas: Normal. No ductal dilatation. Spleen: Normal. No splenomegaly. Adrenal glands: Normal. No mass. Kidneys and ureters: Normal. No hydronephrosis. Stomach and bowel: S/P gastric bypass surgery. No bowel obstruction. No mucosal thickening. Appendix: No evidence of appendicitis. Intraperitoneal space: Unremarkable. No free air. No significant fluid collection. Vasculature: Unremarkable. No abdominal aortic aneurysm. Lymph nodes: Unremarkable. No enlarged lymph nodes. Urinary bladder: Unremarkable as visualized. Reproductive: S/P hysterectomy. Bones/joints: No acute fracture. Degenerative disc changes at L5-S1. Soft tissues: Unremarkable. IMPRESSION: No acute findings. No hydronephrosis is appreciated. No radiodense urinary tract stones are visualized. Electronically signed by: Gale Rogers On 03/10/2021 03:56:30 AM
[2021-03-10] MEDS ORDERED: CIPR-249 PO (04:11)
[2021-03-10] MEDS ORDERED: CIPROFLOXACIN 500MG TABLET PO ONE (04:15)
[2021-03-10 04:39] VITALS: BP 146/94
== END 2021-03-10 04:44 | disposition home or self-care (01) ==
LOC: M ED 20:22
DX: N39.0 Urinary tract infection, site not specified (principal); Z79.899 Other long term (current) drug therapy; Z88.0 Allergy status to penicillin; Z88.1 Allergy status to other antibiotic agents; Z88.2 Allergy status to sulfonamides; Z88.6 Allergy status to analgesic agent; Z88.8 Allergy status to other drugs, medicaments and biological substances; Z91.040 Latex allergy status

== ENCOUNTER → 2021-03-19 | Outpatient (CLI) | payer BC, OTHER ==
[~2021-03-19] MED LIST changes: +CIPR-249 PO
--- NOTE | 2021-03-19 17:01 | REPVR ---
PROCEDURE INFORMATION: Exam: MR Cervical Spine Without Contrast Exam date and time: 03/19/2021 12:48 PM Age: 46 years old Clinical indication: Patient HX: Weakness, possible ms; Additional info: Spondylosis TECHNIQUE: Imaging protocol: Multiplanar magnetic resonance images of the cervical spine without contrast. COMPARISON: CT Spine,cervical w/o contrast 10/24/2020 1:05 AM FINDINGS: Limitations: Patient motion which obscures detail. Vertebrae: There is straightening of the normal cervical lordosis. There is disc space narrowing at C5-C6. There is been posterior decompression of the spinal canal at the C5-C6 level with bilateral L5 laminectomies. Spinal cord: No abnormal signal is detected in the cervical spinal cord to suggest demyelinating plaques. Discs/Spinal canal/Neural foramina: There is no significant spinal canal stenosis or neural foraminal narrowing in the cervical spine although there is mild narrowing at the level the superior endplate of C6 due to an endplate osteophyte. Vasculature: Expected flow voids in the vertebral arteries. Soft tissues: Postoperative change in the subcutaneous soft tissues at the C5-C6 level. IMPRESSION: Limited examination due to patient motion. There does not appear to be significant spinal canal stenosis, neural foraminal narrowing or cord compression. No abnormal signal is detected in the cervical spinal cord to suggest demyelinating lesions of multiple sclerosis. Electronically signed by: Eliane Dunne On 03/19/2021 17:00:41 PM
--- NOTE | 2021-03-19 17:09 | REPVR ---
PROCEDURE INFORMATION: Exam: MR Lumbar Spine Without Contrast Exam date and time: 03/19/2021 12:48 PM Age: 46 years old Clinical indication: Patient HX: Weakness, possible ms; Additional info: Spondylosis TECHNIQUE: Imaging protocol: Multiplanar magnetic resonance images of the lumbar spine without intravenous contrast. COMPARISON: CT Spine, lumbar w/o contrast 06/16/2019 10:27 PM FINDINGS: Vertebrae: The patient may have a transitional vertebral segment. The last mobile appearing disc space will be labeled L5-S1. There is minimal anterior spondylolisthesis of L4 on L5. Diffuse degenerative facet arthropathy. Spinal cord: The conus medullaris is normal appearance at the L1 level. No abnormal signal is seen in the distal thoracic spinal cord to suggest demyelinating plaques of multiple sclerosis. L1-L2: No significant spinal canal stenosis or neural foraminal narrowing. Postoperative change with partial resection of the spinous process L2-L3: No significant spinal canal stenosis or neural foraminal narrowing. Postoperative change posterior paraspinal soft tissues. L3-L4: No significant spinal canal stenosis or neural foraminal narrowing. L4-L5: Mild subluxation of the degenerated facet joints causing the grade 1 anterior spondylolisthesis without evidence of neural compromise. L5-S1: No significant spinal canal stenosis or neural foraminal narrowing. Soft tissues: There appears to be a postoperative defect in the subcutaneous soft tissues at the L1-L2 level likely associated with implantation of the nerve stimulator seen on the prior lumbar spine CT. IMPRESSION: 1. No evidence of demyelination in the distal thoracic spinal cord. No cord compression. 2. No evidence of neural compromise in the lumbar spine. There is postoperative change at the L1-L2 level possibly due to prior implantation of a nerve stimulator. Electronically signed by: Eliane Dunne On 03/19/2021 17:09:00 PM
--- NOTE | 2021-03-19 17:15 | REPVR ---
PROCEDURE INFORMATION: Exam: MR Thoracic Spine Without Contrast Exam date and time: 03/19/2021 12:48 PM Age: 46 years old Clinical indication: Patient HX: Weakness, possible ms; Additional info: Spondylosis TECHNIQUE: Imaging protocol: Multiplanar magnetic resonance images of the thoracic spine without contrast. COMPARISON: CT Spine, thoracic w/contrast 08/14/2019 5:29 PM FINDINGS: Vertebrae: No acute compression fracture in the thoracic spine. Spinal cord: No definite abnormal signal in the thoracic spinal cord however the evaluation is somewhat limited due to patient motion. There is no compression of the thoracic spinal cord. Discs/Spinal canal/Neural foramina: No spinal canal stenosis in the thoracic spine. Not all of the neural foramina are well assessed due to patient motion. Soft tissues: Postoperative change at L1-L2 in the subcutaneous soft tissues. IMPRESSION: The examination is limited due to patient motion which obscures detail. No definite demyelinating plaques are seen in the thoracic spinal cord. There is no evidence of thoracic spinal cord compression. Electronically signed by: Eliane Dunne On 03/19/2021 17:15:04 PM
== END ==
LOC: M RAD 10:48
PROVIDERS: ATTEND Anesthesiology Pain Medicine
DX: M47.12 Other spondylosis with myelopathy, cervical region (principal)

== ENCOUNTER → 2021-03-31 | Outpatient (CLI) | payer BC, OTHER ==
[~2021-03-31] MED LIST changes: -KLOR10TA76 PO; +POTA-136 PO
[2021-03-31 11:47] LABS: ALBUMIN 3.8 GM/DL (3.2-5.2); ALT/SGPT 21 U/L (12-78); AMYLASE 36 U/L (25-115); BILIRUBIN,DIRECT < 0.1 MG/DL (0.0-0.2); BILIRUBIN,TOTAL 0.4 MG/DL (0.2-1.0); CHOLESTEROL LEVEL 186 MG/DL (<200); CHOLESTEROL RISK RATIO 2.906 (<5); FERRITIN 58 NG/ML (8-252); HDL CHOLESTEROL 64 MG/DL (>40); IRON (FE) 106 UG/DL (50-170); LDL CHOLESTEROL 102 MG/DL (<100); LIPASE 158 U/L (73-393); NON-HDL-C 122 MG/DL; PERCENT SATURATION 31.6 % (13.2-45.0); TOTAL IRON BINDING CAPACITY 335 UG/DL (250-450); TOTAL PROTEIN 6.8 GM/DL (6.4-8.2); TRIGLYCERIDES LEVEL 99 MG/DL (<150)
[2021-03-31 12:51] LABS: FOLATE 11.3 NG/ML; VITAMIN B12 LEVEL 373 PG/ML
[2021-03-31 13:01] LABS: HEPATITIS B SURFACE ANTIGEN NEGATIVE (NEGATIVE)
[2021-03-31 13:30] LABS: HEPATITIS C VIRUS ABY INDEX 0.1 INDEX (<0.8)
== END ==
LOC: M LAB 10:21
PROVIDERS: ATTEND Internal Medicine Gastroenterology
DX: R10.821 Right upper quadrant rebound abdominal tenderness (principal)

== ENCOUNTER → 2021-07-14 | Outpatient (REF) | payer BC, OTHER ==
[~2021-07-14] MED LIST changes: +DOXY-443 PO; -DOXY1CAP62 PO
== END ==
LOC: M LAB REF 15:53
PROVIDERS: ATTEND Nurse Practitioner Adult Health
DX: J06.9 Acute upper respiratory infection, unspecified (principal)

== ENCOUNTER 2021-09-12 12:24 | Emergency (ER) | payer BC, OTHER ==
[~2021-09-12] VITALS: Ht 167.6 cm; Wt 107.3 kg
[~2021-09-12 12:24] MED LIST changes: -LISI-898 PO; +LISI5TAB11 PO; -PHEN30CA2; +PHEN30CA21
[2021-09-12 13:18] LABS: BASO % 0.2 % (0.0-1.0); HEMATOCRIT 45.3 % (36.0-47.0); HEMOGLOBIN 15.8 g/dl (12.0-15.5); LYMPH # 1.1 10^3/uL (1.5-5.0); LYMPH % 12.5 % (24.0-44.0); MEAN CORPUSCULAR HEMOGLOBIN 31.5 pg (27.0-33.0); MEAN CORPUSCULAR HGB CONC 34.9 g/dl (32.0-36.5); MEAN CORPUSCULAR VOLUME 90.2 fl (80.0-96.0); MONO # 0.3 10^3/uL (0.0-0.8); MONO % 3.1 % (2.0-8.0); NEUTROPHILS # 7.1 10^3/uL (1.5-8.5); PLATELET COUNT, AUTOMATED 339 10^3/uL (150-450); RED BLOOD COUNT 5.02 10^6/uL (4.00-5.40); WHITE BLOOD COUNT 8.4 10^3/uL (4.0-10.0)
[2021-09-12] MEDS ORDERED: ONDANSETRON 4MG/2ML VIAL IV ONE (13:50)
[2021-09-12 13:55] LABS: ALBUMIN 4.3 GM/DL (3.2-5.2); ALT/SGPT 28 U/L (12-78); BILIRUBIN,DIRECT 0.2 MG/DL (0.0-0.2); BILIRUBIN,TOTAL 0.6 MG/DL (0.2-1.0); BLOOD UREA NITROGEN 9 MG/DL (7-18); CALCIUM LEVEL 10.3 MG/DL (8.5-10.1); CARBON DIOXIDE LEVEL 22 MEQ/L (21-32); CHLORIDE LEVEL 111 MEQ/L (98-107); CREATININE FOR GFR 0.87 MG/DL (0.55-1.30); GLOMERULAR FILTRATION RATE > 60.0 (>58); GLUCOSE, FASTING 117 MG/DL (70-100); LIPASE 214 U/L (73-393); POTASSIUM SERUM 4.7 MEQ/L (3.5-5.1); SODIUM LEVEL 142 MEQ/L (136-145); TOTAL PROTEIN 7.8 GM/DL (6.4-8.2)
[2021-09-12] MEDS ORDERED: METOCLOPRAMIDE INJ 10MG/2ML VIAL (J2765 PER 1) IV ONE (15:30)
[2021-09-12] MEDS ORDERED: NS 1,000 ML IV ONE (15:30)
[2021-09-12] MEDS ORDERED: KETAMINE HCL IV ONE (16:30)
[2021-09-12] MEDS ORDERED: NS IV ONE (16:30)
[2021-09-12] MEDS ORDERED: REGL10TA6 PO (17:12)
[2021-09-12 17:32] VITALS: BP 150/84
== END 2021-09-12 17:44 | disposition home or self-care (01) ==
LOC: M ED 12:24
DX: R11.2 Nausea with vomiting, unspecified (principal); G90.50 Complex regional pain syndrome I, unspecified; Z88.0 Allergy status to penicillin; Z88.1 Allergy status to other antibiotic agents; Z88.2 Allergy status to sulfonamides; Z88.6 Allergy status to analgesic agent; Z91.018 Allergy to other foods; Z91.030 Bee allergy status; Z91.040 Latex allergy status; Z91.041 Radiographic dye allergy status; Z98.84 Bariatric surgery status
CPT/HCPCS: 80048; 80076; 81001; 83690; 85025; 94760; 96361; 96365; 96375; 99284; J2405; J2765

== ENCOUNTER → 2021-09-21 | Outpatient (CLI) | payer BC, OTHER ==
[~2021-09-21] MED LIST changes: +REGL10TA6 PO
[2021-09-21 17:40] LABS: BASO % 0.6 % (0.0-1.0); EOS # 0.2 10^3/uL (0.0-0.5); EOS % 3.7 % (0.0-3.0); HEMATOCRIT 38.5 % (36.0-47.0); HEMOGLOBIN 12.7 g/dl (12.0-15.5); LYMPH # 1.5 10^3/uL (1.5-5.0); LYMPH % 31.3 % (24.0-44.0); MEAN CORPUSCULAR VOLUME 93.9 fl (80.0-96.0); MONO # 0.4 10^3/uL (0.0-0.8); MONO % 8.5 % (2.0-8.0); NEUTROPHILS # 2.7 10^3/uL (1.5-8.5); NEUTROPHILS % 55.7 % (36.0-66.0); PLATELET COUNT, AUTOMATED 284 10^3/uL (150-450); WHITE BLOOD COUNT 4.9 10^3/uL (4.0-10.0)
[2021-09-21 17:59] LABS: ERYTHROCYTE SEDIMENTATION RATE 18 mm/hr (0-20)
[2021-09-21 18:08] LABS: ALBUMIN 3.7 GM/DL (3.2-5.2); ALT/SGPT 24 U/L (12-78); BILIRUBIN,TOTAL 0.4 MG/DL (0.2-1.0); BLOOD UREA NITROGEN 13 MG/DL (7-18); CARBON DIOXIDE LEVEL 29 MEQ/L (21-32); CHLORIDE LEVEL 111 MEQ/L (98-107); CREATININE FOR GFR 0.77 MG/DL (0.55-1.30); GLOMERULAR FILTRATION RATE > 60.0 (>58); GLUCOSE, FASTING 75 MG/DL (70-100); POTASSIUM SERUM 4.1 MEQ/L (3.5-5.1); SODIUM LEVEL 143 MEQ/L (136-145); TOTAL PROTEIN 6.5 GM/DL (6.4-8.2)
== END ==
LOC: M LAB 16:41
PROVIDERS: ATTEND Physician Assistant
DX: M54.2 Cervicalgia (principal)

== ENCOUNTER → 2021-09-23 | Outpatient (CLI) | payer BC, OTHER ==
[~2021-09-23] MED LIST changes: +PROHANCE 279.3MG/ML 15ML VIAL As Ordered ONE; +PROHANCE 279.3MG/ML 5ML VIAL As Ordered ONE
== END ==
LOC: M RAD 08:01
PROVIDERS: ATTEND Physician Assistant
DX: M54.2 Cervicalgia (principal)

== ENCOUNTER 2021-12-03 11:23 | Emergency (ER) | payer BC, OTHER ==
[~2021-12-03] VITALS: Ht 167.6 cm; Wt 100.9 kg
[~2021-12-03 11:23] MED LIST changes: -PROHANCE 279.3MG/ML 15ML VIAL As Ordered ONE; -PROHANCE 279.3MG/ML 5ML VIAL As Ordered ONE
[2021-12-03 13:58] VITALS: BP 123/83
== END 2021-12-03 14:07 | disposition home or self-care (01) ==
LOC: M ED 11:23
DX: B34.2 Coronavirus infection, unspecified (principal); Z20.822 Contact with and (suspected) exposure to COVID-19; Z85.43 Personal history of malignant neoplasm of ovary; R51.9 Headache, unspecified; Z90.49 Acquired absence of other specified parts of digestive tract; Z88.1 Allergy status to other antibiotic agents; Z88.6 Allergy status to analgesic agent; Z88.8 Allergy status to other drugs, medicaments and biological substances; Z91.040 Latex allergy status; Z79.899 Other long term (current) drug therapy

== ENCOUNTER 2022-02-04 11:57 | Emergency (ER) | payer BC, OTHER ==
[~2022-02-04] VITALS: Ht 167.6 cm; Wt 94.6 kg
[2022-02-04] MEDS ORDERED: SEMA2.4P (12:18)
[2022-02-04] MEDS ORDERED: LIDO5DIS41 TOP (14:05)
[2022-02-04] MEDS ORDERED: LIDOCAINE 5% (LIDODERM) PATCH TD ONE (14:05)
[2022-02-04 14:21] VITALS: BP 124/68
[2022-02-04] MEDS ORDERED: **NOTE PATIENT COMMENT** MISC XX SCH (21:00)
== END 2022-02-04 14:22 | disposition home or self-care (01) ==
LOC: M ED 11:57
DX: N64.4 Mastodynia (principal); R07.89 Other chest pain; K21.9 Gastro-esophageal reflux disease without esophagitis; G43.909 Migraine, unspecified, not intractable, without status migrainosus; R56.9 Unspecified convulsions; Z87.09 Personal history of other diseases of the respiratory system; Z85.43 Personal history of malignant neoplasm of ovary; Z98.84 Bariatric surgery status; Z88.0 Allergy status to penicillin; Z88.1 Allergy status to other antibiotic agents; Z88.2 Allergy status to sulfonamides; Z88.8 Allergy status to other drugs, medicaments and biological substances; Z91.018 Allergy to other foods; Z91.030 Bee allergy status; Z91.040 Latex allergy status; Z91.041 Radiographic dye allergy status; Z91.048 Other nonmedicinal substance allergy status; Z79.899 Other long term (current) drug therapy

== ENCOUNTER 2022-03-27 18:39 | Emergency (ER) | payer BC, OTHER ==
[~2022-03-27] VITALS: Ht 167.6 cm; Wt 86.4 kg
[~2022-03-27 18:39] MED LIST changes: +LIDO5DIS41 TOP; +SEMA2.4P
[2022-03-27 19:34] LABS: BASO % 0.5 % (0.0-1.0); EOS # 0.2 10^3/uL (0.0-0.5); EOS % 3.5 % (0.0-3.0); HEMATOCRIT 37.2 % (36.0-47.0); HEMOGLOBIN 12.5 g/dl (12.0-15.5); LYMPH # 1.9 10^3/uL (1.5-5.0); LYMPH % 33.2 % (24.0-44.0); MEAN CORPUSCULAR HEMOGLOBIN 31.7 pg (27.0-33.0); MEAN CORPUSCULAR HGB CONC 33.6 g/dl (32.0-36.5); MEAN CORPUSCULAR VOLUME 94.4 fl (80.0-96.0); MONO # 0.4 10^3/uL (0.0-0.8); MONO % 6.8 % (2.0-8.0); NEUTROPHILS # 3.2 10^3/uL (1.5-8.5); NEUTROPHILS % 55.8 % (36.0-66.0); PLATELET COUNT, AUTOMATED 266 10^3/uL (150-450); RED BLOOD COUNT 3.94 10^6/uL (4.00-5.40); WHITE BLOOD COUNT 5.7 10^3/uL (4.0-10.0)
[2022-03-27 20:09] LABS: ALBUMIN 3.4 GM/DL (3.2-5.2); ALT/SGPT 44 U/L (12-78); BILIRUBIN,TOTAL 0.5 MG/DL (0.2-1.0); BLOOD UREA NITROGEN 15 MG/DL (7-18); CALCIUM LEVEL 8.9 MG/DL (8.5-10.1); CARBON DIOXIDE LEVEL 25 MEQ/L (21-32); CHLORIDE LEVEL 110 MEQ/L (98-107); CREATININE FOR GFR 0.78 MG/DL (0.55-1.30); GLOMERULAR FILTRATION RATE > 60.0 (>58); GLUCOSE, FASTING 105 MG/DL (70-100); POTASSIUM SERUM 4.2 MEQ/L (3.5-5.1); SODIUM LEVEL 141 MEQ/L (136-145); TOTAL PROTEIN 6.1 GM/DL (6.4-8.2)
[2022-03-28] MEDS ORDERED: MORPHINE 4 MG/ML 1ML VIAL/SYRINGE IV ONE (06:25)
[2022-03-28] MEDS ORDERED: NS 1,000 ML IV ONE (06:25)
[2022-03-28] MEDS ORDERED: METOCLOPRAMIDE INJ 10MG/2ML VIAL (J2765 PER 1) IV ONE (07:00)
[2022-03-28] MEDS ORDERED: ALBU8.5H (07:34)
[2022-03-28] MEDS ORDERED: MORP-69 (07:34)
[2022-03-28] MEDS ORDERED: ONDA4TAB6 (07:34)
[2022-03-28 07:49] LABS: BASO % 0.5 % (0.0-1.0); EOS # 0.2 10^3/uL (0.0-0.5); EOS % 4.1 % (0.0-3.0); HEMATOCRIT 35.2 % (36.0-47.0); LYMPH # 1.7 10^3/uL (1.5-5.0); LYMPH % 39.1 % (24.0-44.0); MEAN CORPUSCULAR HEMOGLOBIN 32.4 pg (27.0-33.0); MEAN CORPUSCULAR HGB CONC 34.1 g/dl (32.0-36.5); MEAN CORPUSCULAR VOLUME 95.1 fl (80.0-96.0); MONO # 0.4 10^3/uL (0.0-0.8); MONO % 8.2 % (2.0-8.0); NEUTROPHILS # 2.1 10^3/uL (1.5-8.5); NEUTROPHILS % 47.9 % (36.0-66.0); PLATELET COUNT, AUTOMATED 242 10^3/uL (150-450); WHITE BLOOD COUNT 4.4 10^3/uL (4.0-10.0)
[2022-03-28 08:18] LABS: BLOOD UREA NITROGEN 14 MG/DL (7-18); CARBON DIOXIDE LEVEL 28 MEQ/L (21-32); CHLORIDE LEVEL 109 MEQ/L (98-107); CREATININE FOR GFR 0.72 MG/DL (0.55-1.30); GLOMERULAR FILTRATION RATE > 60.0 (>58); GLUCOSE, FASTING 90 MG/DL (70-100); SODIUM LEVEL 139 MEQ/L (136-145)
[2022-03-28] MEDS ORDERED: REGL10TA6 PO (08:41)
[2022-03-28 09:02] VITALS: BP 101/57
== END 2022-03-28 09:33 | disposition home or self-care (01) ==
LOC: M ED 18:39
DX: K31.84 Gastroparesis (principal); K62.5 Hemorrhage of anus and rectum; G90.50 Complex regional pain syndrome I, unspecified; K21.9 Gastro-esophageal reflux disease without esophagitis; Z85.43 Personal history of malignant neoplasm of ovary; Z90.710 Acquired absence of both cervix and uterus; Z98.84 Bariatric surgery status; Z88.0 Allergy status to penicillin; Z88.1 Allergy status to other antibiotic agents; Z88.2 Allergy status to sulfonamides; Z88.8 Allergy status to other drugs, medicaments and biological substances; Z91.018 Allergy to other foods; Z91.030 Bee allergy status; Z91.040 Latex allergy status; Z91.041 Radiographic dye allergy status; Z91.048 Other nonmedicinal substance allergy status; Z79.899 Other long term (current) drug therapy
CPT/HCPCS: 80048; 80053; 85025; 99284; J2270; J2765

== ENCOUNTER → 2022-03-31 | Outpatient (CLI) | payer BC, OTHER ==
[~2022-03-31] MED LIST changes: +ALBU8.5H INH; -CLON-412; +CLON-412 PO; +MORP-69; +MORP-69 PO; +ONDA4TAB6; +PANT40TA29 PO; +PROM12.54 PR; -SEMA2.4P; +SEMA2.4P SC; +TOPI100T9 PO
[2022-03-31 15:33] LABS: BASO % 0.2 % (0.0-1.0); EOS # 0.1 10^3/uL (0.0-0.5); EOS % 3.1 % (0.0-3.0); HEMATOCRIT 36.5 % (36.0-47.0); HEMOGLOBIN 12.4 g/dl (12.0-15.5); LYMPH # 0.8 10^3/uL (1.5-5.0); LYMPH % 18.6 % (24.0-44.0); MEAN CORPUSCULAR HEMOGLOBIN 31.3 pg (27.0-33.0); MEAN CORPUSCULAR VOLUME 92.2 fl (80.0-96.0); MONO # 0.2 10^3/uL (0.0-0.8); MONO % 4.5 % (2.0-8.0); NEUTROPHILS # 3.3 10^3/uL (1.5-8.5); NEUTROPHILS % 73.4 % (36.0-66.0); PLATELET COUNT, AUTOMATED 250 10^3/uL (150-450); RED BLOOD COUNT 3.96 10^6/uL (4.00-5.40); WHITE BLOOD COUNT 4.5 10^3/uL (4.0-10.0)
[2022-03-31 15:54] LABS: ERYTHROCYTE SEDIMENTATION RATE 15 mm/hr (0-20)
[2022-03-31 16:16] LABS: ALBUMIN 3.1 GM/DL (3.2-5.2); ALT/SGPT 41 U/L (12-78); BILIRUBIN,DIRECT 0.2 MG/DL (0.0-0.2); BILIRUBIN,TOTAL 0.4 MG/DL (0.2-1.0); BLOOD UREA NITROGEN 13 MG/DL (7-18); CALCIUM LEVEL 8.7 MG/DL (8.5-10.1); CARBON DIOXIDE LEVEL 29 MEQ/L (21-32); CHLORIDE LEVEL 109 MEQ/L (98-107); CREATININE FOR GFR 0.76 MG/DL (0.55-1.30); GLOMERULAR FILTRATION RATE > 60.0 (>58); GLUCOSE, FASTING 97 MG/DL (70-100); LIPASE 243 U/L (73-393); POTASSIUM SERUM 3.6 MEQ/L (3.5-5.1); SODIUM LEVEL 140 MEQ/L (136-145); TOTAL PROTEIN 5.8 GM/DL (6.4-8.2)
== END ==
LOC: M LAB 15:01
PROVIDERS: ATTEND Physician Assistant
DX: K29.01 Acute gastritis with bleeding (principal)

== ENCOUNTER → 2022-04-02 | Outpatient (REF) | payer BC, OTHER | LOC: M LAB REF 13:25 | PROVIDERS: ATTEND Physician Assistant | DX: K29.01 Acute gastritis with bleeding (principal) ==

== ENCOUNTER 2022-04-03 10:50 | Observation (INO) | payer BC, OTHER ==
[~2022-04-03] VITALS: Ht 167.6 cm; Wt 88.6 kg
[~2022-04-03 10:50] MED LIST changes: -MORP-69 PO; -PANT40TA29 PO; -PROM12.54 PR; -TOPI100T9 PO
[2022-04-03] MEDS ORDERED: METOCLOPRAMIDE INJ 10MG/2ML VIAL (J2765 PER 1) IV ONE (12:35)
[2022-04-03] MEDS ORDERED: MORPHINE 4 MG/ML 1ML VIAL/SYRINGE IV ONE ×2 (12:35→16:50)
[2022-04-03] MEDS ORDERED: NS 1,000 ML IV ONE (12:35)
[2022-04-03 13:48] LABS: BASO % 0.1 % (0.0-1.0); HEMATOCRIT 42.1 % (36.0-47.0); HEMOGLOBIN 14.7 g/dl (12.0-15.5); LYMPH # 0.7 10^3/uL (1.5-5.0); LYMPH % 8.8 % (24.0-44.0); MEAN CORPUSCULAR HEMOGLOBIN 31.7 pg (27.0-33.0); MEAN CORPUSCULAR HGB CONC 34.9 g/dl (32.0-36.5); MEAN CORPUSCULAR VOLUME 90.9 fl (80.0-96.0); MONO # 0.3 10^3/uL (0.0-0.8); NEUTROPHILS % 86.8 % (36.0-66.0); PLATELET COUNT, AUTOMATED 321 10^3/uL (150-450); RED BLOOD COUNT 4.63 10^6/uL (4.00-5.40)
[2022-04-03 14:22] LABS: CK-MB VALUE MASS < 1.0 NG/ML (<3.6); CPK CREATINE PHOSPHOKINASE 63 U/L (26-192); MB/CK RELATIVE INDEX 1.59 (< OR =4)
[2022-04-03 14:35] LABS: ALT/SGPT 36 U/L (12-78); BILIRUBIN,DIRECT 0.2 MG/DL (0.0-0.2); BILIRUBIN,TOTAL 0.5 MG/DL (0.2-1.0); BLOOD UREA NITROGEN 8 MG/DL (7-18); CALCIUM LEVEL 9.8 MG/DL (8.5-10.1); CARBON DIOXIDE LEVEL 23 MEQ/L (21-32); CHLORIDE LEVEL 112 MEQ/L (98-107); CREATININE FOR GFR 0.82 MG/DL (0.55-1.30); GLOMERULAR FILTRATION RATE > 60.0 (>58); GLUCOSE, FASTING 103 MG/DL (70-100); LIPASE 1322 U/L (73-393); POTASSIUM SERUM 3.6 MEQ/L (3.5-5.1); SODIUM LEVEL 143 MEQ/L (136-145); TOTAL PROTEIN 7.2 GM/DL (6.4-8.2)
[2022-04-03] MEDS ORDERED: methylPREDNISolone 125MG 2ML VIAL IV ONE (15:00)
[2022-04-03] MEDS ORDERED: diphenhydrAMINE 50MG/ML VIAL (J1200) IV ONE (15:00)
[2022-04-03] MEDS ORDERED: ISOVUE-370 76% 100ML VIAL As Ordered ONE (15:19)
[2022-04-03] MEDS ORDERED: ONDANSETRON 4MG 2ML VIAL IV ONE (16:50)
[2022-04-03] MEDS ORDERED: ACETAMINOPHEN TAB 650MG DOSE (2X325MG) PO PRN (17:05)
[2022-04-03] MEDS ORDERED: ONDANSETRON 4MG 2ML VIAL IV PRN (17:25)
[2022-04-03] MEDS: MORPHINE 2 MG/ML 1ML VIAL IV PRN ×3 (17:37→22:20)
[2022-04-03] MEDS: NS 1,000 ML IV SCH ×3 (17:39→22:21)
[2022-04-03] MEDS: METOCLOPRAMIDE INJ 10MG/2ML VIAL (J2765 PER 1) IV SCH (18:09)
[2022-04-03 19:11] LABS: INR 1.1; PROTHROMBIN TIME 14.6 SECONDS (12.7-14.5)
[2022-04-03 19:12] LABS: PARTIAL THROMBOPLASTIN TIME 31.8 SECONDS (25.9-37.0)
[2022-04-03] MEDS ORDERED: TOPI100T9 PO (19:47)
[2022-04-03] MEDS ORDERED: CLON-412 PO (19:49)
[2022-04-03] MEDS ORDERED: PANT40TA29 PO (19:52)
[2022-04-03] MEDS ORDERED: PROM12.54 PR (19:52)
[2022-04-03] MEDS ORDERED: HOME MED LIST COMPLETE! XX SCH (19:55)
[2022-04-03 23:24] VITALS: BP 151/93
[2022-04-04] MEDS ORDERED: ALBUTEROL 90 MCG/ACT 8GM HFA INHALER INH PRN (00:20)
[2022-04-04] MEDS ORDERED: ONDA4TAB6 PO (00:29)
[2022-04-04] MEDS ORDERED: MORP-69 PO (00:29)
[2022-04-04] MEDS: MORPHINE 15 MG SA TAB PO SCH ×3 (02:59→20:38)
[2022-04-04] MEDS: cloNIDine 0.1MG TABLET PO SCH ×3 (03:02→20:36)
[2022-04-04] MEDS: TOPIRAMATE (TopAMAX) 100 MG TAB PO SCH ×2 (03:03→20:36)
[2022-04-04] MEDS: METOCLOPRAMIDE INJ 10MG/2ML VIAL (J2765 PER 1) IV SCH ×4 (03:04→17:25)
[2022-04-04] MEDS: PANTOPRAZOLE 40MG VIAL IV SCH ×3 (03:04→20:36)
[2022-04-04 06:00] VITALS: BP 112/73
[2022-04-04 06:03] VITALS: BP 110/70
[2022-04-04 06:31] LABS: HEMATOCRIT 35.8 % (36.0-47.0); MEAN CORPUSCULAR HEMOGLOBIN 32.3 pg (27.0-33.0); MEAN CORPUSCULAR HGB CONC 33.8 g/dl (32.0-36.5); MEAN CORPUSCULAR VOLUME 95.5 fl (80.0-96.0); PLATELET COUNT, AUTOMATED 244 10^3/uL (150-450); RED BLOOD COUNT 3.75 10^6/uL (4.00-5.40); WHITE BLOOD COUNT 7.4 10^3/uL (4.0-10.0)
[2022-04-04 06:44] LABS: HEMOGLOBIN 12.1 g/dl (12.0-15.5)
[2022-04-04 06:54] VITALS: BP 117/74
[2022-04-04] MEDS: NS 1,000 ML IV SCH ×2 (07:04→15:15)
[2022-04-04 07:11] LABS: ALT/SGPT 37 U/L (12-78); BILIRUBIN,TOTAL 0.4 MG/DL (0.2-1.0); BLOOD UREA NITROGEN 4 MG/DL (7-18); CARBON DIOXIDE LEVEL 22 MEQ/L (21-32); CHLORIDE LEVEL 114 MEQ/L (98-107); CREATININE FOR GFR 0.69 MG/DL (0.55-1.30); GLOMERULAR FILTRATION RATE > 60.0 (>58); GLUCOSE, FASTING 109 MG/DL (70-100); LIPASE 845 U/L (73-393); POTASSIUM SERUM 3.4 MEQ/L (3.5-5.1); SODIUM LEVEL 144 MEQ/L (136-145); TOTAL PROTEIN 5.6 GM/DL (6.4-8.2)
[2022-04-04] MEDS: DULoxetine 30MG CAPSULE (CYMBALTA) PO SCH (10:15)
[2022-04-04] MEDS: ENOXAPARIN 40MG/0.4ML SYRINGE (J1650 PER 10MG) SC SCH (10:18)
[2022-04-04 14:00] VITALS: BP 109/69
[2022-04-04] MEDS ORDERED: POTASSIUM CHLORIDE 10MEQ SR TABLET PO ONE (14:15)
[2022-04-04] MEDS: MORPHINE 2 MG/ML 1ML VIAL IV PRN ×2 (17:25→22:51)
[2022-04-04 20:00] VITALS: BP 139/86
[2022-04-05] MEDS: METOCLOPRAMIDE INJ 10MG/2ML VIAL (J2765 PER 1) IV SCH ×4 (00:15→17:30)
[2022-04-05] MEDS: NS 1,000 ML IV SCH ×3 (00:16→17:33)
[2022-04-05 06:00] VITALS: BP 109/59
[2022-04-05 08:12] LABS: BLOOD UREA NITROGEN 7 MG/DL (7-18); CALCIUM LEVEL 8.4 MG/DL (8.5-10.1); CARBON DIOXIDE LEVEL 23 MEQ/L (21-32); CHLORIDE LEVEL 116 MEQ/L (98-107); CREATININE FOR GFR 0.66 MG/DL (0.55-1.30); GLOMERULAR FILTRATION RATE > 60.0 (>58); GLUCOSE, FASTING 83 MG/DL (70-100); POTASSIUM SERUM 3.5 MEQ/L (3.5-5.1); SODIUM LEVEL 145 MEQ/L (136-145)
[2022-04-05] MEDS: PANTOPRAZOLE 40MG VIAL IV SCH ×2 (08:44→21:06)
[2022-04-05] MEDS: MORPHINE 15 MG SA TAB PO SCH ×2 (08:45→21:08)
[2022-04-05] MEDS: DULoxetine 30MG CAPSULE (CYMBALTA) PO SCH (08:45)
[2022-04-05] MEDS: cloNIDine 0.1MG TABLET PO SCH ×2 (08:48→21:06)
[2022-04-05] MEDS: ENOXAPARIN 40MG/0.4ML SYRINGE (J1650 PER 10MG) SC SCH (08:49)
[2022-04-05] MEDS ORDERED: INFLUENZA QUADRIVALENT PF VACCINE 0.5ML SYRINGE IM.IMMUN ONE (09:00)
[2022-04-05 14:00] VITALS: BP 107/67
[2022-04-05 21:02] VITALS: BP 116/67
[2022-04-05] MEDS: TOPIRAMATE (TopAMAX) 100 MG TAB PO SCH (21:08)
[2022-04-06] MEDS: METOCLOPRAMIDE INJ 10MG/2ML VIAL (J2765 PER 1) IV SCH ×3 (00:16→12:00)
[2022-04-06] MEDS: NS 1,000 ML IV SCH (05:44)
[2022-04-06 06:00] VITALS: BP 112/60
[2022-04-06 06:56] LABS: BASO % 0.5 % (0.0-1.0); EOS # 0.1 10^3/uL (0.0-0.5); HEMATOCRIT 34.3 % (36.0-47.0); HEMOGLOBIN 11.3 g/dl (12.0-15.5); LYMPH # 1.7 10^3/uL (1.5-5.0); LYMPH % 39.2 % (24.0-44.0); MEAN CORPUSCULAR HEMOGLOBIN 31.5 pg (27.0-33.0); MEAN CORPUSCULAR HGB CONC 32.9 g/dl (32.0-36.5); MEAN CORPUSCULAR VOLUME 95.5 fl (80.0-96.0); MONO # 0.3 10^3/uL (0.0-0.8); MONO % 6.9 % (2.0-8.0); NEUTROPHILS # 2.2 10^3/uL (1.5-8.5); NEUTROPHILS % 50.2 % (36.0-66.0); PLATELET COUNT, AUTOMATED 166 10^3/uL (150-450); RED BLOOD COUNT 3.59 10^6/uL (4.00-5.40); WHITE BLOOD COUNT 4.4 10^3/uL (4.0-10.0)
[2022-04-06 07:20] LABS: BLOOD UREA NITROGEN 8 MG/DL (7-18); CALCIUM LEVEL 8.2 MG/DL (8.5-10.1); CARBON DIOXIDE LEVEL 22 MEQ/L (21-32); CHLORIDE LEVEL 114 MEQ/L (98-107); CREATININE FOR GFR 0.65 MG/DL (0.55-1.30); GLOMERULAR FILTRATION RATE > 60.0 (>58); GLUCOSE, FASTING 89 MG/DL (70-100); POTASSIUM SERUM 3.6 MEQ/L (3.5-5.1); SODIUM LEVEL 144 MEQ/L (136-145)
[2022-04-06] MEDS ORDERED: POTASSIUM CHLORIDE 10MEQ SR TABLET PO ONE (07:30)
[2022-04-06] MEDS: PANTOPRAZOLE 40MG VIAL IV SCH (08:07)
[2022-04-06] MEDS: ENOXAPARIN 40MG/0.4ML SYRINGE (J1650 PER 10MG) SC SCH (08:08)
[2022-04-06] MEDS: DULoxetine 30MG CAPSULE (CYMBALTA) PO SCH (08:09)
[2022-04-06 08:11] VITALS: BP 118/64
[2022-04-06] MEDS: cloNIDine 0.1MG TABLET PO SCH (08:11)
[2022-04-06] MEDS: MORPHINE 15 MG SA TAB PO SCH (08:11)
== END 2022-04-06 14:21 | disposition home or self-care (01) ==
LOC: M ED 10:50 → M ED INP 17:02 → M MSPAV 23:24
PROVIDERS: ADMIT Internal Medicine; ATTEND Internal Medicine
DX: R11.2 Nausea with vomiting, unspecified (principal); R19.7 Diarrhea, unspecified; R74.8 Abnormal levels of other serum enzymes; G89.4 Chronic pain syndrome; Z86.69 Personal history of other diseases of the nervous system and sense organs; G43.709 Chronic migraine without aura, not intractable, without status migrainosus; Z85.43 Personal history of malignant neoplasm of ovary; Z90.710 Acquired absence of both cervix and uterus; Z92.21 Personal history of antineoplastic chemotherapy; I10 Essential (primary) hypertension; R10.12 Left upper quadrant pain; K31.84 Gastroparesis; E66.9 Obesity, unspecified; Z98.84 Bariatric surgery status; Z79.899 Other long term (current) drug therapy; Z88.0 Allergy status to penicillin; Z88.8 Allergy status to other drugs, medicaments and biological substances; Z88.2 Allergy status to sulfonamides; Z88.1 Allergy status to other antibiotic agents; Z88.6 Allergy status to analgesic agent; Z91.030 Bee allergy status; Z91.040 Latex allergy status; Z91.018 Allergy to other foods
CPT/HCPCS: 36415; 74177; 80048; 80053; 80076; 81000; 81015; 82550; 82553; 83605; 83690; 84484; 85025; 85027; 85610; 85730; 87040; 87635; 90471; 90686; 93005; 96361; 96372; 96374; 96375; 96376; 99284; C9113; J1200; J1650; J2270; J2405; J2765; J2930; Q9967

== ENCOUNTER → 2022-06-20 | Outpatient (CLI) | payer BC, OTHER ==
[~2022-06-20] MED LIST changes: +MORP-69 PO; +PANT40TA29 PO; +PROM12.54 PR; +TOPI100T9 PO
== END ==
LOC: M RAD 08:16
PROVIDERS: ATTEND Internal Medicine Gastroenterology
DX: Z98.84 Bariatric surgery status (principal); R10.13 Epigastric pain; R11.2 Nausea with vomiting, unspecified; R63.4 Abnormal weight loss

== ENCOUNTER → 2022-08-08 | Outpatient (CLI) | payer BC, OTHER ==
[2022-08-08 18:10] LABS: HEMOGLOBIN 12.4 g/dl (12.0-15.5); MEAN CORPUSCULAR HEMOGLOBIN 32.2 pg (27.0-33.0); MEAN CORPUSCULAR HGB CONC 33.5 g/dl (32.0-36.5); MEAN CORPUSCULAR VOLUME 96.1 fl (80.0-96.0); PLATELET COUNT, AUTOMATED 255 10^3/uL (150-450); RED BLOOD COUNT 3.85 10^6/uL (4.00-5.40); WHITE BLOOD COUNT 4.6 10^3/uL (4.0-10.0)
[2022-08-08 18:26] LABS: LIPASE 43 U/L (12-53)
[2022-08-08 18:28] LABS: IRON (FE) 39 UG/DL (50-170); PERCENT SATURATION 12.9 % (13.2-45.0); TOTAL IRON BINDING CAPACITY 302 UG/DL (250-425)
[2022-08-08 18:31] LABS: AST/SGOT 19 U/L (<34); BLOOD UREA NITROGEN 13 MG/DL (9-23); CALCIUM LEVEL 8.6 MG/DL (8.5-10.1); CARBON DIOXIDE LEVEL 26 MMOL/L (20-31); CHLORIDE LEVEL 110 MMOL/L (98-107); GLOMERULAR FILTRATION RATE > 60.0 (>58); GLUCOSE, FASTING 55 MG/DL (60-100); POTASSIUM SERUM 3.5 MMOL/L (3.5-5.1); SODIUM LEVEL 142 MMOL/L (136-145)
[2022-08-08 18:32] LABS: ALBUMIN 3.3 G/DL (3.2-5.2); ALKALINE PHOSPHATASE 115 U/L (46-116); ALT/SGPT 26 U/L (7.0-40); BILIRUBIN,TOTAL 0.4 MG/DL (0.3-1.2); MAGNESIUM LEVEL 1.9 MG/DL (1.8-2.4); TOTAL 25(OH) VITAMIN D 41.6 NG/ML (20.0-100.0); TOTAL PROTEIN 6.1 G/DL (5.7-8.2); VITAMIN B12 LEVEL 271 PG/ML (211-911)
[2022-08-08 18:46] LABS: ERYTHROCYTE SEDIMENTATION RATE 7 mm/hr (0-20)
[2022-08-08 19:38] LABS: % LABILE ALKALINE PHOSPHATASE 32.1 %; LABILE ALKPHOS 37 U/L; STABLE ALKPHOS 78 U/L
[2022-08-10 19:08] LABS: ENDOMYSIAL ABY IgA Negative (Negative); TISSUE TRANSGLUTAMINASE IgA <2 U/mL (0-3); TISSUE TRANSGLUTAMINASE IgG 2 U/mL (0-5)
== END ==
LOC: M LAB 16:13
PROVIDERS: ATTEND Internal Medicine Gastroenterology
DX: R10.13 Epigastric pain (principal); R11.2 Nausea with vomiting, unspecified; R63.4 Abnormal weight loss; K59.00 Constipation, unspecified; R19.7 Diarrhea, unspecified; Z98.84 Bariatric surgery status; Z13.21 Encounter for screening for nutritional disorder; E56.9 Vitamin deficiency, unspecified

== ENCOUNTER → 2022-08-08 | Outpatient (CLI) | payer BC, OTHER ==
[2022-08-08 18:10] LABS: BASO % 0.2 % (0.0-1.0); EOS # 0.1 10^3/uL (0.0-0.5); EOS % 1.9 % (0.0-3.0); HEMATOCRIT 36.8 % (36.0-47.0); HEMOGLOBIN 12.3 g/dl (12.0-15.5); LYMPH # 1.1 10^3/uL (1.5-5.0); LYMPH % 21.8 % (24.0-44.0); MEAN CORPUSCULAR HEMOGLOBIN 32.2 pg (27.0-33.0); MEAN CORPUSCULAR HGB CONC 33.4 g/dl (32.0-36.5); MEAN CORPUSCULAR VOLUME 96.3 fl (80.0-96.0); MONO # 0.4 10^3/uL (0.0-0.8); MONO % 7.9 % (2.0-8.0); NEUTROPHILS # 3.3 10^3/uL (1.5-8.5); PLATELET COUNT, AUTOMATED 247 10^3/uL (150-450); RED BLOOD COUNT 3.82 10^6/uL (4.00-5.40); WHITE BLOOD COUNT 4.8 10^3/uL (4.0-10.0)
[2022-08-08 18:26] LABS: ALBUMIN 3.4 G/DL (3.2-5.2); ALKALINE PHOSPHATASE 112 U/L (46-116); ALT/SGPT 27 U/L (7.0-40); AST/SGOT 19 U/L (<34); BILIRUBIN,TOTAL 0.4 MG/DL (0.3-1.2); BLOOD UREA NITROGEN 14 MG/DL (9-23); CALCIUM LEVEL 8.6 MG/DL (8.5-10.1); CARBON DIOXIDE LEVEL 24 MMOL/L (20-31); CHLORIDE LEVEL 111 MMOL/L (98-107); CREATININE FOR GFR 0.78 MG/DL (0.55-1.30); GLOMERULAR FILTRATION RATE > 60.0 (>58); GLUCOSE, FASTING 56 MG/DL (60-100); IRON (FE) 40 UG/DL (50-170); PERCENT SATURATION 13.9 % (13.2-45.0); POTASSIUM SERUM 3.6 MMOL/L (3.5-5.1); SODIUM LEVEL 144 MMOL/L (136-145); TOTAL IRON BINDING CAPACITY 288 UG/DL (250-425); TOTAL PROTEIN 5.8 G/DL (5.7-8.2)
[2022-08-08 18:29] LABS: THYROID STIMULATING HORMONE 1.164 uIU/ML (0.55-4.78)
[2022-08-08 18:30] LABS: FERRITIN 79.1 NG/ML (7.3-270.7); TOTAL 25(OH) VITAMIN D 42.8 NG/ML (20.0-100.0)
[2022-08-08 18:31] LABS: FOLATE 3.3 NG/ML (>5.4); VITAMIN B12 LEVEL 271 PG/ML (211-911)
[2022-08-08 18:32] LABS: FREE T4 0.87 NG/DL (0.89-1.76)
== END ==
LOC: M LAB 16:17
PROVIDERS: ATTEND Physician Assistant
DX: Z13.29 Encounter for screening for other suspected endocrine disorder (principal)

== ENCOUNTER 2022-09-04 18:15 | Emergency (ER) | payer BC, OTHER ==
[~2022-09-04] VITALS: Ht 167.6 cm; Wt 83.7 kg
[~2022-09-04 18:15] MED LIST changes: +TOPI-254 PO; -TOPI50TA9 PO
[2022-09-04 18:16] VITALS: BP 138/78
== END 2022-09-04 20:34 | disposition home or self-care (01) ==
LOC: M ED 18:15
DX: S13.4XXA Sprain of ligaments of cervical spine, initial encounter (principal); S16.1XXA Strain of muscle, fascia and tendon at neck level, initial encounter; M50.30 Other cervical disc degeneration, unspecified cervical region; W18.40XA Slipping, tripping and stumbling without falling, unspecified, initial encounter; G43.909 Migraine, unspecified, not intractable, without status migrainosus; Z85.43 Personal history of malignant neoplasm of ovary; Z79.899 Other long term (current) drug therapy; Z88.6 Allergy status to analgesic agent; Z88.0 Allergy status to penicillin; Z88.2 Allergy status to sulfonamides; Z88.8 Allergy status to other drugs, medicaments and biological substances; Z91.041 Radiographic dye allergy status; Z91.040 Latex allergy status; Z91.030 Bee allergy status; Z91.018 Allergy to other foods

== ENCOUNTER → 2022-11-09 | Outpatient (CLI) | payer BC, OTHER | LOC: M PLARAD 12:57 | PROVIDERS: ATTEND Physician Assistant | DX: G81.91 Hemiplegia, unspecified affecting right dominant side (principal) ==

== ENCOUNTER → 2022-11-17 | Outpatient (CLI) | payer BC, OTHER ==
[2022-11-17 07:31] LABS: BASO % 0.5 % (0.0-1.0); EOS # 0.1 10^3/uL (0.0-0.5); EOS % 2.4 % (0.0-3.0); HEMATOCRIT 35.1 % (36.0-47.0); HEMOGLOBIN 11.8 g/dl (12.0-15.5); LYMPH # 0.9 10^3/uL (1.5-5.0); LYMPH % 24.6 % (24.0-44.0); MEAN CORPUSCULAR HEMOGLOBIN 32.2 pg (27.0-33.0); MEAN CORPUSCULAR HGB CONC 33.6 g/dl (32.0-36.5); MEAN CORPUSCULAR VOLUME 95.6 fl (80.0-96.0); MONO # 0.3 10^3/uL (0.0-0.8); MONO % 7.3 % (2.0-8.0); NEUTROPHILS # 2.4 10^3/uL (1.5-8.5); NEUTROPHILS % 64.9 % (36.0-66.0); PLATELET COUNT, AUTOMATED 205 10^3/uL (150-450); RED BLOOD COUNT 3.67 10^6/uL (4.00-5.40); WHITE BLOOD COUNT 3.7 10^3/uL (4.0-10.0)
[2022-11-17 08:25] LABS: C REACTIVE PROTEIN QUANTITATIV < 0.40 MG/DL (<1.0)
[2022-11-17 08:27] LABS: CPK CREATINE PHOSPHOKINASE 65 U/L (34-145)
[2022-11-17 08:38] LABS: ALBUMIN 3.3 G/DL (3.2-5.2); ALKALINE PHOSPHATASE 93 U/L (46-116); ALT/SGPT 34 U/L (7.0-40); AST/SGOT 23 U/L (<34); BILIRUBIN,TOTAL 0.4 MG/DL (0.3-1.2); BLOOD UREA NITROGEN 18 MG/DL (9-23); CALCIUM LEVEL 8.1 MG/DL (8.5-10.1); CARBON DIOXIDE LEVEL 28 MMOL/L (20-31); CHLORIDE LEVEL 109 MMOL/L (98-107); CK-MB VALUE MASS 1.2 NG/ML (<3.6); GLOMERULAR FILTRATION RATE > 60.0 (>58); GLUCOSE, FASTING 94 MG/DL (60-100); MB/CK RELATIVE INDEX 1.84 (< OR =4); POTASSIUM SERUM 3.8 MMOL/L (3.5-5.1); SODIUM LEVEL 144 MMOL/L (136-145); TOTAL PROTEIN 5.5 G/DL (5.7-8.2)
[2022-11-17 09:04] LABS: ERYTHROCYTE SEDIMENTATION RATE 5 mm/hr (0-20)
[2022-11-18 20:07] LABS: ANA (HEP2) Negative (.)
== END ==
LOC: M RAD 06:42
PROVIDERS: ATTEND Physician Assistant
DX: I31.39 Other pericardial effusion (noninflammatory) (principal)

== ENCOUNTER → 2022-11-20 | Outpatient (CLI) | payer BC, OTHER ==
[~2022-11-20] MED LIST changes: +ISOVUE-370 76% 100ML VIAL As Ordered ONE
== END ==
LOC: M RAD 06:58
PROVIDERS: ATTEND Physician Assistant
DX: I31.39 Other pericardial effusion (noninflammatory) (principal)

== ENCOUNTER → 2022-12-08 | Outpatient (CLI) | payer BC, OTHER ==
[~2022-12-08] MED LIST changes: -ISOVUE-370 76% 100ML VIAL As Ordered ONE
[2022-12-08 14:19] LABS: BASO % 0.5 % (0.0-1.0); EOS # 0.1 10^3/uL (0.0-0.5); EOS % 2.2 % (0.0-3.0); HEMATOCRIT 33.5 % (36.0-47.0); HEMOGLOBIN 11.5 g/dl (12.0-15.5); LYMPH # 1.7 10^3/uL (1.5-5.0); LYMPH % 42.5 % (24.0-44.0); MEAN CORPUSCULAR HEMOGLOBIN 32.8 pg (27.0-33.0); MEAN CORPUSCULAR HGB CONC 34.3 g/dl (32.0-36.5); MEAN CORPUSCULAR VOLUME 95.4 fl (80.0-96.0); MONO # 0.4 10^3/uL (0.0-0.8); MONO % 8.6 % (2.0-8.0); NEUTROPHILS # 1.9 10^3/uL (1.5-8.5); PLATELET COUNT, AUTOMATED 242 10^3/uL (150-450); RED BLOOD COUNT 3.51 10^6/uL (4.00-5.40); WHITE BLOOD COUNT 4.1 10^3/uL (4.0-10.0)
[2022-12-08 14:34] LABS: ERYTHROCYTE SEDIMENTATION RATE 7 mm/hr (0-20)
[2022-12-08 14:42] LABS: AMPHETAMINES URINE REFLEX NEGATIVE (NEGATIVE); PHENCYCLIDINE URINE REFLEX NEGATIVE (NEGATIVE)
[2022-12-08 14:43] LABS: BARBITURATES URINE REFLEX NEGATIVE (NEGATIVE); BENZODIAZEPINES URINE REFLEX NEGATIVE (NEGATIVE); CANNABINOIDS URINE REFLEX NEGATIVE (NEGATIVE); COCAINE METABOLITE URINE REFLE NEGATIVE (NEGATIVE); METHADONE URINE REFLEX NEGATIVE (NEGATIVE)
[2022-12-08 14:45] LABS: C REACTIVE PROTEIN QUANTITATIV < 0.40 MG/DL (<1.0)
[2022-12-08 14:46] LABS: ALBUMIN 3.4 G/DL (3.2-5.2); ALKALINE PHOSPHATASE 102 U/L (46-116); ALT/SGPT 77 U/L (7.0-40); AST/SGOT 70 U/L (<34); BILIRUBIN,DIRECT < 0.1 MG/DL (<0.4); BILIRUBIN,TOTAL 0.3 MG/DL (0.3-1.2); BLOOD UREA NITROGEN 16 MG/DL (9-23); CALCIUM LEVEL 8.6 MG/DL (8.5-10.1); CARBON DIOXIDE LEVEL 25 MMOL/L (20-31); CHLORIDE LEVEL 108 MMOL/L (98-107); CREATININE FOR GFR 0.79 MG/DL (0.55-1.30); GLOMERULAR FILTRATION RATE > 60.0 (>58); GLUCOSE, FASTING 83 MG/DL (60-100); POTASSIUM SERUM 3.5 MMOL/L (3.5-5.1); SODIUM LEVEL 140 MMOL/L (136-145); TOTAL PROTEIN 5.6 G/DL (5.7-8.2)
[2022-12-08 14:51] LABS: OPIATES URINE REFLEX PENDING CONFIRMATION (NEGATIVE)
== END ==
LOC: M LAB 13:09
PROVIDERS: ATTEND Physician Assistant
DX: R41.82 Altered mental status, unspecified (principal)

== ENCOUNTER → 2023-02-23 | Outpatient (CLI) | payer BC, OTHER | LOC: M RAD 09:04 | PROVIDERS: ATTEND Physician Assistant | DX: M25.551 Pain in right hip (principal) ==

== ENCOUNTER 2023-03-20 03:11 | Emergency (ER) | payer BC, OTHER ==
[~2023-03-20] VITALS: Ht 168.9 cm; Wt 97.5 kg
[~2023-03-20 03:11] MED LIST changes: +MECL-209 PO; -MECL1TAB31 PO
[2023-03-20 03:12] VITALS: BP 126/74; TEMP 97.7; O2SAT 99
[2023-03-20] MEDS ORDERED: TERA1CAP3 (03:19)
[2023-03-20] MEDS ORDERED: DIPH50CA PO (03:19)
== END 2023-03-20 04:55 | disposition left against medical advice (07) ==
LOC: M ED 03:11
DX: Z53.21 Procedure and treatment not carried out due to patient leaving prior to being seen by health care provider (principal)

== ENCOUNTER 2023-05-20 11:22 | Emergency (ER) | payer BC, OTHER ==
[~2023-05-20] VITALS: Ht 167.6 cm; Wt 100.1 kg
[~2023-05-20 11:22] MED LIST changes: +DIPH50CA PO; +HYDR-3719; +TERA1CAP3
[2023-05-20 11:23] VITALS: BP 130/84; TEMP 98.5; O2SAT 100
[2023-05-20] MEDS ORDERED: MUCI120T PO (14:32)
[2023-05-20] MEDS ORDERED: PSEU-52 PO (14:32)
[2023-05-20] MEDS ORDERED: FLON1SPR NARES (14:32)
== END 2023-05-20 15:22 | disposition home or self-care (01) ==
LOC: M ED 11:22
DX: J06.9 Acute upper respiratory infection, unspecified (principal); Z98.84 Bariatric surgery status; Z79.899 Other long term (current) drug therapy; Z88.6 Allergy status to analgesic agent; Z88.0 Allergy status to penicillin; Z88.2 Allergy status to sulfonamides; Z88.1 Allergy status to other antibiotic agents; Z88.8 Allergy status to other drugs, medicaments and biological substances; Z91.041 Radiographic dye allergy status; Z91.040 Latex allergy status; Z91.030 Bee allergy status; Z91.018 Allergy to other foods

== ENCOUNTER 2023-08-02 17:56 | Emergency (ER) | payer BC, OTHER ==
[~2023-08-02] VITALS: Ht 167.6 cm; Wt 90.3 kg
[~2023-08-02 17:56] MED LIST changes: +MUCI120T PO; +PSEU-52 PO; +TOPI-21 PO; -TOPI-254 PO
[2023-08-02] MEDS ORDERED: PRED20TA (18:08)
[2023-08-02] MEDS ORDERED: BENZ-18 (18:08)
[2023-08-02] MEDS ORDERED: AZIT-12 (18:08)
[2023-08-02] MEDS ORDERED: SEMA2.4P (18:08)
[2023-08-03 03:31] LABS: BASO % 0.7 % (0.0-1.0); EOS # 0.2 10^3/uL (0.0-0.5); EOS % 3.6 % (0.0-3.0); HEMATOCRIT 40.4 % (36.0-47.0); LYMPH # 2.3 10^3/uL (1.5-5.0); LYMPH % 53.9 % (24.0-44.0); MEAN CORPUSCULAR HEMOGLOBIN 32.9 pg (27.0-33.0); MEAN CORPUSCULAR HGB CONC 34.7 g/dl (32.0-36.5); MEAN CORPUSCULAR VOLUME 95.1 fl (80.0-96.0); MONO # 0.3 10^3/uL (0.0-0.8); MONO % 6.9 % (2.0-8.0); NEUTROPHILS # 1.5 10^3/uL (1.5-8.5); NEUTROPHILS % 34.9 % (36.0-66.0); PLATELET COUNT, AUTOMATED 342 10^3/uL (150-450); RED BLOOD COUNT 4.25 10^6/uL (4.00-5.40); WHITE BLOOD COUNT 4.2 10^3/uL (4.0-10.0)
[2023-08-03 03:47] LABS: CK-MB VALUE MASS < 1.0 NG/ML (<3.6); LIPASE 51 U/L (12-53)
[2023-08-03 03:49] LABS: ALBUMIN 3.8 G/DL (3.2-5.2); ALKALINE PHOSPHATASE 100 U/L (46-116); ALT/SGPT 14 U/L (7.0-40); AST/SGOT 21 U/L (<34); BILIRUBIN,TOTAL 0.6 MG/DL (0.3-1.2); BLOOD UREA NITROGEN 9 MG/DL (9-23); CALCIUM LEVEL 9.3 MG/DL (8.5-10.1); CARBON DIOXIDE LEVEL 22 MMOL/L (20-31); CHLORIDE LEVEL 110 MMOL/L (98-107); CREATININE FOR GFR 0.71 MG/DL (0.55-1.30); GLOMERULAR FILTRATION RATE > 60.0 (>51); GLUCOSE, FASTING 84 MG/DL (60-100); MAGNESIUM LEVEL 1.9 MG/DL (1.8-2.4); POTASSIUM SERUM 4.2 MMOL/L (3.5-5.1); SODIUM LEVEL 140 MMOL/L (136-145); TOTAL PROTEIN 7.1 G/DL (5.7-8.2)
[2023-08-03 03:51] LABS: CPK CREATINE PHOSPHOKINASE 47 U/L (34-145); MB/CK RELATIVE INDEX 2.12 (< OR =4)
[2023-08-03] MEDS ORDERED: methylPREDNISolone 125MG 2ML VIAL IV ONE (04:20)
[2023-08-03] MEDS ORDERED: FAMOTIDINE 20MG/2ML VIAL IVP ONE (04:20)
[2023-08-03] MEDS ORDERED: diphenhydrAMINE 50MG/ML VIAL IV ONE (04:20)
[2023-08-03] MEDS ORDERED: IPRATROPIUM 0.5MG/ALBUTEROL 2.5MG INH SOL UD 3ML (DUONEB) NEB ONE (04:20)
[2023-08-03] MEDS ORDERED: ISOVUE-370 76% 100ML VIAL As Ordered ONE (04:30)
[2023-08-03] MEDS ORDERED: NORCO, ANEXSIA 5/325MG TABLET (HYDROcodone/ACETAMINOPHEN) PO ONE (06:45)
[2023-08-03] MEDS ORDERED: NS 1,000 ML IV ONE (06:45)
[2023-08-03 08:14] VITALS: O2SAT 96
[2023-08-03 09:06] VITALS: BP 129/78; O2SAT 98
[2023-08-03 09:12] VITALS: TEMP 97.2
== END 2023-08-03 09:20 | disposition home or self-care (01) ==
LOC: M ED 17:56
DX: R07.89 Other chest pain (principal); R00.1 Bradycardia, unspecified; R94.31 Abnormal electrocardiogram [ECG] [EKG]; G90.50 Complex regional pain syndrome I, unspecified; G43.909 Migraine, unspecified, not intractable, without status migrainosus; Z88.8 Allergy status to other drugs, medicaments and biological substances; Z88.0 Allergy status to penicillin; Z88.2 Allergy status to sulfonamides; Z91.030 Bee allergy status; Z91.040 Latex allergy status; Z91.041 Radiographic dye allergy status; Z91.018 Allergy to other foods; Z79.899 Other long term (current) drug therapy; Z79.1 Long term (current) use of non-steroidal anti-inflammatories (NSAID); Z79.51 Long term (current) use of inhaled steroids; Z79.2 Long term (current) use of antibiotics
CPT/HCPCS: 70450; 71046; 71275; 80053; 81001; 82550; 82553; 83690; 83735; 84484; 85025; 87086; 87486; 87581; 87633; 87798; 93005; 96361; 96374; 96375; 99285; J1200; J2930; Q9967; S0028

== ENCOUNTER → 2023-08-14 | Outpatient (CLI) | payer BC, OTHER ==
[~2023-08-14] MED LIST changes: +AZIT-12; +BENZ-18; +PRED20TA; +SEMA2.4P
[2023-08-14 07:25] LABS: BASO % 0.6 % (0.0-1.0); EOS # 0.1 10^3/uL (0.0-0.5); EOS % 2.9 % (0.0-3.0); HEMOGLOBIN 13.3 g/dl (12.0-15.5); LYMPH # 1.3 10^3/uL (1.5-5.0); MEAN CORPUSCULAR HEMOGLOBIN 32.1 pg (27.0-33.0); MEAN CORPUSCULAR HGB CONC 33.3 g/dl (32.0-36.5); MEAN CORPUSCULAR VOLUME 96.6 fl (80.0-96.0); MONO # 0.2 10^3/uL (0.0-0.8); MONO % 7.6 % (2.0-8.0); NEUTROPHILS # 1.5 10^3/uL (1.5-8.5); NEUTROPHILS % 46.9 % (36.0-66.0); PLATELET COUNT, AUTOMATED 289 10^3/uL (150-450); RED BLOOD COUNT 4.14 10^6/uL (4.00-5.40); WHITE BLOOD COUNT 3.1 10^3/uL (4.0-10.0)
[2023-08-14 07:43] LABS: HEMOGLOBIN A1c 4.5 % (4.0-6.0)
[2023-08-14 07:48] LABS: TOTAL IRON BINDING CAPACITY 329 UG/DL (250-425)
[2023-08-14 07:49] LABS: IRON (FE) 159 UG/DL (50-170); PERCENT SATURATION 48.3 % (13.2-45.0)
[2023-08-14 08:11] LABS: ALBUMIN 3.5 G/DL (3.2-5.2); ALKALINE PHOSPHATASE 86 U/L (46-116); ALT/SGPT 14 U/L (7.0-40); AST/SGOT 13 U/L (<34); BILIRUBIN,TOTAL 0.6 MG/DL (0.3-1.2); BLOOD UREA NITROGEN 12 MG/DL (9-23); CALCIUM LEVEL 9.4 MG/DL (8.5-10.1); CARBON DIOXIDE LEVEL 27 MMOL/L (20-31); CHLORIDE LEVEL 109 MMOL/L (98-107); CHOLESTEROL LEVEL 168 MG/DL (<200); CHOLESTEROL RISK RATIO 2.76 (<5); FERRITIN 86.7 NG/ML (7.3-270.7); FOLATE 13.7 NG/ML (>5.4); FREE T4 1.13 NG/DL (0.89-1.76); GLOMERULAR FILTRATION RATE > 60.0 (>51); GLUCOSE, FASTING 85 MG/DL (60-100); HDL CHOLESTEROL 60.7 MG/DL (>40); LDL CHOLESTEROL 93.3 MG/DL (<100); MAGNESIUM LEVEL 1.9 MG/DL (1.8-2.4); NON-HDL-C 107.3 MG/DL; POTASSIUM SERUM 4.3 MMOL/L (3.5-5.1); SODIUM LEVEL 140 MMOL/L (136-145); THYROID STIMULATING HORMONE 2.496 uIU/ML (0.55-4.78); TOTAL PROTEIN 6.6 G/DL (5.7-8.2); TRIGLYCERIDES LEVEL 70 MG/DL (<150); VITAMIN B12 LEVEL 432 PG/ML (211-911)
[2023-08-15 07:10] LABS: MUMPS VIRUS IgG ANTIBODY 56.3 AU/mL (Immune >10.9); RUBEOLA IgG ANTIBODY >300.0 AU/mL (Immune >16.4)
== END ==
LOC: M LAB 06:19
PROVIDERS: ATTEND Physician Assistant
DX: Z01.84 Encounter for antibody response examination (principal); Z13.220 Encounter for screening for lipoid disorders; Z98.84 Bariatric surgery status

== ENCOUNTER 2023-10-18 15:08 | Emergency (ER) | payer BC ==
[~2023-10-18] VITALS: Ht 167.6 cm; Wt 85.6 kg
[2023-10-18 16:42] LABS: BASO % 0.2 % (0.0-1.0); EOS % 0.8 % (0.0-3.0); HEMATOCRIT 41.5 % (36.0-47.0); HEMOGLOBIN 14.6 g/dl (12.0-15.5); LYMPH # 0.8 10^3/uL (1.5-5.0); LYMPH % 15.5 % (24.0-44.0); MEAN CORPUSCULAR HEMOGLOBIN 33.3 pg (27.0-33.0); MEAN CORPUSCULAR HGB CONC 35.2 g/dl (32.0-36.5); MEAN CORPUSCULAR VOLUME 94.7 fl (80.0-96.0); MONO # 0.3 10^3/uL (0.0-0.8); MONO % 5.2 % (2.0-8.0); NEUTROPHILS # 3.9 10^3/uL (1.5-8.5); NEUTROPHILS % 77.9 % (36.0-66.0); PLATELET COUNT, AUTOMATED 264 10^3/uL (150-450); RED BLOOD COUNT 4.38 10^6/uL (4.00-5.40)
[2023-10-18 17:10] LABS: LIPASE 78 U/L (12-53)
[2023-10-18 17:12] LABS: ALBUMIN 4.1 G/DL (3.2-5.2); ALKALINE PHOSPHATASE 151 U/L (46-116); ALT/SGPT 177 U/L (7.0-40); AST/SGOT 151 U/L (<34); BILIRUBIN,DIRECT 0.2 MG/DL (<0.4); BILIRUBIN,TOTAL 0.7 MG/DL (0.3-1.2)
[2023-10-18 19:00] LABS: BLOOD UREA NITROGEN 13 MG/DL (9-23); CALCIUM LEVEL 9.6 MG/DL (8.5-10.1); CARBON DIOXIDE LEVEL 26 MMOL/L (20-31); CHLORIDE LEVEL 108 MMOL/L (98-107); CREATININE FOR GFR 0.79 MG/DL (0.55-1.30); GLOMERULAR FILTRATION RATE > 60.0 (>51); GLUCOSE, FASTING 93 MG/DL (60-100); POTASSIUM SERUM 4.1 MMOL/L (3.5-5.1); SODIUM LEVEL 143 MMOL/L (136-145)
[2023-10-18] MEDS: diphenhydrAMINE 50MG/ML VIAL IV ONE (19:41)
[2023-10-18] MEDS: NS 1,000 ML IV ONE (19:41)
[2023-10-18] MEDS: ONDANSETRON 4MG 2ML VIAL IV ONE (19:42)
[2023-10-18] MEDS: fentaNYL 100 MCG/2 ML INJECTION IV ONE (19:44)
[2023-10-18] MEDS: ACETAMINOPHEN *IV* 1,000 MG in IV 1 EA IV ONE (20:05)
[2023-10-18] MEDS ORDERED: ONDA4TAB6 PO (21:51)
[2023-10-18 21:53] VITALS: TEMP 98.7; O2SAT 100
[2023-10-18 22:02] VITALS: BP 141/86
== END 2023-10-18 22:11 | disposition home or self-care (01) ==
LOC: M ED 15:08
DX: G90.50 Complex regional pain syndrome I, unspecified (principal); R10.9 Unspecified abdominal pain; R11.2 Nausea with vomiting, unspecified; F41.9 Anxiety disorder, unspecified; Z88.8 Allergy status to other drugs, medicaments and biological substances; Z91.040 Latex allergy status; Z88.0 Allergy status to penicillin; Z88.2 Allergy status to sulfonamides; Z91.018 Allergy to other foods; Z91.030 Bee allergy status; Z79.1 Long term (current) use of non-steroidal anti-inflammatories (NSAID); Z79.899 Other long term (current) drug therapy
CPT/HCPCS: 74176; 76705; 80047; 80048; 80076; 81001; 83690; 85025; 87086; 96361; 96365; 96374; 96375; 99284; J0131; J1200; J2405; J3010

== ENCOUNTER 2023-11-16 16:55 | Inpatient (IN) | payer BC ==
[~2023-11-16] VITALS: Ht 168.9 cm; Wt 92.6 kg
[~2023-11-16 16:55] MED LIST changes: +DOXY-323 PO; -DOXY-443 PO; -IMIP50TA3 PO; +IMIP50TA8 PO
[2023-11-16] MEDS ORDERED: OMEP40CA5 PO (17:09)
[2023-11-16] MEDS ORDERED: AMIT25TA19 PO (17:09)
[2023-11-16] MEDS ORDERED: METO5TAB2 PO (17:09)
[2023-11-16] MEDS ORDERED: PROMETHAZINE (17:09)
[2023-11-16] MEDS ORDERED: NALO4SPR3 (17:09)
[2023-11-16 18:21] LABS: BASO % 0.5 % (0.0-1.0); EOS # 0.1 10^3/uL (0.0-0.5); EOS % 3.4 % (0.0-3.0); HEMATOCRIT 35.4 % (36.0-47.0); HEMOGLOBIN 12.1 g/dl (12.0-15.5); LYMPH # 1.4 10^3/uL (1.5-5.0); LYMPH % 37.7 % (24.0-44.0); MEAN CORPUSCULAR HEMOGLOBIN 32.9 pg (27.0-33.0); MEAN CORPUSCULAR HGB CONC 34.2 g/dl (32.0-36.5); MEAN CORPUSCULAR VOLUME 96.2 fl (80.0-96.0); MONO # 0.3 10^3/uL (0.0-0.8); MONO % 7.1 % (2.0-8.0); NEUTROPHILS # 1.9 10^3/uL (1.5-8.5); NEUTROPHILS % 51.3 % (36.0-66.0); PLATELET COUNT, AUTOMATED 254 10^3/uL (150-450); RED BLOOD COUNT 3.68 10^6/uL (4.00-5.40); WHITE BLOOD COUNT 3.8 10^3/uL (4.0-10.0)
[2023-11-16 18:37] LABS: BLOOD UREA NITROGEN 20 MG/DL (9-23); CALCIUM LEVEL 8.6 MG/DL (8.5-10.1); CARBON DIOXIDE LEVEL 26 MMOL/L (20-31); CHLORIDE LEVEL 111 MMOL/L (98-107); CK-MB VALUE MASS 1.6 NG/ML (<3.6); CPK CREATINE PHOSPHOKINASE 103 U/L (34-145); CREATININE FOR GFR 0.85 MG/DL (0.55-1.30); GLOMERULAR FILTRATION RATE > 60.0 (>51); GLUCOSE, FASTING 59 MG/DL (60-100); MAGNESIUM LEVEL 1.8 MG/DL (1.8-2.4); MB/CK RELATIVE INDEX 1.55 (< OR =4); POTASSIUM SERUM 3.7 MMOL/L (3.5-5.1); SODIUM LEVEL 142 MMOL/L (136-145)
[2023-11-16] MEDS: NS 1,000 ML IV ONE (19:00)
[2023-11-16] MEDS ORDERED: HYDR-3713 PO (19:25)
[2023-11-16] MEDS ORDERED: promethazine PR (19:28)
[2023-11-16] MEDS ORDERED: HOME MED LIST COMPLETE! XX SCH (19:35)
[2023-11-16] MEDS ORDERED: METOCLOPRAMIDE 5 MG TAB PO PRN (21:20)
[2023-11-16] MEDS ORDERED: ONDANSETRON 4MG ORAL DISINTEGRATING TAB PO PRN (21:20)
[2023-11-16 21:57] VITALS: BP 106/80; TEMP 97.2; O2SAT 100
[2023-11-16] MEDS: NORCO, ANEXSIA 5/325MG TABLET (HYDROcodone/ACETAMINOPHEN) PO PRN (22:13)
[2023-11-16] MEDS: OMEPRAZOLE 20MG CAP PO SCH (23:16)
[2023-11-16 23:18] VITALS: BP 106/80
[2023-11-16] MEDS: cloNIDine 0.1MG TABLET PO SCH (23:18)
[2023-11-16] MEDS: DULoxetine 30MG CAPSULE (CYMBALTA) PO SCH (23:19)
[2023-11-16] MEDS: TOPIRAMATE (TopAMAX) 100 MG TAB PO SCH (23:19)
[2023-11-16] MEDS: AMITRIPTYLINE 25MG TABLET PO SCH (23:19)
[2023-11-16 23:26] VITALS: BP 98/62; TEMP 97; O2SAT 98
[2023-11-17] VITALS (8 sets, daily range): BP systolic 90–122; BP diastolic 51–78; TEMP 97.4–98; O2SAT 97–98
[2023-11-17 00:31] LABS: FOLATE 10.68 NG/ML (>5.4)
[2023-11-17 01:41] LABS: HEMOGLOBIN A1c 4.7 % (4.0-6.0)
[2023-11-17 07:37] LABS: HEMATOCRIT 32.3 % (36.0-47.0); HEMOGLOBIN 11.1 g/dl (12.0-15.5); MEAN CORPUSCULAR HEMOGLOBIN 33.2 pg (27.0-33.0); MEAN CORPUSCULAR HGB CONC 34.4 g/dl (32.0-36.5); MEAN CORPUSCULAR VOLUME 96.7 fl (80.0-96.0); PLATELET COUNT, AUTOMATED 201 10^3/uL (150-450); RED BLOOD COUNT 3.34 10^6/uL (4.00-5.40); WHITE BLOOD COUNT 3.3 10^3/uL (4.0-10.0)
[2023-11-17 08:23] LABS: ALBUMIN 2.9 G/DL (3.2-5.2); ALKALINE PHOSPHATASE 79 U/L (46-116); ALT/SGPT 18 U/L (7.0-40); AST/SGOT 17 U/L (<34); BILIRUBIN,TOTAL 0.2 MG/DL (0.3-1.2); BLOOD UREA NITROGEN 17 MG/DL (9-23); CALCIUM LEVEL 8.5 MG/DL (8.5-10.1); CARBON DIOXIDE LEVEL 24 MMOL/L (20-31); CHLORIDE LEVEL 110 MMOL/L (98-107); CREATININE FOR GFR 0.85 MG/DL (0.55-1.30); GLOMERULAR FILTRATION RATE > 60.0 (>51); GLUCOSE, FASTING 85 MG/DL (60-100); POTASSIUM SERUM 3.9 MMOL/L (3.5-5.1); SODIUM LEVEL 140 MMOL/L (136-145); TOTAL PROTEIN 5.2 G/DL (5.7-8.2)
[2023-11-17] MEDS: ENOXAPARIN 40MG/0.4ML SYRINGE (J1650 PER 10MG) SC SCH (09:15)
[2023-11-17] MEDS: METOCLOPRAMIDE 5 MG TAB PO SCH (09:16)
[2023-11-17] MEDS: NS 1,000 ML IV ONE (18:04)
[2023-11-18 07:23] VITALS: BP 104/78; TEMP 98.2; O2SAT 97
[2023-11-18 08:03] LABS: BASO % 0.5 % (0.0-1.0); EOS # 0.1 10^3/uL (0.0-0.5); EOS % 1.9 % (0.0-3.0); HEMATOCRIT 32.6 % (36.0-47.0); LYMPH # 1.5 10^3/uL (1.5-5.0); LYMPH % 34.4 % (24.0-44.0); MEAN CORPUSCULAR HEMOGLOBIN 32.7 pg (27.0-33.0); MEAN CORPUSCULAR HGB CONC 33.7 g/dl (32.0-36.5); MONO # 0.3 10^3/uL (0.0-0.8); MONO % 6.7 % (2.0-8.0); NEUTROPHILS # 2.4 10^3/uL (1.5-8.5); NEUTROPHILS % 56.3 % (36.0-66.0); PLATELET COUNT, AUTOMATED 213 10^3/uL (150-450); RED BLOOD COUNT 3.36 10^6/uL (4.00-5.40); WHITE BLOOD COUNT 4.2 10^3/uL (4.0-10.0)
[2023-11-18 08:14] VITALS: BP_SYST 104; BP_SYST 95; BP_SYST 98; BP_DIAS 59; BP_DIAS 61; BP_DIAS 62
[2023-11-18 08:26] LABS: BLOOD UREA NITROGEN 16 MG/DL (9-23); CALCIUM LEVEL 8.2 MG/DL (8.5-10.1); CARBON DIOXIDE LEVEL 25 MMOL/L (20-31); CHLORIDE LEVEL 113 MMOL/L (98-107); CREATININE FOR GFR 0.87 MG/DL (0.55-1.30); GLOMERULAR FILTRATION RATE > 60.0 (>51); GLUCOSE, FASTING 88 MG/DL (60-100); POTASSIUM SERUM 4.1 MMOL/L (3.5-5.1); SODIUM LEVEL 143 MMOL/L (136-145)
[2023-11-18] MEDS ORDERED: MIDO2.5T PO (11:24)
[2023-11-18 11:47] VITALS: BP 106/72; TEMP 98.5; O2SAT 98
== END 2023-11-18 13:26 | disposition home or self-care (01) | DRG 207 ==
LOC: M ED 16:55 → M ED INP 19:59 → M PCU 21:48
PROVIDERS: ADMIT Family Medicine; ATTEND Internal Medicine Nephrology
DX: I95.2 Hypotension due to drugs (principal); K31.84 Gastroparesis; R00.1 Bradycardia, unspecified; T46.5X5A Adverse effect of other antihypertensive drugs, initial encounter; G44.309 Post-traumatic headache, unspecified, not intractable; K21.9 Gastro-esophageal reflux disease without esophagitis; E55.9 Vitamin D deficiency, unspecified; F43.10 Post-traumatic stress disorder, unspecified; G43.909 Migraine, unspecified, not intractable, without status migrainosus; Z85.43 Personal history of malignant neoplasm of ovary; Z90.49 Acquired absence of other specified parts of digestive tract; R35.0 Frequency of micturition; Z66 Do not resuscitate; Z79.899 Other long term (current) drug therapy; Z88.6 Allergy status to analgesic agent; Z88.0 Allergy status to penicillin; Z88.2 Allergy status to sulfonamides; Z88.5 Allergy status to narcotic agent; Z88.8 Allergy status to other drugs, medicaments and biological substances; Z91.030 Bee allergy status; Z91.041 Radiographic dye allergy status; Z91.040 Latex allergy status; Z91.018 Allergy to other foods; Z98.84 Bariatric surgery status; Z90.710 Acquired absence of both cervix and uterus

== ENCOUNTER → 2023-12-04 | Outpatient (REF) | payer BC, OTHER ==
[~2023-12-04] MED LIST changes: +AMIT25TA19 PO; +METO5TAB2 PO; +MIDO2.5T PO; +NALO4SPR3; +OMEP40CA5 PO; +PROMETHAZINE; +promethazine PR
== END ==
LOC: M LAB REF 16:52
PROVIDERS: ATTEND Physician Assistant
DX: Z01.818 Encounter for other preprocedural examination (principal)

== ENCOUNTER → 2023-12-13 | Outpatient (CLI) | payer BC ==
[~2023-12-13] MED LIST changes: +ONDA-282; +ONDA-282 PO; -ONDA4TAB6; -ONDA4TAB6 PO
== END ==
LOC: M RAD 14:24
PROVIDERS: ATTEND Physician Assistant
DX: U07.1 COVID-19 (principal)

== ENCOUNTER → 2024-01-02 | Outpatient (REF) | payer OTHER | LOC: M LAB REF 17:17 | PROVIDERS: ATTEND Physician Assistant | DX: Z01.818 Encounter for other preprocedural examination (principal) ==

== ENCOUNTER 2024-03-18 07:27 | Emergency (ER) | payer BC, OTHER ==
[~2024-03-18] VITALS: Ht 167.6 cm; Wt 94.8 kg
[2024-03-18 10:27] LABS: BASO % 0.7 % (0.0-1.0); EOS # 0.2 10^3/uL (0.0-0.5); EOS % 3.3 % (0.0-3.0); HEMATOCRIT 36.8 % (36.0-47.0); HEMOGLOBIN 12.2 g/dl (12.0-15.5); LYMPH # 1.3 10^3/uL (1.5-5.0); LYMPH % 20.8 % (24.0-44.0); MEAN CORPUSCULAR HEMOGLOBIN 32.1 pg (27.0-33.0); MEAN CORPUSCULAR HGB CONC 33.2 g/dl (32.0-36.5); MEAN CORPUSCULAR VOLUME 96.8 fl (80.0-96.0); MONO # 0.4 10^3/uL (0.0-0.8); MONO % 6.4 % (2.0-8.0); NEUTROPHILS # 4.2 10^3/uL (1.5-8.5); NEUTROPHILS % 68.6 % (36.0-66.0); PLATELET COUNT, AUTOMATED 289 10^3/uL (150-450); WHITE BLOOD COUNT 6.1 10^3/uL (4.0-10.0)
[2024-03-18 10:52] LABS: BLOOD UREA NITROGEN 14 MG/DL (9-23); CALCIUM LEVEL 8.8 MG/DL (8.5-10.1); CARBON DIOXIDE LEVEL 24 MMOL/L (20-31); CHLORIDE LEVEL 114 MMOL/L (98-107); CREATININE FOR GFR 0.83 MG/DL (0.55-1.30); GLOMERULAR FILTRATION RATE > 60.0 (>51); GLUCOSE, FASTING 107 MG/DL (60-100); POTASSIUM SERUM 3.9 MMOL/L (3.5-5.1); SODIUM LEVEL 145 MMOL/L (136-145)
[2024-03-18 10:55] VITALS: BP 111/68; TEMP 98.1; O2SAT 99
[2024-03-18 10:55] LABS: THYROID STIMULATING HORMONE 1.394 uIU/ML (0.55-4.78)
== END 2024-03-18 11:36 | disposition home or self-care (01) ==
LOC: M ED 07:27
DX: R55 Syncope and collapse (principal); M25.512 Pain in left shoulder; G90.50 Complex regional pain syndrome I, unspecified; Z88.5 Allergy status to narcotic agent; Z88.8 Allergy status to other drugs, medicaments and biological substances; Z91.041 Radiographic dye allergy status; Z91.040 Latex allergy status; Z91.018 Allergy to other foods; Z79.1 Long term (current) use of non-steroidal anti-inflammatories (NSAID); Z79.899 Other long term (current) drug therapy

== ENCOUNTER 2024-04-02 01:33 | Emergency (ER) | payer BC ==
[~2024-04-02] VITALS: Ht 167.6 cm; Wt 94.9 kg
[2024-04-02 01:38] VITALS: BP 148/75; TEMP 100.1; O2SAT 98
[2024-04-02 02:53] LABS: BASO % 0.2 % (0.0-1.0); EOS % 0.1 % (0.0-3.0); HEMATOCRIT 42.5 % (36.0-47.0); HEMOGLOBIN 14.3 g/dl (12.0-15.5); LYMPH # 1.3 10^3/uL (1.5-5.0); MEAN CORPUSCULAR HEMOGLOBIN 31.8 pg (27.0-33.0); MEAN CORPUSCULAR HGB CONC 33.6 g/dl (32.0-36.5); MEAN CORPUSCULAR VOLUME 94.4 fl (80.0-96.0); MONO # 0.7 10^3/uL (0.0-0.8); MONO % 6.2 % (2.0-8.0); NEUTROPHILS % 81.1 % (36.0-66.0); PLATELET COUNT, AUTOMATED 337 10^3/uL (150-450)
[2024-04-02 03:07] LABS: ALBUMIN 3.8 G/DL (3.2-5.2); ALKALINE PHOSPHATASE 107 U/L (46-116); ALT/SGPT 22 U/L (7.0-40); AST/SGOT 20 U/L (<34); BILIRUBIN,TOTAL 0.5 MG/DL (0.3-1.2); BLOOD UREA NITROGEN 10 MG/DL (9-23); CALCIUM LEVEL 9.9 MG/DL (8.5-10.1); CARBON DIOXIDE LEVEL 26 MMOL/L (20-31); CHLORIDE LEVEL 107 MMOL/L (98-107); CREATININE FOR GFR 0.82 MG/DL (0.55-1.30); GLOMERULAR FILTRATION RATE > 60.0 (>51); GLUCOSE, FASTING 106 MG/DL (60-100); POTASSIUM SERUM 4.1 MMOL/L (3.5-5.1); SODIUM LEVEL 140 MMOL/L (136-145); TOTAL PROTEIN 7.5 G/DL (5.7-8.2)
[2024-04-02 03:14] LABS: RSV AMPLIFICATION NEGATIVE (NEGATIVE)
== END 2024-04-02 04:15 | disposition left against medical advice (07) ==
LOC: M ED 01:33
DX: Z53.21 Procedure and treatment not carried out due to patient leaving prior to being seen by health care provider (principal)

== ENCOUNTER → 2024-04-02 | Outpatient (CLI) | payer BC | LOC: M PLAIMG 14:32 | PROVIDERS: ATTEND Family Medicine | DX: R01.1 Cardiac murmur, unspecified (principal) ==

== ENCOUNTER → 2024-06-04 | Outpatient (CLI) | payer BC, OTHER ==
[~2024-06-04] MED LIST changes: -CYCL5TAB PO; +CYCL5TAB4 PO; -DOXY-323 PO; +DOXY-441 PO; +IMIP50TA10 PO; -IMIP50TA8 PO; -MIDO2.5T PO; +MIDO2.5T3 PO; +NALO4SPR20; -NALO4SPR3; +NYST1POW3 TOP; -NYST1POW9 TOP
[2024-06-04 10:20] LABS: BASO % 0.5 % (0.0-1.0); EOS # 0.2 10^3/uL (0.0-0.5); EOS % 3.5 % (0.0-3.0); HEMATOCRIT 38.7 % (36.0-47.0); HEMOGLOBIN 13.2 g/dl (12.0-15.5); LYMPH # 1.4 10^3/uL (1.5-5.0); LYMPH % 31.9 % (24.0-44.0); MEAN CORPUSCULAR HEMOGLOBIN 31.6 pg (27.0-33.0); MEAN CORPUSCULAR HGB CONC 34.1 g/dl (32.0-36.5); MEAN CORPUSCULAR VOLUME 92.6 fl (80.0-96.0); MONO # 0.3 10^3/uL (0.0-0.8); NEUTROPHILS # 2.5 10^3/uL (1.5-8.5); NEUTROPHILS % 56.9 % (36.0-66.0); PLATELET COUNT, AUTOMATED 273 10^3/uL (150-450); RED BLOOD COUNT 4.18 10^6/uL (4.00-5.40); WHITE BLOOD COUNT 4.3 10^3/uL (4.0-10.0)
[2024-06-04 10:59] LABS: CLOSTRIDIUM DIFFICILE PCR NEGATIVE (NEGATIVE)
== END ==
LOC: M LAB 09:28
PROVIDERS: ATTEND Nurse Practitioner Gerontology
DX: Z98.890 Other specified postprocedural states (principal)

== ENCOUNTER → 2024-06-23 | Outpatient (CLI) | payer OTHER ==
[2024-06-23 11:49] LABS: BASO % 0.5 % (0.0-1.0); EOS # 0.1 10^3/uL (0.0-0.5); EOS % 2.9 % (0.0-3.0); HEMATOCRIT 38.8 % (36.0-47.0); HEMOGLOBIN 13.1 g/dl (12.0-15.5); LYMPH # 1.4 10^3/uL (1.5-5.0); LYMPH % 35.3 % (24.0-44.0); MEAN CORPUSCULAR HEMOGLOBIN 31.1 pg (27.0-33.0); MEAN CORPUSCULAR HGB CONC 33.8 g/dl (32.0-36.5); MEAN CORPUSCULAR VOLUME 92.2 fl (80.0-96.0); MONO # 0.4 10^3/uL (0.0-0.8); MONO % 10.2 % (2.0-8.0); NEUTROPHILS # 1.9 10^3/uL (1.5-8.5); NEUTROPHILS % 50.8 % (36.0-66.0); PLATELET COUNT, AUTOMATED 256 10^3/uL (150-450); RED BLOOD COUNT 4.21 10^6/uL (4.00-5.40); WHITE BLOOD COUNT 3.8 10^3/uL (4.0-10.0)
[2024-06-23 11:55] LABS: ERYTHROCYTE SEDIMENTATION RATE 20 mm/hr (0-30)
== END ==
LOC: M LAB 11:18
PROVIDERS: ATTEND Physical Medicine & Rehabilitation
DX: R50.9 Fever, unspecified (principal)

== ENCOUNTER → 2024-06-27 | Outpatient (CLI) | payer OTHER ==
[2024-06-27 09:16] LABS: BASO % 0.5 % (0.0-1.0); EOS # 0.1 10^3/uL (0.0-0.5); EOS % 3.1 % (0.0-3.0); HEMATOCRIT 38.5 % (36.0-47.0); HEMOGLOBIN 12.9 g/dl (12.0-15.5); LYMPH # 1.2 10^3/uL (1.5-5.0); LYMPH % 29.8 % (24.0-44.0); MEAN CORPUSCULAR HGB CONC 33.5 g/dl (32.0-36.5); MEAN CORPUSCULAR VOLUME 92.5 fl (80.0-96.0); MONO # 0.4 10^3/uL (0.0-0.8); MONO % 9.4 % (2.0-8.0); NEUTROPHILS # 2.4 10^3/uL (1.5-8.5); NEUTROPHILS % 57.2 % (36.0-66.0); PLATELET COUNT, AUTOMATED 259 10^3/uL (150-450); RED BLOOD COUNT 4.16 10^6/uL (4.00-5.40); WHITE BLOOD COUNT 4.1 10^3/uL (4.0-10.0)
[2024-06-27 19:26] LABS: ERYTHROCYTE SEDIMENTATION RATE 14 mm/hr (0-30)
== END ==
LOC: M LAB 08:47
PROVIDERS: ATTEND Nurse Practitioner Gerontology
DX: Z98.890 Other specified postprocedural states (principal)

== ENCOUNTER → 2024-09-18 | Outpatient (REF) | payer OTHER | LOC: M LAB REF 17:02 | PROVIDERS: ATTEND Physician Assistant | DX: T81.31XD Disruption of external operation (surgical) wound, not elsewhere classified, subsequent encounter (principal) ==

== ENCOUNTER → 2025-03-07 | Outpatient (CLI) | payer OTHER ==
[~2025-03-07] MED LIST changes: -DIPH50CA PO; +DIPH50CA31 PO; -IBUP-1022 PO; +IBUP600T42 PO; +LIDO1ADH93 TOP; -LIDO5DIS41 TOP; -PREG50CA; +PREG50CA87; +TOPI-256 PO; +TOPI-257 PO; -TOPI100T9 PO; -TOPI25TA10 PO; +ZOLP10TA11 PO; -ZOLP10TA2 PO
[2025-03-10 11:14] LABS: RUBEOLA IgG ANTIBODY > 300.00 AU/mL (>16.49)
[2025-03-12 16:16] LABS: RUBELLA ANTIBODY IGM < 20.00 AU/mL (<20.00)
== END ==
LOC: M LAB 15:49
PROVIDERS: ATTEND Physician Assistant
DX: Z01.84 Encounter for antibody response examination (principal); Z20.4 Contact with and (suspected) exposure to rubella; Z20.818 Contact with and (suspected) exposure to other bacterial communicable diseases

== ENCOUNTER → 2025-04-10 | Outpatient (CLI) | payer OTHER | LOC: M WHC 09:07 | PROVIDERS: ATTEND Family Medicine | DX: Z12.31 Encounter for screening mammogram for malignant neoplasm of breast (principal) ==